=== PATIENT | female | born 1960 | race Caucasian/White ===

== ENCOUNTER 2020-08-24 10:21 | Emergency (ER) | payer OTHER, SELFPAY ==
--- NOTE | ~2020-08-24 | XR_ITS ---
EXAMINATION: XR CHEST CLINICAL INFORMATION: Dyspnea. COMPARISON: 05/27/2016 TECHNIQUE: Frontal view of the chest was obtained. FINDINGS: Lungs are well expanded and clear. No evidence of consolidation, pneumothorax or pleural effusion. Cardiomediastinal silhouette has normal size and contour. The visualized bones are intact. There is mild levocurvature of the thoracic spine. XR/XR chest 1V IMPRESSION: No evidence of pneumonia. No acute cardiopulmonary findings compared to 05/27/2016.
[2020-08-24 10:25] VITALS: BP 118/69; PULSE 88; RESP 24; TEMP 36.6; O2SAT 89; BMI 24.5
--- NOTE | 2020-08-24 10:40 | ED.ASTHMA ---
HPI - Asthma General Chief Complaint: Asthma Stated Complaint: ASTHMA Time Seen by Provider: 08/24/20 10:40 Source: patient Mode of arrival: ambulatory Limitations: no limitations History of Present Illness HPI Narrative: 60 yo female with asthma has old INH reports 5 days of wheezing, cough, trouble breathing - viral like illness, came to ED 89% on RA complaint: asthma attack , shortness of breath and wheezing Onset (ago): day(s) (5) Severity: moderate Context: recent URI and ran out of meds Associated symptoms: productive cough Asthma History: childhood onset Treatments Prior to Arrival: inhaled bronchodilator Related Data Home Medications Medication Instructions Recorded Confirmed methadone 10 mg/5 mL oral solution 65 mg PO DAILY ml 07/17/20 07/17/20 Previous Rx's Medication Instructions Recorded albuterol sulfate 90 mcg/actuation 2 puff PO Q6H PRN 30 Days #18 g 07/17/20 aerosol inhaler budesonide-formoterol HFA 80 2 puff INHALATION Q12H 30 Days 07/24/20 mcg-4.5 mcg/actuation aerosol #10.2 g inhaler doxycycline hyclate 100 mg PO BID 7 Days #14 cap 08/24/20 prednisone 60 mg PO DAILY 5 Days #15 tab 08/24/20 Allergies Allergy/AdvReac Type Severity Reaction Status Date / Time Penicillins Allergy Unknown RASH Verified 07/17/20 09:14 Review of Systems Review of Systems: Constitutional : No Fever, pos Chills, pos myalgias ENT/Mouth : No Hoarseness, No sore throat, No Rhinorrhea Eyes: No Redness, No Discharge, No Vision Changes Cardiovascular : No Chest Pain, positive SOB, positive Dyspnea on Exertion, No Edema Respiratory : positive Cough, pos Sputum, positive Wheezing, Gastrointestinal : No Nausea, No Vomiting, No Diarrhea, No abdominal Pain Genitourinary : No Dysuria, No Hematuria Musculoskeletal : No joint pain, pos Myalgias Skin : No rash Neuro : No Weakness, No Numbness, No Headache Psych : No anxiety, depression Heme/Lymph: No Bruising, No Bleeding Endocrine : No Polyuria, No Polydipsia All other systems reviewed and are negative PMFSH Past Medical History Attestation statement: The following information was validated with the patient. Medical History Dyslipidemia History of heroin use Methadone use Moderate asthma Surgical History History of section History of esophagogastroduodenoscopy (EGD) History of mammogram Hx of colonoscopy Family History Family History Father No problems noted. Mother Breast cancer Sister Breast cancer, Onset Age: 47 Brother Cancer Maternal Uncle Cancer Social History Social History Alcohol intake: never Smoking Status: Current every day smoker Tobacco Type: Cigarette Cigarettes Per Day: 10 Advance Directives: No Advance Directives Information Provided: No Physical Exam Vital Signs: Vital Signs: Last Vital Signs Temp 98 F 08/24/20 10:25 Pulse 78 08/24/20 12:16 Resp 24 H 08/24/20 10:25 BP 118/69 08/24/20 10:25 Pulse Ox 89 L 08/24/20 10:25 Body Mass Index 24.5 Appearance: Alert. Oriented X3. Mild acute distress. Eyes: Pupils equal, round and reactive to light. ENT: Pharynx normal. Neck: Normal inspection. Neck supple. CVS: Normal heart rate and rhythm. Pulses normal. Respiratory: Mild respiratory distress - retractions, tachypnea. Breath sounds diffuse insp and exp wheezes, very coarse wet cough Abdomen: Soft and nontender. Skin: Skin warm and dry. Normal skin color. Normal skin turgor. Extremities: No lower extremity edema. No calf ttp Neuro: Oriented X 3. No motor deficit. No sensory deficit. Course Course Course Narrative: repeat 5mg neb ordered still coarse 92% on RA, RR 22 I offered admission but the patient refuses she is alert and oriented, answering questions appropriately MDM - Asthma MDM Narrative Medical decision making narrative: 60 yo female with body aches, cough, asthma exacerbation used old INH symptoms x 5 days at this time came in RA sat 89% not on home O2 - will need labs, cultures, COVID swab, CXR, hour long 10mg neb, IV steroids, IV magnesium dispo per results and findings. Lab Data Result diagrams: 08/24/20 11:03 08/24/20 11:03 Labs: Lab Results 08/24/20 08/24/20 08/24/20 Range/Units 11:03 11:03 11:03 WBC 7.2 (4.8-10.8) X10*3/uL RBC 5.08 (4.20-5.50) X10*6/uL Hgb 15.8 (12.0-16.0) g/dl Hct 47.5 H (37-47) % MCV 93.5 (80-98) fL MCH 31.1 (27.0-33.0) pg MCHC 33.3 (31.0-35.0) g/dl RDW 13.7 (11.0-16.0) % Plt Count 354 (160-400) X10*3/uL MPV 8.8 L (9.4-12.3) fL Immature Gran % (Auto) 0.1 (0.0-0.4) % Neut % (Auto) 58.7 (45-73) % Lymph % (Auto) 33.1 (20-40) % [place] % (Auto) 5.3 (2-11) % Eos % (Auto) 2.1 (0-4) % Baso % (Auto) 0.7 (0-2) % Lymph # (Auto) 2.4 (1.2-4.9) X10*3/uL [place] # (Auto) 0.4 (0.1-1.2) X10*3/uL Eos # (Auto) 0.2 (0.0-0.4) X10*3/uL Baso # (Auto) 0.1 (0.0-0.2) X10*3/uL Abs Immat Gran (auto) 0.01 (0.00-0.03) X10*3/uL Absolute Neuts (auto) 4.2 (2.0-8.3) X10*3/uL Absolute Nucleated RBC 0.000 (0.0-0.012) X10*3/uL Nucleated RBC % (auto) 0.0 (0.0-0.2) /100WBC Hold Blue Top SEE NOTE Sodium 139 (135-145) mmol/L Potassium 4.5 (3.3-5.1) mmol/L Chloride 101 (96-108) mmol/L Carbon Dioxide 30 H (22-29) mmol/L Anion Gap 13 (12-20) BUN 12 (9-16) mg/dL Creatinine 0.77 (0.5-1.4) mg/dL Estim Creat Clear Calc 62.1 Estimated GFR > 60 Random Glucose 126 H (60-115) mg/dL Lactic Acid (0.5-2.0) mmol/L Calcium 9.1 (8.4-10.2) mg/dL Magnesium 2.0 (1.6-2.6) mg/dL Total Bilirubin 0.6 (0.0-1.0) mg/dL Direct Bilirubin 0.2 (0.0-0.5) mg/dL AST 19 (5-31) U/L ALT 19 (0-31) U/L Alkaline Phosphatase 74 (39-117) U/L Total Protein 7.0 (6.5-8.0) g/dL Albumin 4.2 (3.5-5.0) g/dL Coronavirus (PCR) (Negative) Influenza Type A (PCR) (Negative) Influenza Type B (PCR) (Negative) RSV RNA Qual (PCR) (Negative) 08/24/20 08/24/20 Range/Units 11:03 11:03 WBC (4.8-10.8) X10*3/uL RBC (4.20-5.50) X10*6/uL Hgb (12.0-16.0) g/dl Hct (37-47) % MCV (80-98) fL MCH (27.0-33.0) pg MCHC (31.0-35.0) g/dl RDW (11.0-16.0) % Plt Count (160-400) X10*3/uL MPV (9.4-12.3) fL Immature Gran % (Auto) (0.0-0.4) % Neut % (Auto) (45-73) % Lymph % (Auto) (20-40) % [place] % (Auto) (2-11) % Eos % (Auto) (0-4) % Baso % (Auto) (0-2) % Lymph # (Auto) (1.2-4.9) X10*3/uL [place] # (Auto) (0.1-1.2) X10*3/uL Eos # (Auto) (0.0-0.4) X10*3/uL Baso # (Auto) (0.0-0.2) X10*3/uL Abs Immat Gran (auto) (0.00-0.03) X10*3/uL Absolute Neuts (auto) (2.0-8.3) X10*3/uL Absolute Nucleated RBC (0.0-0.012) X10*3/uL Nucleated RBC % (auto) (0.0-0.2) /100WBC Hold Blue Top Sodium (135-145) mmol/L Potassium (3.3-5.1) mmol/L Chloride (96-108) mmol/L Carbon Dioxide (22-29) mmol/L Anion Gap (12-20) BUN (9-16) mg/dL Creatinine (0.5-1.4) mg/dL Estim Creat Clear Calc Estimated GFR Random Glucose (60-115) mg/dL Lactic Acid 1.2 (0.5-2.0) mmol/L Calcium (8.4-10.2) mg/dL Magnesium (1.6-2.6) mg/dL Total Bilirubin (0.0-1.0) mg/dL Direct Bilirubin (0.0-0.5) mg/dL AST (5-31) U/L ALT (0-31) U/L Alkaline Phosphatase (39-117) U/L Total Protein (6.5-8.0) g/dL Albumin (3.5-5.0) g/dL Coronavirus (PCR) NEGATIVE (Negative) Influenza Type A (PCR) NEGATIVE (Negative) Influenza Type B (PCR) NEGATIVE (Negative) RSV RNA Qual (PCR) NEGATIVE (Negative) ECG Data Attestation: I personally reviewed and interpreted this ECG as follows: ECG interpretation date: 08/24/20 ECG interpretation time: 12:45 Interpretation: Rate: 82 Rhythm: NSR [place]: normal Normal P waves. Normal JEN. Normal QRS complex. ST T wave : nonspecific, no GROVER qTC: normal prior studies: no acute ischemia The study has been interpreted contemporaneously by me. . Critical Care Time Critical Care Time Critical Care Time: Yes Total Critical Care Time: 35 Attestation: I attest to this time spent taking care of the patient Discharge Plan Discharge Clinical Impression: Bronchitis Asthma with acute exacerbation Qualifiers: Asthma severity: mild Asthma persistence: persistent Qualified Code(s): J45.31 - Mild persistent asthma with (acute) exacerbation Patient Disposition: Home, Self-Care Instructions: Asthma (ED), Acute Bronchitis (ED) Additional Instructions: return to ED for any worsening symptoms or concerns YOU WERE OFFERED ADMISSION - IF YOU CHANGE YOUR MIND AT ANY TIME PLEASE COME BACK 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: New doxycycline hyclate 100 mg capsule 100 mg PO BID 7 Days Qty: 14 RF: 0 prednisone 20 mg tablet 60 mg PO DAILY 5 Days Qty: 15 RF: 0 No Action budesonide-formoterol [Symbicort] 80-4.5 mcg/actuation HFA aerosol inhaler 2 puff inhalation Q12H 30 Days Qty: 10.2 RF: 6 methadone 10 mg/5 mL solution 65 mg PO DAILY RF: 0 albuterol sulfate 90 mcg/actuation HFA aerosol inhaler 2 puff PO Q6H PRN (Reason: bronchospasm) 30 Days Qty: 18 RF: 6 Referrals: Sarah Jerry MD [Primary Care Provider] - 2 days (if not better) Print Language: Icelandic
--- NOTE | 2020-08-24 10:43 | ECG_ITS ---
Test Reason : SOB Blood Pressure : / mmHG Vent. Rate : 082 BPM Atrial Rate : 082 BPM P-R Int : 138 ms QRS Dur : 076 ms QT Int : 320 ms P-R-T Axes : 070 022 035 degrees QTc Int : 373 ms Normal sinus rhythm Nonspecific T wave abnormality Abnormal ECG When compared with ECG of 27-MAY-2016 10:15, Nonspecific T wave abnormality now evident in Anterolateral leads Referred By: Lindy Daniel Electronically Signed By:Jaime Pulido
[2020-08-24] MEDS: Albuterol Sulfate (0.083%) 2.5 MG/3 ML VIAL.NEB 10 MG INHALE (10:58)
[2020-08-24 11:12] LABS: MANUAL DIFF FLAG NO
[2020-08-24] MEDS: Magnesium Sulfate/H2O 2 GM/50 ML PIGGYBACK IV (11:14)
[2020-08-24] MEDS: methylPREDNISolone Sod Succ/PF 125 MG/2 ML VIAL IVPUSH (11:14)
[2020-08-24 11:15] LABS: Basophils Absolute Auto 0.1 X10*3/uL (0.0-0.2); Basophils Percent Auto 0.7 % (0-2); Eosinophils Absolute Auto 0.2 X10*3/uL (0.0-0.4); Eosinophils Percent Auto 2.1 % (0-4); Hematocrit 47.5 % (37-47); Hemoglobin 15.8 g/dl (12.0-16.0); Imm Gran Abs Auto 0.01 X10*3/uL (0.00-0.03); Imm Gran Pct Auto 0.1 % (0.0-0.4); Lymphocytes Absolute Auto 2.4 X10*3/uL (1.2-4.9); Lymphocytes Percent Auto 33.1 % (20-40); Mean Corpuscular HGB Conc 33.3 g/dl (31.0-35.0); Mean Corpuscular Hemoglobin 31.1 pg (27.0-33.0); Mean Corpuscular Volume 93.5 fL (80-98); Mean Platelet Volume 8.8 fL (9.4-12.3); Monocytes Absolute Auto 0.4 X10*3/uL (0.1-1.2); Monocytes Percent Auto 5.3 % (2-11); Neutrophils Absolute Auto 4.2 X10*3/uL (2.0-8.3); Neutrophils Percent Auto 58.7 % (45-73); Platelet Count 354 X10*3/uL (160-400); Red Blood Count 5.08 X10*6/uL (4.20-5.50); Red Cell Distribution Width 13.7 % (11.0-16.0); White Blood Count 7.2 X10*3/uL (4.8-10.8)
[2020-08-24 11:31] LABS: Lactic Acid 1.2 mmol/L (0.5-2.0)
[2020-08-24 11:37] LABS: Alanine Aminotransferase 19 U/L (0-31); Albumin Level 4.2 g/dL (3.5-5.0); Alkaline Phosphatase 74 U/L (39-117); Anion Gap 13 (12-20); Aspartate Amino Transferase 19 U/L (5-31); Bilirubin Direct 0.2 mg/dL (0.0-0.5); Bilirubin Total 0.6 mg/dL (0.0-1.0); Blood Urea Nitrogen 12 mg/dL (9-16); Calcium 9.1 mg/dL (8.4-10.2); Carbon Dioxide 30 mmol/L (22-29); Chloride 101 mmol/L (96-108); Creatinine Clr Calc Pharmacy 62.1; Estimated Glomerular Filt Rate > 60; Glucose Random 126 mg/dL (60-115); Potassium 4.5 mmol/L (3.3-5.1); Sodium 139 mmol/L (135-145)
[2020-08-24 12:06] VITALS: PULSE 76; O2SAT 93
[2020-08-24 12:16] VITALS: PULSE 78; O2SAT 92
[2020-08-24] MEDS: Albuterol Sulfate (0.083%) 2.5 MG/3 ML VIAL.NEB 5 MG INHALE (12:16)
[2020-08-24 12:49] LABS: Influenza A PCR NEGATIVE (Negative); Influenza B PCR NEGATIVE (Negative); Resp Syncy Virus RNA Qual PCR NEGATIVE (Negative); SARS COV2 PCR INHOUSE NEGATIVE (Negative)
[2020-08-24] MEDS: Albuterol Sulfate 90 MCG 8 GM INHALER 2 PUFF INHALE (13:47)
[2020-08-24 13:52] VITALS: PULSE 78; O2SAT 92
== END 2020-08-24 15:02 | disposition home or self-care (01) ==
PROVIDERS: Emergency Provider Emergency Medicine; PCP Internal Medicine
DX: J45.31 Mild persistent asthma with (acute) exacerbation (principal); J20.9 Acute bronchitis, unspecified; Z20.822 Contact with and (suspected) exposure to COVID-19; F17.210 Nicotine dependence, cigarettes, uncomplicated; Z71.6 Tobacco abuse counseling; Z79.899 Other long term (current) drug therapy
CPT/HCPCS: 0241U; 36415; 71045; 80048; 80076; 83605; 83735; 85025; 87040; 93005; 94640; 94644; 96365; 96375; 99284; 99291; J2930; J3475

== ENCOUNTER 2021-03-17 07:06 | Outpatient (REF) | payer OTHER, SELFPAY ==
[2021-03-17 08:21] LABS: Alanine Aminotransferase 22 U/L (0-31); Albumin Level 4.2 g/dL (3.5-5.0); Alkaline Phosphatase 75 U/L (39-117); Anion Gap 12 (12-20); Aspartate Amino Transferase 17 U/L (5-31); Bilirubin Total 0.4 mg/dL (0.0-1.0); Blood Urea Nitrogen 14 mg/dL (9-16); Calcium 9.7 mg/dL (8.4-10.2); Carbon Dioxide 30 mmol/L (22-29); Chloride 105 mmol/L (96-108); Cholesterol 252 mg/dL; Estimated Glomerular Filt Rate > 60; Glucose Fasting 84 mg/dL (60-99); HDL Cholesterol 47 mg/dL; LDL Cholesterol Calculated 153 mg/dl; Potassium 4.6 mmol/L (3.3-5.1); Sodium 142 mmol/L (135-145); Total Protein 6.9 g/dL (6.5-8.0); Triglycerides 264 mg/dL
== END 2021-03-17 07:07 | disposition home or self-care (01) ==
LOC: HO.LAB 07:06
PROVIDERS: PCP Internal Medicine; Visit Provider Internal Medicine
DX: E78.5 Hyperlipidemia, unspecified (principal); J45.909 Unspecified asthma, uncomplicated
CPT/HCPCS: 36415; 80053; 80061

== ENCOUNTER 2021-04-20 08:50 | Outpatient (REF) | payer OTHER, SELFPAY ==
--- NOTE | ~2021-04-20 | FL_ITS ---
EXAMINATION: FL BARIUM SWALLOW CLINICAL INFORMATION: Dysphagia. COMPARISON: None TECHNIQUE: Barium swallow examination is performed using fluoroscopic evaluation in addition to multiple fluoroscopic spot views. The patient is imaged both upright and prone and using both thick and thin sulfate along with effervescent granules. Fluoroscopy time: 1.5 minutes DAP: 4.719 Gycm2 Images: 46 FINDINGS: There is normal propagation of bolus from the oral cavity through the pharynx, esophagus into stomach with diminished peristalsis. There is extensive tertiary peristalsis suggestive of presbyesophagus. No obstructing or constricting lesion seen. The GE junction is patent but inconsistent in opening. No laryngeal penetration or aspiration seen. There is no extrinsic mass effect or compression. FL/FL barium swallow IMPRESSION: Presbyesophagus mainly the mid and the distal segments with barium stasis. Patent GE junction but inconsistent opening. No intraluminal mass or obstruction. No extrinsic compression.
== END 2021-04-20 08:51 | disposition home or self-care (01) ==
LOC: HO.XRAY 08:50
PROVIDERS: Visit Provider Internal Medicine
DX: R13.10 Dysphagia, unspecified (principal)
CPT/HCPCS: 74220

== ENCOUNTER → 2021-05-07 13:28 | Outpatient (BNVA) | payer OTHER, SELFPAY | PROVIDERS: PCP Internal Medicine; Referring Provider Internal Medicine; Visit Provider Nurse Practitioner | DX: R10.10 Upper abdominal pain, unspecified (principal); K22.4 Dyskinesia of esophagus; R13.10 Dysphagia, unspecified; Z79.899 Other long term (current) drug therapy | CPT/HCPCS: 99212 ==

== ENCOUNTER 2021-06-02 08:10 | Outpatient (REF) | payer OTHER, SELFPAY ==
--- NOTE | ~2021-06-02 | US_ITS ---
EXAMINATION: US ABDOMEN COMPLETE CLINICAL INFORMATION: Upper abdominal pain, unspecified. COMPARISON: CT abdomen and pelvis 05/10/2019. Ultrasound abdomen 03/23/2016. TECHNIQUE: Real-time imaging of the abdominal viscera. FINDINGS: PANCREAS: The head, the body and the tail of pancreas is homogeneous in echotexture. ABDOMINAL AORTA: The proximal, mid, and distal segments are normal in caliber. INFERIOR VENA CAVA: Visualized portions are normal. LIVER: Normal. The liver is normal in size. The liver contour is normal. Parenchymal echogenicity is normal. No focal hepatic lesion. There is no intrahepatic biliary duct dilatation seen. GALLBLADDER: The gallbladder is physiologically distended without evidence of stones, polyps, wall thickening or pericholecystic fluid. The gallbladder wall thickness is 0.2 cm COMMON BILE DUCT: Normal in caliber measuring 0.6 cm in diameter. RIGHT KIDNEY: No hydronephrosis. No renal calculi or focal parenchymal lesions. The kidney measures 10.6 cm in maximum dimension. There is exophytic anechoic simple cyst in the upper/mid pole measuring 1.4 x 1.2 x 1.5 cm. LEFT KIDNEY: Normal. No hydronephrosis. No renal calculi or focal parenchymal lesions. The kidney measures 10.7 cm in maximum dimension. SPLEEN: Normal. The spleen measures 8.3 cm in maximum dimension. FREE FLUID: None. US/US abdomen complete IMPRESSION: Simple anechoic exophytic cyst upper/mid pole right kidney measuring 1.5 cm. The rest of the abdominal ultrasound is unremarkable.
== END 2021-06-02 08:11 | disposition home or self-care (01) ==
LOC: HO.US 08:10
PROVIDERS: PCP Internal Medicine; Visit Provider Nurse Practitioner
DX: R10.10 Upper abdominal pain, unspecified (principal)
CPT/HCPCS: 76700

== ENCOUNTER → 2021-10-13 13:36 | Outpatient (BNVA) | payer OTHER, SELFPAY | PROVIDERS: PCP Internal Medicine; Referring Provider Internal Medicine; Visit Provider Nurse Practitioner | DX: K22.4 Dyskinesia of esophagus (principal); K21.9 Gastro-esophageal reflux disease without esophagitis; R10.10 Upper abdominal pain, unspecified | CPT/HCPCS: 99212 ==

== ENCOUNTER → 2021-10-27 08:33 | Outpatient (BNVA) | payer OTHER, SELFPAY | PROVIDERS: PCP Internal Medicine; Referring Provider Internal Medicine; Visit Provider Surgery | DX: L98.9 Disorder of the skin and subcutaneous tissue, unspecified (principal) | CPT/HCPCS: 99202 ==

== ENCOUNTER 2021-11-13 08:36 | Outpatient (REF) | payer OTHER, SELFPAY | END 2021-11-13 08:37 | disposition home or self-care (01) | LOC: HO.LAB 08:36 | PROVIDERS: PCP Internal Medicine; Referring Provider Internal Medicine; Visit Provider Surgery | DX: L98.9 Disorder of the skin and subcutaneous tissue, unspecified (principal) | CPT/HCPCS: 11421; 88305 ==

== ENCOUNTER → 2021-11-24 11:39 | Outpatient (BNVA) | payer OTHER, SELFPAY | PROVIDERS: PCP Internal Medicine; Referring Provider Internal Medicine; Visit Provider Surgery | DX: Z48.817 Encounter for surgical aftercare following surgery on the skin and subcutaneous tissue (principal); K21.9 Gastro-esophageal reflux disease without esophagitis; K58.9 Irritable bowel syndrome, unspecified; Z87.2 Personal history of diseases of the skin and subcutaneous tissue | CPT/HCPCS: 99212 ==

== ENCOUNTER → 2022-03-24 09:52 | Outpatient (BNVA) | payer OTHER, SELFPAY | PROVIDERS: PCP Internal Medicine; Referring Provider Internal Medicine; Visit Provider Nurse Practitioner | DX: K21.9 Gastro-esophageal reflux disease without esophagitis (principal); K22.4 Dyskinesia of esophagus; R13.10 Dysphagia, unspecified | CPT/HCPCS: 99212 ==

== ENCOUNTER → 2022-06-02 15:42 | Outpatient (BNVA) | payer OTHER, SELFPAY | PROVIDERS: PCP Internal Medicine; Visit Provider Nurse Practitioner | DX: Z01.818 Encounter for other preprocedural examination (principal); R13.10 Dysphagia, unspecified; K22.4 Dyskinesia of esophagus; K21.9 Gastro-esophageal reflux disease without esophagitis; K58.9 Irritable bowel syndrome, unspecified; R41.3 Other amnesia | CPT/HCPCS: 99212 ==

== ENCOUNTER 2022-09-11 08:32 | Emergency (ER) | payer OTHER, SELFPAY ==
--- NOTE | ~2022-09-11 | XR_ITS ---
EXAMINATION: XR CHEST CLINICAL INFORMATION: Shortness of breath, hypoxia COMPARISON: August 24, 2020 TECHNIQUE: AP portable view of the chest was obtained. FINDINGS: There appears be some mild left basilar atelectasis. No significant acute parenchymal disease identified. No pneumothorax or pleural effusion. Heart normal size. No evidence of pulmonary edema XR/XR chest 1V IMPRESSION: No significant abnormality appreciated.
[2022-09-11 08:39] VITALS: BP 156/84; PULSE 92; RESP 22; TEMP 36.6; O2SAT 90; BMI 23.4
--- NOTE | 2022-09-11 08:43 | ECG_ITS ---
Test Reason : DYSPNEA Blood Pressure : / mmHG Vent. Rate : 082 BPM Atrial Rate : 082 BPM P-R Int : 126 ms QRS Dur : 078 ms QT Int : 366 ms P-R-T Axes : 051 020 031 degrees QTc Int : 427 ms Normal sinus rhythm Normal ECG When compared with ECG of 24-AUG-2020 12:43, Nonspecific T wave abnormality no longer evident in Anterolateral leads QT has lengthened Referred By: Generic ED Physician Electronically Signed By:WILFREDO BURGESS
[2022-09-11 08:56] LABS: MANUAL DIFF FLAG NO
[2022-09-11 09:00] LABS: Basophils Absolute Auto 0.1 X10*3/uL (0.0-0.2); Basophils Percent Auto 0.5 % (0-2); Eosinophils Absolute Auto 0.2 X10*3/uL (0.0-0.4); Eosinophils Percent Auto 1.5 % (0-4); Hematocrit 49.4 % (37.0-47.0); Hemoglobin 16.6 g/dl (12.0-16.0); Imm Gran Abs Auto 0.05 X10*3/uL (0.00-0.03); Imm Gran Pct Auto 0.4 % (0.0-0.4); Lymphocytes Absolute Auto 2.5 X10*3/uL (1.2-4.9); Mean Corpuscular HGB Conc 33.6 g/dl (31.0-35.0); Mean Corpuscular Hemoglobin 31.1 pg (27.0-33.0); Mean Corpuscular Volume 92.7 fL (80.0-98.0); Mean Platelet Volume 8.9 fL (9.4-12.3); Monocytes Absolute Auto 0.5 X10*3/uL (0.1-1.2); Monocytes Percent Auto 4.6 % (2-11); Platelet Count 343 X10*3/uL (160-400); Red Blood Count 5.33 X10*6/uL (4.20-5.50); White Blood Count 11.3 X10*3/uL (4.8-10.8)
[2022-09-11] MEDS: methylPREDNISolone Sod Succ 125 MG/2 ML VIAL IVPUSH (09:01)
[2022-09-11 09:02] VITALS: PULSE 75; RESP 18; O2SAT 90
[2022-09-11] MEDS: Albuterol Sulfate (0.083%) 2.5 MG/3 ML VIAL.NEB 10 MG INHALE (09:02)
[2022-09-11 09:09] LABS: COVID-19 Test Negative (Negative); IDNOW Serial# 16C4AD1C
--- NOTE | 2022-09-11 09:10 | ED_ITS ---
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 She states it got acutely worse today. She has been using her home inhalers with little relief. She states she has been wheezing and coughing. She has a hard time bringing up the phlegm, when she does it is white. she reports chest and back discomfort with her coughing. She denies any fever or chills but has had a runny nose and some nasal congestion lately. No known sick contacts, she lives alone. She continues to smoke however has not been able to smoke the last couple of days because she has not been feeling well. MD elicited complaint: shortness of breath and cough Pertinent past history: COPD and asthma Onset (ago): week(s) (2) Context: recent illness Timing: progressively worsening Severity: severe Exacerbating factors: lying flat, exertion and coughing Relieving factors: rest and bronchodilators Known history of: COPD and asthma Associated symptoms: chest pain, fever, cough, wheezing, sputum production and chest congestion Treatment prior to arrival: bronchodilator Related Data Home oxygen amount: none Home Medications Medication Instructions Recorded Confirmed methadone 10 mg/5 mL oral solution 65 mg PO DAILY 07/17/20 11/13/21 atorvastatin 20 mg tablet 20 mg PO BEDTIME 11/24/21 multivitamin with folic acid 400 1 tab PO DAILY 11/24/21 mcg tablet (Daily-Radha (with folic acid)) Previous Rx's Medication Instructions Recorded albuterol sulfate 90 mcg/actuation 2 puff PO Q6H PRN bronchospasm 30 07/17/20 aerosol inhaler days #18 grams budesonide-formoterol HFA 80 2 puff inhalation Q12H 30 days 07/24/20 mcg-4.5 mcg/actuation aerosol #10.2 grams inhaler (Symbicort) metoclopramide HCl 5 mg tablet 5 mg PO .tidac #90 tabs 03/24/22 (Reglan) dexlansoprazole 60 mg 60 mg PO DAILY 30 days #30 caps 06/02/22 capsule,biphase delayed release (Dexilant) doxycycline monohydrate 100 mg 100 mg PO BID #14 caps 09/11/22 capsule guaifenesin 1,200 mg tablet, 1,200 mg PO BID #10 tabs 09/11/22 extended release 12 hr (Mucinex) ipratropium 0.5 mg-albuterol 3 mg 3 ml inhalation Q4H #90 mL 09/11/22 (2.5 mg base)/3 mL nebulization soln prednisone 10 mg tablets in a dose See Taper PO DAILY #48 ea 09/11/22 pack Allergies Allergy/AdvReac Type Severity Reaction Status Date / Time Penicillins Allergy Intermediate RASH Verified 09/11/22 08:42 Review of Systems Review of Systems: Yes all other systems are reviewed and are negative [facility] Past Medical History Medical History Daytime somnolence Duodenal ulcer Dyslipidemia Dysphagia H. pylori infection History of heroin use Memory loss Methadone use Mixed hyperlipidemia Moderate asthma Skin lesion Surgical History History of section History of esophagogastroduodenoscopy (EGD) History of mammogram Hx of colonoscopy Hx of tonsillectomy Family History Family History Father No problems noted. Mother Breast cancer Sister Breast cancer, Onset Age: 47 Brother Cancer Maternal Uncle Cancer Social History Social History Housing: Apartment Alcohol intake: current Alcohol intake frequency: holidays/special occasions only Patient Tobacco Use Status: Current everyday Tobacco user Tobacco use type: Cigarette Cigarettes Per Day: 10 Smoked in Last 30 Days: Yes e-Cigarette/Vaping Use: Never Used Second Hand Smoke Exposure: No Use of substances other than those prescribed or required for medical reasons: No Advance Directives: No Advance Directives Information Provided: Yes Patient : No service: No Current occupational status: unemployed Physical Exam Vital Signs: Vital Signs: Last Vital Signs Temp 98.1 F 09/11/22 12:00 Pulse 98 09/11/22 12:59 Resp 18 09/11/22 12:59 BP 134/66 09/11/22 12:00 Pulse Ox 91 L 09/11/22 12:00 O2 Del Method 09/11/22 12:00 O2 Flow Rate 2 09/11/22 11:32 BMI result Body Mass Index 23.4 Appearance: Alert. Oriented X3. No acute distress. Eyes: Pupils equal, round and reactive to light. ENT: Pharynx normal. Neck: Normal inspection. Neck supple. No JVD CVS: Normal heart rate and rhythm. Pulses normal. Respiratory: Mild respiratory distress, RR mid 20s, audible wheezing at the bedside. Breath sounds with diffuse insp/exp wheezing throughout Abdomen: Soft and nontender. +BS x4 Skin: Skin warm and dry. Normal skin color. Normal skin turgor. No rashes. Extremities: No lower extremity edema. Neuro: Oriented X 3. No motor deficit. No sensory deficit. Course Reevaluation(s) Reevaluation #1: After 1st albuterol treatment 10 mg patient is feeling much better. She continues to be wheezy although work of breathing has improved. Additional DuoNeb has been ordered. Reevaluation #2: SpO2 90-92% after albuterol treatment. Remains wheezy and congested. Spoke with patient about admission and she became very tearful speaking about how she is worried about who will care for her dog. Patient refusing to stay in the hospital. She states she has a nebulizer from her [id number] and wants to try using that at home. She understands the recommendation is to stay in the hospital for COPD exacerbation, and the risks of going home against recommendation - including worsening resp distress, possible resp failure or . She states she will monitor her symptoms closely at home and come back right away if symptoms were to worsen. Medications Administered Discontinued Medications Generic Name Dose Route Start Last Admin Trade Name Freq PRN Reason Stop Dose Admin Albuterol Sulfate 10 mg 09/11/22 08:49 09/11/22 09:02 Albuterol Sulfate (0.083%) 2.5 Mg/3 Ml Vial.Neb INHALE 09/11/22 08:50 10 mg ONCE ONE Administration Albuterol Sulfate 5 mg/ 0 mg 09/11/22 10:40 09/11/22 11:04 Ipratropium Brewster 0.5 mg INHALE 09/11/22 10:41 1 each ONCE ONE Administration Albuterol Sulfate 5 mg/ 0 mg 09/11/22 12:50 09/11/22 12:56 Ipratropium [place]ster 0.5 mg INHALE 09/11/22 12:51 1 each ONCE ONE Administration Guaifenesin 1,200 mg 09/11/22 12:01 09/11/22 12:20 Guaifenesin La 600 Mg Tab.Er.12h PO 09/11/22 12:02 1,200 mg ONCE ONE Administration Doxycycline Hyclate 100 mg/ 250 mls @ 166.67 mls/hr 09/11/22 12:01 09/11/22 12:21 Sodium Chloride IV 09/11/22 13:30 166.67 mls/hr ONCE ONE Administration Methylprednisolone Sodium Succinate 125 mg 09/11/22 08:49 09/11/22 09:01 Methylprednisolone Sod Succ 125 Mg/2 Ml Vial IVPUSH 09/11/22 08:50 125 mg ONCE ONE Administration Medical Decision Making Medical Decision Making [facility] Narrative: 62-year-old female with history of COPD, active smoker, esophageal dysmotility, HLD, GERD who presents to the ER for evaluation of shortness of breath and cough for the last 2 weeks. SpO2 90% on arrival with diffuse inspiratory and expiratory wheezes throughout. Clinical presentation is consistent with COPD exacerbation. Chest x-ray does not show any evidence of pneumonia. Her COVID test is negative. She was given multiple rounds of bronchodilators in the emergency department with symptomatic relief. She does still have coarse breath sounds and some expiratory wheezing. Admission was recommended however patient refused. Risks and benefits discussed. She states she will come back to the ER if her symptoms were to worsen. Plan to discharge with prednisone taper, doxycycline, mucolytics, DuoNebs q.4. Close follow-up recommended. Differential Diagnosis Differential Diagnoses: The differential diagnosis associated with the prese ntation includes COPD exacerbation, asthma exacerbation, pneumonia, bronchitis, viral syndrome, bronchiectasis, pneumonitis, less likely ACS or PE Admission/Observation Consideration of admission/observation: Escalation of care including admission/observation considered Lab Data [facility] Lab Attestation statement: I reviewed the patient's lab results. H&H showing polycythemia, most likely due to chronic COPD and mild hypoxia, mild leukocytosis 11.3, no other major metabolic derangements. 09/11/22 08:52 09/11/22 08:52 Labs: Lab Results 09/11/22 09/11/22 09/11/22 Range/Units 08:52 08:52 08:52 WBC 11.3 H (4.8-10.8) X10*3/uL RBC 5.33 (4.20-5.50) X10*6/uL Hgb 16.6 H (12.0-16.0) g/dl Hct 49.4 H (37.0-47.0) % MCV 92.7 (80.0-98.0) fL MCH 31.1 (27.0-33.0) pg MCHC 33.6 (31.0-35.0) g/dl RDW 14.0 (11.0-16.0) % Plt Count 343 (160-400) X10*3/uL MPV 8.9 L (9.4-12.3) fL Immature Gran % (Auto) 0.4 (0.0-0.4) % Neut % (Auto) 71.0 (45-73) % Lymph % (Auto) 22.0 (20-40) % Bethel % (Auto) 4.6 (2-11) % Eos % (Auto) 1.5 (0-4) % Baso % (Auto) 0.5 (0-2) % Lymph # (Auto) 2.5 (1.2-4.9) X10*3/uL [place]hel # (Auto) 0.5 (0.1-1.2) X10*3/uL Eos # (Auto) 0.2 (0.0-0.4) X10*3/uL Baso # (Auto) 0.1 (0.0-0.2) X10*3/uL Abs Immat Gran (auto) 0.05 H (0.00-0.03) X10*3/uL Absolute Neuts (auto) 8.0 (2.0-8.3) x10*3/uL Absolute Nucleated RBC 0.000 (0.0-0.012) X10*3/uL Nucleated RBC % (auto) 0.0 (0.0-0.2) /100WBC VBG pH (7.32-7.43) VBG pCO2 mmHg VBG pO2 mmHg VBG HCO3 (22-26) mmol/L VBG O2 Saturation % VBG Base Excess mmol/L Sodium 139 (135-145) mmol/L Potassium 3.8 (3.3-5.1) mmol/L Chloride 102 (96-108) mmol/L Carbon Dioxide 26 (22-29) mmol/L Anion Gap 15 (12-20) BUN 11 (9-16) mg/dL Creatinine 0.82 (0.5-1.4) mg/dL Estim Creat Clear Calc 51.7 Estimated GFR > 60 Random Glucose 187 H (60-115) mg/dL Lactic Acid 1.6 (0.5-2.0) mmol/L Calcium 9.7 (8.4-10.2) mg/dL Magnesium 1.8 (1.6-2.6) mg/dL Total Bilirubin 0.7 (0.0-1.0) mg/dL Direct Bilirubin 0.2 (0.0-0.5) mg/dL AST 19 (5-31) U/L ALT 23 (0-31) U/L Alkaline Phosphatase 74 (39-117) U/L Troponin I High Sens (<3.5-17.0) ng/L B-Natriuretic Peptide (<100) pg/mL Total Protein 6.8 (6.5-8.0) g/dL Albumin 4.3 (3.5-5.0) g/dL Procalcitonin < 0.02 ng/mL COVID-19 (ANDREW) (Negative) COVID-19 Clin Com 09/11/22 09/11/22 09/11/22 Range/Units 08:52 08:52 08:52 WBC (4.8-10.8) X10*3/uL RBC (4.20-5.50) X10*6/uL Hgb (12.0-16.0) g/dl Hct (37.0-47.0) % MCV (80.0-98.0) fL MCH (27.0-33.0) pg MCHC (31.0-35.0) g/dl RDW (11.0-16.0) % Plt Count (160-400) X10*3/uL MPV (9.4-12.3) fL Immature Gran % (Auto) (0.0-0.4) % Neut % (Auto) (45-73) % Lymph % (Auto) (20-40) % Bethel % (Auto) (2-11) % Eos % (Auto) (0-4) % Baso % (Auto) (0-2) % Lymph # (Auto) (1.2-4.9) X10*3/uL Bethel # (Auto) (0.1-1.2) X10*3/uL Eos # (Auto) (0.0-0.4) X10*3/uL Baso # (Auto) (0.0-0.2) X10*3/uL Abs Immat Gran (auto) (0.00-0.03) X10*3/uL Absolute Neuts (auto) (2.0-8.3) x10*3/uL Absolute Nucleated RBC (0.0-0.012) X10*3/uL Nucleated RBC % (auto) (0.0-0.2) /100WBC VBG pH (7.32-7.43) VBG pCO2 mmHg VBG pO2 mmHg VBG HCO3 (22-26) mmol/L VBG O2 Saturation % VBG Base Excess mmol/L Sodium (135-145) mmol/L Potassium (3.3-5.1) mmol/L Chloride (96-108) mmol/L Carbon Dioxide (22-29) mmol/L Anion Gap (12-20) BUN (9-16) mg/dL Creatinine (0.5-1.4) mg/dL Estim Creat Clear Calc Estimated GFR Random Glucose (60-115) mg/dL Lactic Acid (0.5-2.0) mmol/L Calcium (8.4-10.2) mg/dL Magnesium (1.6-2.6) mg/dL Total Bilirubin (0.0-1.0) mg/dL Direct Bilirubin (0.0-0.5) mg/dL AST (5-31) U/L ALT (0-31) U/L Alkaline Phosphatase (39-117) U/L Troponin I High Sens < 3.5 (<3.5-17.0) ng/L B-Natriuretic Peptide 20 (<100) pg/mL Total Protein (6.5-8.0) g/dL Albumin (3.5-5.0) g/dL Procalcitonin ng/mL COVID-19 (ANDREW) Negative (Negative) COVID-19 Clin Com See Note 09/11/22 Range/Units 11:29 WBC (4.8-10.8) X10*3/uL RBC (4.20-5.50) X10*6/uL Hgb (12.0-16.0) g/dl Hct (37.0-47.0) % MCV (80.0-98.0) fL MCH (27.0-33.0) pg MCHC (31.0-35.0) g/dl RDW (11.0-16.0) % Plt Count (160-400) X10*3/uL MPV (9.4-12.3) fL Immature Gran % (Auto) (0.0-0.4) % Neut % (Auto) (45-73) % Lymph % (Auto) (20-40) % Bethel % (Auto) (2-11) % Eos % (Auto) (0-4) % Baso % (Auto) (0-2) % Lymph # (Auto) (1.2-4.9) X10*3/uL Bethel # (Auto) (0.1-1.2) X10*3/uL Eos # (Auto) (0.0-0.4) X10*3/uL Baso # (Auto) (0.0-0.2) X10*3/uL Abs Immat Gran (auto) (0.00-0.03) X10*3/uL Absolute Neuts (auto) (2.0-8.3) x10*3/uL Absolute Nucleated RBC (0.0-0.012) X10*3/uL Nucleated RBC % (auto) (0.0-0.2) /100WBC VBG pH 7.37 (7.32-7.43) VBG pCO2 40 mmHg VBG pO2 78 mmHg VBG HCO3 24 (22-26) mmol/L VBG O2 Saturation 96.0 % VBG Base Excess -1.0 mmol/L Sodium (135-145) mmol/L Potassium (3.3-5.1) mmol/L Chloride (96-108) mmol/L Carbon Dioxide (22-29) mmol/L Anion Gap (12-20) BUN (9-16) mg/dL Creatinine (0.5-1.4) mg/dL Estim Creat Clear Calc Estimated GFR Random Glucose (60-115) mg/dL Lactic Acid (0.5-2.0) mmol/L Calcium (8.4-10.2) mg/dL Magnesium (1.6-2.6) mg/dL Total Bilirubin (0.0-1.0) mg/dL Direct Bilirubin (0.0-0.5) mg/dL AST (5-31) U/L ALT (0-31) U/L Alkaline Phosphatase (39-117) U/L Troponin I High Sens (<3.5-17.0) ng/L B-Natriuretic Peptide (<100) pg/mL Total Protein (6.5-8.0) g/dL Albumin (3.5-5.0) g/dL Procalcitonin ng/mL COVID-19 (ANDREW) (Negative) COVID-19 Clin Com Independent Interpretation I performed an independent interpretation of an: EKG and Plain X-Ray Interpretation: EKG with normal sinus rhythm, ventricular rate 82 beats per minute, normal AL interval, normal QRS, no ST segment elevations or depressions. Chest x-ray with no focal infiltrate, mild haziness of left costophrenic angle Radiology Impression Discussion of test interpretation with radiology: I have reviewed the radiolog ist's reading. Radiologist Impression: CLINICAL INFORMATION: Shortness of breath, hypoxia COMPARISON: August 24, 2020 TECHNIQUE: AP portable view of the chest was obtained. FINDINGS: There appears be some mild left basilar atelectasis. No significant acute par enchymal disease identified. No pneumothorax or pleural effusion. Heart normal size. No evidence of pulmonary edema XR/XR chest 1V IMPRESSION: No significant abnormality appreciated. Independent Historian Clinical information obtained from an independent historian. History obtained from or confirmed by: Friend External Record Review External record reviewed: Office record, Outpatient record, Prior outpatient labs, Prior outpatient radiology and Primary care record Prescription Management I considered prescription management with: Antibiotic Chronic Conditions Patient?s care impacted by: Other (COPD, smoker) Critical Care Time Critical Care Time Critical Care Time: Yes Total Critical Care Time: 44 Attestation: I have personally provided critical care time exclusive of time spent on separately billable procedures. Time includes review of lab data, radiology results, discussion with consultants, and monitoring for potential decompensation. Intervention performed as documented. Discharge Plan Discharge Clinical Impression: Acute exacerbation of chronic obstructive airways disease Patient Disposition: Home, Self-Care Instructions: COPD (Chronic Obstructive Pulmonary Disease) (ED) Additional Instructions: It was recommended that you stay in the hospital for management of COPD exacerbation however you refused. Take the prescribed antibiotic as directed, start taking it tonight, your given 1st dose IV in the ER today. Take the prednisone as directed, it is in a tapering fashion where you decrease the dose every 3 days. Complete the entire course. Use the inhaled nebulizer treatments every 4 hours until your breathing is back to baseline. Follow-up with your doctor as soon as possible. If you develop new or worsening symptoms call 911 or come back to the ER for further evaluation. Se le recomend? que permaneciera en el hospital para el tratamiento de la exacerbaci?n de la EPOC, lorna se neg?. Jobos el antibi?gia recetado seg?n las indicaciones, comience a tomarlo esta noche, le administraron la primera dosis IV en la emma de emergencias hoy. Jobos la prednisona seg?n las indicaciones, es de forma gradual donde disminuye la dosis cada 3 d?as. Completa todo el curso. Use los tratamientos del nebulizador inhalado cada 4 horas hasta que arroyo respiraci?n vuelva a la normalidad. Seguimiento con arroyo m?dico salas pronto chacha sea posible. Si desarrolla s?ntomas nuevos o que empeoran, llame al 911 o regrese a la emma de emergencias para christiano evaluaci?n adicional. 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: New ipratropium-albuterol 0.5 mg-3 mg(2.5 mg base)/3 mL solution for nebulization 3 ml inhalation Q4H Qty: 90 0RF doxycycline monohydrate 100 mg capsule 100 mg PO BID Qty: 14 0RF Mucinex 1,200 mg tablet extended release 12hr 1,200 mg PO BID Qty: 10 0RF prednisone 10 mg tablets,dose pack See Taper PO DAILY Qty: 48 0RF Taper: Prednisone 40 mg daily for 3 Days and 0 Hour 30 mg daily for 3 Days and 0 Hour 20 mg daily for 3 Days and 0 Hour 10 mg daily for 3 Days and 0 Hour No Action budesonide-formoterol [Symbicort] 80-4.5 mcg/actuation HFA aerosol inhaler 2 puff inhalation Q12H 30 Days Qty: 10.2 6RF methadone 10 mg/5 mL solution 65 mg PO DAILY albuterol sulfate 90 mcg/actuation HFA aerosol inhaler 2 puff PO Q6H PRN (Reason: bronchospasm) 30 Days Qty: 18 6RF metoclopramide HCl [Reglan] 5 mg tablet 5 mg PO .tidac Qty: 90 3RF Hold Instructions: ? if helping dexlansoprazole [Dexilant] 60 mg capsule,biphase delayed releas 60 mg PO DAILY 30 Days Qty: 30 3RF multivitamin with folic acid [Daily-Radha (with folic acid)] 400 mcg tablet 1 tab PO DAILY atorvastatin 20 mg tablet 20 mg PO BEDTIME
[2022-09-11 09:20] LABS: Lactic Acid 1.6 mmol/L (0.5-2.0)
[2022-09-11 09:31] LABS: B Type Natriuretic Peptide 20 pg/mL (<100)
[2022-09-11 09:32] LABS: Alanine Aminotransferase 23 U/L (0-31); Albumin Level 4.3 g/dL (3.5-5.0); Alkaline Phosphatase 74 U/L (39-117); Anion Gap 15 (12-20); Aspartate Amino Transferase 19 U/L (5-31); Bilirubin Direct 0.2 mg/dL (0.0-0.5); Bilirubin Total 0.7 mg/dL (0.0-1.0); Blood Urea Nitrogen 11 mg/dL (9-16); Calcium 9.7 mg/dL (8.4-10.2); Carbon Dioxide 26 mmol/L (22-29); Chloride 102 mmol/L (96-108); Creatinine Clr Calc Pharmacy 51.7; Estimated Glomerular Filt Rate > 60; Glucose Random 187 mg/dL (60-115); Magnesium 1.8 mg/dL (1.6-2.6); Potassium 3.8 mmol/L (3.3-5.1); Sodium 139 mmol/L (135-145); Total Protein 6.8 g/dL (6.5-8.0)
[2022-09-11 09:43] LABS: Troponin-I High Sensitivity < 3.5 ng/L (<3.5-17.0)
[2022-09-11 09:46] LABS: Procalcitonin < 0.02 ng/mL
[2022-09-11 11:06] VITALS: PULSE 87; RESP 18; O2SAT 93
[2022-09-11 11:32] VITALS: BP 128/64; PULSE 91; RESP 20; O2SAT 93
--- NOTE | 2022-09-11 11:33 | PC.NURSE ---
Addendum entered by Lucy Harris 09/11/22 12:35: RLL coarse crackles notes Original Note: pt A&O, desk monitor intact, sat 93% 2L NC. reports no pain. albuterol treatment running, will continue to monitor.
[2022-09-11 11:34] LABS: Venous Blood Gas Refer to POC result
[2022-09-11 11:36] LABS: VBG HCO3 24 mmol/L (22-26); VBG pCO2 40 mmHg; VBG pH 7.37 (7.32-7.43); VBG pO2 78 mmHg
[2022-09-11 12:00] VITALS: BP 134/66; PULSE 97; RESP 18; TEMP 36.7; O2SAT 91
[2022-09-11] MEDS: guaiFENesin LA 600 MG TAB.ER.12H 1200 MG PO (12:20)
[2022-09-11] MEDS: Doxycycline Hyclate 100 MG in 0.9 % Sodium Chloride 250 ML 166.67 MG IV (12:21)
--- NOTE | 2022-09-11 12:24 | PC.NURSE ---
ABX running per order. Pt sat 91% on RA. will continue to monitor.
[2022-09-11 12:59] VITALS: PULSE 98; RESP 18; O2SAT 91
== END 2022-09-11 14:28 | disposition home or self-care (01) ==
PROVIDERS: Physician Assistant; Emergency Provider Emergency Medicine; PCP Internal Medicine
DX: J44.1 Chronic obstructive pulmonary disease with (acute) exacerbation (principal); R06.02 Shortness of breath; Z20.822 Contact with and (suspected) exposure to COVID-19; E78.5 Hyperlipidemia, unspecified; F11.20 Opioid dependence, uncomplicated; F17.210 Nicotine dependence, cigarettes, uncomplicated; Z79.02 Long term (current) use of antithrombotics/antiplatelets; Z79.899 Other long term (current) drug therapy
CPT/HCPCS: 36415; 71045; 80048; 80076; 82803; 83605; 83735; 83880; 84145; 84484; 85025; 87040; 87635; 93005; 94640; 96365; 96375; 99285; J2930

== ENCOUNTER 2022-09-28 03:52 | Emergency (ER) | payer OTHER, SELFPAY ==
--- NOTE | 2022-09-28 | ECG_ITS ---
Test Reason : DYSPNEA Blood Pressure : / mmHG Vent. Rate : 080 BPM Atrial Rate : 080 BPM P-R Int : 126 ms QRS Dur : 072 ms QT Int : 314 ms P-R-T Axes : 033 016 020 degrees QTc Int : 362 ms Normal sinus rhythm Normal ECG When compared with ECG of 11-SEP-2022 08:46, QT has shortened Referred By: Generic ED Physician Electronically Signed By:WILFREDO BURGESS
--- NOTE | ~2022-09-28 | XR_ITS ---
EXAMINATION: XR CHEST CLINICAL INFORMATION: Cough. Dyspnea. COMPARISON: 09/11/2022 TECHNIQUE: Frontal view of the chest was obtained. FINDINGS: Cardiac leads overlie the chest. The lungs are well expanded. There is no focal consolidation, edema, or effusion. No pneumothorax. The cardiomediastinal silhouette is within normal limits. No acute osseous abnormality. XR/XR chest 1V IMPRESSION: No acute pulmonary disease.
[2022-09-28 03:57] VITALS: BP 142/85; PULSE 92; RESP 22; TEMP 36.6; O2SAT 93; BMI 23.4
--- NOTE | 2022-09-28 04:13 | ED.ASTHMA ---
HPI - Asthma General Chief Complaint: Asthma Stated Complaint: SOB Time Seen by Provider: 09/28/22 04:13 Source: patient and family Mode of arrival: ambulatory Limitations: no limitations History of Present Illness HPI Narrative: Patient has history of COPD/asthma overlap, active smoker, on methadone maintenance comes here for increased shortness of breath which is going on for last 4 weeks patient was seen here on 09/11 workup was negative treated with prednisone doxycycline which patient finished comes here as still she is coughing a lot and wheezing unable to sleep in the night no chest pain no leg swelling no history of CHF cough is mostly dry with occasional mucoid expectoration no fever no chills Related Data Home Medications Medication Instructions Recorded Confirmed methadone 10 mg/5 mL oral solution 65 mg PO DAILY 07/17/20 11/13/21 atorvastatin 20 mg tablet 20 mg PO BEDTIME 11/24/21 multivitamin with folic acid 400 1 tab PO DAILY 11/24/21 mcg tablet (Daily-Radha (with folic acid)) Previous Rx's Medication Instructions Recorded albuterol sulfate 90 mcg/actuation 2 puff PO Q6H PRN bronchospasm 30 07/17/20 aerosol inhaler days #18 grams budesonide-formoterol HFA 80 2 puff inhalation Q12H 30 days 07/24/20 mcg-4.5 mcg/actuation aerosol #10.2 grams inhaler (Symbicort) metoclopramide HCl 5 mg tablet 5 mg PO .tidac #90 tabs 03/24/22 (Reglan) dexlansoprazole 60 mg 60 mg PO DAILY 30 days #30 caps 06/02/22 capsule,biphase delayed release (Dexilant) doxycycline monohydrate 100 mg 100 mg PO BID #14 caps 09/11/22 capsule guaifenesin 1,200 mg tablet, 1,200 mg PO BID #10 tabs 09/11/22 extended release 12 hr (Mucinex) ipratropium 0.5 mg-albuterol 3 mg 3 ml inhalation Q4H #90 mL 09/11/22 (2.5 mg base)/3 mL nebulization soln prednisone 10 mg tablets in a dose See Taper PO DAILY #48 ea 09/11/22 pack cefpodoxime 200 mg tablet 200 mg PO BID #20 tabs 09/28/22 prednisone 20 mg tablet 40 mg PO DAILY #10 tabs 09/28/22 Allergies Allergy/AdvReac Type Severity Reaction Status Date / Time Penicillins Allergy Intermediate RASH Verified 09/11/22 08:42 Review of Systems Review of Systems: Constitutional : No Weight loss, No Fever, No Chills ENT/Mouth : No sore throat, No Rhinorrhea Eyes: No Eye Pain, No Swelling Cardiovascular : No Chest Pain, no palpitations Respiratory : ++ Cough, mucoid Sputum, ++shortness of breath Gastrointestinal : no Nausea, No Vomiting, No Diarrhea, No abdominal Pain, no black stools Genitourinary : No Dysuria, No Urinary Frequency Musculoskeletal : No joint pain, No Myalgias, No Joint Swelling Skin : No Skin Lesions, No rash Neuro : No Weakness, No Numbness, No Dizziness, No Headache Psych : No Anxiety/Panic, No Depression Heme/Lymph: No Bruising, No Lymphadenopathy Endocrine : No Polyuria, No Polydipsia All other systems reviewed and are negative Yes all other systems are reviewed and are negative PMFSH Past Medical History Medical History Daytime somnolence Duodenal ulcer Dyslipidemia Dysphagia H. pylori infection History of heroin use Memory loss Methadone use Mixed hyperlipidemia Moderate asthma Skin lesion Surgical History History of section History of esophagogastroduodenoscopy (EGD) History of mammogram Hx of colonoscopy Hx of tonsillectomy Family History Family History Father No problems noted. Mother Breast cancer Sister Breast cancer, Onset Age: 47 Brother Cancer Maternal Uncle Cancer Social History Social History Housing: Apartment Alcohol intake: unknown Patient Tobacco Use Status: Current everyday Tobacco user Tobacco use type: Cigarette Cigarettes Per Day: 10 Smoked in Last 30 Days: Yes e-Cigarette/Vaping Use: Never Used Second Hand Smoke Exposure: No Use of substances other than those prescribed or required for medical reasons: No Advance Directives: No Patient : No service: No Current occupational status: unemployed Physical Exam Vital Signs: Vital Signs: Last Vital Signs Temp 98.2 F 09/28/22 07:23 Pulse 85 09/28/22 07:23 Resp 25 H 09/28/22 07:23 BP 117/64 09/28/22 07:23 Pulse Ox 92 09/28/22 07:23 O2 Del Method Nasal Cannula 09/28/22 07:23 O2 Flow Rate 2 09/28/22 07:23 BMI result Body Mass Index 23.4 Appearance: Alert. Oriented X3. No acute distress. Eyes: PERRLA, No Nystagmus ENT: Pharynx normal. Oral Mucosa moist Neck: Normal inspection. Neck supple. CVS: Normal heart rate and rhythm. Pulses normal. Respiratory: No respiratory distress. Equal air entry bilateral, bilateral wheezing and conducted sounds Abdomen: Soft and nontender. Bowel sounds are present, no mass palpable, no CVA tenderness Skin: Skin warm and dry. Normal skin color. Normal skin turgor. Extremities: No lower extremity edema. No calf tenderness Neuro: Oriented X 3. No motor deficit. Medications Administered Discontinued Medications Generic Name Dose Route Start Last Admin Trade Name Freq PRN Reason Stop Dose Admin Albuterol Sulfate 7.5 mg/ 0 mg 09/28/22 04:43 09/28/22 05:33 Ipratropium [place] 0.5 mg INHALE 09/28/22 04:44 1 each ONCE ONE Administration Dexamethasone Sodium Phosphate 10 mg 09/28/22 04:43 09/28/22 05:26 Dexamethasone Sod Phosphate 10 Mg/Ml Vial IVPUSH 09/28/22 04:44 10 mg ONCE ONE Administration Medical Decision Making Medical Decision Making [facility] Narrative: Patient with COPD/asthma overlap comes here with increased wheezing but saturating 90% at room air improved after nebulizing treatment and IV Decadron patient already taken a course of doxycycline finished 1 week still cough normal WBC . Will give another nebulizing treatment and re-evaluate plan to DC home if stable case discussed Dr. Jose who will do the disposition Differential Diagnosis COPD/asthma/pneumonia/CHF Lab Data [facility] Lab Attestation statement: I reviewed the patient's lab results. 09/28/22 04:24 09/28/22 04:24 Labs: Lab Results 09/28/22 09/28/22 09/28/22 Range/Units 04:24 04:24 04:24 WBC 12.0 H (4.8-10.8) X10*3/uL RBC 4.88 (4.20-5.50) X10*6/uL Hgb 15.1 (12.0-16.0) g/dl Hct 45.3 (37.0-47.0) % MCV 92.8 (80.0-98.0) fL MCH 30.9 (27.0-33.0) pg MCHC 33.3 (31.0-35.0) g/dl RDW 14.2 (11.0-16.0) % Plt Count 296 (160-400) X10*3/uL MPV 8.7 L (9.4-12.3) fL Immature Gran % (Auto) 0.3 (0.0-0.4) % Neut % (Auto) 59.1 (45-73) % Lymph % (Auto) 32.1 (20-40) % [place] % (Auto) 5.9 (2-11) % Eos % (Auto) 2.0 (0-4) % Baso % (Auto) 0.6 (0-2) % Lymph # (Auto) 3.8 (1.2-4.9) X10*3/uL [place] # (Auto) 0.7 (0.1-1.2) X10*3/uL Eos # (Auto) 0.2 (0.0-0.4) X10*3/uL Baso # (Auto) 0.1 (0.0-0.2) X10*3/uL Abs Immat Gran (auto) 0.04 H (0.00-0.03) X10*3/uL Absolute Neuts (auto) 7.1 (2.0-8.3) x10*3/uL Absolute Nucleated RBC 0.000 (0.0-0.012) X10*3/uL Nucleated RBC % (auto) 0.0 (0.0-0.2) /100WBC Sodium 140 (135-145) mmol/L Potassium 4.0 (3.3-5.1) mmol/L Chloride 103 (96-108) mmol/L Carbon Dioxide 26 (22-29) mmol/L Anion Gap 15 (12-20) BUN 17 H (9-16) mg/dL Creatinine 0.78 (0.5-1.4) mg/dL Estim Creat Clear Calc 54.4 Estimated GFR > 60 Random Glucose 160 H (60-115) mg/dL Lactic Acid (0.5-2.0) mmol/L Calcium 9.2 (8.4-10.2) mg/dL Total Bilirubin 0.4 (0.0-1.0) mg/dL Direct Bilirubin < 0.2 (0.0-0.5) mg/dL AST 27 (5-31) U/L ALT 47 H (0-31) U/L Alkaline Phosphatase 65 (39-117) U/L Troponin I High Sens < 3.5 (<3.5-17.0) ng/L B-Natriuretic Peptide (<100) pg/mL Total Protein 6.1 L (6.5-8.0) g/dL Albumin 3.9 (3.5-5.0) g/dL Lipase 17 (8-78) U/L Influenza Type A (PCR) (Negative) Influenza Type B (PCR) (Negative) RSV RNA Qual (PCR) (Negative) SARS-CoV-2 RNA (RT-PCR) (Negative) 09/28/22 09/28/22 09/28/22 Range/Units 04:24 04:26 04:33 WBC (4.8-10.8) X10*3/uL RBC (4.20-5.50) X10*6/uL Hgb (12.0-16.0) g/dl Hct (37.0-47.0) % MCV (80.0-98.0) fL MCH (27.0-33.0) pg MCHC (31.0-35.0) g/dl RDW (11.0-16.0) % Plt Count (160-400) X10*3/uL MPV (9.4-12.3) fL Immature Gran % (Auto) (0.0-0.4) % Neut % (Auto) (45-73) % Lymph % (Auto) (20-40) % [place] % (Auto) (2-11) % Eos % (Auto) (0-4) % Baso % (Auto) (0-2) % Lymph # (Auto) (1.2-4.9) X10*3/uL [place] # (Auto) (0.1-1.2) X10*3/uL Eos # (Auto) (0.0-0.4) X10*3/uL Baso # (Auto) (0.0-0.2) X10*3/uL Abs Immat Gran (auto) (0.00-0.03) X10*3/uL Absolute Neuts (auto) (2.0-8.3) x10*3/uL Absolute Nucleated RBC (0.0-0.012) X10*3/uL Nucleated RBC % (auto) (0.0-0.2) /100WBC Sodium (135-145) mmol/L Potassium (3.3-5.1) mmol/L Chloride (96-108) mmol/L Carbon Dioxide (22-29) mmol/L Anion Gap (12-20) BUN (9-16) mg/dL Creatinine (0.5-1.4) mg/dL Estim Creat Clear Calc Estimated GFR Random Glucose (60-115) mg/dL Lactic Acid 1.5 (0.5-2.0) mmol/L Calcium (8.4-10.2) mg/dL Total Bilirubin (0.0-1.0) mg/dL Direct Bilirubin (0.0-0.5) mg/dL AST (5-31) U/L ALT (0-31) U/L Alkaline Phosphatase (39-117) U/L Troponin I High Sens (<3.5-17.0) ng/L B-Natriuretic Peptide < 10 (<100) pg/mL Total Protein (6.5-8.0) g/dL Albumin (3.5-5.0) g/dL Lipase (8-78) U/L Influenza Type A (PCR) NEGATIVE (Negative) Influenza Type B (PCR) NEGATIVE (Negative) RSV RNA Qual (PCR) NEGATIVE (Negative) SARS-CoV-2 RNA (RT-PCR) NEGATIVE (Negative) Discharge Plan Discharge Clinical Impression: Acute bronchitis with chronic obstructive pulmonary disease (COPD) Patient Disposition: Still a Patient Instructions: Acute Bronchitis (ED), COPD (Chronic Obstructive Pulmonary Disease) (ED) Additional Instructions: Continue use a nebulizing treatment every 4 hours as needed Stop smoking Take prednisone and antibiotics as prescribed 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: New prednisone 20 mg tablet 40 mg PO DAILY Qty: 10 0RF cefpodoxime 200 mg tablet 200 mg PO BID Qty: 20 0RF Rx Instructions: must administer with a meal/food No Action budesonide-formoterol [Symbicort] 80-4.5 mcg/actuation HFA aerosol inhaler 2 puff inhalation Q12H 30 Days Qty: 10.2 6RF ipratropium-albuterol 0.5 mg-3 mg(2.5 mg base)/3 mL solution for nebulization 3 ml inhalation Q4H Qty: 90 0RF doxycycline monohydrate 100 mg capsule 100 mg PO BID Qty: 14 0RF Mucinex 1,200 mg tablet extended release 12hr 1,200 mg PO BID Qty: 10 0RF prednisone 10 mg tablets,dose pack See Taper PO DAILY Qty: 48 0RF Taper: Prednisone 40 mg daily for 3 Days and 0 Hour 30 mg daily for 3 Days and 0 Hour 20 mg daily for 3 Days and 0 Hour 10 mg daily for 3 Days and 0 Hour methadone 10 mg/5 mL solution 65 mg PO DAILY albuterol sulfate 90 mcg/actuation HFA aerosol inhaler 2 puff PO Q6H PRN (Reason: bronchospasm) 30 Days Qty: 18 6RF metoclopramide HCl [Reglan] 5 mg tablet 5 mg PO .tidac Qty: 90 3RF Hold Instructions: ? if helping dexlansoprazole [Dexilant] 60 mg capsule,biphase delayed releas 60 mg PO DAILY 30 Days Qty: 30 3RF multivitamin with folic acid [Daily-Radha (with folic acid)] 400 mcg tablet 1 tab PO DAILY atorvastatin 20 mg tablet 20 mg PO BEDTIME
[2022-09-28 04:33] LABS: Basophils Absolute Auto 0.1 X10*3/uL (0.0-0.2); Basophils Percent Auto 0.6 % (0-2); Eosinophils Absolute Auto 0.2 X10*3/uL (0.0-0.4); Hematocrit 45.3 % (37.0-47.0); Hemoglobin 15.1 g/dl (12.0-16.0); Imm Gran Abs Auto 0.04 X10*3/uL (0.00-0.03); Imm Gran Pct Auto 0.3 % (0.0-0.4); Lymphocytes Absolute Auto 3.8 X10*3/uL (1.2-4.9); Lymphocytes Percent Auto 32.1 % (20-40); MANUAL DIFF FLAG NO; Mean Corpuscular HGB Conc 33.3 g/dl (31.0-35.0); Mean Corpuscular Hemoglobin 30.9 pg (27.0-33.0); Mean Corpuscular Volume 92.8 fL (80.0-98.0); Mean Platelet Volume 8.7 fL (9.4-12.3); Monocytes Absolute Auto 0.7 X10*3/uL (0.1-1.2); Monocytes Percent Auto 5.9 % (2-11); Neutrophils Absolute Auto 7.1 x10*3/uL (2.0-8.3); Neutrophils Percent Auto 59.1 % (45-73); Platelet Count 296 X10*3/uL (160-400); Red Blood Count 4.88 X10*6/uL (4.20-5.50); Red Cell Distribution Width 14.2 % (11.0-16.0)
--- NOTE | 2022-09-28 04:33 | PC.NURSE ---
pt c/o sob and burning thrt pain pt smokes 6 cigarettes/day pt states she was in ED a few weeks ago and was to be admitted and she refused, states she was told bronchitis and was unable to maintain O2Sat wnl w/o O2 supplementation pt states if she needs to be admitted this time she will agree to it
[2022-09-28 04:48] LABS: Lactic Acid 1.5 mmol/L (0.5-2.0)
[2022-09-28 04:53] LABS: Alanine Aminotransferase 47 U/L (0-31); Albumin Level 3.9 g/dL (3.5-5.0); Alkaline Phosphatase 65 U/L (39-117); Anion Gap 15 (12-20); Aspartate Amino Transferase 27 U/L (5-31); Bilirubin Direct < 0.2 mg/dL (0.0-0.5); Bilirubin Total 0.4 mg/dL (0.0-1.0); Blood Urea Nitrogen 17 mg/dL (9-16); Calcium 9.2 mg/dL (8.4-10.2); Carbon Dioxide 26 mmol/L (22-29); Chloride 103 mmol/L (96-108); Creatinine Clr Calc Pharmacy 54.4; Estimated Glomerular Filt Rate > 60; Glucose Random 160 mg/dL (60-115); Lipase 17 U/L (8-78); Sodium 140 mmol/L (135-145); Total Protein 6.1 g/dL (6.5-8.0)
[2022-09-28 04:56] LABS: B Type Natriuretic Peptide < 10 pg/mL (<100); Troponin-I High Sensitivity < 3.5 ng/L (<3.5-17.0)
[2022-09-28 04:59] VITALS: BP 132/72; PULSE 88; RESP 20; TEMP 36.9; O2SAT 95
--- NOTE | 2022-09-28 05:03 | MHC.EDTECH ---
pt was anxious when she came to room ,i was able to calm her down , on room air pt was 90% now she is on 2 liters and at 95% she is resting calmly and comfortably
[2022-09-28 05:15] LABS: Influenza A PCR NEGATIVE (Negative); Influenza B PCR NEGATIVE (Negative); Resp Syncy Virus RNA Qual PCR NEGATIVE (Negative); SARS COV2 PCR INHOUSE NEGATIVE (Negative)
[2022-09-28] MEDS: dexAMETHasone sod phosphate 10 MG/ML VIAL IVPUSH (05:26)
[2022-09-28 05:34] VITALS: PULSE 84; RESP 20; O2SAT 94
[2022-09-28 07:23] VITALS: BP 117/64; PULSE 85; RESP 25; TEMP 36.8; O2SAT 92
[2022-09-28 07:51] VITALS: PULSE 91; RESP 18; O2SAT 95
[2022-09-28] MEDS: Albuterol Sulfate (0.083%) 2.5 MG/3 ML VIAL.NEB 5 MG INHALE (07:51)
== END 2022-09-28 10:13 | disposition home or self-care (01) ==
PROVIDERS: Emergency Provider Internal Medicine
DX: J20.9 Acute bronchitis, unspecified (principal); J44.0 Chronic obstructive pulmonary disease with (acute) lower respiratory infection; R06.02 Shortness of breath; Z20.822 Contact with and (suspected) exposure to COVID-19; Z20.828 Contact with and (suspected) exposure to other viral communicable diseases; E78.5 Hyperlipidemia, unspecified; F11.20 Opioid dependence, uncomplicated; F17.210 Nicotine dependence, cigarettes, uncomplicated; Z79.02 Long term (current) use of antithrombotics/antiplatelets; Z79.899 Other long term (current) drug therapy
CPT/HCPCS: 0241U; 36415; 71045; 80048; 80076; 83605; 83690; 83880; 84484; 85025; 87040; 93005; 94640; 96374; 99285; J1100

== ENCOUNTER 2023-02-12 12:20 | Emergency (ER) | payer OTHER, SELFPAY ==
--- NOTE | ~2023-02-12 | XR_ITS ---
EXAMINATION: XR CHEST CLINICAL INFORMATION: Cough. Shortness of breath. COMPARISON: Multiple priors with last chest x-ray of 09/28/2022 TECHNIQUE: 2 views of the chest were obtained. FINDINGS: Cardiomediastinal silhouette is stable and normal. No abnormal tracheal deviation. The lungs are symmetrically well expanded. Streaky densities at the left lung base laterally likely represent atelectasis and/or scarring. No focal consolidation, changes of congestion, pleural effusions or pneumothorax are seen. Regional skeleton is intact. Multilevel minimal degenerative changes in the spine. XR/XR chest 2V IMPRESSION: No radiographic evidence of pneumonia. No acute pulmonary process.
[2023-02-12 13:19] VITALS: BP 100/61; PULSE 80; RESP 16; TEMP 37; O2SAT 91; BMI 25.4
--- NOTE | 2023-02-12 13:19 | ED_ITS ---
HPI - General Adult General Chief complaint: Dyspnea Stated complaint: asthma / anxiety ? Time Seen by Provider: 02/12/23 14:52 Source: patient and staff interpreter Mode of arrival: ambulatory Limitations: language barrier History of Present Illness HPI narrative: Patient is a 62 year old assigned female at with a history of asthma and anxiety presenting to the emergency department today with increased wheezing and feeling anxious. Patient states that she has been having increased shortness of breath for 2 months and has been feeling increasingly anxious. Patient denies any dizziness, lightheadedness, abdominal pain, nausea, vomiting, fever, chills, blurry vision, double vision, loss of vision, chest pain, back pain, night sweats, pain with urination, increased urinary frequency, increased urinary urgency, blood in her urine or stool, syncope or a near syncopal episode, recent trauma or falls, bowel incontinence, bladder incontinence, bowel retention, bladder retention, or any other complaints at this time. Onset (ago): month(s) (2) Severity: mild Severity scale (1-10): 4 Relieving factors: none Exacerbating factors: none Associated symptoms: shortness of breath Treatments prior to arrival: none Related Data Home Medications Medication Instructions Recorded Confirmed methadone 10 mg/5 mL oral solution 65 mg PO DAILY 07/17/20 11/13/21 atorvastatin 20 mg tablet 20 mg PO BEDTIME 11/24/21 multivitamin with folic acid 400 1 tab PO DAILY 11/24/21 mcg tablet (Daily-Radha (with folic acid)) Previous Rx's Medication Instructions Recorded albuterol sulfate 90 mcg/actuation 2 puff PO Q6H PRN bronchospasm 30 07/17/20 aerosol inhaler days #18 grams budesonide-formoterol HFA 80 2 puff inhalation Q12H 30 days 07/24/20 mcg-4.5 mcg/actuation aerosol #10.2 grams inhaler (Symbicort) metoclopramide HCl 5 mg tablet 5 mg PO .tidac #90 tabs 03/24/22 (Reglan) dexlansoprazole 60 mg 60 mg PO DAILY 30 days #30 caps 06/02/22 capsule,biphase delayed release (Dexilant) doxycycline monohydrate 100 mg 100 mg PO BID #14 caps 09/11/22 capsule guaifenesin 1,200 mg tablet, 1,200 mg PO BID #10 tabs 09/11/22 extended release 12 hr (Mucinex) ipratropium 0.5 mg-albuterol 3 mg 3 ml inhalation Q4H #90 mL 09/11/22 (2.5 mg base)/3 mL nebulization soln prednisone 10 mg tablets in a dose See Taper PO DAILY #48 ea 09/11/22 pack cefpodoxime 200 mg tablet 200 mg PO BID #20 tabs 09/28/22 prednisone 20 mg tablet 40 mg PO DAILY #10 tabs 09/28/22 prednisone 20 mg tablet 20 mg PO DAILY 7 days #7 tabs 02/12/23 Allergies Allergy/AdvReac Type Severity Reaction Status Date / Time Penicillins Allergy Intermediate RASH Verified 02/12/23 13:19 Review of Systems Constitutional: Constitutional: Reports no additional constitutional complaints, Denies chills, Denies fever(s) and Denies night sweats Eyes: Eyes: Reports no additional eye complaints, Denies blurry vision, Denies change in vision, Denies diplopia, Denies eye discharge, Denies loss of vision and Denies eye pain ENT: Denies dizziness Cardiovascular: Cardiovascular: Reports no additional cardiovascular complaints, Denies chest pain, Denies lightheadedness, Denies Loss of Consciousness and Reports dyspnea Respiratory: Respiratory: Reports no additional respiratory complaints and Reports dyspnea Gastrointestinal: Gastrointestinal: Reports no additional gastrointestinal complaints, Denies abdominal pain, Denies melena, Denies hematochezia, Denies change in bowel habits and Denies change in stool character Genitourinary: Genitourinary: Denies hematuria, Denies urinary frequency, Denies dysuria, Denies urinary incontinence, Denies urinary hesitancy and Denies urinary urgency Musculoskeletal: Musculoskeletal: Reports no additional musculoskeletal complaints, Denies numbness and Denies tingling Neurologic: Denies dizziness, Denies loss of vision, Denies numbness and Denies tingling Psychiatric: Psychiatric: Reports no additional psychiatric complaints and Reports anxiety Endocrine: Endocrine: Reports no additional endocrine complaints Hematologic/Lymphatic: Hematologic/Lymphatic: Reports no additional hematologic/lymphatic complaints Allergic/Immunologic: Allergic/Immunologic: Reports no additional allergic/immunologic complaints PMFSH Past Medical History Attestation statement: The following information was validated with the patient. Source: old records reviewed and nursing notes reviewed Medical History Daytime somnolence Duodenal ulcer Dyslipidemia Dysphagia H. pylori infection History of heroin use Memory loss Methadone use Mixed hyperlipidemia Moderate asthma Pre-op examination Skin lesion Upper abdominal pain Weight loss Surgical History History of section History of esophagogastroduodenoscopy (EGD) History of mammogram Hx of colonoscopy Hx of tonsillectomy Family History Family History Father No problems noted. Mother Breast cancer Sister Breast cancer, Onset Age: 47 Brother Cancer Maternal Uncle Cancer Social History Social History Housing: Apartment Alcohol intake: current Alcohol intake frequency: holidays/special occasions o nly Patient Tobacco Use Status: Current everyday Tobacco user Tobacco use type: Cigarette Cigarettes Per Day: 10 Smoked in Last 30 Days: Yes e-Cigarette/Vaping Use: Never Used Second Hand Smoke Exposure: No Use of substances other than those prescribed or required for medical reasons: Yes Substance Use Type: Marijuana Advance Directives: No Advance Directives Information Provided: No Patient : No service: No Current occupational status: unemployed Physical Exam ED Vital Signs: Vital Signs - 24 hr 02/12/23 13:19 02/12/23 15:01 02/12/23 15:13 Temperature 98.6 F 97.6 F Pulse Rate 80 80 Respiratory Rate 16 14 Blood Pressure 100/61 113/55 L Pulse Oximetry 91 L 92 92 Oxygen Delivery Method Room Air Room Air Room Air Oxygen Flow Rate 02/12/23 15:14 02/12/23 15:36 02/12/23 17:58 Temperature 97.7 F Pulse Rate 83 83 Respiratory Rate 18 18 Blood Pressure 111/46 L Pulse Oximetry 92 96 Oxygen Delivery Method Room Air Nasal Cannula Oxygen Flow Rate 2 BMI result Body Mass Index 25.4 Const General: cooperative, no acute distress, alert and awake Nutritional Appearance: well nourished Orientation/consciousness: patient oriented x3 Limitations: no limitations HENMT Head: Yes normal to inspection and Yes atraumatic Ears: hearing grossly normal bilaterally and external ears normal General nose exam: Normal external nose present, no nasal discharge noted and no epistaxis Face and sinus: Yes normal facial exam, No abrasion and No laceration Mouth: Normal oral and palatal mucosa present, no drooling and no muffled voice Eyes General: appearance normal, both eyes and all related structures Periorbital: periorbital findings normal Eyelids: Yes eyelids normal Conjunctivae: conjunctivae normal Pupils: Equal, round and reactive pupils present EOM: EOMs intact bilaterally Neck Neck: Yes normal visual inspection, Yes full ROM and Yes no lymphadenopathy Chest Chest palpation & inspection: normal inspection of the chest Resp Effort & Inspection: normal respiratory effort and able to speak in complete sentences Auscultation: wheezes scattered wheezes and throughout Cardio Rate: regular rate Rhythm: regular rhythm GI Inspection: Yes normal to inspection Neuro General: patient oriented x3 and moves all extremities Cranial nerves: Yes Equal, round and reactive pupils present Cognition (Neuro): normal cognition Motor exam (neuro): 5/5 motor strength present throughout Sensory Exam: Normal double simultaneous stimulation for sensation Coordination: [id number] test normal Extrem General: Yes normal to inspection, Yes full ROM and Yes capillary refill normal Psych Appearance: grossly normal Mental Status: mental status grossly normal Affect: normal affect Attitude: cooperative Thought process: Normal thought process present Thought content: Normal thought content present Insight: Good insight present (Psych) Course Course Course Narrative: 62-year-old female presents for evaluation of shortness of breath and anxiety. Patient endorses a history of asthma. She is wheezing on exam. Would likely benefit from a breathing treatment. Medications Administered Discontinued Medications Generic Name Dose Route Start Last Admin Trade Name Freq PRN Reason Stop Dose Admin Albuterol Sulfate 7.5 mg/ 0 mg 02/12/23 15:22 02/12/23 15:35 Albuterol/Ipratropium 3 ml INHALE 02/12/23 15:23 2.5 each ONCE ONE Administration Lorazepam 2 mg 02/12/23 16:11 02/12/23 16:35 Lorazepam 1 Mg Tablet PO 02/12/23 16:12 2 mg ONCE ONE Administration Methylprednisolone Sodium Succinate 60 mg 02/12/23 16:11 02/12/23 16:35 Methylprednisolone Sod Succ 125 Mg/2 Ml Vial IM 02/12/23 16:12 60 mg ONCE ONE Administration Medical Decision Making Medical Decision Making MDM Narrative: Patient is a 62 year old assigned female at with a history of asthma and a nxiety presenting to the emergency department today with increased wheezing and anxiety. Patient's physical exam was as noted in the physical exam portion of this note. Patient's blood work was unremarkable. Patient's EKG was unremarkable. Patient's chest x-ray showed no acute process. I explained my physical exam findings as well as all test results to the patient. I answered all questions asked by the patient. Patient received solu-medrol, a duoneb, and ativan which she stated helped her symptoms significantly. Patient had a couple episodes of her oxygen saturation dropping below 90% however, this was while the patient was sleeping and I believe it to be secondary to MILAGROS. I stressed the im portance of the patient taking her medication as prescribed. I stressed the importance of the patient following up with her primary care provider. I stressed the importance of the patient returning to the emergency department immediately if her symptoms were to worsen or if she were to develop any d izziness, shortness of breath, difficulty breathing, chest pain, blurry vision, loss of vision, nausea, vomiting, abdominal pain, fever, chills, back pain, or any other complaints. Patient verbalized agreement and understanding with this treatment plan and discharge. Differential Diagnosis Differential Diagnoses: The differential diagnosis associated with the presentation includes Asthma Shortness of breath Anxiety Panic attack Admission/Observation Consideration of admission/observation: Escalation of care including admission/observation considered Patient would have been admitted to the hospital had her work up had any findings where hospital admission was appropriate and her clinical presentation warranted hospital admission. Lab Data MDM Lab Attestation statement: I reviewed the patient's lab results. My interpretation of these studies and their corresponding values is that they are grossly normal. 02/12/23 16:05 02/12/23 16:05 Labs: Lab Results 02/12/23 02/12/23 02/12/23 Range/Units 16:05 16:05 16:05 WBC 11.2 H (4.8-10.8) X10*3/uL RBC 5.24 (4.20-5.50) X10*6/uL Hgb 16.3 H (12.0-16.0) g/dl Hct 49.4 H (37.0-47.0) % MCV 94.3 (80.0-98.0) fL MCH 31.1 (27.0-33.0) pg MCHC 33.0 (31.0-35.0) g/dl RDW 13.8 (11.0-16.0) % Plt Count 294 (160-400) X10*3/uL MPV 9.2 L (9.4-12.3) fL Immature Gran % (Auto) 0.5 H (0.0-0.4) % Neut % (Auto) 76.4 H (45-73) % Lymph % (Auto) 19.9 L (20-40) % Louisa % (Auto) 2.7 (2-11) % Eos % (Auto) 0.1 (0-4) % Baso % (Auto) 0.4 (0-2) % Lymph # (Auto) 2.2 (1.2-4.9) X10*3/uL Louisa # (Auto) 0.3 (0.1-1.2) X10*3/uL Eos # (Auto) 0.0 (0.0-0.4) X10*3/uL Baso # (Auto) 0.0 (0.0-0.2) X10*3/uL Abs Immat Gran (auto) 0.06 H (0.00-0.03) X10*3/uL Absolute Neuts (auto) 8.5 H (2.0-8.3) x10*3/uL Absolute Nucleated RBC 0.000 (0.0-0.012) X10*3/uL Nucleated RBC % (auto) 0.0 (0.0-0.2) /100WBC Sodium 142 (135-145) mmol/L Potassium 3.8 (3.3-5.1) mmol/L Chloride 101 (96-108) mmol/L Carbon Dioxide 28 (22-29) mmol/L Anion Gap 17 (12-20) BUN 13 (9-16) mg/dL Creatinine 0.98 (0.5-1.4) mg/dL Estim Creat Clear Calc 48.4 Estimated GFR 58 Random Glucose 296 H (60-115) mg/dL Calcium 10.0 D (8.4-10.2) mg/dL Total Bilirubin 0.4 (0.0-1.0) mg/dL AST 17 (5-31) U/L ALT 21 (0-31) U/L Alkaline Phosphatase 72 (39-117) U/L Troponin I High Sens < 2.7 (<3.5-17.0) ng/L Total Protein 6.9 (6.5-8.0) g/dL Albumin 4.1 (3.5-5.0) g/dL Independent Interpretation I performed an independent interpretation of an: EKG and Plain X-Ray Interpretation: My interpretation is in agreement with the radiologist's impression of this imaging study. EXAMINATION: XR CHEST CLINICAL INFORMATION: Cough. Shortness of breath. COMPARISON: Multiple priors with last chest x-ray of 09/28/2022 TECHNIQUE: 2 views of the chest were obtained. FINDINGS: Cardiomediastinal silhouette is stable and normal. No abnormal tracheal deviation. The lungs are symmetrically well expanded. Streaky densities at the left lung base laterally likely represent atelectasis and/or scarring. No focal consolidation, changes of congestion, pleural effusions or pneumothorax are seen. Regional skeleton is intact. Multilevel minimal degenerative changes in the spine. XR/XR chest 2V IMPRESSION: No radiographic evidence of pneumonia. No acute pulmonary process. Dictated By: Martín Ramos MD Signed By: Electronically signed by Martín Ramos MD 02/12/23 1542 Vent. Rate: 083 BPM ? ? Atrial Rate: 083 BPM P-R Int: 136 ms? QRS Dur: 078 ms QT Int: 364 ms ? ? ? P-R-T Axes: 064 016 016 degrees QTc Int: 427 ms ? Normal sinus rhythm Right atrial enlargement Nonspecific T wave abnormality Abnormal ECG When compared with ECG of 28-SEP-2022 04:05, T wave inversion now evident in Anterior leads QT has lengthened DD/ 1558 Radiology Impression Discussion of test interpretation with radiology: I have reviewed the radiologist's reading. Prescription Management I considered prescription management with: Other (patient prescribed prednisone.) Chronic Conditions Patient?s care impacted by: Other (asthma, anxiety) Discharge Plan Discharge Clinical Impression: Asthma, Anxiety Patient Disposition: Home, Self-Care Instructions: Asthma (DC), Anxiety (ED) Additional Instructions: Follow up with your primary care provider. Return to the emergency department immediately if your symptoms worsen or if you develop any dizziness, shortness of breath, difficulty breathing, chest pain, blurry vision, loss of vision, nausea, vomiting, abdominal pain, fever, chills, back pain, or any other complaints. Luz un seguimiento con arroyo proveedor de atenci?n primaria. Regrese al departamento de emergencias de inmediato si mandi s?ntomas empeoran o si presenta mareos, falta de aire, dificultad para respirar, dolor de pecho, visi?n borrosa, p?rdida de la visi?n, n?useas, v?mitos, dolor abdominal, fiebre, escalofr?os, dolor de espalda o cualquier otras quejas. [facility] ([facility]) at [facility]: [address] [place] [address] Walk in hours from 10am - 12pm Open from 10am - 12pm [facility] Crisis Services: [address], [place] [id number] Walk in hours from 10am - 12pm Open 24/7 [facility]: [address] [place] [address] AND [address] [place] [address] Hours: M-F 8am to 8pm Tuesday and Tuesday 9am to 5pm 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: New prednisone 20 mg tablet 20 mg PO DAILY 7 Days Qty: 7 0RF No Action budesonide-formoterol [Symbicort] 80-4.5 mcg/actuation HFA aerosol inhaler 2 puff inhalation Q12H 30 Days Qty: 10.2 6RF ipratropium-albuterol 0.5 mg-3 mg(2.5 mg base)/3 mL solution for nebulization 3 ml inhalation Q4H Qty: 90 0RF doxycycline monohydrate 100 mg capsule 100 mg PO BID Qty: 14 0RF Mucinex 1,200 mg tablet extended release 12hr 1,200 mg PO BID Qty: 10 0RF prednisone 10 mg tablets,dose pack See Taper PO DAILY Qty: 48 0RF Taper: Prednisone 40 mg daily for 3 Days and 0 Hour 30 mg daily for 3 Days and 0 Hour 20 mg daily for 3 Days and 0 Hour 10 mg daily for 3 Days and 0 Hour prednisone 20 mg tablet 40 mg PO DAILY Qty: 10 0RF cefpodoxime 200 mg tablet 200 mg PO BID Qty: 20 0RF Rx Instructions: must administer with a meal/food methadone 10 mg/5 mL solution 65 mg PO DAILY albuterol sulfate 90 mcg/actuation HFA aerosol inhaler 2 puff PO Q6H PRN (Reason: bronchospasm) 30 Days Qty: 18 6RF metoclopramide HCl [Reglan] 5 mg tablet 5 mg PO .tidac Qty: 90 3RF Hold Instructions: ? if helping dexlansoprazole [Dexilant] 60 mg capsule,biphase delayed releas 60 mg PO DAILY 30 Days Qty: 30 3RF multivitamin with folic acid [Daily-Radha (with folic acid)] 400 mcg tablet 1 tab PO DAILY atorvastatin 20 mg tablet 20 mg PO BEDTIME Referrals: Sarah Jerry MD [Primary Care Provider] - Interventions: ED Discharge Assessment Last Done: 02/12/23 18:26 Discharge Date/Time: 02/12/23 18:27 Print Language: Maltese
[2023-02-12 15:01] VITALS: BP 113/55; PULSE 80; RESP 14; TEMP 36.4; O2SAT 92
--- NOTE | 2023-02-12 15:10 | PC.NURSE ---
pt a&ox3, vss, pt coming in after waking up this morning feeling dyspniec. pt states that she took her inhaler at 1300 and found little to barely any relief. pt verbalizing SOB, pain on inspiration, slight nausea and increased lethargy. audible wheezing noted. expiratory wheezing noted upon auscultation throughout lung yates. sat pt upright in bed as she states that sitting upright helps promote relief. pt in no apparent distress - able to speak in full, clear sentences without displaying WOB. call snider placed within reach. will continue to monitor.
[2023-02-12 15:13] VITALS: O2SAT 92
[2023-02-12 15:14] VITALS: O2SAT 92
--- NOTE | 2023-02-12 15:14 | PC.NURSE ---
pts O2 sat was 83% while sleeping on room air, this nurse applied 2L NC which increased the O2 sat to 90s, pt states she does not wear O2 at home during the day or at night. pt speaking in full sentences. color television console monitor intact sinus valentin 60s, call snider within reach, will continue to monitor.
--- NOTE | 2023-02-12 15:22 | ECG_ITS ---
Test Reason : DYSPNEA Blood Pressure : / mmHG Vent. Rate : 083 BPM Atrial Rate : 083 BPM P-R Int : 136 ms QRS Dur : 078 ms QT Int : 364 ms P-R-T Axes : 064 016 016 degrees QTc Int : 427 ms Normal sinus rhythm Right atrial enlargement Nonspecific T wave abnormality Abnormal ECG When compared with ECG of 28-SEP-2022 04:05, T wave inversion now evident in Anterior leads QT has lengthened Referred By: Sandy Puga Electronically Signed By:Jaime Pulido
--- NOTE | 2023-02-12 15:26 | PC.NURSE ---
pt being transported to x-ray. will draw labs when back.
[2023-02-12] MEDS: Albuterol Sulfate 7.5 MG, Albuterol/Iprat 2.5/0.5MG 3 ML 3 ML INHALE (15:35)
[2023-02-12 15:36] VITALS: PULSE 83; RESP 18; O2SAT 93
[2023-02-12 16:11] LABS: MANUAL DIFF FLAG NO
[2023-02-12 16:12] LABS: Basophils Percent Auto 0.4 % (0-2); Eosinophils Percent Auto 0.1 % (0-4); Hematocrit 49.4 % (37.0-47.0); Hemoglobin 16.3 g/dl (12.0-16.0); Imm Gran Abs Auto 0.06 X10*3/uL (0.00-0.03); Imm Gran Pct Auto 0.5 % (0.0-0.4); Lymphocytes Absolute Auto 2.2 X10*3/uL (1.2-4.9); Lymphocytes Percent Auto 19.9 % (20-40); Mean Corpuscular Hemoglobin 31.1 pg (27.0-33.0); Mean Corpuscular Volume 94.3 fL (80.0-98.0); Mean Platelet Volume 9.2 fL (9.4-12.3); Monocytes Absolute Auto 0.3 X10*3/uL (0.1-1.2); Monocytes Percent Auto 2.7 % (2-11); Neutrophils Absolute Auto 8.5 x10*3/uL (2.0-8.3); Neutrophils Percent Auto 76.4 % (45-73); Platelet Count 294 X10*3/uL (160-400); Red Blood Count 5.24 X10*6/uL (4.20-5.50); Red Cell Distribution Width 13.8 % (11.0-16.0); White Blood Count 11.2 X10*3/uL (4.8-10.8)
[2023-02-12 16:26] LABS: Alanine Aminotransferase 21 U/L (0-31); Albumin Level 4.1 g/dL (3.5-5.0); Alkaline Phosphatase 72 U/L (39-117); Anion Gap 17 (12-20); Aspartate Amino Transferase 17 U/L (5-31); Bilirubin Total 0.4 mg/dL (0.0-1.0); Blood Urea Nitrogen 13 mg/dL (9-16); Carbon Dioxide 28 mmol/L (22-29); Chloride 101 mmol/L (96-108); Creatinine Clr Calc Pharmacy 48.4; Estimated Glomerular Filt Rate 58; Glucose Random 296 mg/dL (60-115); Potassium 3.8 mmol/L (3.3-5.1); Sodium 142 mmol/L (135-145); Total Protein 6.9 g/dL (6.5-8.0)
--- NOTE | 2023-02-12 16:29 | PC.NURSE ---
walked into pt's room and found her sleeping at 87% O2. woke pt up and switched probe to different fingers, O2 went up to 88% - placed pt on 2L via nasal cannula. put now resting comfortably at 93%.
--- NOTE | 2023-02-12 16:30 | PC.NURSE ---
this nurse went into the patients room found her sleeping, [facility] nurse had placed pt on NC due to low O2 sat, this nurse shut off the O2 to watch patient, this nurse noted that the patient had periods of sleep apnea, pt also a mouth breather and snores. O2 decreased during sleep apnea times, O2 turned back on while patient is sleeping here- provider was notified of sleep apnea, call snider within reach, will continue to monitor.
[2023-02-12] MEDS: LORazepam 1 MG TABLET 2 MG PO (16:35)
[2023-02-12] MEDS: methylPREDNISolone Sod Succ 125 MG/2 ML VIAL 60 MG IM (16:35)
[2023-02-12 16:37] LABS: Troponin-I High Sensitivity < 2.7 ng/L (<3.5-17.0)
--- NOTE | 2023-02-12 16:40 | PC.NURSE ---
medication administered per provider order.
[2023-02-12 17:58] VITALS: BP 111/46; PULSE 83; RESP 18; TEMP 36.5; O2SAT 96
--- NOTE | 2023-02-12 18:04 | PC.NURSE ---
pt a&ox3, vss, pt was in a deep sleep and arousable to touch only. once awake, pt was able to respond to questions fully and clearly. pt states that she feels better and less anxious post medication administration. pt resting comfortably in no apparent distress. call snider placed within reach. will continue to monitor.
== END 2023-02-12 18:27 | disposition home or self-care (01) ==
PROVIDERS: Physician Assistant Medical; Emergency Provider Emergency Medicine Emergency Medical Services; PCP Internal Medicine
DX: J45.40 Moderate persistent asthma, uncomplicated (principal); R06.02 Shortness of breath; F41.9 Anxiety disorder, unspecified; R05.9 Cough, unspecified; Z79.891 Long term (current) use of opiate analgesic
CPT/HCPCS: 36415; 71046; 80053; 84484; 85025; 93005; 94640; 96372; 99284; 99285; J2930

== ENCOUNTER → 2023-02-12 15:22 | Outpatient (BNV) | payer OTHER, SELFPAY | PROVIDERS: Emergency Provider Emergency Medicine Emergency Medical Services; PCP Internal Medicine; Visit Provider Internal Medicine Cardiovascular Disease | DX: R94.31 Abnormal electrocardiogram [ECG] [EKG] (principal) | CPT/HCPCS: 93010 ==

== ENCOUNTER 2023-03-08 08:23 | Outpatient (AMB) | payer OTHER, SELFPAY ==
--- NOTE | 2023-03-08 08:26 | MHC.PC.OV ---
Vital Signs 03/08/23 08:27 03/08/23 08:56 Height 5 ft Weight 121 lb BMI 23.6 BP 142/82 H 138/80 Blood Pressure Location Lt brachial Lt brachial Position Sitting Sitting Pulse 72 Pulse Source Pulse Oximeter Pulse Oximetry (%) 95 Oxygen Delivery Method Room Air Intake Visit Reasons: pt requesting physical/pulmonology referral Animal Behaviourist Required: No Accompanied by: Self / Same As Patient Allergies Penicillins Allergy (Intermediate, Verified 03/08/23 08:39) RASH Medication List - Last Reconciled 03/08/23 by Sarah Zhu MD albuterol sulfate 90 mcg/actuation 2 puffs PO Q6H PRN 30 days atorvastatin 20 mg PO BEDTIME budesonide-formoterol 80-4.5 mcg/actuation (Symbicort) 2 puffs inhalation Q12H 30 days dexlansoprazole (Dexilant) 60 mg PO DAILY 30 days ipratropium-albuterol 0.5 mg-3 mg(2.5 mg base)/3 mL 3 mL inhalation Q4H methadone 65 mg PO DAILY metoclopramide HCl (Reglan) 5 mg PO .tidac multivitamin with folic acid 400 mcg (Daily-Radha (with folic acid)) 1 tab PO DAILY Tobacco use date assessed: 09/23/21 Dental Screening Dental Screen Date: 03/08/23 Did you have a dental visit in the last 12 months?: Yes Did you have a dental problem in the last 6 months where you did not have access to dental care?: No Was dental information given to patient?: Patient has dentist HPI HPI Comments History of Present Illness Details This is a 62-year-old female with COPD and methadone use that comes for her physical exam. She complains of shortness of breath and anxiety due to shortness of breath that started few months ago. No fever. Will need longstanding inhaler. Was advised to quit smoking. Will have pulmonology referral. Sertraline will be started for anxiety. Last colonoscopy was 2012 and will be referred to Gastroenterology for another colonoscopy. Mammogram is scheduled for next week. Also has mild major depression in which sertraline will help. On methadone for years due to history of substance abuse. [facility] Medical History (Updated 03/08/23 @ 11:01 by Sarah Zhu MD) Daytime somnolence Duodenal ulcer Dyslipidemia Dysphagia H. pylori infection History of heroin use Memory loss Methadone use Mixed hyperlipidemia Moderate asthma Pre-op examination Skin lesion Upper abdominal pain Weight loss Surgical History History of section History of esophagogastroduodenoscopy (EGD) History of mammogram Hx of colonoscopy Hx of tonsillectomy Family History Father No problems noted. Mother Breast cancer Sister Breast cancer, Onset Age: 47 Brother Cancer Maternal Uncle Cancer Social History Housing: Apartment Alcohol intake: current Alcohol intake frequency: holidays/special occasions only Patient Tobacco Use Status: Current everyday Tobacco user Tobacco use type: Cigarette Cigarettes Per Day: 10 e-Cigarette/Vaping Use: Never Used Second Hand Smoke Exposure: No Substance Use Type: Marijuana service: No Current occupational status: unemployed Cognitive needs: No Hearing needs: No Vision needs: No Questionnaire PHQ-9 Over the last 2 weeks, how often have you been bothered by any of the following problems? 1. Little interest or pleasure in doing things: more than half the days 2. Feeling down, depressed, or hopeless: more than half the days 3. Trouble falling or staying asleep, or sleeping too much: more than half the days 4. Feeling tired or having little energy: more than half the days 5. Poor appetite or overeating: several days 6. Feeling bad about yourself - or that you are a failure or have let yourself or your family down: not at all 7. Trouble concentrating on things, such as reading the newspaper or watching television: not at all 8. Moving or speaking so slowly that other people could have noticed. Or the opposite - being so fidgety or restless that you have been moving around a lot more than usual: not at all 9. Thoughts that you would be better off or of hurting yourself in some way: not at all Total score: 9 Depression Screening Interpretation: Positive 73408 - PHQ-9 Billing: Yes Source: Developed by Drs. Varun Peraza, Samantha B.WDarius Yang and colleagues, with an educational shamir from [employer]. Thrive Questionnaire Date Thrive assessed: 03/08/23 I am a: Patient What is your living situation today?: I have a steady place to live Within the past 12 months, did the food you bought not last and you didn't have the money to get more?: Never true Within the past 12 months, did you worry whether your food would run out before you got money to buy more?: Never true Do you have trouble paying for medicines?: No Do you have trouble getting transportation to medical appointments?: No Do you have trouble paying your heating and electricity bill?: No Do you have trouble taking care of your child, family member or friend?: No Do you have trouble with day-to-day activities such as bathing, preparing meals, shopping, managing finances, etc.?: No Are you currently unemployed and looking for a job?: No Are you interested in more education?: No Currently or been in a relationship where the following occur: no concerns reported AUDIT C Alcohol Use Questionnaire (AUDIT-C) 1. How often do you have a drink containing alcohol?: Never Total Score: 0 DESMOND-7 AMB Questionnaire DESMOND-7 Date DESMOND - 7 assessed: 03/08/23 Feeling nervous, anxious, or on edge: 2 = More than half the days Not being able to stop or control worryin = More than half the days Worrying too much about different things: 2 = More than half the days Trouble relaxin = More than half the days Being so restless that it is hard to sit still: 2 = More than half the days Becoming easily annoyed or irritable: 2 = More than half the days Feeling afraid as if something awful might happen: 2 = More than half the days Total DESMOND-7 score (0-4 normal; 5-9 mild; 10-14 moderate; 15-21 severe): 14 Source: Developed by Drs. Varun Peraza, Darius Gates and colleagues, with an educational shamir from [employer]. DESMOND-7 Assessment Billing DESMOND-7 Assessment Tool: DESMOND-7 Assessment 15080 Review of Systems Const All systems reviewed & are unremarkable except as noted in HPI and below Eyes Reports no additional complaints, Denies change in vision and Denies other visual disturbances Card Denies chest pain at rest, Denies chest pain with activity, Denies edema, Denies irregular heart rhythm, Denies claudication, Reports dyspnea, Reports dyspnea on exertion, Denies orthopnea, Denies paroxysmal nocturnal dyspnea and Denies slow heart rate Resp Reports cough, Reports dyspnea, Reports dyspnea on exertion and Reports wheezing GI Denies abdominal pain, Denies change in bowel habits, Denies excessive flatus, Denies nausea and Denies vomiting Denies urinary incontinence, Denies urinary hesitancy and Denies urinary urgency Musc Denies abnormal gait, Denies atrophy, Denies deformity and Denies limited range of motion Skin/Breast Denies bleeding lesions, Denies changing lesions and Denies rash Neuro Denies abnormal gait and Denies lack of coordination Aller/Immun Reports wheezing Physical exam (Primary Care) Vital Signs: Last Vital Signs Pulse 72 03/08/23 08:27 BP 138/80 03/08/23 08:56 Pulse Ox 95 03/08/23 08:27 Oxygen Delivery Method Room Air 03/08/23 08:27 BMI result Body Mass Index 23.6 Tobacco/Smoking Status: Tobacco use Status Tobacco use date assessed 09/23/21 03/08/23 08:34 Patient Tobacco Use Status Current everyday Tobacco 03/08/23 08:34 Tobacco use type Cigarette 03/08/23 08:34 e-Cigarette/Vaping Use Never Used 03/08/23 08:34 PHQ-9: PHQ-9 Score PHQ-9: Total score 9 03/08/23 08:58 Depression Screening Interpretation: Positive Thrive Assessment: Date of Thrive Assessment Date Thrive assessed 03/08/23 03/08/23 08:34 Currently or been in a relationship where the following occur: no concerns reported Const Orientation/consciousness: patient oriented x3 [facility] Head: Yes normal to inspection, Yes normocephalic and Yes atraumatic Ears: external ears normal Eyes General: appearance normal, both eyes and all related structures Eyelids: Yes eyelids normal Conjunctivae: conjunctivae normal Neck Neck: Yes normal visual inspection and Yes supple Resp Effort & Inspection: normal respiratory effort Auscultation: wheezes Cardio Jugular venous distension: no JVD Rate: regular rate Rhythm: regular rhythm Heart sounds: S1 normal heart sound present and S2 normal heart sound present GI Inspection: Yes normal to inspection Palpation (GI): Soft to palpation and nontender Auscultation: normal bowel sounds Skin General skin exam: no rashes or lesions noted Neuro General: patient oriented x3 and no focal motor deficits Extrem General: Yes full ROM Psych Affect: Sad affect present Assessment and Plan Assessment & Plan (1) Physical exam: Code(s): Z00.00 - Encounter for general adult medical examination without abnormal findings Plan: Repeat in a year (2) COPD (chronic obstructive pulmonary disease): Code(s): J44.9 - Chronic obstructive pulmonary disease, unspecified Plan: Start longstanding inhaler. Use rescue inhaler as needed. Referred to pulmonology. (3) Methadone use: Code(s): F11.20 - Opioid dependence, uncomplicated Plan: Continue follow-up with methadone clinic. (4) Mild major depression: Code(s): F32.0 - Major depressive disorder, single episode, mild Plan: Start sertraline. Orders: Orders Comprehensive [place]. Panel Fast Today K21.9 - Gastro-esophageal reflux disease without esophagitis Lipid Panel Today E78.5 - Hyperlipidemia, unspecified Complete Blood Count Auto Diff Today D72.829 - Elevated white blood cell count, unspecified Referrals Pulmonary Medicine Referral J44.9 - Chronic obstructive pulmonary disease, unspecified Gastroenterology Referral Z12.11 - Encounter for screening for malignant neoplasm of colon Medications: New nebulizers (AeroEclipse II Nebulizer) As directed 1 ea 0RF J44.9 - Chronic obstructive pulmonary disease, unspecified prednisone Take 4 tabs for 2 days, then 3 tabs for 2 days, then 2 tabs for 2 days, then 1 tab for 2 days 10 mg PO DIRECTED 8 days 30 tabs 0RF J44.9 - Chronic obstructive pulmonary disease, unspecified sertraline 25 mg PO DAILY 30 days 30 tabs 4RF F41.1 - Generalized anxiety disorder Changed From multivitamin with folic acid 400 mcg (Daily-Radha (with folic acid)) 1 tab PO DAILY To multivitamin with folic acid 400 mcg (Daily-Radha (with folic acid)) 1 tab PO DAILY 90 days 90 tabs 3RF From atorvastatin 20 mg PO BEDTIME To atorvastatin 20 mg PO BEDTIME 90 days 90 tabs 1RF Refilled albuterol sulfate 90 mcg/actuation 2 puffs PO Q6H 30 days PRN 18 grams 6RF bronchospasm J45.909 - Unspecified asthma, uncomplicated ipratropium-albuterol 0.5 mg-3 mg(2.5 mg base)/3 mL 3 mL inhalation Q4H 90 mL 0RF dexlansoprazole (Dexilant) 60 mg PO DAILY 30 days 30 caps 3RF K21.9 - Gastro-esophageal reflux disease without esophagitis Coding Level of Care Code Est Pt Prev Care 40-64y(85126) Diagnoses Physical exam Z00.00 COPD (chronic obstructive pulmonary disease) J44.9 Methadone use F11.20 Mild major depression F32.0 Additional Codes DESMOND-7 Assessment Billing - DESMOND-7 Assessment Tool: DESMOND-7 Assessment 34591 ([id number]) Time Spent (min) 35
[2023-03-08 08:27] VITALS: BP 142/82; PULSE 72; O2SAT 95; BMI 23.6
[2023-03-08 08:56] VITALS: BP 138/80
== END 2023-03-08 08:49 | disposition home or self-care (01) ==
PROVIDERS: PCP Internal Medicine; Visit Provider Internal Medicine
DX: Z00.00 Encounter for general adult medical examination without abnormal findings (principal); J44.9 Chronic obstructive pulmonary disease, unspecified; F11.20 Opioid dependence, uncomplicated; F32.0 Major depressive disorder, single episode, mild
CPT/HCPCS: 99396

== ENCOUNTER 2023-03-08 08:59 | Outpatient (REF) | payer OTHER, SELFPAY ==
[2023-03-08 09:15] LABS: MANUAL DIFF FLAG NO
[2023-03-08 09:59] LABS: Basophils Absolute Auto 0.1 X10*3/uL (0.0-0.2); Basophils Percent Auto 0.5 % (0-2); Eosinophils Absolute Auto 0.1 X10*3/uL (0.0-0.4); Eosinophils Percent Auto 1.2 % (0-4); Hematocrit 50.6 % (37.0-47.0); Hemoglobin 16.8 g/dl (12.0-16.0); Imm Gran Abs Auto 0.04 X10*3/uL (0.00-0.03); Imm Gran Pct Auto 0.4 % (0.0-0.4); Lymphocytes Absolute Auto 1.7 X10*3/uL (1.2-4.9); Lymphocytes Percent Auto 15.4 % (20-40); Mean Corpuscular HGB Conc 33.2 g/dl (31.0-35.0); Mean Corpuscular Hemoglobin 31.5 pg (27.0-33.0); Mean Corpuscular Volume 94.9 fL (80.0-98.0); Mean Platelet Volume 9.8 fL (9.4-12.3); Monocytes Absolute Auto 0.7 X10*3/uL (0.1-1.2); Monocytes Percent Auto 6.2 % (2-11); Neutrophils Absolute Auto 8.6 x10*3/uL (2.0-8.3); Neutrophils Percent Auto 76.3 % (45-73); Platelet Count 334 X10*3/uL (160-400); Red Blood Count 5.33 X10*6/uL (4.20-5.50); Red Cell Distribution Width 14.3 % (11.0-16.0); White Blood Count 11.2 X10*3/uL (4.8-10.8)
[2023-03-08 10:51] LABS: Alanine Aminotransferase 17 U/L (0-31); Albumin Level 4.2 g/dL (3.5-5.0); Alkaline Phosphatase 69 U/L (39-117); Anion Gap 12 (12-20); Aspartate Amino Transferase 16 U/L (5-31); Bilirubin Total 0.5 mg/dL (0.0-1.0); Blood Urea Nitrogen 13 mg/dL (9-16); Calcium 9.8 mg/dL (8.4-10.2); Carbon Dioxide 27 mmol/L (22-29); Chloride 105 mmol/L (96-108); Cholesterol 237 mg/dL (<200); Estimated Glomerular Filt Rate > 60; Glucose Fasting 147 mg/dL (60-99); HDL Cholesterol 47 mg/dL (>40); LDL Cholesterol Calculated 167 mg/dL (<100); Sodium 140 mmol/L (135-145); Total Protein 7.2 g/dL (6.5-8.0); Triglycerides 117 mg/dL (<150)
== END 2023-03-08 09:00 | disposition home or self-care (01) ==
LOC: HO.LAB 08:59
PROVIDERS: PCP Internal Medicine; Visit Provider Internal Medicine
DX: K21.9 Gastro-esophageal reflux disease without esophagitis (principal); E78.5 Hyperlipidemia, unspecified; D72.829 Elevated white blood cell count, unspecified
CPT/HCPCS: 36415; 80053; 80061; 85025

== ENCOUNTER 2023-03-17 09:44 | Outpatient (REF) | payer OTHER, SELFPAY ==
--- NOTE | ~2023-03-17 | MM_ITS ---
EXAMINATION: MM SCREENING DIGITAL BREAST TOMOSYNTHESIS, BILATERAL CLINICAL INFORMATION: Screening. Asymptomatic. COMPARISON: Mammography: This study is compared with prior exams dating back to 2019. TECHNIQUE: Digital breast tomosynthesis is performed in both the craniocaudal and mediolateral oblique views along with computer-aided detection (CAD). Synthesized 2D images are generated from the tomosynthesis. FINDINGS: There are scattered areas of fibroglandular density (ACR BI-RADS breast composition Category b). There are no significant masses, abnormal calcifications, or other abnormalities. There are tissue markers in each breast from prior benign percutaneous biopsies. MM/MM tomosynthesis screening BI IMPRESSION: No mammographic evidence of malignancy. ASSESSMENT: BI-RADS BI-RADS 2 - Benign Findings RECOMMENDATION: Routine annual mammography screening. 1 year F/U This examination should not preclude the clinical evaluation of a suspicious palpable abnormality. This patient's information was entered into a reminder system with a target due date for their next mammogram.
== END 2023-03-17 09:45 | disposition home or self-care (01) ==
LOC: HO.MAMMO 09:44
PROVIDERS: PCP Internal Medicine; Visit Provider Internal Medicine
DX: Z12.31 Encounter for screening mammogram for malignant neoplasm of breast (principal)
CPT/HCPCS: 77063; 77067

== ENCOUNTER → 2023-03-17 10:00 | Outpatient (BNV) | payer OTHER, SELFPAY | PROVIDERS: PCP Internal Medicine; Visit Provider Radiology Diagnostic Radiology | DX: Z12.31 Encounter for screening mammogram for malignant neoplasm of breast (principal) | CPT/HCPCS: 77063; 77067 ==

== ENCOUNTER 2023-03-30 09:19 | Outpatient (AMB) | payer OTHER, SELFPAY ==
[2023-03-30 09:40] VITALS: BP 122/74; PULSE 77; O2SAT 94; BMI 24.1
--- NOTE | 2023-03-30 09:40 | MHC.OFFVIS ---
Intake Vital Signs 03/30/23 09:40 Height 5 ft Weight 123 lb 7.342 oz BMI 24.1 BP 122/74 Blood Pressure Location Rt brachial Position Sitting Pulse 77 Pulse Source Doppler Pulse Oximetry (%) 94 Oxygen Delivery Method Room Air Intake Visit Reasons: COPD Allergies Penicillins Allergy (Intermediate, Verified 03/30/23 09:58) RASH HPI COPD HPI Details 62-year-old lady, active 50+ pack-year smoker referred for evaluation management of her underlying pulmonary concerns. Patient complains of wheezing and dyspnea on exertion. She has been using Symbicort and albuterol MDI with suboptimal control of her symptoms. She denies family history of lung disease. She denies exposure to industrial dusts. [facility] Medical History Daytime somnolence Duodenal ulcer Dyslipidemia Dysphagia H. pylori infection History of heroin use Memory loss Methadone use Mixed hyperlipidemia Moderate asthma Pre-op examination Skin lesion Upper abdominal pain Weight loss Surgical History History of section History of esophagogastroduodenoscopy (EGD) History of mammogram Hx of colonoscopy Hx of tonsillectomy Family History Father No problems noted. Mother Breast cancer Sister Breast cancer, Onset Age: 47 Brother Cancer Maternal Uncle Cancer Social History (Updated 03/30/23 @ 09:59 by Annmarie Roldan [facility]) Housing: Apartment Alcohol intake: current Alcohol intake frequency: holidays/special occasions only Patient Tobacco Use Status: Current everyday Tobacco user Tobacco use type: Cigarette Cigarettes Per Day: 10 e-Cigarette/Vaping Use: Never Used Second Hand Smoke Exposure: No Substance Use Type: Marijuana service: No Current occupational status: unemployed Cognitive needs: No Hearing needs: No Vision needs: No Review of Systems Const Denies daytime sleepiness, Denies excessive sweating, Denies fatigue, Denies fever(s), Denies lethargy, Denies malaise, Denies night sweats, Denies snoring and Denies weight loss Eyes Denies blurry vision and Denies itchy eyes ENT Denies nasal congestion, Denies post nasal drip, Denies sinus pain, Denies sinus pressure and Denies other ( Thrush) Card Denies chest pain, Denies pedal edema, Denies dyspnea, Reports dyspnea on exertion, Denies orthopnea and Denies paroxysmal nocturnal dyspnea Resp Denies cough, Denies hemoptysis, Denies excessive phlegm production, Denies dyspnea, Reports dyspnea on exertion, Denies snoring and Reports wheezing GI Denies abdominal pain and Denies heartburn Musc Denies myalgias, Denies arthralgias and Denies joint swelling Skin/Breast Denies rash Neuro Denies memory loss and Denies seizure-like activity Psych Denies abnormal sleep pattern, Denies anxiety and Denies memory loss Endo Denies excessive sweating, Denies fatigue and Denies heat intolerance Damien/Lymph Denies easy bruising Aller/Immun Denies itchy eyes, Denies seasonal rhinorrhea and Reports wheezing Physical Exam Vital Signs: Last Vital Signs Pulse 77 03/30/23 09:40 BP 122/74 03/30/23 09:40 Pulse Ox 94 03/30/23 09:40 Oxygen Delivery Method Room Air 03/30/23 09:40 BMI result Body Mass Index 24.1 Const General: no acute distress and alert Nutritional Appearance: not obese Orientation/consciousness: Other orientation findings ( oriented) HEENT Head: Yes atraumatic Eyes General: appearance normal, both eyes and all related structures Sclerae: sclerae normal EOM: EOMs intact bilaterally Neck Neck: Yes supple Lymphatic: no lymphadenopathy noted Resp Effort & Inspection: normal respiratory effort and no use of accessory muscles Auscultation: clear to auscultation bilaterally Cardio Rate: regular rate Rhythm: regular rhythm Heart sounds: no gallops, no murmurs and no rubs Skin General skin exam: other ( warm) Extrem General: No clubbing, No cyanosis and No edema Assessment & Plan Assessment & Plan (1) COPD (chronic obstructive pulmonary disease): Code(s): J44.9 - Chronic obstructive pulmonary disease, unspecified Plan: Unclear severity. Will obtain full PFT. Suboptimally controlled on Symbicort, will change to Anoro. Continue albuterol MDI and duo nebs. (2) Pulmonary nodules: Code(s): R91.8 - Other nonspecific abnormal finding of lung field Plan: Will obtain screening lung CT. Orders: Orders PFT pulmonary function test Today J44.9 - Chronic obstructive pulmonary disease, unspecified CT lung screening Today J44.9 - Chronic obstructive pulmonary disease, unspecified Medications: New umeclidinium-vilanterol 62.5-25 mcg/actuation (Anoro Ellipta) 1 inh inhalation DAILY 1 ea 6RF 30 days Discontinued budesonide-formoterol 80-4.5 mcg/actuation (Symbicort) Discontinued Reason: Doctor's Order 2 puffs inhalation Q12H 10.2 grams 6RF 30 days J44.9 - Chronic obstructive pulmonary disease, unspecified Coding Level of Care Code New Pt Level 4 (50637) Diagnoses COPD (chronic obstructive pulmonary disease) J44.9 Pulmonary nodules R91.8
== END 2023-03-30 10:17 | disposition home or self-care (01) ==
PROVIDERS: PCP Internal Medicine; Visit Provider Internal Medicine Pulmonary Disease
DX: J44.9 Chronic obstructive pulmonary disease, unspecified (principal); R91.8 Other nonspecific abnormal finding of lung field
CPT/HCPCS: 99204

== ENCOUNTER → 2023-03-30 09:19 | Outpatient (BNVA) | payer OTHER, SELFPAY | PROVIDERS: PCP Internal Medicine; Visit Provider Internal Medicine Pulmonary Disease ==

== ENCOUNTER 2023-05-05 15:18 | Outpatient (REF) | payer OTHER, SELFPAY ==
--- NOTE | ~2023-05-05 | CT_ITS ---
EXAMINATION: CT CHEST SCREENING CLINICAL INFORMATION: Current smoker. 48 pack year history. COMPARISON: Previous chest x-ray most recent February 2023 TECHNIQUE: Multidetector volumetric CT imaging of the chest is performed without contrast using low dose technique. Additional 2D coronal and sagittal reformatted images and axial 3D maximum intensity projection (MIP) images are generated on the CT workstation. This CT examination was performed using dose optimization techniques as appropriate, variously including the following: *Automated exposure control *Adjustment of mA and/or kV according to patient size (this includes techniques or standardized protocols for targeted exams where dose is matched to indication/reason for exam; i.e. extremities or head) *Use of iterative reconstruction technique DLP: 36 mGy-cm FINDINGS: LUNGS: There is evidence of mild emphysema. There are small bilateral upper lobe nodules measuring 2 mm, for example cluster of nodules in the right upper lobe axial image 128 series 5. There is subsegmental atelectasis at the left lung base in the lingula. No endobronchial or endotracheal lesion. MEDIASTINUM: The mediastinum is normal. CORONARY ARTERY CALCIFICATION: None visualized on this study. PLEURA: There is no pleural effusion. No pleural mass or thickening. AXILLA: No lymphadenopathy. UPPER ABDOMEN: Unremarkable OSSEOUS STRUCTURES: Mild degenerative changes of the spine. CT/CT lung screening IMPRESSION: Mild emphysema. Small pulmonary nodules or micronodules. ASSESSMENT: Lung-RADS category 2: Benign RECOMMENDATION: Annual low-dose chest CT follow-up in one year recommended
== END 2023-05-05 15:19 | disposition home or self-care (01) ==
LOC: HO.CT 15:18
PROVIDERS: PCP Internal Medicine; Visit Provider Internal Medicine Pulmonary Disease
DX: Z12.2 Encounter for screening for malignant neoplasm of respiratory organs (principal); F17.210 Nicotine dependence, cigarettes, uncomplicated
CPT/HCPCS: 71271

== ENCOUNTER 2023-05-13 14:26 | Outpatient (REF) | payer OTHER, SELFPAY ==
--- NOTE | 2023-05-13 15:40 | PFT_ITS ---
Forced vital capacity 138%, FEV1 is 80%. FEV1/FVC ratio 46. CMN08-13 only 70%. MVV 56%. Post bronchodilator therapy, there is a significant improvement in YFY18-37. The other values are actually decreased. Diffusion capacity 105%. The patient is not able to perform adequate maneuvers for the lung volumes. CONCLUSION: The baseline findings are consistent with moderately severe obstructive airway disorder. Post bronchodilator therapy, there is improvement in BZP19-54, but other values are decrease. Has noticed in the loop and spirometry curves. The efforts are somewhat unreliable. Clinical correlation is recommended. MD KAVYA Jason/MODMarce / [id number]
== END 2023-05-13 14:27 | disposition home or self-care (01) ==
LOC: HO.RESP 14:26
PROVIDERS: PCP Internal Medicine; Visit Provider Internal Medicine Pulmonary Disease
DX: J44.9 Chronic obstructive pulmonary disease, unspecified (principal)
CPT/HCPCS: 94010; 94727; 94729

== ENCOUNTER → 2023-05-13 15:40 | Outpatient (BNV) | payer OTHER, SELFPAY | PROVIDERS: PCP Internal Medicine; Visit Provider Internal Medicine | DX: J44.9 Chronic obstructive pulmonary disease, unspecified (principal) | CPT/HCPCS: 94060; 94729 ==

== ENCOUNTER 2023-06-14 13:28 | Outpatient (AMB) | payer OTHER, SELFPAY ==
--- NOTE | 2023-06-14 13:29 | MHC.OFFVIS ---
Intake Vital Signs 06/14/23 13:30 Height 5 ft Weight 123 lb 7.342 oz BMI 24.1 BP 147/90 H Blood Pressure Location Rt brachial Position Sitting Pulse 105 H Pulse Source Doppler Pulse Oximetry (%) 94 Oxygen Delivery Method Room Air Intake Visit Reasons: COPD Teacher Of The Sight Impaired Required: Yes Teacher Of The Sight Impaired Name: Annmarie Griffin Elyssa Allergies Penicillins Allergy (Intermediate, Verified 06/14/23 13:31) RASH HPI COPD HPI Details 63-year-old lady, active 50+ pack-year smoker now followed for moderate COPD and pulmonary nodules. At the last office visit patient was switched from Symbicort Anoro and reports significant improvement in her symptoms. She denies any recent exacerbations. She completed her lung cancer screening CT chest. [facility] Medical History Daytime somnolence Duodenal ulcer Dyslipidemia Dysphagia H. pylori infection History of heroin use Memory loss Methadone use Mixed hyperlipidemia Moderate asthma Pre-op examination Skin lesion Upper abdominal pain Weight loss Surgical History History of section History of esophagogastroduodenoscopy (EGD) History of mammogram Hx of colonoscopy Hx of tonsillectomy Family History Father No problems noted. Mother Breast cancer Sister Breast cancer, Onset Age: 47 Brother Cancer Maternal Uncle Cancer Social History (Updated 06/14/23 @ 13:32 by Annmarie Roldan Jacqui) Housing: Apartment Alcohol intake: current Alcohol intake frequency: holidays/special occasions only Patient Tobacco Use Status: Current everyday Tobacco user Tobacco use type: Cigarette Cigarettes Per Day: 8 e-Cigarette/Vaping Use: Never Used Second Hand Smoke Exposure: No Substance Use Type: Marijuana service: No Current occupational status: unemployed Cognitive needs: No Hearing needs: No Vision needs: No Review of Systems Const Denies daytime sleepiness, Denies excessive sweating, Denies fatigue, Denies fever(s), Denies lethargy, Denies malaise, Denies night sweats, Denies snoring and Denies weight loss Eyes Denies blurry vision and Denies itchy eyes ENT Denies nasal congestion, Denies post nasal drip, Denies sinus pain, Denies sinus pressure and Denies other ( Thrush) Card Denies chest pain, Denies pedal edema, Denies dyspnea, Denies orthopnea and Denies paroxysmal nocturnal dyspnea Resp Denies cough, Denies hemoptysis, Denies excessive phlegm production, Denies dyspnea, Denies snoring and Denies wheezing GI Denies abdominal pain and Denies heartburn Musc Denies myalgias, Denies arthralgias and Denies joint swelling Skin/Breast Denies rash Neuro Denies memory loss and Denies seizure-like activity Psych Denies abnormal sleep pattern, Denies anxiety and Denies memory loss Endo Denies excessive sweating, Denies fatigue and Denies heat intolerance Damien/Lymph Denies easy bruising Aller/Immun Denies itchy eyes, Denies seasonal rhinorrhea and Denies wheezing Physical Exam Vital Signs: Last Vital Signs Pulse 105 H 06/14/23 13:30 BP 147/90 H 06/14/23 13:30 Pulse Ox 94 06/14/23 13:30 Oxygen Delivery Method Room Air 06/14/23 13:30 BMI result Body Mass Index 24.1 Const General: no acute distress and alert Nutritional Appearance: not obese Orientation/consciousness: Other orientation findings ( oriented) HEENT Head: Yes atraumatic Eyes General: appearance normal, both eyes and all related structures Sclerae: sclerae normal EOM: EOMs intact bilaterally Neck Neck: Yes supple Lymphatic: no lymphadenopathy noted Resp Effort & Inspection: normal respiratory effort and no use of accessory muscles Auscultation: clear to auscultation bilaterally Cardio Rate: regular rate Rhythm: regular rhythm Heart sounds: no gallops, no murmurs and no rubs Skin General skin exam: other ( warm) Extrem General: No clubbing, No cyanosis and No edema Assessment & Plan Assessment & Plan (1) COPD (chronic obstructive pulmonary disease): Code(s): J44.9 - Chronic obstructive pulmonary disease, unspecified Plan: Well controlled on Anoro, duo nebs, and albuterol MDI. Continue current regimen. (2) Pulmonary nodules: Code(s): R91.8 - Other nonspecific abnormal finding of lung field Plan: Results of screening CT chest reviewed, no worrisome nodules at this time. Continue with yearly screening. Coding Level of Care Code Est Pt Level 4 (14515) Diagnoses COPD (chronic obstructive pulmonary disease) J44.9 Pulmonary nodules R91.8
[2023-06-14 13:30] VITALS: BP 147/90; PULSE 105; O2SAT 94; BMI 24.1
== END 2023-06-14 13:43 | disposition home or self-care (01) ==
PROVIDERS: PCP Internal Medicine; Visit Provider Internal Medicine Pulmonary Disease
DX: J44.9 Chronic obstructive pulmonary disease, unspecified (principal); R91.8 Other nonspecific abnormal finding of lung field
CPT/HCPCS: 99214

== ENCOUNTER → 2023-06-14 13:28 | Outpatient (BNVA) | payer OTHER, SELFPAY | PROVIDERS: PCP Internal Medicine; Visit Provider Internal Medicine Pulmonary Disease | DX: J44.9 Chronic obstructive pulmonary disease, unspecified (principal); R91.8 Other nonspecific abnormal finding of lung field | CPT/HCPCS: 99212 ==

== ENCOUNTER 2023-06-22 09:36 | Inpatient (IN) | payer OTHER, SELFPAY ==
[2023-06-22] VITALS (12 sets, daily range): BP systolic 112–160; BP diastolic 54–80; PULSE 63–79; RESP 12–28; TEMP 36.3–37.2; O2SAT 85–97; BMI 23.4
--- NOTE | 2023-06-22 | ECG_ITS ---
Test Reason : DYSPNEA Blood Pressure : / mmHG Vent. Rate : 065 BPM Atrial Rate : 065 BPM P-R Int : 138 ms QRS Dur : 070 ms QT Int : 408 ms P-R-T Axes : 048 018 -04 degrees QTc Int : 424 ms Normal sinus rhythm T wave abnormality, consider anterolateral ischemia Abnormal ECG When compared with ECG of 12-FEB-2023 15:58, Inverted T waves have replaced nonspecific T wave abnormality in Lateral leads Referred By: Generic ED Physician Electronically Signed By:REGINALDO CASEY MD
--- NOTE | ~2023-06-22 | CT_ITS ---
EXAMINATION: CT ANGIOGRAM OF THE CHEST WITH AND WITHOUT CONTRAST (CT PULMONARY ANGIOGRAM FOR PE) CLINICAL INFORMATION: Reason for Exam Shortness of breath, pleuritic chest pain, hypoxic COMPARISON: CT screening lung May 05, 2023 TECHNIQUE: Prior to contrast administration, noncontrast localization images were obtained. Subsequently, multidetector volumetric imaging was performed from the thoracic inlet to below the diaphragms following the administration of 65 mL Omnipaque 350 intravenous contrast. No contrast reaction reported Sagittal, coronal, and MIP oblique sagittal reformatted images were obtained on the CT workstation, uploaded to PACS, and reviewed. This CT examination was performed using dose optimization techniques as appropriate, variously including the following: *Automated exposure control *Adjustment of mA and/or kV according to patient size (this includes techniques or standardized protocols for targeted exams where dose is matched to indication/reason for exam; i.e. extremities or head) *Use of iterative reconstruction technique Total exam dose-length product 243 mGy-cm FINDINGS: QUALITY OF STUDY/CONTRAST BOLUS: Satisfactory. PULMONARY ARTERIES: No pulmonary emboli. THORACIC AORTA: No aneurysm. Small volume of vascular calcifications the wall of the aortic arch LUNG: Dependent atelectasis and consolidation at lung bases, left greater than right. No suspicious lung nodule. Central bronchial airways are open. No bronchiectasis. PLEURA: No pleural effusion or pneumothorax. MEDIASTINUM: Normal heart size. No pericardial effusion. No hilar or mediastinal lymphadenopathy. No evidence of septal bowing or right heart strain. CORONARY ARTERY CALCIFICATION: None visualized on this study. CHEST WALL/AXILLA: No axillary or internal mammary lymphadenopathy. OSSEOUS STRUCTURES: No acute or suspicious osseous abnormality. UPPER ABDOMEN: Unremarkable. No reflux of contrast into the hepatic veins to suggest elevated right heart pressures. CT/CT angio chest PE protocol IMPRESSION: 1. No evidence of pulmonary embolism. 2. Dependent atelectasis and consolidation at lung bases, left greater than right. VTE: negative.
--- NOTE | ~2023-06-22 | XR_ITS ---
EXAMINATION: XR CHEST CLINICAL INFORMATION: Shortness of breath, hypoxia COMPARISON: Chest CT 05/05/2023 TECHNIQUE: Frontal view of the chest was obtained. FINDINGS: Subtle retrocardiac opacity may represent atelectasis or early consolidation. Linear atelectasis at the right lung base. No pleural effusion or edema. Stable cardiomediastinal silhouette. XR/XR chest 1V IMPRESSION: Subtle retrocardiac opacity may represent atelectasis or early consolidation. Correlate with the pending chest CTA.
--- NOTE | 2023-06-22 11:15 | PC.NURSE ---
Pt brought back from waiting room. Requires 4L O2 to maintain above 90%. Pt appears uncomfortable, tired. Lung sounds are crackles on both sides. Patient states she has been feeling weak, short of breath and generally unwell since Tuesday. VSS besides O2 at this time. Blood work and swabs ordered
--- NOTE | 2023-06-22 11:30 | ED_ITS ---
HPI - URI/Sore Throat General Chief Complaint: Upper Respiratory Symptoms Stated Complaint: Flu Symptoms Time Seen by Provider: 06/22/23 11:30 Source: patient Mode of arrival: ambulatory Limitations: no limitations History of Present Illness HPI Narrative: 62 y/o Ghanaian-speaking female with history of COPD/asthma, active smoker, esophageal dysmotility with dysphagia, GERD, history 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 Patient was complaining of a cough which is productive of white phlegm with no hemoptysis, anterior and posterior sharp, pleura chest pain which is worse with breathing with coughing, 8/10, shortness of breath, dyspnea on exertion, nausea, fever, chills, rhinorrhea, sore throat, myalgias and arthralgias. Patient states that her symptoms have gotten worse and her shortness of breath was not improved when she uses her nebulizer machine open speech Related Data Home Medications Medication Instructions Recorded Confirmed methadone 10 mg/5 mL oral solution 65 mg PO DAILY 07/17/20 05/16/23 Previous Rx's Medication Instructions Recorded metoclopramide HCl 5 mg tablet 5 mg PO .tidac #90 tabs 03/24/22 (Reglan) atorvastatin 20 mg tablet 20 mg PO BEDTIME 90 days #90 tabs 03/08/23 dexlansoprazole 60 mg 60 mg PO DAILY 30 days #30 caps 03/08/23 capsule,biphase delayed release (Dexilant) ipratropium 0.5 mg-albuterol 3 mg 3 ml inhalation Q4H #90 mL 03/08/23 (2.5 mg base)/3 mL nebulization soln multivitamin with folic acid 400 1 tab PO DAILY 90 days #90 tabs 03/08/23 mcg tablet (Daily-Radha (with folic acid)) nebulizers (AeroEclipse II #1 ea 03/08/23 Nebulizer) prednisone 10 mg tablet 10 mg PO DIRECTED 8 days #30 03/08/23 tabs albuterol sulfate 90 mcg/actuation 2 puff PO Q6H PRN bronchospasm 30 03/30/23 aerosol inhaler days #18 grams umeclidinium 62.5 mcg-vilanterol 1 inh inhalation DAILY 30 days #1 03/30/23 25 mcg/actuation powdr for ea inhalation (Anoro Ellipta) peg 3350-electrolytes 236 240 ml PO Q10M #4,000 mL 05/16/23 gram-22.74 gram-6.74 gram-5.86 gram solution sertraline 25 mg tablet 25 mg PO DAILY 30 days #30 tabs 06/04/23 Allergies Allergy/AdvReac Type Severity Reaction Status Date / Time Penicillins Allergy Intermediate RASH Verified 06/14/23 13:31 Review of Systems 2 Review of Systems: Yes all other systems are reviewed and are negative [facility] Past Medical History [facility] Narrative: Social history: Patient states she smokes 8 cigarettes per day for greater than 50 years, she denies drug and alcohol use. Medical History Pre-op examination Weight loss Skin lesion Memory loss Upper abdominal pain Duodenal ulcer H. pylori infection Mixed hyperlipidemia Dysphagia Daytime somnolence History of heroin use Methadone use Dyslipidemia Moderate asthma Surgical History Hx of tonsillectomy History of mammogram History of section History of esophagogastroduodenoscopy (EGD) Hx of colonoscopy Family History Family History Father No problems noted. Mother Breast cancer Sister Breast cancer, Onset Age: 47 Brother Cancer Maternal Uncle Cancer Social History Social History Housing: Apartment Alcohol intake: current Alcohol intake frequency: holidays/special occasions only Patient Tobacco Use Status: Current everyday Tobacco user Tobacco use type: Cigarette Cigarettes Per Day: 8 e-Cigarette/Vaping Use: Never Used Second Hand Smoke Exposure: No Use of substances other than those prescribed or required for medical reasons: No Substance Use Type: Marijuana Advance Directives: No Advance Directives Information Provided: Yes Patient : No service: No Current occupational status: unemployed Cognitive needs: No Hearing needs: No Vision needs: No Physical Exam 2 Vital Signs: Vital Signs: Last Vital Signs Temp 98.8 F 06/22/23 15:22 Pulse 74 06/22/23 15:22 Resp 12 06/22/23 15:22 BP 129/80 06/22/23 15:22 Pulse Ox 92 06/22/23 15:22 O2 Del Method Oxymask 06/22/23 15:22 O2 Flow Rate 5 06/22/23 15:22 Oxygen Flow Rate 4 06/22/23 11:12 BMI result Body Mass Index 23.4 Vital signs revealed an elevated respiratory rate of 22, O2 saturation was 92% on 4 L, nurse reports that the O2 saturation was 83% on room air Exam: General: Awake, alert tachypnea Head: Normocephalic, atraumatic EENT: PERRL, Lids normal, sclera normal, conjunctiva normal, nose normal , ears normal, throat without erythema or exudates Neck: Supple, no adenopathy, no trachea midline or C-spine tenderness Lung: breath sounds symmetric, tachypneic, diffuse rhonchi and wheezing with no rales Chest: symmetric movement, [id number] anterior chest wall tenderness Heart: regular rate and rhythm, normal S1, S2 no murmurs or rubs Abdomen: soft, non-tender, nondistended, normal bowel sounds Back: no vertebral tenderness, no CVAT Extremities: no deformities, moves all extremities symmetrically, no pitting edema Neuro: Awake, alert, oriented, normal speech, cranial nerves intact, moves all extremities symmetrically Psych: Pleasant, cooperative Medications Administered Discontinued Medications Generic Name Dose Route Start Last Admin Trade Name Freq PRN Reason Stop Dose Admin Albuterol Sulfate 5 mg/ 0 mg 06/22/23 12:02 06/22/23 12:05 Albuterol/Ipratropium 3 ml INHALE 06/22/23 12:03 1 each ONCE ONE Administration Sodium Chloride 1,000 mls @ 999 mls/hr 06/22/23 12:05 06/22/23 14:42 Ns IV 06/22/23 13:05 Infused .Q1H1M STA Infusion Iohexol 65 ml 06/22/23 15:26 06/22/23 15:27 Iohexol 350 Mg/Ml 100 Ml Infus..Btl IV 06/22/23 15:27 65 ml ONCE ONE Administration Ketorolac Tromethamine 15 mg 06/22/23 11:54 06/22/23 12:04 Ketorolac Tromethamine 15 Mg/Ml Vial IVPUSH 06/22/23 11:55 15 mg ONCE STA Administration Methylprednisolone Sodium Succinate 125 mg 06/22/23 11:54 06/22/23 12:04 Methylprednisolone Sod Succ 125 Mg/2 Ml Vial IVPUSH 06/22/23 11:55 125 mg ONCE ONE Administration Ondansetron HCl 4 mg 06/22/23 11:54 06/22/23 12:04 Ondansetron Hcl 4 Mg/2 Ml Vial IVPUSH 06/22/23 11:55 4 mg ONCE ONE Administration Oseltamivir Phosphate 75 mg 06/22/23 13:42 06/22/23 14:48 Oseltamivir Phosphate 75 Mg Capsule PO 06/22/23 13:43 75 mg ONCE ONE Administration Medical Decision Making Medical Decision Making MDM Narrative: 62 y/o Ghanaian-speaking female with history of COPD/asthma, active smoker, esophageal dysmotility with dysphagia, GERD, history 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 Patient is complaining of a cough which is productive of white phlegm with no hemoptysis, anterior and posterior sharp, pleuritic chest SOB, [place] fever, chills, rhinorrhea, sore throat, myalgias and arthralgias. Patient's O2 saturation was 83% on room air and on 3 L O2 saturations 92%. Lung exam revealed diffuse wheezing and rhonchi with no rales. Following evaluation was ordered: CBC, BMP, liver panel, lipase, troponin, BNP COVID-19, influenza, RSV, EKG, chest x-ray one view Patient was treated with normal saline x1 L, Solu-Medrol 125 mg IV, Toradol 15 mg IV, Zofran 4 mg IV and bronchodilator protocol. 13:46 My interpretation patient's laboratory evaluation is as follows: CBC was normal. Glucose elevated 149. Initial troponin below detectable limits, repeat due at 14:30 hours BNP was below detectable limits. Influenza was positive. My interpretation patient's one-view chest x-ray is no acute disease Patient may have a viral pneumonia. Patient will be treated with Tamiflu, I will obtain a CT scan PE protocol to rule out pulmonary embolism and further evaluate her lungs. 16:28 Patient's repeat troponin was also below detectable limits suggests that she is not have myocardial injury as the cause of her chest pain. CT pulmonary angiogram revealed no pulmonary embolism but the patient does have consolidations of her lung bases therefore I will treat the patient with IV antibiotics. I did order a lactic acid and blood cultures. I will discuss admission with the covering hospitalist. Differential Diagnosis Differential Diagnoses: The differential diagnosis associated with the presentation includes 16:28 Differential diagnosis includes was not limited to pneumonia, bronchitis, chronic lung disease exacerbation, viral syndrome, RSV, 19, influenza Admission/Observation Consideration of admission/observation: Escalation of care including admission/observation considered Consult Healthcare Provider Management of the patient was discussed with: Hospitalist Lab Data 06/22/23 11:19 06/22/23 11:19 Labs: Lab Results 06/22/23 06/22/23 06/22/23 Range/Units 11:19 14:07 14:12 WBC 10.2 (4.8-10.8) X10*3/uL RBC 5.00 (4.20-5.50) X10*6/uL Hgb 15.5 (12.0-16.0) g/dl Hct 46.1 (37.0-47.0) % MCV 92.2 (80.0-98.0) fL MCH 31.0 (27.0-33.0) pg MCHC 33.6 (31.0-35.0) g/dl RDW 13.6 (11.0-16.0) % Plt Count 271 (160-400) X10*3/uL MPV 9.3 L (9.4-12.3) fL Immature Gran % (Auto) 0.4 (0.0-0.4) % Neut % (Auto) 70.3 (45-73) % Lymph % (Auto) 22.6 (20-40) % [place] % (Auto) 5.3 (2-11) % Eos % (Auto) 1.1 (0-4) % Baso % (Auto) 0.3 (0-2) % Lymph # (Auto) 2.3 (1.2-4.9) X10*3/uL [place] # (Auto) 0.5 (0.1-1.2) X10*3/uL Eos # (Auto) 0.1 (0.0-0.4) X10*3/uL Baso # (Auto) 0.0 (0.0-0.2) X10*3/uL Abs Immat Gran (auto) 0.04 H (0.00-0.03) X10*3/uL Absolute Neuts (auto) 7.2 (2.0-8.3) x10*3/uL Absolute Nucleated RBC 0.000 (0.0-0.012) X10*3/uL Nucleated RBC % (auto) 0.0 (0.0-0.2) /100WBC VBG pH 7.40 (7.32-7.43) VBG pCO2 43 mmHg VBG pO2 43 mmHg VBG HCO3 26 (22-26) mmol/L VBG O2 Saturation 72.0 % VBG Base Excess 1.8 mmol/L Sodium 140 (135-145) mmol/L Potassium 4.2 (3.3-5.1) mmol/L Chloride 104 (96-108) mmol/L Carbon Dioxide 27 (22-29) mmol/L Anion Gap 13 (12-20) BUN 11 (9-16) mg/dL Creatinine 0.73 (0.5-1.4) mg/dL Estim Creat Clear Calc 57.4 Estimated GFR > 60 Random Glucose 149 H (60-115) mg/dL Calcium 9.8 (8.4-10.2) mg/dL Total Bilirubin 0.4 (0.0-1.0) mg/dL Direct Bilirubin 0.2 (0.0-0.5) mg/dL AST 18 (5-31) U/L ALT 21 (0-31) U/L Alkaline Phosphatase 86 (39-117) U/L Troponin I High Sens < 2.7 < 2.7 (<3.5-17.0) ng/L B-Natriuretic Peptide < 10 (<100) pg/mL Total Protein 7.4 (6.5-8.0) g/dL Albumin 4.1 (3.5-5.0) g/dL Lipase 12 (8-78) U/L Influenza Type A (PCR) POSITIVE A (Negative) Influenza Type B (PCR) NEGATIVE (Negative) RSV RNA Qual (PCR) NEGATIVE (Negative) SARS-CoV-2 RNA (RT-PCR) NEGATIVE (Negative) Independent Interpretation I performed an independent interpretation of an: EKG Interpretation: My interpretation patient's 12 EKG done at 11:18 hours is as follows: Normal sinus rhythm with a rate of 65, normal AL interval, QRS duration QTC interval, no ST segment elevation, no ST segment depression, compared to EKG dated 02/12/2023 there are newly inverted T-waves in V5 and V6. Radiology Impression Discussion of test interpretation with radiology: I have reviewed the radiologist's reading. Radiologist Impression: CT angio chest PE protocol IMPRESSION: 1. No evidence of pulmonary embolism. 2. Dependent atelectasis and consolidation at lung bases, left greater than right. VTE: negative. Dictated By: Berto Barcenas MD XR chest 1V IMPRESSION: Subtle retrocardiac opacity may represent atelectasis or early consolidation. Correlate with the pending chest CTA. Dictated By: Demetrio Grant MD Critical Care Time Critical Care Time Critical Care Time: Yes Total Critical Care Time: 45 Attestation: Critical Care: The patient was critically ill with a high probability of imminent or life threatening deterioration. I spent greater than 30 minutes of discontinuous time evaluating the patient,delivering critical care at the bedside, discussing and evaluating pertinent data with consultants. Critical care time does not include time spent performing separately billable procedures or teaching. Total time spent performing critical care was 45 minutes. Discharge Plan Discharge Clinical Impression: Influenza A, Hypoxic, Chronic lung disease Pneumonia Qualifiers: Pneumonia type: due to unspecified organism Laterality: bilateral Lung location: lower lobe of lung Qualified Code(s): J18.9 - Pneumonia, unspecified organism Patient Disposition: Admitted As Inpatient 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: No Action peg 3350-electrolytes 236-22.74-6.74 -5.86 gram recon soln 240 ml PO Q10M Qty: 4000 0RF Rx Instructions: Refer to prep instructions given/ mailed to you from GI OFFICE. until fecal effluent is clear sertraline 25 mg tablet 25 mg PO DAILY 30 Days Qty: 30 4RF methadone 10 mg/5 mL solution 65 mg PO DAILY (DME) nebulizers [AeroEclipse II Nebulizer] Misc See Rx Instructions .Route Qty: 1 0RF Rx Instructions: As directed prednisone 10 mg tablet 10 mg PO DIRECTED 8 Days Qty: 30 0RF Rx Instructions: Take 4 tabs for 2 days, then 3 tabs for 2 days, then 2 tabs for 2 days, then 1 tab for 2 days multivitamin with folic acid [Daily-Radha (with folic acid)] 400 mcg tablet 1 tab PO DAILY 90 Days Qty: 90 3RF ipratropium-albuterol 0.5 mg-3 mg(2.5 mg base)/3 mL solution for nebulization 3 ml inhalation Q4H Qty: 90 0RF dexlansoprazole [Dexilant] 60 mg capsule,biphase delayed releas 60 mg PO DAILY 30 Days Qty: 30 3RF atorvastatin 20 mg tablet 20 mg PO BEDTIME 90 Days Qty: 90 1RF metoclopramide HCl [Reglan] 5 mg tablet 5 mg PO .tidac Qty: 90 3RF Hold Instructions: ? if helping Anoro Ellipta 62.5-25 mcg/actuation blister with device 1 inh inhalation DAILY 30 Days Qty: 1 6RF albuterol sulfate 90 mcg/actuation HFA aerosol inhaler 2 puff PO Q6H PRN (Reason: bronchospasm) 30 Days Qty: 18 6RF
[2023-06-22 11:34] LABS: MANUAL DIFF FLAG NO
[2023-06-22 11:41] LABS: Basophils Percent Auto 0.3 % (0-2); Eosinophils Absolute Auto 0.1 X10*3/uL (0.0-0.4); Eosinophils Percent Auto 1.1 % (0-4); Hematocrit 46.1 % (37.0-47.0); Hemoglobin 15.5 g/dl (12.0-16.0); Imm Gran Abs Auto 0.04 X10*3/uL (0.00-0.03); Imm Gran Pct Auto 0.4 % (0.0-0.4); Lymphocytes Absolute Auto 2.3 X10*3/uL (1.2-4.9); Lymphocytes Percent Auto 22.6 % (20-40); Mean Corpuscular HGB Conc 33.6 g/dl (31.0-35.0); Mean Corpuscular Volume 92.2 fL (80.0-98.0); Mean Platelet Volume 9.3 fL (9.4-12.3); Monocytes Absolute Auto 0.5 X10*3/uL (0.1-1.2); Monocytes Percent Auto 5.3 % (2-11); Neutrophils Absolute Auto 7.2 x10*3/uL (2.0-8.3); Neutrophils Percent Auto 70.3 % (45-73); Platelet Count 271 X10*3/uL (160-400); Red Cell Distribution Width 13.6 % (11.0-16.0); White Blood Count 10.2 X10*3/uL (4.8-10.8)
[2023-06-22 11:52] LABS: Anion Gap 13 (12-20); Blood Urea Nitrogen 11 mg/dL (9-16); Calcium 9.8 mg/dL (8.4-10.2); Carbon Dioxide 27 mmol/L (22-29); Chloride 104 mmol/L (96-108); Creatinine Clr Calc Pharmacy 57.4; Estimated Glomerular Filt Rate > 60; Glucose Random 149 mg/dL (60-115); Potassium 4.2 mmol/L (3.3-5.1); Sodium 140 mmol/L (135-145)
[2023-06-22 12:02] LABS: Troponin-I High Sensitivity < 2.7 ng/L (<3.5-17.0)
[2023-06-22] MEDS: ondansetron HCL 4 MG/2 ML VIAL IVPUSH (12:04)
[2023-06-22] MEDS: methylPREDNISolone Sod Succ 125 MG/2 ML VIAL IVPUSH (12:04)
[2023-06-22] MEDS: Ketorolac Tromethamine 15 MG/ML VIAL IVPUSH (12:04)
[2023-06-22] MEDS: Albuterol Sulfate 5 MG, Albuterol/Iprat 2.5/0.5MG 3 ML 3 ML INHALE (12:05)
[2023-06-22 12:19] LABS: Influenza A PCR POSITIVE (Negative); Influenza B PCR NEGATIVE (Negative); Resp Syncy Virus RNA Qual PCR NEGATIVE (Negative); SARS COV2 PCR INHOUSE NEGATIVE (Negative)
[2023-06-22 12:49] LABS: Alanine Aminotransferase 21 U/L (0-31); Albumin Level 4.1 g/dL (3.5-5.0); Alkaline Phosphatase 86 U/L (39-117); Aspartate Amino Transferase 18 U/L (5-31); Bilirubin Direct 0.2 mg/dL (0.0-0.5); Bilirubin Total 0.4 mg/dL (0.0-1.0); Lipase 12 U/L (8-78); Total Protein 7.4 g/dL (6.5-8.0)
[2023-06-22 12:59] LABS: B Type Natriuretic Peptide < 10 pg/mL (<100)
[2023-06-22] MEDS: 0.9 % Sodium Chloride 1,000 ML 999 ML IV (13:02)
[2023-06-22 14:17] LABS: Venous Blood Gas Refer to POC result
[2023-06-22 14:18] LABS: VBG Base Excess 1.8 mmol/L; VBG HCO3 26 mmol/L (22-26); VBG pCO2 43 mmHg; VBG pO2 43 mmHg
[2023-06-22 14:37] LABS: Troponin-I High Sensitivity < 2.7 ng/L (<3.5-17.0)
[2023-06-22] MEDS: Oseltamivir Phosphate 75 MG CAPSULE PO (14:48)
--- NOTE | 2023-06-22 15:25 | PC.NURSE ---
second IV placed, 20g RAC for CTA. Pt contiunes to rest comfortbly. Pt denies any new complaints. Pt did have to be moved to oxymask for further O2 support to maintain above 92%
--- NOTE | 2023-06-22 15:26 | PC.NURSE ---
When taken off O2, patient drops to 86%
[2023-06-22] MEDS: iohexoL 350 MG/ML 100 ML INFUS..BTL 65 ML IV (15:27)
[2023-06-22] MEDS: cefTRIAXone sodium 1 GM in 0.9 % Sodium Chloride 50 ML IV (16:50)
--- NOTE | 2023-06-22 17:16 | PHA.MEDREC ---
Pharmacy Consult ? Medication Reconciliation Pharmacy has completed the medication reconciliation. Patient reported sister know medications. Try to contact [facility] however the phone in the EMR is not active. med rec done by claim history and past provider reports. Frannie Chavez, EmersonD
[2023-06-22 17:17] LABS: Lactic Acid 0.9 mmol/L (0.5-2.0)
[2023-06-22] MEDS: Azithromycin 500 MG in 0.9 % Sodium Chloride 250 ML 125 MG IV (17:24)
--- NOTE | 2023-06-22 17:44 | P.HPHOSP_ITS ---
History of Present Illness Date of Service: 06/22/23 Chief Complaint: sob 63F PMH COPD/mod persistent asthma, mood disorder, opiate dependence on methadone, hld, dyphagia presented with sob. patient had been feeling unwell for about 5 days prior to presentation, fevers, chills, myalgias, shortness of breath, pleuritic chest pain, cough. symptoms continued to worsen so came to ED. in ED noted to be hypoxic to mid 80s, flu positive, cta negative for pe, but showed bilateral atelectasis. Review of Systems 2 Review of Systems: Yes all other systems are reviewed and are negative [facility] Medical History Pre-op examination Weight loss Skin lesion Memory loss Upper abdominal pain Duodenal ulcer H. pylori infection Mixed hyperlipidemia Dysphagia Daytime somnolence History of heroin use Methadone use Dyslipidemia Moderate asthma Family History Father No problems noted. Mother Breast cancer Sister Breast cancer, Onset Age: 47 Brother Cancer Maternal Uncle Cancer Surgical History Hx of tonsillectomy History of mammogram History of section History of esophagogastroduodenoscopy (EGD) Hx of colonoscopy Social History Housing: Apartment Alcohol intake: current Alcohol intake frequency: holidays/special occasions only Patient Tobacco Use Status: Current everyday Tobacco user Tobacco use type: Cigarette Cigarettes Per Day: 8 e-Cigarette/Vaping Use: Never Used Second Hand Smoke Exposure: No Use of substances other than those prescribed or required for medical reasons: No Substance Use Type: Marijuana Advance Directives: No Advance Directives Information Provided: Yes Patient : No service: No Current occupational status: unemployed Cognitive needs: No Hearing needs: No Vision needs: No Meds Allergies Allergy/AdvReac Type Severity Reaction Status Date / Time Penicillins Allergy Intermediate RASH Verified 06/14/23 13:31 Active Medications: Current Medications Albuterol/Ipratropium (Albuterol/Iprat 2.5/0.5mg 3 Ml Ampul.Neb) 3 ml INHALE RQ4H WHILE AWAKE [facility] Atorvastatin Calcium (Atorvastatin Calcium 20 Mg Tablet) 20 mg PO BEDTIME NIKKY Azithromycin (Azithromycin 500 Mg Tablet) 500 mg PO Q24H [facility] Enoxaparin Sodium (Enoxaparin Sodium 40 Mg/0.4 Ml Syringe) 40 mg SUBCUT Q24H [facility] Azithromycin 500 mg/ Sodium (Chloride) 250 mls @ 125 mls/hr IV ONCE STA Stop: 06/22/23 18:31 Last Admin: 06/22/23 17:24 Dose: 125 mls/hr Methylprednisolone Sodium Succinate (Methylprednisolone Sod Succ 40 Mg/Ml Vial) 40 mg IVPUSH Q12H [facility] Multivitamins/Vitamin C (Multivitamin Tablet) 1 tab PO DAILY [facility] Non-Formulary Medication (Dexlansoprazole [Dexilant]) 60 mg PO DAILY [facility] Non-Formulary Medication (Umeclidinium-Vilanterol [Anoro Ellipta]) 1 inhalation INHALE DAILY [facility] Oseltamivir Phosphate (Oseltamivir Phosphate 75 Mg Capsule) 75 mg PO Q12H [facility] Stop: 06/27/23 21:01 Sertraline HCl (Sertraline Hcl 25 Mg Tablet) 25 mg PO DAILY [facility] Sodium Chloride (0.9 % Sodium Chloride Flush 3 Ml Syringe) 3 ml IVFLUSH QSHIFT [facility] Home Medications Medication Instructions Recorded Confirmed Last Taken Type methadone 10 mg/5 mL oral solution 65 mg PO DAILY 07/17/20 05/16/23 Unknown History ipratropium 0.5 mg-albuterol 3 mg 3 ml inhalation Q4H PRN Wheezing 06/22/23 06/22/23 Unknown History (2.5 mg base)/3 mL nebulization soln Physical Exam 2 Vital Signs and Narrative: Vital Signs: Last Vital Signs Temp 99.0 F 06/22/23 17:34 Pulse 74 06/22/23 17:34 Resp 12 06/22/23 17:34 BP 129/80 06/22/23 15:22 Pulse Ox 96 06/22/23 17:34 O2 Del Method Oxymask 06/22/23 17:34 O2 Flow Rate 5 06/22/23 17:34 Oxygen Flow Rate 4 06/22/23 11:12 BMI result Body Mass Index 23.4 General: AO X 3, no acute distress Resp: diminished and wheezing bilateral, mild accessory muscles used CVS: S1,S2,RRR GI: soft, non tender, non distended Neuro: motor grossly intact, alert Psych: appropriate affect, appropriate insight Results Labs 06/22/23 11:19 06/22/23 11:19 Labs: Laboratory Results - last 24 hr 06/22/23 06/22/23 06/22/23 11:19 14:12 16:45 MCV 92.2 MCH 31.0 MCHC 33.6 RDW 13.6 Plt Count 271 MPV 9.3 L Immature Gran % (Auto) 0.4 Neut % (Auto) 70.3 Lymph % (Auto) 22.6 [place] % (Auto) 5.3 Eos % (Auto) 1.1 Baso % (Auto) 0.3 Lymph # (Auto) 2.3 [place] # (Auto) 0.5 Eos # (Auto) 0.1 Baso # (Auto) 0.0 Abs Immat Gran (auto) 0.04 H Absolute Neuts (auto) 7.2 Absolute Nucleated RBC 0.000 Nucleated RBC % (auto) 0.0 VBG pH 7.40 VBG pCO2 43 VBG pO2 43 VBG HCO3 26 VBG O2 Saturation 72.0 VBG Base Excess 1.8 Anion Gap 13 Estim Creat Clear Calc 57.4 Estimated GFR > 60 Random Glucose 149 H Lactic Acid 0.9 Calcium 9.8 Total Bilirubin 0.4 Direct Bilirubin 0.2 AST 18 ALT 21 Alkaline Phosphatase 86 B-Natriuretic Peptide < 10 Total Protein 7.4 Albumin 4.1 Lipase 12 Influenza Type A (PCR) POSITIVE A Influenza Type B (PCR) NEGATIVE RSV RNA Qual (PCR) NEGATIVE SARS-CoV-2 RNA (RT-PCR) NEGATIVE Imaging Radiologist's Impressions: Impressions Chest X-Ray 06/22/23 12:35 IMPRESSION: Subtle retrocardiac opacity may represent atelectasis or early consolidation. Correlate with the pending chest CTA. Chest CTA 06/22/23 15:27 IMPRESSION: 1. No evidence of pulmonary embolism. 2. Dependent atelectasis and consolidation at lung bases, left greater than right. VTE: negative. Assessment and Plan (1) Chronic lung disease: Status: Acute Plan 63F PMH COPD/mod persistent asthma, mood disorder, opiate dependence on methadone, hld, dyphagia presented with sob acute hpyoxic respiarotry failure due to copd/moderate persistent asthma with acute decompensation due to Flu iv solumedrol, duonebs, azithro wean o2 as tolerated mood disorder sertraline opiate dependence methadone once confirmed hld statin dysphagia gerd dvt prophylaxis - lovenox full code patient with significant dyspnea and hypoxia due to copd/asthma and flu. 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 Quality Stroke Does the patient have a stroke diagnosis?: No VTE Prior VTE?: No VTE Risk Level:: Medical - moderate - high VTE Device Contraindication: Treatment Not Indicated VTE Drug Contraindication: N/A - Med Ordered
[2023-06-22] MEDS: Albuterol/Iprat 2.5/0.5MG 3 ML AMPUL.NEB INHALE (20:21)
[2023-06-22] MEDS: Atorvastatin Calcium 20 MG TABLET PO (21:55)
[2023-06-22] MEDS: Nicotine 14 MG PATCH.TD24 TRANSDERMA (21:55)
[2023-06-22] MEDS: methylPREDNISolone Sod Succ 40 MG/ML VIAL IVPUSH (21:55)
[2023-06-22] MEDS: 0.9 % Sodium Chloride Flush 3 ML SYRINGE IVFLUSH (23:53)
[2023-06-23 03:41] VITALS: BP 128/64; PULSE 65; RESP 16; TEMP 35.9; O2SAT 97
[2023-06-23] MEDS: Omeprazole 20 MG CAPSULE.DR PO (06:23)
[2023-06-23 07:40] VITALS: BP 130/68; PULSE 62; RESP 18; TEMP 36.1; O2SAT 98
[2023-06-23] MEDS: Albuterol/Iprat 2.5/0.5MG 3 ML AMPUL.NEB INHALE (08:14)
[2023-06-23 08:16] VITALS: PULSE 73; RESP 16; O2SAT 92
--- NOTE | 2023-06-23 08:24 | HO.PM.IMPN ---
Subjective Subjective Date of Service: 06/23/23 Interval History: feeling better, wants to go home Physical Exam Vital Signs: Vital Signs: Last Vital Signs Temp 96.9 F 06/23/23 07:40 Pulse 73 06/23/23 08:16 Resp 16 06/23/23 08:16 BP 130/68 06/23/23 07:40 Pulse Ox 98 06/23/23 07:40 O2 Del Method Oxymask 06/23/23 07:40 O2 Flow Rate 5 06/23/23 07:40 Oxygen Flow Rate 4 06/22/23 11:12 BMI result Body Mass Index 23.4 General: AO X 3, no acute distress Resp: poor air entry, diffuse wheezing bilateral, mild accessory muscles used CVS: S1,S2,RRR GI: soft, non tender, non distended Neuro: motor grossly intact, alert Psych: appropriate affect, appropriate insight Objective Data Active Medications Albuterol/Ipratropium (Albuterol/Iprat 2.5/0.5mg 3 Ml Ampul.Neb) 3 ml INHALE RQ4H WHILE AWAKE [facility] Last Admin: 06/23/23 08:14 Dose: 3 ml Documented By: PIERRE Atorvastatin Calcium (Atorvastatin Calcium 20 Mg Tablet) 20 mg PO BEDTIME [facility] Last Admin: 06/22/23 21:55 Dose: 20 mg Documented By: LEONEL Azithromycin (Azithromycin 500 Mg Tablet) 500 mg PO Q24H [facility] Enoxaparin Sodium (Enoxaparin Sodium 40 Mg/0.4 Ml Syringe) 40 mg SUBCUT Q24H [facility] Methylprednisolone Sodium Succinate (Methylprednisolone Sod Succ 40 Mg/Ml Vial) 40 mg IVPUSH Q12H [facility] Last Admin: 06/22/23 21:55 Dose: 40 mg Documented By: LEONEL Multivitamins/Vitamin C (Multivitamin Tablet) 1 tab PO DAILY [facility] Nicotine (Nicotine 14 Mg Patch.Td24) 14 mg TRANSDERMA DAILY [facility] Last Admin: 06/22/23 21:55 Dose: 14 mg Documented By: LEONEL Non-Formulary Medication (Umeclidinium-Vilanterol [Anoro Ellipta]) 1 inhalation INHALE DAILY [facility] Omeprazole (Omeprazole 20 Mg Capsule.) 20 mg PO DAILY@0630 [facility] Last Admin: 06/23/23 06:23 Dose: 20 mg Documented By: PADMINI Oseltamivir Phosphate (Oseltamivir Phosphate 30 Mg Capsule) 30 mg PO BID [facility] Stop: 06/27/23 21:01 Sertraline HCl (Sertraline Hcl 25 Mg Tablet) 25 mg PO DAILY [facility] Sodium Chloride (0.9 % Sodium Chloride Flush 3 Ml Syringe) 3 ml IVFLUSH QSHIFT [facility] Last Admin: 06/22/23 23:53 Dose: 3 ml Documented By: PADMINI Labs 06/22/23 11:19 06/22/23 11:19 Labs: Laboratory Results - last 24 hr 06/22/23 06/22/23 06/22/23 11:19 14:12 16:45 MCV 92.2 MCH 31.0 MCHC 33.6 RDW 13.6 Plt Count 271 MPV 9.3 L Immature Gran % (Auto) 0.4 Neut % (Auto) 70.3 Lymph % (Auto) 22.6 [place] % (Auto) 5.3 Eos % (Auto) 1.1 Baso % (Auto) 0.3 Lymph # (Auto) 2.3 [place] # (Auto) 0.5 Eos # (Auto) 0.1 Baso # (Auto) 0.0 Abs Immat Gran (auto) 0.04 H Absolute Neuts (auto) 7.2 Absolute Nucleated RBC 0.000 Nucleated RBC % (auto) 0.0 VBG pH 7.40 VBG pCO2 43 VBG pO2 43 VBG HCO3 26 VBG O2 Saturation 72.0 VBG Base Excess 1.8 Anion Gap 13 Estim Creat Clear Calc 57.4 Estimated GFR > 60 Random Glucose 149 H Lactic Acid 0.9 Calcium 9.8 Total Bilirubin 0.4 Direct Bilirubin 0.2 AST 18 ALT 21 Alkaline Phosphatase 86 B-Natriuretic Peptide < 10 Total Protein 7.4 Albumin 4.1 Lipase 12 Influenza Type A (PCR) POSITIVE A Influenza Type B (PCR) NEGATIVE RSV RNA Qual (PCR) NEGATIVE SARS-CoV-2 RNA (RT-PCR) NEGATIVE Assessment and Plan (1) Chronic lung disease: Status: Acute Plan 63F PMH COPD/mod persistent asthma, mood disorder, opiate dependence on methadone, hld, dyphagia presented with sob acute hpyoxic respiarotry failure due to copd/moderate persistent asthma with acute decompensation due to Flu continue iv solumedrol, duonebs, azithro wean o2 as tolerated mood disorder sertraline opiate dependence methadone once confirmed hld statin dysphagia gerd dvt prophylaxis - lovenox full code reason for continued hospitalization:still significantly wheezing and hypoxic Quality Stroke Does the patient have a stroke diagnosis?: No VTE Prior VTE?: No VTE Risk Level:: Medical - moderate - high VTE Device Contraindication: Treatment Not Indicated VTE Drug Contraindication: N/A - Med Ordered
--- NOTE | 2023-06-23 08:29 | HE.PHANOTE ---
Re: Methadone Last dose verified by Ana Garvey for Methadone 85mg on 06/20/23 (Given 2 take home bottles).
--- NOTE | 2023-06-23 08:38 | P.DS_ITS ---
DS: Providers Provider Date of Service: 06/23/23 Date of admission: 06/22/23 17:42 Primary care physician: Sarah Zhu MD DS: Diagnosis Discharge Diagnosis (1) Chronic lung disease: Status: Acute DS: Summary Hospital Course Hospital Course: from initial hpi: 63F PMH COPD/mod persistent asthma, mood disorder, opiate dependence on methadone, hld, dyphagia presented with sob. patient had been feeling unwell for about 5 days prior to presentation, fevers, chills, myalgias, shortness of breath, pleuritic chest pain, cough. symptoms continued to worsen so came to ED. in ED noted to be hypoxic to mid 80s, flu positive, cta negative for pe, but showed bilateral atelectasis. hospital course: patient was admitted for acute hypoxic respiratory failure due to copd/moderate persistent asthma with acute decompensation due to flu penumonia. was treated with iv solumedrol and duonebs and azithromycin. next day patient still actively wheezing, but was able to be weaned to room air and saturing low 90s. she reports feeling much better and would like to continue treatment in ambulatory setting, she is instructed to monitor for hyopxia at home and return for worsening sob or sustained hypoxia. she will be discharged on 5 more days prednisone, azithro and tamiflu. for mood disorder was continued on sertraline, for opiate dependence will continue on methadone, for hld was continued on statin, for dysphagia and gerd was continued on ppi. Time Attestation Discharge coordination time: Greater than 30 minutes Quality: Safe Use of Opioids Does Pt have an Active Cancer Diagnosis on the Problem List?: No Quality: Stroke Does the patient have a stroke diagnosis?: No Physical Exam Vital Signs: Vital Signs: Last Vital Signs Temp 96.9 F 06/23/23 07:40 Pulse 73 06/23/23 08:16 Resp 16 06/23/23 08:16 BP 130/68 06/23/23 07:40 Pulse Ox 98 06/23/23 07:40 O2 Del Method Oxymask 06/23/23 07:40 O2 Flow Rate 5 06/23/23 07:40 Oxygen Flow Rate 4 06/22/23 11:12 BMI result Body Mass Index 23.4 General: AO X 3, no acute distress Resp: poor air entry, diffuse wheezing bilateral CVS: S1,S2,RRR GI: soft, non tender, non distended Neuro: motor grossly intact, alert Psych: appropriate affect, appropriate insight DS: Data Data Completed and Pending Labs on day of discharge: Laboratory Results - last 24 hr 06/22/23 06/22/23 06/22/23 11:19 14:07 14:12 WBC 10.2 RBC 5.00 Hgb 15.5 Hct 46.1 MCV 92.2 MCH 31.0 MCHC 33.6 RDW 13.6 Plt Count 271 MPV 9.3 L Immature Gran % (Auto) 0.4 Neut % (Auto) 70.3 Lymph % (Auto) 22.6 [place] % (Auto) 5.3 Eos % (Auto) 1.1 Baso % (Auto) 0.3 Lymph # (Auto) 2.3 [place] # (Auto) 0.5 Eos # (Auto) 0.1 Baso # (Auto) 0.0 Abs Immat Gran (auto) 0.04 H Absolute Neuts (auto) 7.2 Absolute Nucleated RBC 0.000 Nucleated RBC % (auto) 0.0 VBG pH 7.40 VBG pCO2 43 VBG pO2 43 VBG HCO3 26 VBG O2 Saturation 72.0 VBG Base Excess 1.8 Sodium 140 Potassium 4.2 Chloride 104 Carbon Dioxide 27 Anion Gap 13 BUN 11 Creatinine 0.73 Estim Creat Clear Calc 57.4 Estimated GFR > 60 Random Glucose 149 H Lactic Acid Calcium 9.8 Total Bilirubin 0.4 Direct Bilirubin 0.2 AST 18 ALT 21 Alkaline Phosphatase 86 Troponin I High Sens < 2.7 < 2.7 B-Natriuretic Peptide < 10 Total Protein 7.4 Albumin 4.1 Lipase 12 Influenza Type A (PCR) POSITIVE A Influenza Type B (PCR) NEGATIVE RSV RNA Qual (PCR) NEGATIVE SARS-CoV-2 RNA (RT-PCR) NEGATIVE 06/22/23 16:45 WBC RBC Hgb Hct MCV MCH MCHC RDW Plt Count MPV Immature Gran % (Auto) Neut % (Auto) Lymph % (Auto) [place] % (Auto) Eos % (Auto) Baso % (Auto) Lymph # (Auto) [place] # (Auto) Eos # (Auto) Baso # (Auto) Abs Immat Gran (auto) Absolute Neuts (auto) Absolute Nucleated RBC Nucleated RBC % (auto) VBG pH VBG pCO2 VBG pO2 VBG HCO3 VBG O2 Saturation VBG Base Excess Sodium Potassium Chloride Carbon Dioxide Anion Gap BUN Creatinine Estim Creat Clear Calc Estimated GFR Random Glucose Lactic Acid 0.9 Calcium Total Bilirubin Direct Bilirubin AST ALT Alkaline Phosphatase Troponin I High Sens B-Natriuretic Peptide Total Protein Albumin Lipase Influenza Type A (PCR) Influenza Type B (PCR) RSV RNA Qual (PCR) SARS-CoV-2 RNA (RT-PCR) Discharge Plan Discharge Anticipated Discharge Date/Time: 06/23/23 08:35 Patient Disposition: Home, Self-Care Discharge Diagnosis: flu copd Referrals: Sarah Jerry MD [Primary Care Provider] - 1 Week Discharge Medications: New azithromycin 500 mg Tablet 500 mg PO Q24H Qty: 4 0RF oseltamivir 30 mg Capsule 30 mg PO BID Qty: 8 0RF prednisone 20 mg tablet 40 mg PO DAILY Qty: 10 0RF Continued sertraline 25 mg tablet 25 mg PO DAILY 30 Days Qty: 30 4RF ipratropium-albuterol 0.5 mg-3 mg(2.5 mg base)/3 mL solution for nebulization 3 ml inhalation Q4H PRN (Reason: Wheezing) methadone 10 mg/5 mL solution 65 mg PO DAILY (DME) nebulizers [AeroEclipse II Nebulizer] Misc See Rx Instructions .Route Qty: 1 0RF Rx Instructions: As directed multivitamin with folic acid [Daily-Radha (with folic acid)] 400 mcg tablet 1 tab PO DAILY 90 Days Qty: 90 3RF dexlansoprazole [Dexilant] 60 mg capsule,biphase delayed releas 60 mg PO DAILY 30 Days Qty: 30 3RF atorvastatin 20 mg tablet 20 mg PO BEDTIME 90 Days Qty: 90 1RF Anoro Ellipta 62.5-25 mcg/actuation blister with device 1 inh inhalation DAILY 30 Days Qty: 1 6RF albuterol sulfate 90 mcg/actuation HFA aerosol inhaler 2 puff PO Q6H PRN (Reason: bronchospasm) 30 Days Qty: 18 6RF Discharge Orders: Discharge Order (Routine); Ordered 06/23/23 Ordered By: Howard Parr Diet: Advance to usual diet Activity on Discharge: As tolerated Stand Alone Forms: Patient Portal Discharge page Care Plan Goals: recovery Health Concerns: flu and copd Plan of Treatment: complete prednisone, azithro, tamiflu course Assessment: see above
[2023-06-23] MEDS: Multivitamin TABLET 1 TAB PO (08:39)
[2023-06-23] MEDS: Oseltamivir Phosphate 30 MG CAPSULE PO (08:39)
[2023-06-23] MEDS: 0.9 % Sodium Chloride Flush 3 ML SYRINGE IVFLUSH (08:39)
[2023-06-23] MEDS: Sertraline HCL 25 MG TABLET PO (08:39)
[2023-06-23] MEDS: methADONE HCl 20 MG/2 ML ORAL.CONC 85 MG PO (09:28)
== END 2023-06-23 10:45 | disposition home or self-care (01) | DRG 140 ==
LOC: HO.ED 16:34 → HO.EDOVER 17:47 → HO.S3 18:39
PROVIDERS: Admitting Provider Internal Medicine; Emergency Provider Emergency Medicine Emergency Medical Services; PCP Internal Medicine; Visit Provider Internal Medicine
DX: J44.0 Chronic obstructive pulmonary disease with (acute) lower respiratory infection (principal); J96.01 Acute respiratory failure with hypoxia; J10.00 Influenza due to other identified influenza virus with unspecified type of pneumonia; J45.41 Moderate persistent asthma with (acute) exacerbation; R13.10 Dysphagia, unspecified; J44.1 Chronic obstructive pulmonary disease with (acute) exacerbation; E78.2 Mixed hyperlipidemia; F11.20 Opioid dependence, uncomplicated; F17.210 Nicotine dependence, cigarettes, uncomplicated; Z71.6 Tobacco abuse counseling; Z88.0 Allergy status to penicillin; Z79.899 Other long term (current) drug therapy
CPT/HCPCS: 0241U; 36415; 71045; 71275; 80048; 80076; 82803; 83605; 83690; 83880; 84484; 85025; 87040; 93005; 94640; 99285; J0456; J0696; J1885; J2405; J2920; J2930; Q9967

== ENCOUNTER → 2023-06-22 11:18 | Outpatient (BNV) | payer OTHER, SELFPAY | PROVIDERS: Admitting Provider Internal Medicine; Emergency Provider Emergency Medicine Emergency Medical Services; PCP Internal Medicine; Visit Provider Internal Medicine Cardiovascular Disease | DX: R94.31 Abnormal electrocardiogram [ECG] [EKG] (principal) | CPT/HCPCS: 93010 ==

== ENCOUNTER → 2023-06-22 17:42 | Outpatient (BNV) | payer OTHER, SELFPAY | PROVIDERS: Admitting Provider Internal Medicine; Emergency Provider Emergency Medicine Emergency Medical Services; PCP Internal Medicine; Visit Provider Internal Medicine | DX: J44.9 Chronic obstructive pulmonary disease, unspecified (principal); J96.01 Acute respiratory failure with hypoxia | CPT/HCPCS: 99223; 99239 ==

== ENCOUNTER 2023-07-05 06:29 | Outpatient (REF) | payer OTHER, SELFPAY ==
[2023-07-05 06:48] LABS: MANUAL DIFF FLAG NO
[2023-07-05 07:09] LABS: Basophils Absolute Auto 0.1 X10*3/uL (0.0-0.2); Basophils Percent Auto 0.6 % (0-2); Eosinophils Absolute Auto 0.2 X10*3/uL (0.0-0.4); Eosinophils Percent Auto 1.6 % (0-4); Hemoglobin 15.1 g/dl (12.0-16.0); Imm Gran Abs Auto 0.03 X10*3/uL (0.00-0.03); Imm Gran Pct Auto 0.3 % (0.0-0.4); Lymphocytes Absolute Auto 4.3 X10*3/uL (1.2-4.9); Lymphocytes Percent Auto 40.7 % (20-40); Mean Corpuscular HGB Conc 32.8 g/dl (31.0-35.0); Mean Corpuscular Hemoglobin 30.6 pg (27.0-33.0); Mean Corpuscular Volume 93.3 fL (80.0-98.0); Mean Platelet Volume 9.2 fL (9.4-12.3); Monocytes Absolute Auto 0.6 X10*3/uL (0.1-1.2); Monocytes Percent Auto 6.1 % (2-11); Neutrophils Absolute Auto 5.3 x10*3/uL (2.0-8.3); Neutrophils Percent Auto 50.7 % (45-73); Platelet Count 339 X10*3/uL (160-400); Red Blood Count 4.93 X10*6/uL (4.20-5.50); Red Cell Distribution Width 13.9 % (11.0-16.0); White Blood Count 10.5 X10*3/uL (4.8-10.8)
[2023-07-05 07:26] LABS: Alanine Aminotransferase 47 U/L (0-31); Albumin Level 3.8 g/dL (3.5-5.0); Alkaline Phosphatase 81 U/L (39-117); Anion Gap 11 (12-20); Aspartate Amino Transferase 26 U/L (5-31); Bilirubin Total 0.2 mg/dL (0.0-1.0); Blood Urea Nitrogen 11 mg/dL (9-16); Calcium 9.5 mg/dL (8.4-10.2); Carbon Dioxide 30 mmol/L (22-29); Chloride 105 mmol/L (96-108); Estimated Glomerular Filt Rate > 60; Glucose Random 131 mg/dL (60-115); Potassium 4.3 mmol/L (3.3-5.1); Sodium 142 mmol/L (135-145); Total Protein 6.7 g/dL (6.5-8.0)
== END 2023-07-05 06:30 | disposition home or self-care (01) ==
LOC: HO.LAB 06:29
PROVIDERS: PCP Internal Medicine; Visit Provider Internal Medicine
DX: D72.829 Elevated white blood cell count, unspecified (principal); J44.9 Chronic obstructive pulmonary disease, unspecified
CPT/HCPCS: 36415; 80053; 85025

== ENCOUNTER 2023-09-01 06:25 | Day surgery (SDC) | payer OTHER, SELFPAY ==
[2023-05-16 15:27] VITALS: BMI 23.6
--- NOTE | 2023-08-31 10:13 | HO.ANESPROP2 ---
Documented by User: Ester Guerra NP 08/31/23 10:15 HPI - Anesthesia Eval Consult details Narrative: 63yo F for Upper Endoscopy and Colonoscopy Methadone daily PMFSH Active Problems Active Problems: All Active Problems (Updated 07/01/23 @ 00:03 by Christal Lugo) Chronic lung disease (Acute) Hypoxic (Acute) Influenza A (Acute) Pneumonia (Acute) Pulmonary nodules (Acute) Mild major depression (Acute) Physical exam (Acute) Screen for colon cancer (Acute) DESMOND (generalized anxiety disorder) (Acute) COPD (chronic obstructive pulmonary disease) (Acute) Leukocytosis (Acute) Duodenal ulcer (Acute) IBS (irritable bowel syndrome) (Acute) GERD (gastroesophageal reflux disease) (Acute) Skin lesion (Acute) Memory loss (Acute) Esophageal dysmotility (Acute) Mixed hyperlipidemia (Acute) Dysphagia (Acute) Daytime somnolence (Acute) Methadone use (Acute) Moderate asthma (Acute) Past Medical History Medical History (Updated 09/01/23 @ 08:07 by Maryjane Rehman MD) Hypoxic Pre-op examination Weight loss Skin lesion Memory loss Upper abdominal pain Duodenal ulcer H. pylori infection Mixed hyperlipidemia Dysphagia Daytime somnolence History of heroin use Methadone use Dyslipidemia Moderate asthma Family History Family History Father No problems noted. Mother Breast cancer Sister Breast cancer, Onset Age: 47 Brother Cancer Maternal Uncle Cancer Surgical History Surgical History Hx of tonsillectomy History of mammogram History of section History of esophagogastroduodenoscopy (EGD) Hx of colonoscopy Social History Social History Household Members: None Housing: House Do you presently have visiting nurse or other home services: No Alcohol intake: current Alcohol intake frequency: holidays/special occasions only Patient Tobacco Use Status: Current everyday Tobacco user Tobacco use type: Cigarette Cigarettes Per Day: 8 e-Cigarette/Vaping Use: Never Used Second Hand Smoke Exposure: No Substance Use Type: Marijuana service: No Current occupational status: unemployed Cognitive needs: No Hearing needs: No Vision needs: No Meds Allergies Allergy/AdvReac Type Severity Reaction Status Date / Time Penicillins Allergy Intermediate RASH Verified 06/14/23 13:31 Home Medications Medication Instructions Recorded Confirmed Last Taken Type methadone 10 mg/5 mL oral solution 65 mg PO DAILY 07/17/20 05/16/23 09/01/23 History ipratropium 0.5 mg-albuterol 3 mg 3 ml inhalation Q4H PRN Wheezing 06/22/23 06/22/23 Unknown History (2.5 mg base)/3 mL nebulization soln Exam Height,Weight and Vital Signs: Height 5 ft Weight 54.885 kg Pertinent Lab Results Pertinent Lab Results: Laboratory Tests 07/05/23 06:43 WBC 10.5 Hgb 15.1 Hct 46.0 Plt Count 339 D Sodium 142 Potassium 4.3 Chloride 105 Carbon Dioxide 30 H BUN 11 Creatinine 0.71 Narrative Narrative: EKG 06/2023 Vent. Rate : 065 BPM Atrial Rate : 065 BPM P-R Int : 138 ms QRS Dur : 070 ms QT Int : 408 ms P-R-T Axes : 048 018 -04 degrees QTc Int : 424 ms Normal sinus rhythm T wave abnormality, consider anterolateral ischemia Abnormal ECG When compared with ECG of 12-FEB-2023 15:58, Inverted T waves have replaced nonspecific T wave abnormality in Lateral leads Assessment and Plan Assessment Anesthesia Assessment: Chart Reviewed Documented by User: Maryjane Rehman MD 09/01/23 08:30 HPI - Anesthesia Eval Consult details Narrative: 63yo F for Upper Endoscopy and Colonoscopy Methadone daily. Took this morning PMF Active Problems Active Problems: All Active Problems (Updated 09/01/23 @ 07:22 by Maryjane Rehman MD) Chronic lung disease (Acute) Hypoxic (Acute) Influenza A (Acute) Pneumonia (Acute) Pulmonary nodules (Acute) Mild major depression (Acute) Physical exam (Acute) Screen for colon cancer (Acute) DESMNOD (generalized anxiety disorder) (Acute) COPD (chronic obstructive pulmonary disease) (Acute) Leukocytosis (Acute) Duodenal ulcer (Acute) IBS (irritable bowel syndrome) (Acute) GERD (gastroesophageal reflux disease) (Acute) Skin lesion (Acute) Memory loss (Acute) Esophageal dysmotility (Acute) Mixed hyperlipidemia (Acute) Dysphagia (Acute) Daytime somnolence (Acute) Methadone use (Acute) Moderate asthma (Acute). Uses inhalers daily Denies MILAGROS Past Medical History Medical History (Updated 09/01/23 @ 08:07 by Maryjane Rehman MD) Hypoxic Pre-op examination Weight loss Skin lesion Memory loss Upper abdominal pain Duodenal ulcer H. pylori infection Mixed hyperlipidemia Dysphagia Daytime somnolence History of heroin use Methadone use Dyslipidemia Moderate asthma Family History Family History Father No problems noted. Mother Breast cancer Sister Breast cancer, Onset Age: 47 Brother Cancer Maternal Uncle Cancer Family history of problems with anesthesia: No Surgical History Surgical History Hx of tonsillectomy History of mammogram History of section History of esophagogastroduodenoscopy (EGD) Hx of colonoscopy History of Problems with Anesthesia: No Social History Social History Household Members: None Housing: House Do you presently have visiting nurse or other home services: No Alcohol intake: current Alcohol intake frequency: holidays/special occasions only Patient Tobacco Use Status: Current everyday Tobacco user Tobacco use type: Cigarette Cigarettes Per Day: 8 e-Cigarette/Vaping Use: Never Used Second Hand Smoke Exposure: No Substance Use Type: Marijuana service: No Current occupational status: unemployed Cognitive needs: No Hearing needs: No Vision needs: No Meds Allergies Allergy/AdvReac Type Severity Reaction Status Date / Time Penicillins Allergy Intermediate RASH Verified 06/14/23 13:31 Home Medications Medication Instructions Recorded Confirmed Last Taken Type methadone 10 mg/5 mL oral solution 65 mg PO DAILY 07/17/20 05/16/23 09/01/23 History ipratropium 0.5 mg-albuterol 3 mg 3 ml inhalation Q4H PRN Wheezing 06/22/23 06/22/23 Unknown History (2.5 mg base)/3 mL nebulization soln Exam Height,Weight and Vital Signs: Height 5 ft Weight 54.885 kg Vital Signs Temp Pulse Resp BP Pulse Ox 98 F 78 18 164/83 H 95 09/01/23 06:45 09/01/23 06:45 09/01/23 06:45 09/01/23 06:45 09/01/23 06:45 Airway Mallampati Class: III TM Dist: >3cm Neck ROM: Full Denture: Upper and Lower Loose/Missing/Broken Teeth: Yes Heart: RRR Lungs: CTAB Assessment and Plan Assessment Anesthesia Assessment: Anesthesia Plan Discussed and Chart Reviewed Final Anesthetic Review Family History of Problems with Anesthesia: No History of Problems with Anesthesia: No NPO: Yes ASA Class: III Final Preanesthetic Review: No Changes in Pt Med Stat, Meds/Allgs Chart Reviewed, Consent Obtained/Reviewed and Anes Risks/Benef Reviewed Patient Risk: Intermediate Procedure Risk: Low Assessment/Block/Sedation in SS: Assess/Block/Sedation-SS Anesthetic Plan Anesthetic Plan: MAC: and TIVA Disposition: Standard PACU
--- NOTE | 2023-09-01 05:53 | MHC.SHP ---
Pre-Procedural Eval Section A - 24 Hr Update-Section A only Date of Service: 09/01/23 Section B - Complete if H&P > 30 days Chief Complaint: Gastro-esophageal reflux disease without esophagit Details of Present Illness: screening Relevant Family History (Specify if Yes): No Relevant Social History: Tobacco Use Present Medications: see Short Stay Collaborative assessment Medical History: Significant History ( Hx of tonsillectomy History of mammogram History of section History of esophagogastroduodenoscopy (EGD) Hx of colonoscopy) History of Previous Operations: Relevant previous surgery/procedure and date(s) (Weight loss Skin lesion Memory loss Upper abdominal pain Duodenal ulcer H. pylori infection Mixed hyperlipidemia Dysphagia Daytime somnolence History of heroin use Methadone use Dyslipidemia Moderate asthma) Allergies: Allergies Allergy/AdvReac Type Severity Reaction Status Date / Time Penicillins Allergy Intermediate RASH Verified 06/14/23 13:31 Review of Systems Sugical H&P ROS: Negative: Constitution, Cardiovascular, Respiratory, Neurological, Psychiatric, Hem-Onc, Allergic/Immunologic, Gastrointestinal, Genitourinary, Musculoskeletal, Integumentary, Endocrine and Eyes/Ears/Nose/Throat Exam Surgical H&P Exam: Normal: HEENT, Normal: Heart, Normal: Lungs, Normal: Extremities, Normal: Abdomen, Normal: Skin and Normal: Neurological Plan Diagnosis/Plan: Unchanged I have reviewed the history and physical and performed a pertinent physical examination on my patient. No changes have occurred unless specified. Has dysphagia, discussed balloon dilation as well and bx Time Spent With Patient Time: Total time managing care of this patient today ____ minutes.
[2023-09-01 06:45] VITALS: BP 164/83; PULSE 78; RESP 18; TEMP 36.6; O2SAT 95; BMI 23.3
[2023-09-01] MEDS: Lactated Ringers 1,000 ML 100 ML IVCONT (06:59)
--- NOTE | 2023-09-01 08:12 | W.PM.OPN ---
Operative Note Operative Note Date of Service: 09/01/23 Narrative: Operative Information Procedure Description: EGD, Colonoscopy Indication: gerd, dysphagia Anesthesia: MAC FLEXIBLE TRANSORAL UPPER GASTROINTESTINAL ENDOSCOPY AND COLONOSCOPY PROCEDURE NOTE UPPER ENDOSCOPY Consent: Indications for the procedure and potential complications of bleeding, perforation, reaction to medications and missed diagnosis were discussed with the patient and informed consent was obtained. Instrument: Olympus GIF H 190 J mid size upper endoscope Monitoring: Vital signs and clinical assessment, continuous EKG monitoring, Pulse oximetry, Carbon Dioxide monitoring and blood pressure monitoring were done throughout the procedure. Procedure: The patient was placed in the left lateral decubitis position and pre-procedure medications were administered and a bite block was placed. The endoscope was inserted into the mouth and advanced under direct vision to the third part of duodenum. A careful inspection was made as the upper endoscope was withdrawn including a retroflexed examination of the proximal stomach; Findings and interventions are described below. Findings: Larynx:normal Esophagus: GE junction at 38 cm, diaphragm hiatus at 38 cm, normal mucosa bx taken from distal and proximal esophagus --tertiary contractions noted, balloon dilation done to 19 mm at UES and 20 mm LES, no tears seen Stomach: Patchy erythema. Biopsies were obtained. Grade 2 flap valve on retroflexed examination of the cardia. Duodenum: Normal bulb and descending duodenum, Intervention: Biopsies as noted above, balloon dilation COLONOSCOPY Instrument: Olympus variable stiffness pediatric scope 190L Colonoscopy Monitoring: Vital signs and clinical assessment, continuous EKG monitoring, Pulse oximetry, Carbon Dioxide monitoring and blood pressure monitoring were done throughout the procedure. Colon withdrawal time was 6 minutes. Procedure: The patient was placed in the left lateral decubitis position and pre-procedure medications were administered. After a digital rectal examination of the ano-rectum, the video colonoscope was inserted into the rectum and advanced through the colon to the cecum/TI. The colonoscope was slowly withdrawn in a retrograde panoramic fashion and the colon mucosa was carefully examined including a retroflexed view of the rectum. Findings and interventions are described below. Procedure Difficulty: easy Findings: Terminal Ileum- not intubated Cecum:normal Ascending Colon: 9-10 mm sessile polyp removed with cold snare Transverse Colon -normal Descending Colon:normal Sigmoid Colon: normal Rectum: Retroflexion with small internal hemorrhoids, grade I, x 3 sessile polyps removed, with cold snare. Looked hyperplastic but were 10-11 mm in size Anorectum - normal Colon preparation: Marshall Bowel Preparation Scale Right colon; 2 Transverse colon: 2 Left colon; 2 (0 = Unprepared colon segment with mucosa not seen due to solid stool that cannot be cleared. 1 = Portion of mucosa of the colon segment seen, but other areas of the colon segment not well seen due to staining, residual stool and/or opaque liquid. 2 = Minor amount of residual staining, small fragments of stool and/or opaque liquid, but mucosa of colon segment seen well. 3 = Entire mucosa of colon segment seen well with no residual staining, small fragments of stool or opaque liquid) Impression and Post Procedure Diagnosis: Endoscopy Findings: gastritis esophageal dysmotility Colonoscopy Findings: polyps internal hemorrhoids Plan: Await Pathology results Repeat Colonoscopy in 5 years due to polyps or earlier if clinically indicated High fiber diet leaflet avoid straining at stool, epsom salts and sitz bath, anusol supps or cream if ongoing issues then campbell and possible manometry Above findings were reviewed with the patient and relevant handouts were provided if indicated.
[2023-09-01 08:16] VITALS: BP 136/72; PULSE 76; RESP 16; TEMP 36.2; O2SAT 98
[2023-09-01 08:30] VITALS: BP 183/114; PULSE 76; RESP 16; O2SAT 98
[2023-09-01 08:45] VITALS: BP 196/96; PULSE 69; RESP 16; O2SAT 98
[2023-09-01 09:00] VITALS: BP 188/101; PULSE 69; RESP 16; O2SAT 98
[2023-09-01 09:14] VITALS: BP 190/95; PULSE 68; RESP 16; O2SAT 94
== END 2023-09-01 09:58 | disposition home or self-care (01) ==
PROVIDERS: PCP Internal Medicine; Visit Provider Internal Medicine Gastroenterology
PROC: (CPT 43249; principal; 2023-09-01 07:30)
DX: K29.60 Other gastritis without bleeding (principal); K22.4 Dyskinesia of esophagus; R13.10 Dysphagia, unspecified; K21.9 Gastro-esophageal reflux disease without esophagitis; Z12.11 Encounter for screening for malignant neoplasm of colon; D12.2 Benign neoplasm of ascending colon; K62.1 Rectal polyp; K64.0 First degree hemorrhoids; E78.5 Hyperlipidemia, unspecified; J44.9 Chronic obstructive pulmonary disease, unspecified; F11.20 Opioid dependence, uncomplicated; F17.210 Nicotine dependence, cigarettes, uncomplicated; Z79.899 Other long term (current) drug therapy
CPT/HCPCS: 43249; 43239; 45385; 88305; 88313; 88342; C1726; J1596; J2704

== ENCOUNTER → 2023-09-01 06:25 | Outpatient (BNV) | payer OTHER, SELFPAY | PROVIDERS: PCP Internal Medicine; Visit Provider Internal Medicine Gastroenterology | DX: K29.70 Gastritis, unspecified, without bleeding (principal); K22.4 Dyskinesia of esophagus; K63.5 Polyp of colon; K64.8 Other hemorrhoids | CPT/HCPCS: 43239; 43249; 45385 ==

== ENCOUNTER 2023-10-02 12:07 | Emergency (ER) | payer OTHER, SELFPAY ==
[2023-10-02] VITALS (9 sets, daily range): BP systolic 110–155; BP diastolic 57–84; PULSE 65–86; RESP 15–20; TEMP 36.7–36.8; O2SAT 88–97; BMI 23.3
--- NOTE | ~2023-10-02 | XR_ITS ---
EXAMINATION: CHEST 2 VIEWS CLINICAL INFORMATION: shortness of breath. COMPARISON: 06/22/2023. TECHNIQUE: PA and lateral views of the chest obtained. FINDINGS: The lungs are well expanded. No focal infiltrate, effusion, edema, or pneumothorax. Cardiac and mediastinal silhouettes are within normal limits for technique. No acute bony abnormality seen XR/XR chest 2V IMPRESSION: No evidence of acute disease
--- NOTE | 2023-10-02 12:22 | ED_ITS ---
HPI - General Adult General Chief complaint: Upper Respiratory Symptoms Stated complaint: Diff breathing Time Seen by Provider: 10/02/23 13:06 Source: patient, old records reviewed and certified court/medical interpreter Mode of arrival: ambulatory Limitations: no limitations History of Present Illness HPI narrative: 63 yo female with history of asthma/COPD, active smoker, pneumonia, pulmonary nodules, HLD, GERD, irritable bowel syndrome, dysphagia, duodenal ulcer, anxiety who presents to the ER for evaluation of SOB and productive cough for the last 5 days. She states she has not been feeling well and has had a decreased appetite as well. She has been bringing up yellow phelgem. She has been using her inhalers and nebulizer machine at home with some brief relief. She thinks she had a low grade temp last night but did not take her temperature. She feels run down and weak. No chest pain, abdominal pain, nausea, vomiting, diarrhea. No known sick contacts. MD complaint: SOB, productive cough Onset (ago): day(s) (5) Severity: moderate Relieving factors: medication Exacerbating factors: movement Associated symptoms: fever/chills, loss of appetite, malaise and shortness of breath Treatments prior to arrival: other (neb at 930am) Related Data Home Medications Medication Instructions Recorded Confirmed methadone 10 mg/5 mL oral solution 65 mg PO DAILY 07/17/20 05/16/23 ipratropium 0.5 mg-albuterol 3 mg 3 ml inhalation Q4H PRN Wheezing 06/22/23 06/22/23 (2.5 mg base)/3 mL nebulization soln Previous Rx's Medication Instructions Recorded dexlansoprazole 60 mg 60 mg PO DAILY 30 days #30 caps 03/08/23 capsule,biphase delayed release (Dexilant) multivitamin with folic acid 400 1 tab PO DAILY 90 days #90 tabs 03/08/23 mcg tablet (Daily-Radha (with folic acid)) nebulizers (AeroEclipse II #1 ea 03/08/23 Nebulizer) albuterol sulfate 90 mcg/actuation 2 puff PO Q6H PRN bronchospasm 30 03/30/23 aerosol inhaler days #18 grams umeclidinium 62.5 mcg-vilanterol 1 inh inhalation DAILY 30 days #1 03/30/23 25 mcg/actuation powdr for ea inhalation (Anoro Ellipta) oseltamivir 30 mg capsule 30 mg PO BID #8 caps 06/23/23 atorvastatin 20 mg tablet 20 mg PO BEDTIME 90 days #90 tabs 09/01/23 sertraline 25 mg tablet 25 mg PO DAILY 30 days #30 tabs 09/01/23 doxycycline monohydrate 100 mg 100 mg PO BID #14 caps 10/02/23 capsule prednisone 10 mg tablets in a dose See Rx Instructions .Route 10/02/23 pack .COMPLEX #48 ea Allergies Allergy/AdvReac Type Severity Reaction Status Date / Time Penicillins Allergy Intermediate RASH Verified 10/02/23 12:11 Review of Systems 2 Review of Systems: Yes all other systems are reviewed and are negative [facility] Past Medical History Medical History (Updated 10/02/23 @ 17:59 by MEETA Rondon) Hypoxic Pre-op examination Weight loss Skin lesion Memory loss Upper abdominal pain Duodenal ulcer H. pylori infection Mixed hyperlipidemia Dysphagia Daytime somnolence History of heroin use Methadone use Dyslipidemia Moderate asthma Surgical History Hx of tonsillectomy History of mammogram History of section History of esophagogastroduodenoscopy (EGD) Hx of colonoscopy Family History Family History Father No problems noted. Mother Breast cancer Sister Breast cancer, Onset Age: 47 Brother Cancer Maternal Uncle Cancer Social History Social History Household Members: None Housing: House Do you presently have visiting nurse or other home services: No Alcohol intake: current Alcohol intake frequency: holidays/special occasions only Patient Tobacco Use Status: Current everyday Tobacco user Tobacco use type: Cigarette Cigarettes Per Day: 8 Smoked in Last 30 Days: Yes e-Cigarette/Vaping Use: Never Used Second Hand Smoke Exposure: No Use of substances other than those prescribed or required for medical reasons: Yes Substance Use Type: Marijuana Advance Directives: No Advance Directives Information Provided: Yes Patient : No service: No Current occupational status: unemployed Cognitive needs: No Hearing needs: No Vision needs: No Physical Exam ED Vital Signs: Vital Signs - 24 hr 10/02/23 12:12 10/02/23 13:25 10/02/23 13:25 Temperature 98.3 F Pulse Rate 84 69 Respiratory Rate 18 18 Blood Pressure 155/84 H 138/68 Pulse Oximetry 92 95 95 Oxygen Delivery Method Room Air Room Air Room Air Oxygen Flow Rate 10/02/23 13:38 10/02/23 14:17 10/02/23 15:35 Temperature 98.1 F Pulse Rate 65 86 73 Respiratory Rate 16 20 17 Blood Pressure 116/57 L Pulse Oximetry 88 L 95 Oxygen Delivery Method Room Air Room Air Oxygen Flow Rate 10/02/23 15:55 10/02/23 16:31 Temperature Pulse Rate 74 75 Respiratory Rate 19 15 Blood Pressure 110/60 Pulse Oximetry 97 Oxygen Delivery Method Oxymask Oxygen Flow Rate 2 BMI result Body Mass Index 23.3 Appearance: Alert. Oriented X3. No acute distress. Head: normocephalic, atraumatic. Eyes: Pupils equal, round and reactive to light. ENT: Pharynx normal. No tonsillar swelling or exudate. Neck: Normal inspection. Neck supple. CVS: Normal heart rate and rhythm. Pulses normal. Respiratory: No respiratory distress. Breath sounds with diffuse expiratory wheezes throughout and scattered rhonchi. able to speak in complete sentences Abdomen: Soft and nontender. +BS x4 Skin: Skin warm and dry. Normal skin color. Normal skin turgor. No rashes. Extremities: No lower extremity edema. No joint swelling. Neuro/psych: Oriented X 3. No motor deficit. No sensory deficit. CN II-XII intact. Normal speech and cognition. Course Course Course Narrative: This is an RME: Additional HPI, ROS, PE not included below will be deferred to primary provider. Patient is a 63-year-old female who presents emergency department for evaluation of productive cough, nasal congestion, headache, shortness of breath, sore throat onset of symptoms yesterday. No relief from home inhalers. Denies chest pain Reevaluation(s) Reevaluation #1: Patient feels a little bit better after her breathing treatment however she still remained short of breath. She desaturated to 88% on room air. She was placed on nasal cannula 2 L however with her nasal congestion she prefers a face mask. We discussed admission to the hospital for around the clock neb treatments and IV steroids for COPD exacerbation. She is in agreement. Will contact hospitalist for admission. Time: 14:26 Reevaluation #2: Patient expressed that she does not want to stay in the hospital. She is willing to stay in the emergency department for a couple of more hours for monitoring. She is willing to get another breathing treatment. She sounds coarse with some mild expiratory wheezing and scattered rhonchi. She is saturating 97% on 2 L via OxyMask. Oxygen was removed. Will monitor on room air and reassess after her 2nd breathing treatment. Time: 16:26 Reevaluation #3: Patient is saturating low 90s, she does not want to stay in hospital. I explained to her this could be dangerous., she verbalizes risks of leaving against medical advice. They were also outlined in her discharge. Verbalizes understanding of the risks. Educated patient on diagnosis and treatment plan, answered all question, patient verbalizes understanding. At this time patient will be discharged home, advised to return with new or worsening symptoms. Educated on worrisome signs and symptoms and when to return. Time: 18:00 Medications Administered Discontinued Medications Generic Name Dose Route Start Last Admin Trade Name Bryosn PRN Reason Stop Dose Admin Acetaminophen 975 mg 10/02/23 14:21 10/02/23 14:48 Acetaminophen 325 Mg Tablet PO 10/02/23 14:22 975 mg ONCE ONE Administration Albuterol Sulfate 5 mg 10/02/23 16:27 10/02/23 16:30 Albuterol Sulfate (0.083%) 2.5 Mg/3 Ml Vial.Neb INHALE 10/02/23 16:28 5 mg ONCE ONE Administration Albuterol Sulfate 2.5 mg/ 0 mg 10/02/23 13:27 10/02/23 13:37 Albuterol/Ipratropium 3 ml INHALE 10/02/23 13:28 5 dose ONCE ONE Administration Guaifenesin 1,200 mg 10/02/23 14:20 10/02/23 14:47 Guaifenesin La 600 Mg Tab.Er.12h PO 10/02/23 14:21 1,200 mg ONCE ONE Administration Doxycycline Hyclate 100 mg/ 250 mls @ 166.67 mls/hr 10/02/23 14:18 10/02/23 17:18 Sodium Chloride IV 10/02/23 15:47 Infused ONCE ONE Infusion Methylprednisolone Sodium Succinate 60 mg 10/02/23 13:12 10/02/23 13:54 Methylprednisolone Sod Succ 125 Mg/2 Ml Vial IVPUSH 10/02/23 13:13 60 mg ONCE ONE Administration Medical Decision Making Medical Decision Making [facility] Narrative: 63 yo female with history of COPD/asthma presenting with SOB and productive cough x5 days. SPO2 92% on RA on arrival. Lung sounds w/ diffuse wheezing and rhonchi but no respiratory distress. Bronch protocol ordered along w/ IV solumedrol. CXR showing no evidence of PNA. Viral panel is negative. Patient is afebrile and hemodynamically stable. No tachycardia. She was given bronchodilator and IV steroids with some improvement in her wheezing, scattered rhonchi with difficulty taking deep inspiration persist. SpO2 88% after bronchodilator treatment. Patient will require admission to the hospital for supplemental oxygen, steroids, nebulizer treatments for COPD exacerbation. IV doxycycline ordered for COPD exacerbation. No evidence of sepsis at this time. Differential Diagnosis Differential Diagnoses: The differential diagnosis associated with the presentation includes Acute COPD exacerbation, influenza, COVID, flu, bacterial pneumonia, pneumonitis, CHF exacerbation Admission/Observation Consideration of admission/observation: Escalation of care including admission/observation considered Consult Healthcare Provider Management of the patient was discussed with: Hospitalist Lab Data [facility] Lab Attestation statement: I reviewed the patient's lab results. mild leukocytosis, polycythemia ?due to chronic hypoxia 10/02/23 12:39 10/02/23 12:39 Labs: Lab Results 10/02/23 Range/Units 12:39 WBC 12.6 H (4.8-10.8) X10*3/uL RBC 5.23 (4.20-5.50) X10*6/uL Hgb 16.6 H (12.0-16.0) g/dl Hct 48.0 H (37.0-47.0) % MCV 91.8 (80.0-98.0) fL MCH 31.7 (27.0-33.0) pg MCHC 34.6 (31.0-35.0) g/dl RDW 13.3 (11.0-16.0) % Plt Count 297 (160-400) X10*3/uL MPV 9.0 L (9.4-12.3) fL Immature Gran % (Auto) 0.3 (0.0-0.4) % Neut % (Auto) 83.1 H (45-73) % Lymph % (Auto) 11.3 L (20-40) % Stanly % (Auto) 4.1 (2-11) % Eos % (Auto) 0.9 (0-4) % Baso % (Auto) 0.3 (0-2) % Lymph # (Auto) 1.4 (1.2-4.9) X10*3/uL Stanly # (Auto) 0.5 (0.1-1.2) X10*3/uL Eos # (Auto) 0.1 (0.0-0.4) X10*3/uL Baso # (Auto) 0.0 (0.0-0.2) X10*3/uL Abs Immat Gran (auto) 0.04 H (0.00-0.03) X10*3/uL Absolute Neuts (auto) 10.5 H (2.0-8.3) x10*3/uL Absolute Nucleated RBC 0.000 (0.0-0.012) X10*3/uL Nucleated RBC % (auto) 0.0 (0.0-0.2) /100WBC Sodium 139 (135-145) mmol/L Potassium 3.8 (3.3-5.1) mmol/L Chloride 102 (96-108) mmol/L Carbon Dioxide 26 (22-29) mmol/L Anion Gap 15 (12-20) BUN 10 (9-16) mg/dL Creatinine 0.72 (0.5-1.4) mg/dL Estim Creat Clear Calc 60.4 Estimated GFR > 60 Random Glucose 164 H (60-115) mg/dL Calcium 9.8 (8.4-10.2) mg/dL Total Bilirubin 0.5 (0.0-1.0) mg/dL AST 21 (5-31) U/L ALT 26 (0-31) U/L Alkaline Phosphatase 78 (39-117) U/L B-Natriuretic Peptide 26 (<100) pg/mL Total Protein 7.4 (6.5-8.0) g/dL Albumin 4.3 (3.5-5.0) g/dL Influenza Type A (PCR) NEGATIVE (Negative) Influenza Type B (PCR) NEGATIVE (Negative) RSV RNA Qual (PCR) NEGATIVE (Negative) SARS-CoV-2 RNA (RT-PCR) NEGATIVE (Negative) S. pyogenes GrpA ARIC Negative (Negative) Independent Interpretation I performed an independent interpretation of an: Plain X-Ray Interpretation: cxr without focal infiltrate, agree w/ radiology read Radiology Impression Discussion of test interpretation with radiology: I have reviewed the radiologist's reading. Radiologist Impression: XR/XR chest 2V IMPRESSION: No evidence of acute disease External Record Review External record reviewed: Office record, Outpatient record and Prior outpatient labs Prescription Management I considered prescription management with: Pain Medication and Antibiotic Chronic Conditions Patient?s care impacted by: Other (COPD/asthma) Critical Care Time Critical Care Time Critical Care Time: Yes Total Critical Care Time: 44 Attestation: I have personally provided critical care time exclusive of time spent on separately billable procedures. Time includes review of lab data, radiology results, discussion with consultants, and monitoring for potential decompensation. Intervention performed as documented. Discharge Plan Discharge Clinical Impression: COPD exacerbation, Left against medical advice Patient Disposition: Left Against Medical Advice Instructions: COPD (Chronic Obstructive Pulmonary Disease) (ED) Additional Instructions: stop smoking Take the prescribed medications as prescribed. Continue using her nebulizer every 4 hours around the clock until your feeling better. Follow-up with your feed mixer helper this week. If you develop new or worsening symptoms call 911 or come back to the ER for further evaluation. Patient decided to leave against medical advice. I took the time to go over risks of leaving against medical advice including . Patient verbalizes understanding of this. Advised them to come back if they change their mind. 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: New prednisone 10 mg tablets,dose pack See Rx Instructions .ROUTE .COMPLEX Qty: 48 0RF Taper: Prednisone 40 mg daily for 3 Days and 0 Hour 30 mg daily for 3 Days and 0 Hour 20 mg daily for 3 Days and 0 Hour 10 mg daily for 3 Days and 0 Hour Rx Instructions: See Taper orally doxycycline monohydrate 100 mg capsule 100 mg PO BID Qty: 14 0RF No Action atorvastatin 20 mg tablet 20 mg PO BEDTIME 90 Days Qty: 90 1RF sertraline 25 mg tablet 25 mg PO DAILY 30 Days Qty: 30 4RF ipratropium-albuterol 0.5 mg-3 mg(2.5 mg base)/3 mL solution for nebulization 3 ml inhalation Q4H PRN (Reason: Wheezing) oseltamivir 30 mg Capsule 30 mg PO BID Qty: 8 0RF methadone 10 mg/5 mL solution 65 mg PO DAILY (DME) nebulizers [place]AeroEclipse II Nebulizer[place] [facility] [place] Inst[place] .Route Qty: 1 0RF Rx Instructions: As directed multivitamin with folic acid [Daily-Radha (with folic acid)] 400 mcg tablet 1 tab PO DAILY 90 Days Qty: 90 3RF dexlansoprazole [Dexilant] 60 mg capsule,biphase delayed releas 60 mg PO DAILY 30 Days Qty: 30 3RF Anoro Ellipta 62.5-25 mcg/actuation blister with device 1 inh inhalation DAILY 30 Days Qty: 1 6RF albuterol sulfate 90 mcg/actuation HFA aerosol inhaler 2 puff PO Q6H PRN (Reason: bronchospasm) 30 Days Qty: 18 6RF Referrals: [facility] [place] Pulmonology Services [Provider Group] Sarah Jerry MD [Primary Care Provider] - Stand Alone Forms: Against Medical Advice Print Language: Chinese
[2023-10-02 12:53] LABS: Basophils Percent Auto 0.3 % (0-2); Eosinophils Absolute Auto 0.1 X10*3/uL (0.0-0.4); Eosinophils Percent Auto 0.9 % (0-4); Hemoglobin 16.6 g/dl (12.0-16.0); Imm Gran Abs Auto 0.04 X10*3/uL (0.00-0.03); Imm Gran Pct Auto 0.3 % (0.0-0.4); Lymphocytes Absolute Auto 1.4 X10*3/uL (1.2-4.9); Lymphocytes Percent Auto 11.3 % (20-40); MANUAL DIFF FLAG NO; Mean Corpuscular HGB Conc 34.6 g/dl (31.0-35.0); Mean Corpuscular Hemoglobin 31.7 pg (27.0-33.0); Mean Corpuscular Volume 91.8 fL (80.0-98.0); Monocytes Absolute Auto 0.5 X10*3/uL (0.1-1.2); Monocytes Percent Auto 4.1 % (2-11); Neutrophils Absolute Auto 10.5 x10*3/uL (2.0-8.3); Neutrophils Percent Auto 83.1 % (45-73); Platelet Count 297 X10*3/uL (160-400); Red Blood Count 5.23 X10*6/uL (4.20-5.50); Red Cell Distribution Width 13.3 % (11.0-16.0); White Blood Count 12.6 X10*3/uL (4.8-10.8)
[2023-10-02 13:09] LABS: Alanine Aminotransferase 26 U/L (0-31); Albumin Level 4.3 g/dL (3.5-5.0); Alkaline Phosphatase 78 U/L (39-117); Anion Gap 15 (12-20); Aspartate Amino Transferase 21 U/L (5-31); Bilirubin Total 0.5 mg/dL (0.0-1.0); Blood Urea Nitrogen 10 mg/dL (9-16); Calcium 9.8 mg/dL (8.4-10.2); Carbon Dioxide 26 mmol/L (22-29); Chloride 102 mmol/L (96-108); Creatinine Clr Calc Pharmacy 60.4; Estimated Glomerular Filt Rate > 60; Glucose Random 164 mg/dL (60-115); Potassium 3.8 mmol/L (3.3-5.1); Sodium 139 mmol/L (135-145); Total Protein 7.4 g/dL (6.5-8.0)
[2023-10-02 13:15] LABS: B Type Natriuretic Peptide 26 pg/mL (<100)
[2023-10-02] MEDS: Albuterol Sulfate 2.5 MG, Albuterol/Iprat 2.5/0.5MG 3 ML 3 ML INHALE (13:37)
[2023-10-02] MEDS: methylPREDNISolone Sod Succ 125 MG/2 ML VIAL 60 MG IVPUSH (13:54)
[2023-10-02 13:57] LABS: Influenza A PCR NEGATIVE (Negative); Influenza B PCR NEGATIVE (Negative); Resp Syncy Virus RNA Qual PCR NEGATIVE (Negative); SARS COV2 PCR INHOUSE NEGATIVE (Negative)
[2023-10-02 14:15] LABS: IDNOW Serial# 6674DD1D; Strep A Nucleic Acid Negative (Negative)
[2023-10-02] MEDS: guaiFENesin LA 600 MG TAB.ER.12H 1200 MG PO (14:47)
[2023-10-02] MEDS: Doxycycline Hyclate 100 MG in 0.9 % Sodium Chloride 250 ML 166.67 MG IV (14:47)
[2023-10-02] MEDS: Acetaminophen 325 MG TABLET 975 MG PO (14:48)
[2023-10-02] MEDS: Albuterol Sulfate (0.083%) 2.5 MG/3 ML VIAL.NEB 5 MG INHALE (16:30)
--- NOTE | 2023-10-02 18:06 | PC.NURSE ---
pt wants to leave, aware that her O2 is low, she reports that she is feeling better. pt will sign out against AMA. encouraged to return for worsening sx
== END 2023-10-02 18:06 | disposition left against medical advice (07) ==
PROVIDERS: Nurse Practitioner Family; Emergency Provider Student in an Organized Health Care Education/Training Program; PCP Internal Medicine
DX: J44.1 Chronic obstructive pulmonary disease with (acute) exacerbation (principal)
CPT/HCPCS: 0241U; 36415; 71046; 80053; 83880; 85025; 87651; 94640; 96365; 96366; 96375; 99285; J2930

== ENCOUNTER 2023-10-11 13:59 | Outpatient (AMB) | payer OTHER, SELFPAY ==
[2023-10-11 14:04] VITALS: BP 140/92; BMI 23.5
--- NOTE | 2023-10-11 14:04 | A.OFFPC_ITS ---
Vital Signs 10/11/23 14:04 Height 4 ft 11.65 in Weight 119 lb BMI 23.5 BP 140/92 H Blood Pressure Location Lt brachial Position Sitting Intake Visit Reasons: glucose, wbc Intake Note: Patient here for a follow up glucose, wbc, c/o anxiety and depression [place] Required: No Accompanied by: Self / Same As Patient Allergies Penicillins Allergy (Intermediate, Verified 10/11/23 14:19) RASH Medication List - Last Reconciled 10/11/23 by Sarah Zhu MD albuterol sulfate 90 mcg/actuation 2 puffs PO Q6H PRN 30 days atorvastatin 20 mg PO BEDTIME 90 days dexlansoprazole (Dexilant) 60 mg PO DAILY 30 days ipratropium-albuterol 0.5 mg-3 mg(2.5 mg base)/3 mL 3 mL inhalation Q4H PRN methadone 65 mg PO DAILY multivitamin with folic acid 400 mcg (Daily-Radha (with folic acid)) 1 tab PO DAILY 90 days nebulizers (AeroEclipse II Nebulizer) As directed sertraline 25 mg PO DAILY 30 days umeclidinium-vilanterol 62.5-25 mcg/actuation (Anoro Ellipta) 1 inh inhalation DAILY 30 days Tobacco use date assessed: 10/11/23 Dental Screening Dental Screen Date: 10/11/23 Did you have a dental visit in the last 12 months?: No Did you have a dental problem in the last 6 months where you did not have access to dental care?: No Was dental information given to patient?: Patient has dentist HPI HPI Comments History of Present Illness Details This is a 63-year-old female with COPD, moderate major depression, mixed hyperlipidemia, GERD and methadone use that comes today as hospital discharge follow-up with discharge date of 10/02/2023 due to shortness of breath with productive cough that started 5 days before going to ER. Patient was place in supplemental oxygen and had nebulizer treatment while at the ER. Saturating at 97% on 2 L of oxygen. Chest x-ray was negative. Viral panel was negative. Receive IV doxycycline for COPD exacerbation. Labs were within normal limits. She left against medical advice. She completed a prednisone pack and doxycycline as outpatient. She is still wheezing but her shortness of breath has improved. She follows with pulmonology. Her depression has worsened also no suicidal thoughts and I will increase sertraline. GERD stable with medications. Lipid panel will be order. On methadone use due to opiate use dis order that has been stable. Denies any chest pain or shortness of breath. [facility] Medical History (Updated 10/11/23 @ 15:46 by Sarha Zhu MD) Mild major depression Hypoxic Pre-op examination Weight loss Skin lesion Memory loss Upper abdominal pain Duodenal ulcer H. pylori infection Mixed hyperlipidemia Dysphagia Daytime somnolence History of heroin use Methadone use Dyslipidemia Moderate asthma Surgical History Hx of tonsillectomy History of mammogram History of section History of esophagogastroduodenoscopy (EGD) Hx of colonoscopy Family History Father No problems noted. Mother Breast cancer Sister Breast cancer, Onset Age: 47 Brother Cancer Maternal Uncle Cancer Social History Household Members: None Housing: House Do you presently have visiting nurse or other home services: No Alcohol intake: current Alcohol intake frequency: holidays/special occasions only Patient Tobacco Use Status: Current everyday Tobacco user Tobacco use type: Cigarette Cigarettes Per Day: 8 e-Cigarette/Vaping Use: Never Used Second Hand Smoke Exposure: No Substance Use Type: Marijuana service: No Current occupational status: unemployed Cognitive needs: No Hearing needs: No Vision needs: No Questionnaire PHQ-9 Over the last 2 weeks, how often have you been bothered by any of the following problems? 1. Little interest or pleasure in doing things: more than half the days 2. Feeling down, depressed, or hopeless: nearly every day 3. Trouble falling or staying asleep, or sleeping too much: nearly every day 4. Feeling tired or having little energy: more than half the days 5. Poor appetite or overeating: nearly every day 6. Feeling bad about yourself - or that you are a failure or have let yourself or your family down: several days 7. Trouble concentrating on things, such as reading the newspaper or watching television: several days 8. Moving or speaking so slowly that other people could have noticed. Or the opposite - being so fidgety or restless that you have been moving around a lot more than usual: several days 9. Thoughts that you would be better off or of hurting yourself in some way: several days Total score: 17 Depression Screening Interpretation: Positive (no suicidal thoughts) Depression Screening Follow-up: Existing condition and In treatment Depression Screening Done: Yes 66126 - PHQ-9 Billing: Yes Source: Developed by Drs. Varun Peraza, Samantha Massey, Darius Rodriguez and colleagues, with an educational shamir from [employer]. Thrive Questionnaire Date Thrive assessed: 10/11/23 I am a: Patient What is your living situation today?: I have a steady place to live Within the past 12 months, did the food you bought not last and you didn't have the money to get more?: Never true Within the past 12 months, did you worry whether your food would run out before you got money to buy more?: Never true Do you have trouble paying for medicines?: No Do you have trouble getting transportation to medical appointments?: No Do you have trouble paying your heating and electricity bill?: No Do you have trouble taking care of your child, family member or friend?: No Do you have trouble with day-to-day activities such as bathing, preparing meals, shopping, managing finances, etc.?: No Are you currently unemployed and looking for a job?: No Are you interested in more education?: No Please select the resources that you would like help with: None Currently or been in a relationship where the following occur: no concerns reported THRIVE Score: 0 AUDIT C Alcohol Use Questionnaire (AUDIT-C) 1. How often do you have a drink containing alcohol?: Monthly or less 2. How many drinks containing alcohol do you have on a typical day when you are drinking?: 1 or 2 3. How often do you have six or more drinks on one occasion?: Never Total Score: 1 DESMOND-7 AMB Questionnaire DESMOND-7 Date DESMOND - 7 assessed: 10/11/23 Feeling nervous, anxious, or on edge: 3 = Nearly every day Not being able to stop or control worryin = Nearly every day Worrying too much about different things: 3 = Nearly every day Trouble relaxin = Nearly every day Being so restless that it is hard to sit still: 0 = Not at all Becoming easily annoyed or irritable: 0 = Not at all Feeling afraid as if something awful might happen: 1 = Several days Total DESMOND-7 score (0-4 normal; 5-9 mild; 10-14 moderate; 15-21 severe): 13 Source: Developed by Drs. Varun Peraza, Samantha Massey, Darius Rodriguez and colleagues, with an educational shamir from [employer]. DESMOND-7 Assessment Billing DESMOND-7 Assessment Tool: DESMOND-7 Assessment 47247 Review of Systems Const All systems reviewed & are unremarkable except as noted in HPI and below Eyes Reports no additional complaints, Denies change in vision and Denies other visual disturbances Card Denies chest pain at rest, Denies chest pain with activity, Denies edema, Denies irregular heart rhythm, Denies claudication, Denies dyspnea, Denies dyspnea on exertion, Denies orthopnea, Denies paroxysmal nocturnal dyspnea and Denies slow heart rate Resp Denies cough, Denies dyspnea and Denies dyspnea on exertion Psych Reports anxiety and Reports depression Physical exam (Primary Care) Vital Signs: Last Vital Signs BP 140/92 H 10/11/23 14:04 BMI result Body Mass Index 23.5 Tobacco/Smoking Status: Tobacco use Status Tobacco use date assessed 10/11/23 10/11/23 14:14 Patient Tobacco Use Status Current everyday Tobacco 10/11/23 14:14 Tobacco use type Cigarette 10/11/23 14:14 e-Cigarette/Vaping Use Never Used 10/11/23 14:14 Are you ready to quit: No PHQ-9: PHQ-9 Score PHQ-9: Total score 17 10/11/23 14:20 Depression Screening Interpretation: Positive (no suicidal thoughts) Depression Screening Follow-up: Existing condition and In treatment Thrive Assessment: Date of Thrive Assessment Date Thrive assessed 10/11/23 10/11/23 14:14 Currently or been in a relationship where the following occur: no concerns reported Resp Effort & Inspection: normal respiratory effort Auscultation: clear to auscultation bilaterally Cardio Jugular venous distension: no JVD Rate: regular rate Rhythm: regular rhythm Heart sounds: S1 normal heart sound present and S2 normal heart sound present Extrem General: Yes full ROM Psych Appearance: grossly normal Affect: Sad affect present Assessment and Plan Assessment & Plan (1) Hospital discharge follow-up: Code(s): Z09 - Encounter for follow-up examination after completed treatment for conditions other than malignant neoplasm Plan: Discharge date 10/02/2023 due to COPD exacerbation. Patient signed against medical advice. Completed a prednisone pack and doxycycline as outpatient. Shortness of breath improved but still wheezing. (2) COPD (chronic obstructive pulmonary disease): Code(s): J44.9 - Chronic obstructive pulmonary disease, unspecified Plan: Continue inhaler. Follow-up with pulmonology. (3) Methadone use: Code(s): F11.20 - Opioid dependence, uncomplicated Plan: Continue methadone.. (4) Moderate major depression: Code(s): F32.1 - Major depressive disorder, single episode, moderate Plan: Increase sertraline. (5) Mixed hyperlipidemia: Code(s): E78.2 - Mixed hyperlipidemia Plan: Continue statins. Repeat lipid panel. (6) GERD (gastroesophageal reflux disease): Code(s): K21.9 - Gastro-esophageal reflux disease without esophagitis Plan: Continue Dexilant. Orders: Orders Complete Blood Count Auto Diff Today D72.829 - Elevated white blood cell count, unspecified Comprehensive [place]. Panel Fast Today J44.9 - Chronic obstructive pulmonary disease, unspecified Medications: New sertraline 50 mg PO DAILY 90 tabs 1RF 90 days Refilled dexlansoprazole (Dexilant) 60 mg PO DAILY 30 caps 3RF 30 days K21.9 - Gastro- esophageal reflux disease without esophagitis Discontinued sertraline Discontinued Reason: Patient Completed Course 25 mg PO DAILY 30 days 30 tabs 4RF F41.1 - Generalized anxiety disorder Coding Level of Care Code TCM Mod MDM <= 14 Days Diagnoses Hospital discharge follow-up Z09 COPD (chronic obstructive pulmonary disease) J44.9 Methadone use F11.20 Moderate major depression F32.1 Mixed hyperlipidemia E78.2 GERD (gastroesophageal reflux disease) K21.9 Additional Codes DESMOND-7 Assessment Billing - DESMOND-7 Assessment Tool: DESMOND-7 Assessment 86626 ([id number]) Time Spent (min) 25
== END 2023-10-11 14:36 | disposition home or self-care (01) ==
PROVIDERS: PCP Internal Medicine; Visit Provider Internal Medicine
DX: J44.9 Chronic obstructive pulmonary disease, unspecified (principal); F11.20 Opioid dependence, uncomplicated; F32.1 Major depressive disorder, single episode, moderate; Z09 Encounter for follow-up examination after completed treatment for conditions other than malignant neoplasm; E78.2 Mixed hyperlipidemia; K21.9 Gastro-esophageal reflux disease without esophagitis
CPT/HCPCS: 99214

== ENCOUNTER 2023-10-17 06:07 | Emergency (ER) | payer OTHER, SELFPAY ==
[2023-10-17] VITALS (7 sets, daily range): BP systolic 140–178; BP diastolic 68–98; PULSE 75–112; RESP 12–38; TEMP 36.6; O2SAT 91–96; BMI 24.6
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
[2023-10-17] MEDS: iohexoL 350 MG/ML 100 ML INFUS..BTL 85 ML IV (07:50)
[2023-10-17 07:59] LABS: MANUAL DIFF FLAG NO
[2023-10-17 08:03] LABS: Basophils Absolute Auto 0.1 X10*3/uL (0.0-0.2); Basophils Percent Auto 0.4 % (0-2); Eosinophils Absolute Auto 0.2 X10*3/uL (0.0-0.4); Eosinophils Percent Auto 1.3 % (0-4); Hematocrit 44.2 % (37.0-47.0); Hemoglobin 14.9 g/dl (12.0-16.0); Imm Gran Abs Auto 0.05 X10*3/uL (0.00-0.03); Imm Gran Pct Auto 0.4 % (0.0-0.4); Lymphocytes Absolute Auto 1.9 X10*3/uL (1.2-4.9); Lymphocytes Percent Auto 13.9 % (20-40); Mean Corpuscular HGB Conc 33.7 g/dl (31.0-35.0); Mean Corpuscular Hemoglobin 31.5 pg (27.0-33.0); Mean Corpuscular Volume 93.4 fL (80.0-98.0); Mean Platelet Volume 9.1 fL (9.4-12.3); Monocytes Absolute Auto 0.6 X10*3/uL (0.1-1.2); Monocytes Percent Auto 4.5 % (2-11); Neutrophils Absolute Auto 10.8 x10*3/uL (2.0-8.3); Neutrophils Percent Auto 79.5 % (45-73); Platelet Count 279 X10*3/uL (160-400); Red Blood Count 4.73 X10*6/uL (4.20-5.50); Red Cell Distribution Width 13.8 % (11.0-16.0); White Blood Count 13.6 X10*3/uL (4.8-10.8)
[2023-10-17] MEDS: Albuterol Sulfate 5 MG, Albuterol/Iprat 2.5/0.5MG 3 ML 3 ML INHALE (08:14)
[2023-10-17] MEDS: methylPREDNISolone Sod Succ 125 MG/2 ML VIAL IVPUSH (08:14)
[2023-10-17 08:15] LABS: Alanine Aminotransferase 34 U/L (0-31); Albumin Level 3.5 g/dL (3.5-5.0); Alkaline Phosphatase 67 U/L (39-117); Anion Gap 12 (12-20); Aspartate Amino Transferase 25 U/L (5-31); Bilirubin Direct 0.2 mg/dL (0.0-0.5); Bilirubin Total 0.2 mg/dL (0.0-1.0); Blood Urea Nitrogen 12 mg/dL (9-16); Calcium 8.6 mg/dL (8.4-10.2); Carbon Dioxide 27 mmol/L (22-29); Chloride 101 mmol/L (96-108); Creatinine Clr Calc Pharmacy 61.5; Estimated Glomerular Filt Rate > 60; Glucose Random 160 mg/dL (60-115); Lipase 16 U/L (8-78); Potassium 3.8 mmol/L (3.3-5.1); Sodium 136 mmol/L (135-145)
[2023-10-17] MEDS: Magnesium Sulfate/H2O 2 GM/50 ML PIGGYBACK IV (08:17)
[2023-10-17] MEDS: methADONE HCl 20 MG/2 ML ORAL.CONC 40 MG PO (08:19)
[2023-10-17] MEDS: Albuterol Sulfate 2.5 MG/0.5 ML VIAL.NEB 5 MG INHALE (10:22)
[2023-10-17] MEDS: methADONE HCl 20 MG/2 ML ORAL.CONC 45 MG PO (10:22)
--- NOTE | 2023-10-17 10:35 | PC.NURSE ---
methadone verification from [facility]vey complete. pt medicated per sep. pt ambulated to bathroom. pt now back to bed, sts feeling much better, rating pain 7/10.
== END 2023-10-17 12:04 | disposition home or self-care (01) ==
PROVIDERS: Emergency Provider Emergency Medicine; PCP Internal Medicine
DX: S63.92XA Sprain of unspecified part of left wrist and hand, initial encounter (principal); S20.212A Contusion of left front wall of thorax, initial encounter; J45.41 Moderate persistent asthma with (acute) exacerbation; F43.0 Acute stress reaction; G89.29 Other chronic pain; Z79.891 Long term (current) use of opiate analgesic; V89.2XXA Person injured in unspecified motor-vehicle accident, traffic, initial encounter; Y93.9 Activity, unspecified; Y92.410 Unspecified street and highway as the place of occurrence of the external cause; Y99.9 Unspecified external cause status; Z88.0 Allergy status to penicillin
CPT/HCPCS: 36415; 70450; 71250; 72125; 73130; 74177; 80048; 80076; 83690; 83735; 85025; 94640; 96365; 96375; 99285; J2919; J2930; J3475; Q9967

== ENCOUNTER 2023-11-03 14:49 | Outpatient (AMB) | payer OTHER, SELFPAY ==
[2023-11-03 14:50] VITALS: BP 144/82; PULSE 85; O2SAT 93; BMI 22.7
--- NOTE | 2023-11-03 14:50 | MHC.OFFVIS ---
Vital Signs 11/03/23 14:50 Height 5 ft Weight 116 lb BMI 22.7 BP 144/82 H Blood Pressure Location Rt brachial Position Sitting Pulse 85 Pulse Source Doppler Pulse Oximetry (%) 93 Oxygen Delivery Method Room Air Intake Visit Reasons: s/p hosp follow up/COPD exacerbation Building Rental Superintendent Required: Yes Building Rental Superintendent Name: Annmarie Elias Bergeron Allergies Penicillins Allergy (Intermediate, Verified 11/03/23 14:56) RASH HPI HPI s/p hosp follow up/COPD exacerbation: Details: 63-year-old lady, active 50+ pack-year smoker now followed for moderate COPD and pulmonary nodules. She continues on Anoro, duo nebs, and albuterol MDI, however with suboptimal control of his symptoms. She does complain of significant anxiety component. [facility] Medical History Mild major depression Hypoxic Pre-op examination Weight loss Skin lesion Memory loss Upper abdominal pain Duodenal ulcer H. pylori infection Mixed hyperlipidemia Dysphagia Daytime somnolence History of heroin use Methadone use Dyslipidemia Moderate asthma Surgical History Hx of tonsillectomy History of mammogram History of section History of esophagogastroduodenoscopy (EGD) Hx of colonoscopy Family History Father No problems noted. Mother Breast cancer Sister Breast cancer, Onset Age: 47 Brother Cancer Maternal Uncle Cancer Social History (Updated 11/03/23 @ 14:58 by JENNA Teixeira) Household Members: None Housing: House Do you presently have visiting nurse or other home services: No Alcohol intake: current Alcohol intake frequency: holidays/special occasions only Patient Tobacco Use Status: Current everyday Tobacco user Tobacco use type: Cigarette Cigarettes Per Day: 12 Years Smoked: started at 14, 1ppd e-Cigarette/Vaping Use: Never Used Second Hand Smoke Exposure: No Substance Use Type: Marijuana service: No Current occupational status: unemployed Cognitive needs: No Hearing needs: No Vision needs: No Review of Systems Const Denies daytime sleepiness, Denies excessive sweating, Denies fatigue, Denies fever(s), Denies lethargy, Denies malaise, Denies night sweats, Denies snoring and Denies weight loss Eyes Denies blurry vision and Denies itchy eyes ENT Denies nasal congestion, Denies post nasal drip, Denies sinus pain, Denies sinus pressure and Denies other ( Thrush) Card Denies chest pain, Denies pedal edema, Denies dyspnea, Denies orthopnea and Denies paroxysmal nocturnal dyspnea Resp Denies cough, Denies hemoptysis, Denies excessive phlegm production, Denies dyspnea, Denies snoring and Denies wheezing GI Denies abdominal pain and Denies heartburn Musc Denies myalgias, Denies arthralgias and Denies joint swelling Skin/Breast Denies rash Neuro Denies memory loss and Denies seizure-like activity Psych Denies abnormal sleep pattern, Denies anxiety and Denies memory loss Endo Denies excessive sweating, Denies fatigue and Denies heat intolerance Damien/Lymph Denies easy bruising Aller/Immun Denies itchy eyes, Denies seasonal rhinorrhea and Denies wheezing Physical Exam Vital Signs: Last Vital Signs Pulse 85 11/03/23 14:50 BP 144/82 H 11/03/23 14:50 Pulse Ox 93 11/03/23 14:50 Oxygen Delivery Method Room Air 11/03/23 14:50 BMI result Body Mass Index 22.7 Const General: no acute distress and alert Nutritional Appearance: not obese Orientation/consciousness: Other orientation findings ( oriented) HEENT Head: Yes atraumatic Eyes General: appearance normal, both eyes and all related structures Sclerae: sclerae normal EOM: EOMs intact bilaterally Neck Neck: Yes supple Lymphatic: no lymphadenopathy noted Resp Effort & Inspection: normal respiratory effort and no use of accessory muscles Auscultation: clear to auscultation bilaterally Cardio Rate: regular rate Rhythm: regular rhythm Heart sounds: no gallops, no murmurs and no rubs Skin General skin exam: other ( warm) Extrem General: No clubbing, No cyanosis and No edema Assessment & Plan Assessment & Plan (1) COPD (chronic obstructive pulmonary disease): Code(s): J44.9 - Chronic obstructive pulmonary disease, unspecified Category: Medical Plan: Suboptimal control on Anoro, duo nebs, and albuterol MDI. Will add nebulized arformoterol. (2) Anxiety: Code(s): F41.9 - Anxiety disorder, unspecified Category: Medical Plan: Appears to have significant component of anxiety related hyperventilation and air trapping, will add hydroxyzine. (3) Pulmonary nodules: Code(s): R91.8 - Other nonspecific abnormal finding of lung field Category: Medical Plan: No worrisome nodules on recent CT scan from October of 2023, will repeat CT chest in 12 months. Medications: New hydroxyzine HCl 50 mg PO BID 60 tabs 6RF 30 days arformoterol 2 mL inhalation DAILY 60 mL 3RF 30 days Coding Level of Care Code Est Pt Level 4 (15105) Diagnoses COPD (chronic obstructive pulmonary disease) J44.9 Anxiety F41.9 Pulmonary nodules R91.8
== END 2023-11-03 15:25 | disposition home or self-care (01) ==
PROVIDERS: PCP Internal Medicine; Visit Provider Internal Medicine Pulmonary Disease
DX: J44.9 Chronic obstructive pulmonary disease, unspecified (principal); F41.9 Anxiety disorder, unspecified; R91.8 Other nonspecific abnormal finding of lung field
CPT/HCPCS: 99214

== ENCOUNTER → 2023-11-03 14:49 | Outpatient (BNVA) | payer OTHER, SELFPAY | PROVIDERS: PCP Internal Medicine; Visit Provider Internal Medicine Pulmonary Disease | DX: J44.9 Chronic obstructive pulmonary disease, unspecified (principal); R91.8 Other nonspecific abnormal finding of lung field; F41.9 Anxiety disorder, unspecified | CPT/HCPCS: 99212 ==

== ENCOUNTER 2023-12-16 10:03 | Emergency (ER) | payer OTHER, SELFPAY ==
--- NOTE | ~2023-12-16 | CT_ITS ---
EXAMINATION: CT ABDOMEN AND PELVIS WITH CONTRAST CLINICAL INFORMATION: Abdominal pain. Syncope. Nausea and vomiting. COMPARISON: 10/17/2023 TECHNIQUE: Multidetector volumetric images were obtained from the superior aspect of the liver through the pubic symphysis following administration 85 mL of Omnipaque 350 intravenous contrast. Sagittal and coronal reformatted images were obtained on the technologist's workstation. Oral contrast: No This CT examination was performed using dose optimization techniques as appropriate, variously including the following: *Automated exposure control *Adjustment of mA and/or kV according to patient size (this includes techniques or standardized protocols for targeted exams where dose is matched to indication/reason for exam; i.e. extremities or head) *Use of iterative reconstruction technique DLP: 297 mGy-cm FINDINGS: LUNG BASES: Elevated left hemidiaphragm. Nonspecific distal esophageal wall thickening. LIVER, GALLBLADDER, AND BILIARY TREE: The liver is normal in size and contour. No suspicious hepatic lesion or biliary ductal dilatation is present. Possible minimal sludge in the gallbladder. PANCREAS: No ductal dilatation. SPLEEN: Not enlarged. ADRENAL GLANDS: Thickening of the left adrenal gland. KIDNEYS AND URETERS: The kidneys are symmetric in size and enhancement. Stable right renal cyst for which no further imaging follow-up is needed. No hydronephrosis. No perinephric stranding. BLADDER: Unremarkable. GASTROINTESTINAL TRACT: Possible gastric wall thickening. No small bowel obstruction. Diverticular disease of the colon. Appendix is within normal limits. ABDOMINAL WALL: No significant hernia is appreciated. LYMPH NODES: No bulky lymphadenopathy. VASCULAR: Normal caliber abdominal aorta. PELVIC VISCERA: Unremarkable. OSSEOUS STRUCTURES: No destructive bone lesions. CT/CT abdomen pelvis w IV con IMPRESSION: Possible gastric wall thickening. The stomach is underdistended. Advise clinical correlation. Possible minimal sludge in the gallbladder. Consider right upper quadrant ultrasound.
--- NOTE | ~2023-12-16 | XR_ITS ---
EXAMINATION: XR CHEST CLINICAL INFORMATION: Dyspnea COMPARISON: Previous chest x-ray September [address] October 2023 TECHNIQUE: Frontal view of the chest was obtained. FINDINGS: No significant abnormality is noted involving the heart, lungs, mediastinum, bony thorax or soft tissues. XR/XR chest 1V IMPRESSION: Unremarkable examination.
[2023-12-16 10:20] VITALS: BP 202/101; PULSE 80; RESP 18; TEMP 36.5; O2SAT 97; O2SAT 98; BMI 20.6
[2023-12-16 10:20] LABS: Glucose, Whole Blood 153 mg/dL (60-115)
--- NOTE | 2023-12-16 10:21 | ECG_ITS ---
Test Reason : pain Blood Pressure : / mmHG Vent. Rate : 066 BPM Atrial Rate : 066 BPM P-R Int : 136 ms QRS Dur : 078 ms QT Int : 400 ms P-R-T Axes : 036 021 007 degrees QTc Int : 419 ms Normal sinus rhythm Normal ECG When compared with ECG of 22-JUN-2023 11:18, T wave inversion no longer evident in Anterior leads Referred By: Jessica Daniel Electronically Signed By:WILFREDO BURGESS
--- NOTE | 2023-12-16 10:28 | ED.SYNCOPE ---
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 She is not on thinners. I do not see seizure medications or hx o MD in chart. 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(s) Prodromal symptoms: lightheaded, chest pain and nausea/vomiting Context: standing up Injuries sustained associated with event: none Current symptoms: chest pain, nausea and abdominal pain Treatments prior to arrival: none Related Data Home Medications ?Medication ?Instructions ?Recorded ?Confirmed methadone 10 mg/5 mL oral solution 65 mg PO DAILY 07/17/20 10/11/23 ipratropium 0.5 mg-albuterol 3 mg 3 ml inhalation Q4H PRN Wheezing 06/22/23 10/11/23 (2.5 mg base)/3 mL nebulization soln Previous Rx's ?Medication ?Instructions ?Recorded multivitamin with folic acid 400 1 tab PO DAILY 90 days #90 tabs 03/08/23 mcg tablet (Daily-Radha (with folic acid)) nebulizers (AeroEclipse II #1 ea 03/08/23 Nebulizer) albuterol sulfate 90 mcg/actuation 2 puff PO Q6H PRN bronchospasm 30 03/30/23 aerosol inhaler days #18 grams umeclidinium 62.5 mcg-vilanterol 1 inh inhalation DAILY 30 days #1 03/30/23 25 mcg/actuation powdr for ea inhalation (Anoro Ellipta) atorvastatin 20 mg tablet 20 mg PO BEDTIME 90 days #90 tabs 09/01/23 dexlansoprazole 60 mg 60 mg PO DAILY 30 days #30 caps 10/11/23 capsule,biphase delayed release (Dexilant) sertraline 50 mg tablet 50 mg PO DAILY 90 days #90 tabs 10/11/23 prednisone 20 mg tablet 40 mg (2 x 20 mg) PO DAILY 5 days 10/17/23 #10 tabs arformoterol 15 mcg/2 mL solution 2 ml inhalation DAILY 30 days #60 11/03/23 for nebulization mL hydroxyzine HCl 50 mg tablet 50 mg PO BID 30 days #60 tabs 11/03/23 sucralfate 100 mg/mL oral 10 ml PO BID 10 days #200 mL 12/16/23 suspension (Carafate) Allergies Allergy/AdvReac Type Severity Reaction Status Date / Time Penicillins Allergy Intermediate RASH Verified 12/16/23 10:25 Review of Systems Review of Systems: Constitutional : No Weight loss, No Fever, No Chills ENT/Mouth : No sore throat, No Rhinorrhea Eyes: No Swelling, No Redness Cardiovascular : pos Chest Pain, No SOB, NoEdema Respiratory : No Cough, No Sputum, No Wheezing Gastrointestinal : Positive Nausea, Positive Vomiting, positive Diarrhea, positive abdominal Pain, No Hematochezia, No Melena Genitourinary : No Dysuria, No Urinary Frequency, No Hematuria, No Urgency Musculoskeletal : No joint pain, No Myalgias, No Joint Swelling Skin : No Skin Lesions, No rash Neuro : No Weakness, No Numbness, No Dizziness, No Headache, pos syncope Psych : No Anxiety/Panic, No Depression All other systems reviewed and are negative. FOR[facility]LY [facility], [facility] Past Medical History Attestation statement: The following information was validated with the patient. Source: old records reviewed Medical History Mild major depression Hypoxic Pre-op examination Weight loss Skin lesion Memory loss Upper abdominal pain Duodenal ulcer H. pylori infection Mixed hyperlipidemia Dysphagia Daytime somnolence History of heroin use Methadone use Dyslipidemia Moderate asthma Surgical History Hx of tonsillectomy History of mammogram History of section History of esophagogastroduodenoscopy (EGD) Hx of colonoscopy Family History Family History Father No problems noted. Mother Breast cancer Sister Breast cancer, Onset Age: 47 Brother Cancer Maternal Uncle Cancer Social History Social History Household Members: None Housing: House Do you presently have visiting nurse or other home services: No Alcohol intake: current Alcohol intake frequency: holidays/special occasions only Patient Tobacco Use Status: Current everyday Tobacco user Tobacco use type: Cigarette Cigarettes Per Day: 12 Years Smoked: started at 14, 1ppd e-Cigarette/Vaping Use: Never Used Second Hand Smoke Exposure: No Substance Use Type: Marijuana Advance Directives: No Advance Directives Information Provided: Yes Do you have a plan to hurt others: No Plan Patient : No service: No Current occupational status: unemployed Cognitive needs: No Hearing needs: No Vision needs: No Physical Exam Vital Signs: Vital Signs: Last Vital Signs Temp 97.5 F 12/16/23 16:01 Pulse 68 12/16/23 16:01 Resp 16 12/16/23 16:01 BP 167/87 H 12/16/23 16:01 Pulse Ox 92 12/16/23 16:01 O2 Del Method Room Air 12/16/23 16:01 O2 Flow Rate 2 12/16/23 12:22 Oxygen Flow Rate 2 12/16/23 10:20 BMI result Body Mass Index 20.6 Appearance: Alert. Oriented X3. No acute distress. Eyes: Pupils equal, round and reactive to light. ENT: Pharynx normal. atraumatic Neck: Normal inspection. Neck supple. CVS: Normal heart rate and rhythm. Pulses normal. Respiratory: No respiratory distress. Breath sounds normal. then when asked to take a deep breath at the end she has upper airway forced exp wheezes Abdomen: Soft and reports epigastric ttp to palpation Skin: Skin warm and dry. Normal skin color. Normal skin turgor. Extremities: No lower extremity edema. No calf ttp Neuro: Oriented X 3. No motor deficit. No sensory deficit. Course Course Course Narrative: lactic acidosis likely due to albuterol use this AM and not infection or severe sepsis Reevaluation(s) Reevaluation #1: hypoxia clears, lactic acid cleared, trop flat Medications Administered Discontinued Medications Generic Name Dose Route Start Last Admin Trade Name Freq PRN Reason Stop Dose Admin Sodium Chloride 500 mls @ 500 mls/hr 12/16/23 11:15 12/16/23 12:24 Ns IV 12/16/23 12:14 Infused .Q1H ONE Infusion Iohexol 85 ml 12/16/23 13:09 12/16/23 13:09 Iohexol 350 Mg/Ml 100 Ml Infus..Btl IV 12/16/23 13:10 85 ml ONCE ONE Administration Morphine Sulfate 4 mg 12/16/23 10:37 12/16/23 10:42 Morphine Sulfate 4 Mg/Ml Cartridge IVPUSH 12/16/23 10:38 4 mg ONCE ONE Administration Protocol Ondansetron HCl 4 mg 12/16/23 10:37 12/16/23 10:44 Ondansetron Hcl 4 Mg/2 Ml Vial IVPUSH 12/16/23 10:38 4 mg ONCE ONE Administration Medical Decision Making Medical Decision Making [facility] Narrative: 63 yo female with PMH of COPD, anxiety, pneumonia, depression, IBS, HLD, asthma, on chronic methadone here with c/o chest pain abdominal pain n/v/d and syncopal event with standing no headstrike no c/o headache she is neuro intact she has pain in abdomen rubbing epigastric area at this time will obtain labs, EKG, CXR, ddimer, troponin x 2 and most of her pain is in abdomen so likely CT abdomen. Differential Diagnosis Differential Diagnoses: The differential diagnosis associated with the presentation includes syncope, VTE, chest pain, abdominal pain, dehydration Admission/Observation Consideration of admission/observation: Escalation of care including admission/observation considered O2 needs went away, lactic acid cleared, negative trop x 2, negative ddimer CT scan gastritis, she is eating feels much better is asking to go home syncope was in setting of upper abdominal pain n/v and she had just stood up so I suspect vasovagal syncope and not cardiac Lab Data [facility] Lab Attestation statement: I reviewed the patient's lab results. 12/16/23 10:27 12/16/23 10:27 Labs: Lab Results 12/16/23 12/16/23 12/16/23 Range/Units 10:10 10:27 10:47 WBC 10.7 (4.8-10.8) X10*3/uL RBC 5.10 (4.20-5.50) X10*6/uL Hgb 16.0 (12.0-16.0) g/dl Hct 46.6 (37.0-47.0) % MCV 91.4 (80.0-98.0) fL MCH 31.4 (27.0-33.0) pg MCHC 34.3 (31.0-35.0) g/dl RDW 13.6 (11.0-16.0) % Plt Count 309 (160-400) X10*3/uL MPV 8.8 L (9.4-12.3) fL Immature Gran % (Auto) 0.3 (0.0-0.4) % Neut % (Auto) 64.9 (45-73) % Lymph % (Auto) 26.1 (20-40) % [place] % (Auto) 5.8 (2-11) % Eos % (Auto) 2.3 (0-4) % Baso % (Auto) 0.6 (0-2) % Lymph # (Auto) 2.8 (1.2-4.9) X10*3/uL [place] # (Auto) 0.6 (0.1-1.2) X10*3/uL Eos # (Auto) 0.2 (0.0-0.4) X10*3/uL Baso # (Auto) 0.1 (0.0-0.2) X10*3/uL Abs Immat Gran (auto) 0.03 (0.00-0.03) X10*3/uL Absolute Neuts (auto) 6.9 (2.0-8.3) x10*3/uL Absolute Nucleated RBC 0.000 (0.0-0.012) X10*3/uL Nucleated RBC % (auto) 0.0 (0.0-0.2) /100WBC D-Dimer High Sensitivty < 150 NG/ML VBG pH (7.32-7.43) VBG pCO2 mmHg VBG pO2 mmHg VBG HCO3 (22-26) mmol/L VBG O2 Saturation % VBG Base Excess mmol/L Sodium 140 (135-145) mmol/L Potassium 3.8 (3.3-5.1) mmol/L Chloride 104 (96-108) mmol/L Carbon Dioxide 23 (22-29) mmol/L Anion Gap 17 (12-20) BUN 13 (9-16) mg/dL Creatinine 0.75 (0.5-1.4) mg/dL Estim Creat Clear Calc 61.5 Estimated GFR > 60 POC Glucose 153 H (60-115) mg/dL Random Glucose 168 H (60-115) mg/dL Lactic Acid 2.6 H* (0.5-2.0) mmol/L Lactic Acid F/U @ 2Hr (0.5-2.0) mmol/L Calcium 9.5 D (8.4-10.2) mg/dL Magnesium 1.8 (1.6-2.6) mg/dL Total Bilirubin 0.2 (0.0-1.0) mg/dL Direct Bilirubin < 0.2 (0.0-0.5) mg/dL AST 28 (5-31) U/L ALT 29 (0-31) U/L Alkaline Phosphatase 87 (39-117) U/L Total Creatine Kinase 97 (26-140) U/L Troponin I High Sens < 2.7 (<3.5-17.0) ng/L B-Natriuretic Peptide 13 (<100) pg/mL Total Protein 7.1 (6.5-8.0) g/dL Albumin 4.2 (3.5-5.0) g/dL Lipase 19 (8-78) U/L Influenza Type A (PCR) NEGATIVE (Negative) Influenza Type B (PCR) NEGATIVE (Negative) RSV RNA Qual (PCR) NEGATIVE (Negative) SARS-CoV-2 RNA (RT-PCR) NEGATIVE (Negative) 12/16/23 12/16/23 12/16/23 Range/Units 10:54 12:42 13:20 WBC (4.8-10.8) X10*3/uL RBC (4.20-5.50) X10*6/uL Hgb (12.0-16.0) g/dl Hct (37.0-47.0) % MCV (80.0-98.0) fL MCH (27.0-33.0) pg MCHC (31.0-35.0) g/dl RDW (11.0-16.0) % Plt Count (160-400) X10*3/uL MPV (9.4-12.3) fL Immature Gran % (Auto) (0.0-0.4) % Neut % (Auto) (45-73) % Lymph % (Auto) (20-40) % [place] % (Auto) (2-11) % Eos % (Auto) (0-4) % Baso % (Auto) (0-2) % Lymph # (Auto) (1.2-4.9) X10*3/uL [place] # (Auto) (0.1-1.2) X10*3/uL Eos # (Auto) (0.0-0.4) X10*3/uL Baso # (Auto) (0.0-0.2) X10*3/uL Abs Immat Gran (auto) (0.00-0.03) X10*3/uL Absolute Neuts (auto) (2.0-8.3) x10*3/uL Absolute Nucleated RBC (0.0-0.012) X10*3/uL Nucleated RBC % (auto) (0.0-0.2) /100WBC D-Dimer High Sensitivty NG/ML VBG pH 7.53 H (7.32-7.43) VBG pCO2 30 mmHg VBG pO2 104 mmHg VBG HCO3 25 (22-26) mmol/L VBG O2 Saturation 99.0 % VBG Base Excess 4.0 mmol/L Sodium (135-145) mmol/L Potassium (3.3-5.1) mmol/L Chloride (96-108) mmol/L Carbon Dioxide (22-29) mmol/L Anion Gap (12-20) BUN (9-16) mg/dL Creatinine (0.5-1.4) mg/dL Estim Creat Clear Calc Estimated GFR POC Glucose (60-115) mg/dL Random Glucose (60-115) mg/dL Lactic Acid (0.5-2.0) mmol/L Lactic Acid F/U @ 2Hr 1.5 (0.5-2.0) mmol/L Calcium (8.4-10.2) mg/dL Magnesium (1.6-2.6) mg/dL Total Bilirubin (0.0-1.0) mg/dL Direct Bilirubin (0.0-0.5) mg/dL AST (5-31) U/L ALT (0-31) U/L Alkaline Phosphatase (39-117) U/L Total Creatine Kinase (26-140) U/L Troponin I High Sens < 2.7 (<3.5-17.0) ng/L B-Natriuretic Peptide (<100) pg/mL Total Protein (6.5-8.0) g/dL Albumin (3.5-5.0) g/dL Lipase (8-78) U/L Influenza Type A (PCR) (Negative) Influenza Type B (PCR) (Negative) RSV RNA Qual (PCR) (Negative) SARS-CoV-2 RNA (RT-PCR) (Negative) Independent Interpretation I performed an independent interpretation of an: EKG, Plain X-Ray and CT Scan Interpretation: Rate: 66 Rhythm: NSR [place]: normal Normal P waves. Normal JEN. Normal QRS complex. ST T wave : normal no [place] qTC: 419 prior studies: no acute ischemia The study has been interpreted contemporaneously by me. . Radiology Impression Discussion of test interpretation with radiology: I have reviewed the radiologist's reading. Independent Historian Clinical information obtained from an independent historian. History obtained from or confirmed by: [facility] External Record Review External record reviewed: Inpatient record Prescription Management I considered prescription management with: Other Critical Care Time Critical Care Time Critical Care Time: Yes Total Critical Care Time: 45 Attestation: repeat labs, IV morphine improved pain, repeat assessments, review of records I attest to this time spent taking care of the patient Discharge Plan Discharge Clinical Impression: Abdominal pain Qualifiers: Abdominal location: epigastric Qualified Code(s): R10.13 - Epigastric pain Gastritis Qualifiers: Gastritis type: unspecified gastritis Chronicity: acute Gastritis bleeding: without bleeding Qualified Code(s): K29.00 - Acute gastritis without bleeding Syncope Qualifiers: Syncope type: vasovagal syncope Qualified Code(s): R55 - Syncope and collapse Patient Disposition: Home, Self-Care Instructions: Gastritis (ED), Syncope (ED), Abdominal Pain (ED) Additional Instructions: return for worsening symptoms pain, fevers, vomiting, dizziness, fainting or any other concerns. 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: New sucralfate [Carafate] 100 mg/mL suspension 10 ml PO BID 10 Days Qty: 200 0RF No Action atorvastatin 20 mg tablet 20 mg PO BEDTIME 90 Days Qty: 90 1RF ipratropium-albuterol 0.5 mg-3 mg(2.5 mg base)/3 mL solution for nebulization 3 ml inhalation Q4H PRN (Reason: Wheezing) prednisone 20 mg tablet 40 mg PO DAILY 5 Days Qty: 10 0RF methadone 10 mg/5 mL solution 65 mg PO DAILY (DME) nebulizers [AeroEclipse II Nebulizer] Misc See Rx Instructions .Route Qty: 1 0RF Rx Instructions: As directed multivitamin with folic acid [Daily-Radha (with folic acid)] 400 mcg tablet 1 tab PO DAILY 90 Days Qty: 90 3RF dexlansoprazole [Dexilant] 60 mg capsule,biphase delayed releas 60 mg PO DAILY 30 Days Qty: 30 3RF sertraline 50 mg tablet 50 mg PO DAILY 90 Days Qty: 90 1RF arformoterol 15 mcg/2 mL solution for nebulization 2 ml inhalation DAILY 30 Days Qty: 60 3RF hydroxyzine HCl 50 mg tablet 50 mg PO BID 30 Days Qty: 60 6RF Anoro Ellipta 62.5-25 mcg/actuation blister with device 1 inh inhalation DAILY 30 Days Qty: 1 6RF albuterol sulfate 90 mcg/actuation HFA aerosol inhaler 2 puff PO Q6H PRN (Reason: bronchospasm) 30 Days Qty: 18 6RF Discharge Date/Time: 12/16/23 16:02 Print Language: Belarusian
[2023-12-16 10:31] LABS: MANUAL DIFF FLAG NO
[2023-12-16 10:38] LABS: Basophils Absolute Auto 0.1 X10*3/uL (0.0-0.2); Basophils Percent Auto 0.6 % (0-2); Eosinophils Absolute Auto 0.2 X10*3/uL (0.0-0.4); Eosinophils Percent Auto 2.3 % (0-4); Hematocrit 46.6 % (37.0-47.0); Imm Gran Abs Auto 0.03 X10*3/uL (0.00-0.03); Imm Gran Pct Auto 0.3 % (0.0-0.4); Lymphocytes Absolute Auto 2.8 X10*3/uL (1.2-4.9); Lymphocytes Percent Auto 26.1 % (20-40); Mean Corpuscular HGB Conc 34.3 g/dl (31.0-35.0); Mean Corpuscular Hemoglobin 31.4 pg (27.0-33.0); Mean Corpuscular Volume 91.4 fL (80.0-98.0); Mean Platelet Volume 8.8 fL (9.4-12.3); Monocytes Absolute Auto 0.6 X10*3/uL (0.1-1.2); Monocytes Percent Auto 5.8 % (2-11); Neutrophils Absolute Auto 6.9 x10*3/uL (2.0-8.3); Neutrophils Percent Auto 64.9 % (45-73); Platelet Count 309 X10*3/uL (160-400); Red Cell Distribution Width 13.6 % (11.0-16.0); White Blood Count 10.7 X10*3/uL (4.8-10.8)
[2023-12-16] MEDS: Morphine Sulfate 4 MG/ML CARTRIDGE IVPUSH (10:42)
[2023-12-16] MEDS: ondansetron HCL 4 MG/2 ML VIAL IVPUSH (10:44)
[2023-12-16 10:46] LABS: D Dimer High Sensitivity < 150 NG/ML
[2023-12-16 10:59] LABS: Alanine Aminotransferase 29 U/L (0-31); Albumin Level 4.2 g/dL (3.5-5.0); Alkaline Phosphatase 87 U/L (39-117); Anion Gap 17 (12-20); Aspartate Amino Transferase 28 U/L (5-31); Bilirubin Direct < 0.2 mg/dL (0.0-0.5); Bilirubin Total 0.2 mg/dL (0.0-1.0); Blood Urea Nitrogen 13 mg/dL (9-16); Calcium 9.5 mg/dL (8.4-10.2); Carbon Dioxide 23 mmol/L (22-29); Chloride 104 mmol/L (96-108); Creatinine Clr Calc Pharmacy 61.5; Estimated Glomerular Filt Rate > 60; Glucose Random 168 mg/dL (60-115); Lipase 19 U/L (8-78); Magnesium 1.8 mg/dL (1.6-2.6); Potassium 3.8 mmol/L (3.3-5.1); Sodium 140 mmol/L (135-145); Total Protein 7.1 g/dL (6.5-8.0)
[2023-12-16 11:02] LABS: Venous Blood Gas Refer to POC result
[2023-12-16 11:02] LABS: VBG HCO3 25 mmol/L (22-26); VBG pCO2 30 mmHg; VBG pH 7.53 (7.32-7.43); VBG pO2 104 mmHg
[2023-12-16 11:02] LABS: B Type Natriuretic Peptide 13 pg/mL (<100)
--- NOTE | 2023-12-16 11:03 | PC.NURSE ---
removed patient oxygen, patient desat down to 88% on room air. patient placed back on 2l NC now 94%
[2023-12-16 11:08] LABS: Troponin-I High Sensitivity < 2.7 ng/L (<3.5-17.0)
[2023-12-16 11:16] LABS: Lactic Acid 2.6 mmol/L (0.5-2.0)
[2023-12-16] MEDS: 0.9 % Sodium Chloride 500 ML IV (11:22)
[2023-12-16 11:36] LABS: Influenza A PCR NEGATIVE (Negative); Influenza B PCR NEGATIVE (Negative); Resp Syncy Virus RNA Qual PCR NEGATIVE (Negative); SARS COV2 PCR INHOUSE NEGATIVE (Negative)
[2023-12-16 12:22] VITALS: BP 153/73; PULSE 66; RESP 14; TEMP 36.2; O2SAT 95
[2023-12-16 12:54] LABS: Reflex Lactate? Lactic Acid Added
[2023-12-16] MEDS: iohexoL 350 MG/ML 100 ML INFUS..BTL 85 ML IV (13:09)
[2023-12-16 13:27] LABS: Troponin-I High Sensitivity < 2.7 ng/L (<3.5-17.0)
[2023-12-16 13:41] LABS: ~Lactic Acid-LAB USE ONLY 1.5 mmol/L (0.5-2.0)
--- NOTE | 2023-12-16 14:46 | PC.NURSE ---
patient satting 92-93% on room air
[2023-12-16 16:01] VITALS: BP 167/87; PULSE 68; RESP 16; TEMP 36.4; O2SAT 92
== END 2023-12-16 16:02 | disposition home or self-care (01) ==
PROVIDERS: Emergency Provider Emergency Medicine
DX: R07.89 Other chest pain (principal); R10.13 Epigastric pain; K29.00 Acute gastritis without bleeding; R55 Syncope and collapse; R42 Dizziness and giddiness; R06.02 Shortness of breath; R11.2 Nausea with vomiting, unspecified; Z79.899 Other long term (current) drug therapy
CPT/HCPCS: 0241U; 36415; 71045; 74177; 80048; 80076; 82550; 82803; 82947; 83605; 83690; 83735; 83880; 84484; 85025; 85379; 93005; 96361; 96374; 96375; 99284; J2270; J2405; Q9967

== ENCOUNTER → 2023-12-16 10:21 | Outpatient (BNV) | payer OTHER, SELFPAY | PROVIDERS: Emergency Provider Emergency Medicine; Visit Provider Internal Medicine | DX: R55 Syncope and collapse (principal) | CPT/HCPCS: 93010 ==

== ENCOUNTER 2024-01-26 14:13 | Outpatient (AMB) | payer OTHER, SELFPAY ==
[2024-01-26 14:17] VITALS: BP 132/78; PULSE 81; O2SAT 90; BMI 21.8
--- NOTE | 2024-01-26 14:17 | A.OFFVIS_ITS ---
Vital Signs 01/26/24 14:17 Height 5 ft 2 in Weight 119 lb BMI 21.8 BP 132/78 Blood Pressure Location Lt brachial Position Sitting Pulse 81 Pulse Source Doppler Pulse Oximetry (%) 90 L Oxygen Delivery Method Room Air Intake Visit Reasons: COPD Artificial Teeth Inspector Required: Yes Artificial Teeth Inspector Name: Annmarie Cobb.[email or web address] Allergies Penicillins Allergy (Intermediate, Verified 12/16/23 10:25) RASH HPI HPI COPD: Details: 63-year-old lady, active 50+ pack-year smoker now followed for moderate COPD and pulmonary nodules. She continues on Anoro, duo nebs, Brovana, and albuterol MDI, with reasonable control of his symptoms. Her anxiety related air trapping is also better controlled on hydroxyzine. [facility] Medical History Mild major depression Hypoxic Pre-op examination Weight loss Skin lesion Memory loss Upper abdominal pain Duodenal ulcer H. pylori infection Mixed hyperlipidemia Dysphagia Daytime somnolence History of heroin use Methadone use Dyslipidemia Moderate asthma Surgical History Hx of tonsillectomy History of mammogram History of section History of esophagogastroduodenoscopy (EGD) Hx of colonoscopy Family History Father No problems noted. Mother Breast cancer Sister Breast cancer, Onset Age: 47 Brother Cancer Maternal Uncle Cancer Social History Household Members: None Housing: House Do you presently have visiting nurse or other home services: No Alcohol intake: current Alcohol intake frequency: holidays/special occasions only Patient Tobacco Use Status: Current everyday Tobacco user Tobacco use type: Cigarette Cigarettes Per Day: 12 Years Smoked: started at 14, 1ppd e-Cigarette/Vaping Use: Never Used Second Hand Smoke Exposure: No Substance Use Type: Marijuana service: No Current occupational status: unemployed Cognitive needs: No Hearing needs: No Vision needs: No Review of Systems Const Denies daytime sleepiness, Denies excessive sweating, Denies fatigue, Denies fever(s), Denies lethargy, Denies malaise, Denies night sweats, Denies snoring and Denies weight loss Eyes Denies blurry vision and Denies itchy eyes ENT Denies nasal congestion, Denies post nasal drip, Denies sinus pain, Denies sinus pressure and Denies other ( Thrush) Card Denies chest pain, Denies pedal edema, Denies dyspnea, Denies orthopnea and Denies paroxysmal nocturnal dyspnea Resp Denies cough, Denies hemoptysis, Denies excessive phlegm production, Denies dyspnea, Denies snoring and Denies wheezing GI Denies abdominal pain and Denies heartburn Musc Denies myalgias, Denies arthralgias and Denies joint swelling Skin/Breast Denies rash Neuro Denies memory loss and Denies seizure-like activity Psych Denies abnormal sleep pattern, Denies anxiety and Denies memory loss Endo Denies excessive sweating, Denies fatigue and Denies heat intolerance Damien/Lymph Denies easy bruising Aller/Immun Denies itchy eyes, Denies seasonal rhinorrhea and Denies wheezing Physical Exam Vital Signs: Last Vital Signs Pulse 81 01/26/24 14:17 BP 132/78 01/26/24 14:17 Pulse Ox 90 L 01/26/24 14:17 Oxygen Delivery Method Room Air 01/26/24 14:17 BMI result Body Mass Index 21.8 Const General: no acute distress and alert Nutritional Appearance: not obese Orientation/consciousness: Other orientation findings ( oriented) HEENT Head: Yes atraumatic Eyes General: appearance normal, both eyes and all related structures Sclerae: sclerae normal EOM: EOMs intact bilaterally Neck Neck: Yes supple Lymphatic: no lymphadenopathy noted Resp Effort & Inspection: normal respiratory effort and no use of accessory muscles Auscultation: clear to auscultation bilaterally Cardio Rate: regular rate Rhythm: regular rhythm Heart sounds: no gallops, no murmurs and no rubs Skin General skin exam: other ( warm) Extrem General: No clubbing, No cyanosis and No edema Assessment & Plan Assessment & Plan (1) COPD (chronic obstructive pulmonary disease): Code(s): J44.9 - Chronic obstructive pulmonary disease, unspecified Category: Medical Plan: Improved control on Brovana, Anoro, duo nebs, and albuterol MDI. Continue current regimen. (2) DESMOND (generalized anxiety disorder): Code(s): F41.1 - Generalized anxiety disorder Category: Medical Plan: Improved anxiety related air trapping on hydroxyzine. Continue current regimen. Coding Level of Care Code Est Pt Level 4 (27221) Diagnoses COPD (chronic obstructive pulmonary disease) J44.9 DESMOND (generalized anxiety disorder) F41.1
== END 2024-01-26 14:31 | disposition home or self-care (01) ==
PROVIDERS: PCP Internal Medicine; Visit Provider Internal Medicine Pulmonary Disease
DX: J44.9 Chronic obstructive pulmonary disease, unspecified (principal); F41.1 Generalized anxiety disorder
CPT/HCPCS: 99214

== ENCOUNTER → 2024-01-26 14:13 | Outpatient (BNVA) | payer OTHER, SELFPAY | PROVIDERS: PCP Internal Medicine; Visit Provider Internal Medicine Pulmonary Disease | DX: J44.9 Chronic obstructive pulmonary disease, unspecified (principal); R91.8 Other nonspecific abnormal finding of lung field; F41.1 Generalized anxiety disorder | CPT/HCPCS: 99212 ==

== ENCOUNTER 2024-02-21 20:59 | Emergency (ER) | payer OTHER, SELFPAY ==
--- NOTE | ~2024-02-21 | CT_ITS ---
EXAMINATION: CT ABDOMEN AND PELVIS WITH CONTRAST CLINICAL INFORMATION: Left upper quadrant, epigastric pain COMPARISON: 12/16/2023 TECHNIQUE: Multidetector volumetric images were obtained from the superior aspect of the liver through the pubic symphysis following administration 85 mL of Omnipaque 350 intravenous contrast. Sagittal and coronal reformatted images were obtained on the technologist's workstation. Oral contrast: No This CT examination was performed using dose optimization techniques as appropriate, variously including the following: *Automated exposure control *Adjustment of mA and/or kV according to patient size (this includes techniques or standardized protocols for targeted exams where dose is matched to indication/reason for exam; i.e. extremities or head) *Use of iterative reconstruction technique DLP: 388 mGy-cm FINDINGS: LUNG BASES: Atelectasis in the lung bases. LIVER, GALLBLADDER, AND BILIARY TREE: The liver is normal in size, shape, and attenuation. No focal hepatic lesion or biliary ductal dilatation is present. The gallbladder is unremarkable with no evidence of radiopaque gallstones, gallbladder wall thickening, or obvious pericholecystic inflammatory changes. PANCREAS: Unremarkable. SPLEEN: Unremarkable. ADRENAL GLANDS: Similar thickening of the left adrenal gland. KIDNEYS AND URETERS: The kidneys are normal in size, shape, and attenuation. No hydronephrosis, hydroureter, or calculi seen. No perinephric stranding. Right midpole cyst that does not require imaging follow-up. BLADDER: Unremarkable. GASTROINTESTINAL TRACT: There is a small hiatal hernia. There is suspected mild thickening of the distal esophagus. No high-grade bowel obstruction. Appendix is normal. There is colonic diverticulosis. ABDOMINAL WALL: No significant hernia is appreciated. LYMPH NODES: Normal. VASCULAR: Unremarkable. PELVIC VISCERA: Unremarkable. OSSEOUS STRUCTURES: Unremarkable. CT/CT abdomen pelvis w IV con IMPRESSION: 1. Small hiatal hernia with suspected mild thickening of the distal esophagus. Correlate with clinical history for esophagitis. 2. Colonic diverticulosis. Fleischner guidelines were followed. Electronically signed by: Varun Montiel MD 02/22/2024 04:10 AM EDT
[2024-02-21 21:09] VITALS: BP 192/91; PULSE 83; RESP 22; TEMP 36.6; O2SAT 98; BMI 18.7
[2024-02-21 21:46] LABS: Appearance Urine Clear; Color Urine Yellow; Glucose Urine UA Negative (Negative); Leukocyte Esterase Urine Trace (Negative); Nitrite Urine Negative (Negative); PH >= 9.0 (5.0-9.0); UMIC TRIGGER UACC YES; Urine Blood Negative (Negative); Urine Ketones 15 mg/dL (Negative); Urine Protein Negative (Neg-Trace)
[2024-02-21 22:03] LABS: MANUAL DIFF FLAG NO
--- NOTE | 2024-02-21 22:08 | ED_ITS ---
HPI - General Adult General Chief complaint: Abdominal Pain Stated complaint: ABD PAIN Time Seen by Provider: 02/21/24 21:33 Source: patient and EMS Mode of arrival: EMS Limitations: no limitations History of Present Illness ED Provider: Dr. Madisyn Merida HPI narrative: patient comes to the emergency room complaining of severe anxiety, left upper quadrant pain for three days, nausea. Patient states that over a month ago, she has been having intermittent left upper quadrant pain, patient has been seen by her PCP for similar complaints. Patient states that she has been seen for gallbladder problems but has never had a cholecystectomy. Patient states that she feels that she needs to urinate but can not urinate. However, on arrival she did give us a urine sample. Per EMS, she received 100 mcg of fentanyl and 4 mg of Zofran. Patient states that she is having a panic attack and requesting medication to help her with the anxiety. Patient states that she has not experienced any chest pain or shortness of breath. Patient states that her abdominal pain has gradually been getting a bit better since she received the fentanyl from EMS. Related Data Home Medications ?Medication ?Instructions ?Recorded ?Confirmed methadone 10 mg/5 mL oral solution 65 mg PO DAILY 07/17/20 10/11/23 ipratropium 0.5 mg-albuterol 3 mg 3 ml inhalation Q4H PRN Wheezing 06/22/23 10/11/23 (2.5 mg base)/3 mL nebulization soln Previous Rx's ?Medication ?Instructions ?Recorded multivitamin with folic acid 400 1 tab PO DAILY 90 days #90 tabs 03/08/23 mcg tablet (Daily-Radha (with folic acid)) nebulizers (AeroEclipse II #1 ea 03/08/23 Nebulizer) albuterol sulfate 90 mcg/actuation 2 puff PO Q6H PRN bronchospasm 30 03/30/23 aerosol inhaler days #18 grams umeclidinium 62.5 mcg-vilanterol 1 inh inhalation DAILY 30 days #1 03/30/23 25 mcg/actuation powdr for ea inhalation (Anoro Ellipta) atorvastatin 20 mg tablet 20 mg PO BEDTIME 90 days #90 tabs 09/01/23 dexlansoprazole 60 mg 60 mg PO DAILY 30 days #30 caps 10/11/23 capsule,biphase delayed release (Dexilant) prednisone 20 mg tablet 40 mg (2 x 20 mg) PO DAILY 5 days 10/17/23 #10 tabs arformoterol 15 mcg/2 mL solution 2 ml inhalation DAILY 30 days #60 11/03/23 for nebulization mL hydroxyzine HCl 50 mg tablet 50 mg PO BID 30 days #60 tabs 11/03/23 sucralfate 100 mg/mL oral 10 ml PO BID 10 days #200 mL 12/16/23 suspension (Carafate) sertraline 50 mg tablet 50 mg PO DAILY 90 days #90 tabs 01/02/24 Allergies Allergy/AdvReac Type Severity Reaction Status Date / Time Penicillins Allergy Intermediate RASH Verified 02/21/24 21:16 Review of Systems 2 Review of Systems: Constitutional : No Weight loss, No Fever, No Chills, No Night Sweats, No Fatigue, No Malaise ENT/Mouth : No Hearing loss, No Ear Pain, No Nasal Congestion, No Sinus Pain, No Hoarseness, No sore throat, No Rhinorrhea, No Swallowing Difficulty Eyes: No Eye Pain, No Swelling, No Redness, No Foreign Body, No Discharge, No Vision Changes Cardiovascular : No Chest Pain, No SOB, No Dyspnea on Exertion, No Orthopnea, No Edema, No Palpitations Respiratory : No Cough, No Sputum, No Wheezing, No Smoke Exposure, No Dyspnea Gastrointestinal : Complaining of nausea, no diarrhea constipation, complaining of left upper quadrant and epigastric pain for 3 days Genitourinary : complaining of difficulty urinating, no flank pain, no suprapubic pain Musculoskeletal : No joint pain, No Myalgias, No Joint Swelling Skin : No Skin Lesions, No rash Neuro : No Weakness, No Numbness, No Paresthesias, No Loss of Consciousness, No Dizziness, No Headache Psych : complaining of having a panic attack, No Depression, No SI/HI/AH/VH, No Social Issues, Heme/Lymph: No Bruising, No Bleeding,No Lymphadenopathy Endocrine : No Polyuria, No Polydipsia, No Temperature Intolerance PMFSH Past Medical History Medical History Mild major depression Hypoxic Pre-op examination Weight loss Skin lesion Memory loss Upper abdominal pain Duodenal ulcer H. pylori infection Mixed hyperlipidemia Dysphagia Daytime somnolence History of heroin use Methadone use Dyslipidemia Moderate asthma Surgical History Hx of tonsillectomy History of mammogram History of section History of esophagogastroduodenoscopy (EGD) Hx of colonoscopy Family History Family History Father No problems noted. Mother Breast cancer Sister Breast cancer, Onset Age: 47 Brother Cancer Maternal Uncle Cancer Social History Social History Household Members: None Housing: House Do you presently have visiting nurse or other home services: No Alcohol intake: current Alcohol intake frequency: holidays/special occasions only Patient Tobacco Use Status: Current everyday Tobacco user Tobacco use type: Cigarette Cigarettes Per Day: 12 Years Smoked: started at 14, 1ppd Smoked in Last 30 Days: Yes e-Cigarette/Vaping Use: Never Used Second Hand Smoke Exposure: No Use of substances other than those prescribed or required for medical reasons: No Substance Use Type: Marijuana Advance Directives: No Advance Directives Information Provided: No Patient : No service: No Current occupational status: unemployed Cognitive needs: No Hearing needs: No Vision needs: No Physical Exam ED Vital Signs: Vital Signs - 24 hr 02/21/24 21:09 02/21/24 22:25 02/21/24 23:43 Temperature 97.9 F 99.2 F Pulse Rate 83 87 92 Respiratory Rate 22 H 20 Blood Pressure 192/91 H 189/93 H 190/102 H Pulse Oximetry 98 96 95 Oxygen Delivery Method Room Air Room Air Nasal Cannula Oxygen Flow Rate 2 02/21/24 23:54 02/22/24 00:28 Temperature 97.3 F Pulse Rate 88 Respiratory Rate 16 Blood Pressure 187/111 H 194/102 H Pulse Oximetry 97 98 Oxygen Delivery Method Nasal Cannula Nasal Cannula Oxygen Flow Rate 2 2 BMI result Body Mass Index 18.7 Const Other: Appearance: Alert. Oriented X3. very anxious Eyes: Pupils equal, round and reactive to light. ENT: Pharynx normal. Neck: Normal inspection. Neck supple. No lymph nodes noted. No crepitus CVS: Normal heart rate and rhythm. Pulses normal. Normal S1 and S2 Respiratory: No respiratory distress. Breath sounds normal. No Wheezing. No rales Abdomen: Soft and mild discomfort to palpation in left upper quadrant, no rebound, no guarding, no epigastric pain, negative Gomez's sign Skin: Skin warm and dry. Normal skin color. Normal skin turgor. Extremities: No lower extremity edema. No Lacerations. No Rash Neuro: Oriented X 3. No motor deficit. No sensory deficit. Moving all extremities. No slurred speech. CN 2 through 12 grossly intact Psych: . Anxious, cooperative Course Course Course Narrative: - EKG pending - per patient's request, patient given 2 mg IM of Ativan. patient states that after the IM injection patient feels a bit sleepy but overall feels better. - all of patient's labs pending Medications Administered Discontinued Medications Generic Name Dose Route Start Last Admin Trade Name Freq PRN Reason Stop Dose Admin Aspirin 325 mg 02/21/24 23:28 02/21/24 23:40 Aspirin Enteric Coated 325 Mg Tablet. PO 02/21/24 23:29 325 mg ONCE ONE Administration Atorvastatin Calcium 80 mg 02/21/24 23:34 02/21/24 23:40 Atorvastatin Calcium 80 Mg Tablet PO 02/21/24 23:35 80 mg ONCE ONE Administration Heparin Sodium (Porcine) 3,500 unit 02/21/24 23:29 02/21/24 23:46 Heparin Sodium,Porcine 5,000 Unit/Ml Vial 80 unit/kg (3500 unit) 02/21/24 23:30 3,500 unit IVPUSH Administration ONCE ONE Sodium Chloride 1,000 mls @ 999 mls/hr 02/21/24 21:45 02/22/24 00:01 Ns IVCONT 02/21/24 22:45 Infused .Q1H1M ONE Infusion Heparin Sodium/Sodium Chloride 25,000 unit in 250 mls @ 0 mls/hr 02/21/24 23:30 02/21/24 23:59 Heparin Sodium,Porcine/1/2ns IVCONT 14 units/kg/hr .Q0M NIKKY 6.08 mls/hr Administration Protocol Per Protocol Iohexol 85 ml 02/21/24 23:32 02/21/24 23:33 Iohexol 350 Mg/Ml 100 Ml Infus..Btl IV 02/21/24 23:33 85 ml ONCE ONE Administration Ketorolac Tromethamine 30 mg 02/21/24 21:45 02/21/24 22:11 Ketorolac Tromethamine 30 Mg/Ml Vial IVPUSH 02/21/24 21:46 30 mg ONCE ONE Administration Lorazepam 2 mg 02/21/24 21:47 02/21/24 22:11 Lorazepam 2 Mg/Ml Vial IM 02/21/24 21:48 2 mg STAT STA Administration Metoprolol Tartrate 5 mg 02/21/24 23:39 02/21/24 23:53 Metoprolol Tartrate 5 Mg/5 Ml Vial IVPUSH 02/21/24 23:40 5 mg ONCE ONE Administration Protocol Ondansetron HCl 4 mg 02/21/24 21:45 02/21/24 22:11 Ondansetron Hcl 4 Mg/2 Ml Vial IVPUSH 02/21/24 21:46 4 mg ONCE ONE Administration Ticagrelor 180 mg 02/21/24 23:34 02/21/24 23:40 Ticagrelor 90 Mg Tablet PO 02/21/24 23:35 180 mg ONCE ONE Administration Medical Decision Making Medical Decision Making MDM Narrative: - my interpretation of EKG: Sinus rhythm, heart rate 85, ST segment depression 2 mm in the inferior leads, ST segment elevation in V3 to V6. Suspicious for STEMI versus NSTEMI, there are some depressions present. -I discussed the EKG findings and troponin with Dr. Pulido, likely a STEMI, recommendation: Call [facility] for cardiac catheterization - [facility] cardiac catheterization line has been called, called back pending. - besides the fentanyl and Zofran that she received prior to arrival, patient received full dose aspirin, Brilinta 180, heparin, atorvastatin, metoprolol - my interpretation of labs: Patient's troponin 306 - patient's vitals at 23:45: Blood pressure 190/102, pulse 92, respiratory 20, temperature 99.2 degrees, oxygen saturation 95% on room air. Patient was put on 2 L nasal cannula for comfort - I discussed the above-mentioned with the patient, patient agreeable to transfer. - urine toxicology positive for opiates, methadone, fentanyl, cocaine and marijuana, ETOH negative - I discussed the patient with Dr. Wallis, patient to be transferred to the CCU rather than the cardiac catheterization Differential Diagnosis Differential Diagnoses: The differential diagnosis associated with the presentation includes ( STEMI, NSTEMI, panic attack,) Admission/Observation Consideration of admission/observation: Escalation of care including admission/observation considered Consult Healthcare Provider Management of the patient was discussed with: [employer] Lab Data MDM Lab Attestation statement: I reviewed the patient's lab results. 02/21/24 21:58 02/21/24 22:32 Labs: Lab Results 02/21/24 02/21/24 02/21/24 Range/Units 21:26 21:58 22:32 WBC 11.6 H (4.8-10.8) X10*3/uL RBC 5.57 H (4.20-5.50) X10*6/uL Hgb 17.5 H (12.0-16.0) g/dl Hct 49.3 H (37.0-47.0) % MCV 88.5 (80.0-98.0) fL MCH 31.4 (27.0-33.0) pg MCHC 35.5 H (31.0-35.0) g/dl RDW 13.6 (11.0-16.0) % Plt Count 343 (160-400) X10*3/uL MPV 9.0 L (9.4-12.3) fL Immature Gran % (Auto) 0.3 (0.0-0.4) % Neut % (Auto) 76.6 H (45-73) % Lymph % (Auto) 18.4 L (20-40) % Dougherty % (Auto) 3.6 (2-11) % Eos % (Auto) 0.7 (0-4) % Baso % (Auto) 0.4 (0-2) % Lymph # (Auto) 2.1 (1.2-4.9) X10*3/uL Dougherty # (Auto) 0.4 (0.1-1.2) X10*3/uL Eos # (Auto) 0.1 (0.0-0.4) X10*3/uL Baso # (Auto) 0.1 (0.0-0.2) X10*3/uL Abs Immat Gran (auto) 0.04 H (0.00-0.03) X10*3/uL Absolute Neuts (auto) 8.8 H (2.0-8.3) x10*3/uL Absolute Nucleated RBC 0.000 (0.0-0.012) X10*3/uL Nucleated RBC % (auto) 0.0 (0.0-0.2) /100WBC PT (11.1-13.3) SEC INR (0.9-1.1) APTT (26.0-36.8) SEC Sodium 139 (135-145) mmol/L Potassium 3.7 (3.3-5.1) mmol/L Chloride 107 (96-108) mmol/L Carbon Dioxide 21 L (22-29) mmol/L Anion Gap 15 (12-20) BUN 9 (9-16) mg/dL Creatinine 0.73 (0.5-1.4) mg/dL Estim Creat Clear Calc 54.7 Estimated GFR > 60 Random Glucose 172 H (60-115) mg/dL Calcium 9.2 (8.4-10.2) mg/dL Magnesium 1.6 (1.6-2.6) mg/dL Total Bilirubin 0.5 (0.0-1.0) mg/dL Direct Bilirubin 0.2 (0.0-0.5) mg/dL AST 27 (5-31) U/L ALT 27 (0-31) U/L Alkaline Phosphatase 73 (39-117) U/L Troponin I High Sens 306.0 H* D (<3.5-17.0) ng/L Total Protein 7.4 (6.5-8.0) g/dL Albumin 4.3 (3.5-5.0) g/dL Lipase 14 (8-78) U/L Urine Color Yellow Urine Appearance Clear Urine pH >= 9.0 (5.0-9.0) Ur Specific [place] 1.010 (1.005-1.025) Urine Protein Negative (Neg-Trace) mg/dL Urine Glucose (UA) Negative (Negative) mg/dL Urine Ketones 15 (Negative) mg/dL Urine Blood Negative (Negative) Urine Nitrite Negative (Negative) Ur Leukocyte Esterase Trace H (Negative) Urine RBC 3-5 H (0-2) /HPF Urine WBC 11-20 H (0-5) /HPF Ur Squamous Epith Cells 6-10 (0-2) /HPF Urine Bacteria Trace (None Seen) Hyaline Casts 0-2 (0-2) /LPF Urine Opiates Screen POSITIVE H (Not Detect) Ur Buprenorphine Scrn Not Detected (Not Detect) ng/mL Ur Oxycodone Screen Not Detected (Not Detect) ng/mL Urine Methadone Screen Positive H (Not Detect) ng/mL Urine Fentanyl Screen POSITIVE H (Not Detect) Ur Barbiturates Screen Not Detected (Not Detect) Ur Phencyclidine Scrn Not Detected (Not Detect) Ur Amphetamines Screen Not Detected (Not Detect) U Benzodiazepines Scrn Not Detected (Not Detect) Urine Cocaine Screen POSITIVE H (Not Detect) U Marijuana (THC) Screen POSITIVE H (Not Detect) Ethyl Alcohol < 10 mg/dL 02/21/24 Range/Units 23:40 WBC (4.8-10.8) X10*3/uL RBC (4.20-5.50) X10*6/uL Hgb (12.0-16.0) g/dl Hct (37.0-47.0) % MCV (80.0-98.0) fL MCH (27.0-33.0) pg MCHC (31.0-35.0) g/dl RDW (11.0-16.0) % Plt Count (160-400) X10*3/uL MPV (9.4-12.3) fL Immature Gran % (Auto) (0.0-0.4) % Neut % (Auto) (45-73) % Lymph % (Auto) (20-40) % Dougherty % (Auto) (2-11) % Eos % (Auto) (0-4) % Baso % (Auto) (0-2) % Lymph # (Auto) (1.2-4.9) X10*3/uL Dougherty # (Auto) (0.1-1.2) X10*3/uL Eos # (Auto) (0.0-0.4) X10*3/uL Baso # (Auto) (0.0-0.2) X10*3/uL Abs Immat Gran (auto) (0.00-0.03) X10*3/uL Absolute Neuts (auto) (2.0-8.3) x10*3/uL Absolute Nucleated RBC (0.0-0.012) X10*3/uL Nucleated RBC % (auto) (0.0-0.2) /100WBC PT 11.3 (11.1-13.3) SEC INR 0.9 (0.9-1.1) APTT 35.2 (26.0-36.8) SEC Sodium (135-145) mmol/L Potassium (3.3-5.1) mmol/L Chloride (96-108) mmol/L Carbon Dioxide (22-29) mmol/L Anion Gap (12-20) BUN (9-16) mg/dL Creatinine (0.5-1.4) mg/dL Estim Creat Clear Calc Estimated GFR Random Glucose (60-115) mg/dL Calcium (8.4-10.2) mg/dL Magnesium (1.6-2.6) mg/dL Total Bilirubin (0.0-1.0) mg/dL Direct Bilirubin (0.0-0.5) mg/dL AST (5-31) U/L ALT (0-31) U/L Alkaline Phosphatase (39-117) U/L Troponin I High Sens (<3.5-17.0) ng/L Total Protein (6.5-8.0) g/dL Albumin (3.5-5.0) g/dL Lipase (8-78) U/L Urine Color Urine Appearance Urine pH (5.0-9.0) Ur Specific [place] (1.005-1.025) Urine Protein (Neg-Trace) mg/dL Urine Glucose (UA) (Negative) mg/dL Urine Ketones (Negative) mg/dL Urine Blood (Negative) Urine Nitrite (Negative) Ur Leukocyte Esterase (Negative) Urine RBC (0-2) /HPF Urine WBC (0-5) /HPF Ur Squamous Epith Cells (0-2) /HPF Urine Bacteria (None Seen) Hyaline Casts (0-2) /LPF Urine Opiates Screen (Not Detect) Ur Buprenorphine Scrn (Not Detect) ng/mL Ur Oxycodone Screen (Not Detect) ng/mL Urine Methadone Screen (Not Detect) ng/mL Urine Fentanyl Screen (Not Detect) Ur Barbiturates Screen (Not Detect) Ur Phencyclidine Scrn (Not Detect) Ur Amphetamines Screen (Not Detect) U Benzodiazepines Scrn (Not Detect) Urine Cocaine Screen (Not Detect) U Marijuana (THC) Screen (Not Detect) Ethyl Alcohol mg/dL Independent Interpretation I performed an independent interpretation of an: EKG Radiology Impression Discussion of test interpretation with radiology: I have reviewed the radiologist's reading. Critical Care Time Critical Care Time Critical Care Time: Yes Total Critical Care Time: 60 Attestation: I have personally provided critical care time. Time includes review of lab data, radiology results, discussion with consultants, and monitoring for potential decompensation. Intervention performed as documented. Discharge Plan Discharge Clinical Impression: ST elevation (STEMI) myocardial infarction Patient Disposition: Xfer Acute Care Hospital Transfer Details: [facility] cardiac catheterization lab 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: No Action atorvastatin 20 mg tablet 20 mg PO BEDTIME 90 Days Qty: 90 1RF sertraline 50 mg tablet 50 mg PO DAILY 90 Days Qty: 90 1RF ipratropium-albuterol 0.5 mg-3 mg(2.5 mg base)/3 mL solution for nebulization 3 ml inhalation Q4H PRN (Reason: Wheezing) prednisone 20 mg tablet 40 mg PO DAILY 5 Days Qty: 10 0RF sucralfate [Carafate] 100 mg/mL suspension 10 ml PO BID 10 Days Qty: 200 0RF methadone 10 mg/5 mL solution 65 mg PO DAILY (DME) nebulizers [AeroEclipse II Nebulizer] Misc See Rx Instructions .Route Qty: 1 0RF Rx Instructions: As directed multivitamin with folic acid [Daily-Radha (with folic acid)] 400 mcg tablet 1 tab PO DAILY 90 Days Qty: 90 3RF dexlansoprazole [Dexilant] 60 mg capsule,biphase delayed releas 60 mg PO DAILY 30 Days Qty: 30 3RF arformoterol 15 mcg/2 mL solution for nebulization 2 ml inhalation DAILY 30 Days Qty: 60 3RF hydroxyzine HCl 50 mg tablet 50 mg PO BID 30 Days Qty: 60 6RF Anoro Ellipta 62.5-25 mcg/actuation blister with device 1 inh inhalation DAILY 30 Days Qty: 1 6RF albuterol sulfate 90 mcg/actuation HFA aerosol inhaler 2 puff PO Q6H PRN (Reason: bronchospasm) 30 Days Qty: 18 6RF Interventions: Acute Care Transfer Worksheet (ED) Last Done: 02/22/24 00:28 Discharge Date/Time: 02/21/24 23:15 Print Language: Pakistani
[2024-02-21] MEDS: 0.9 % Sodium Chloride 1,000 ML 999 ML IVCONT (22:10)
[2024-02-21] MEDS: Ketorolac Tromethamine 30 MG/ML VIAL IVPUSH (22:11)
[2024-02-21] MEDS: LORazepam 2 MG/ML VIAL IM (22:11)
[2024-02-21] MEDS: ondansetron HCL 4 MG/2 ML VIAL IVPUSH (22:11)
[2024-02-21 22:21] LABS: Basophils Absolute Auto 0.1 X10*3/uL (0.0-0.2); Basophils Percent Auto 0.4 % (0-2); Eosinophils Absolute Auto 0.1 X10*3/uL (0.0-0.4); Eosinophils Percent Auto 0.7 % (0-4); Hematocrit 49.3 % (37.0-47.0); Hemoglobin 17.5 g/dl (12.0-16.0); Imm Gran Abs Auto 0.04 X10*3/uL (0.00-0.03); Imm Gran Pct Auto 0.3 % (0.0-0.4); Lymphocytes Absolute Auto 2.1 X10*3/uL (1.2-4.9); Lymphocytes Percent Auto 18.4 % (20-40); Mean Corpuscular HGB Conc 35.5 g/dl (31.0-35.0); Mean Corpuscular Hemoglobin 31.4 pg (27.0-33.0); Mean Corpuscular Volume 88.5 fL (80.0-98.0); Monocytes Absolute Auto 0.4 X10*3/uL (0.1-1.2); Monocytes Percent Auto 3.6 % (2-11); Neutrophils Absolute Auto 8.8 x10*3/uL (2.0-8.3); Neutrophils Percent Auto 76.6 % (45-73); Platelet Count 343 X10*3/uL (160-400); Red Blood Count 5.57 X10*6/uL (4.20-5.50); Red Cell Distribution Width 13.6 % (11.0-16.0); White Blood Count 11.6 X10*3/uL (4.8-10.8)
[2024-02-21 22:25] VITALS: BP 189/93; PULSE 87; RESP 20; TEMP 37.3; O2SAT 96
[2024-02-21 22:32] LABS: Bacteria Urine Trace (None Seen); Hyaline Casts Urine 0-2 /LPF (0-2); UACC Culture Trigger YES
[2024-02-21 22:50] LABS: Amphetamine Screen Urine Not Detected (Not Detect); Barbiturates, Urine Not Detected (Not Detect); Benzodiazepines Screen Urine Not Detected (Not Detect); Buprenorphine Scr Not Detected (Not Detect); Cannabinoid Screen Urine POSITIVE (Not Detect); Cocaine Screen Urine POSITIVE (Not Detect); Fentanyl, urine POSITIVE (Not Detect); Methadone Screen, Urine Positive (Not Detect); Opiate Screen Urine POSITIVE (Not Detect); Oxycodone Screen Urine Not Detected (Not Detect); Phencyclidine Screen Urine Not Detected (Not Detect)
[2024-02-21 22:56] LABS: Alanine Aminotransferase 27 U/L (0-31); Albumin Level 4.3 g/dL (3.5-5.0); Alkaline Phosphatase 73 U/L (39-117); Anion Gap 15 (12-20); Aspartate Amino Transferase 27 U/L (5-31); Bilirubin Direct 0.2 mg/dL (0.0-0.5); Bilirubin Total 0.5 mg/dL (0.0-1.0); Blood Urea Nitrogen 9 mg/dL (9-16); Calcium 9.2 mg/dL (8.4-10.2); Carbon Dioxide 21 mmol/L (22-29); Chloride 107 mmol/L (96-108); Creatinine Clr Calc Pharmacy 54.7; Estimated Glomerular Filt Rate > 60; Ethanol < 10 mg/dL; Glucose Random 172 mg/dL (60-115); Lipase 14 U/L (8-78); Magnesium 1.6 mg/dL (1.6-2.6); Potassium 3.7 mmol/L (3.3-5.1); Sodium 139 mmol/L (135-145); Total Protein 7.4 g/dL (6.5-8.0)
--- NOTE | 2024-02-21 23:14 | ECG_ITS ---
Test Reason : REPEAT Blood Pressure : / mmHG Vent. Rate : 086 BPM Atrial Rate : 086 BPM P-R Int : 130 ms QRS Dur : 076 ms QT Int : 352 ms P-R-T Axes : 074 043 035 degrees QTc Int : 421 ms Normal sinus rhythm Biatrial enlargement Septal infarct (cited on or before 21-FEB-2024) ST elevation in Lateral leads ST depression in Inferior leads Abnormal ECG When compared with ECG of 16-DEC-2023 10:06, Serial changes of Septal infarct Present ST elevation in Lateral leads is now Present ST depression in Inferior leads is now Present Referred By: Madisyn Merida Electronically Signed By:SWAPNIL LISA
[2024-02-21] MEDS: iohexoL 350 MG/ML 100 ML INFUS..BTL 85 ML IV (23:33)
[2024-02-21] MEDS: Aspirin Enteric Coated 325 MG TABLET.DR PO (23:40)
[2024-02-21] MEDS: Atorvastatin Calcium 80 MG TABLET PO (23:40)
[2024-02-21] MEDS: Ticagrelor 90 MG TABLET 180 MG PO (23:40)
[2024-02-21 23:43] VITALS: BP 190/102; PULSE 92; O2SAT 95
[2024-02-21] MEDS: Heparin Sodium,Porcine 5,000 UNIT/ML VIAL 3500 UNIT IVPUSH (23:46)
[2024-02-21] MEDS: Metoprolol Tartrate 5 MG/5 ML VIAL IVPUSH (23:53)
[2024-02-21 23:54] VITALS: BP 187/111; O2SAT 97
[2024-02-21 23:57] LABS: INTERNATIONAL NORM RATIO 0.9 (0.9-1.1); Prothrombin Time 11.3 SEC (11.1-13.3)
[2024-02-21] MEDS: Heparin Sodium,Porcine/1/2NS 25,000 UNIT/250 ML IV.SOLN 6.08 UNIT IVCONT (23:59)
[2024-02-22] LABS: Partial Thromboplastin Time 35.2 SEC (26.0-36.8)
--- NOTE | 2024-02-22 00:26 | PC.NURSE ---
RN attempted to call over to [facility] to provide nurse to nurse report. RN spoke with Lindy from [facility] ED who stated she could not find the nurse and took a call back number and informed this RN that she would relay the information for this RN to receive a call back for report.
[2024-02-22 00:28] VITALS: BP 194/102; PULSE 88; RESP 16; TEMP 36.3; O2SAT 98
--- NOTE | 2024-02-22 00:41 | PC.NURSE ---
Late entry MD Merida made this RN aware of the STEMI alert they called on this patient around 2320 at which time the pt was in CT. Per MD. Merida, this RN made radiology aware and assisted with removing patient from CT table and back to room 8. Upon arrival to the room, a second IV line was established (#20 right forearm), Coags drawn and medication administered per SEP. The pt remained drowsy s/t previous IM Ativan administration. The pt's skin was warm and dry, she appeared comfortable and continued to deny the presence of chest discomfort. MD Merida came to bedside to make the pt aware of her need for [facility] transfer and rationale.
== END 2024-02-21 23:15 | disposition short-term general hospital (02) ==
PROVIDERS: Emergency Provider Emergency Medicine
DX: I21.3 ST elevation (STEMI) myocardial infarction of unspecified site (principal); R10.12 Left upper quadrant pain; F41.9 Anxiety disorder, unspecified; R11.0 Nausea; R33.9 Retention of urine, unspecified; R94.31 Abnormal electrocardiogram [ECG] [EKG]; F17.210 Nicotine dependence, cigarettes, uncomplicated; Z79.899 Other long term (current) drug therapy
CPT/HCPCS: 36415; 74177; 80048; 80076; 80307; 81001; 83690; 83735; 84484; 85025; 85610; 85730; 87086; 93005; 96361; 96372; 96374; 96375; 99285; J1644; J1885; J2060; J2405; Q9967

== ENCOUNTER 2024-03-13 08:05 | Outpatient (AMB) | payer OTHER, SELFPAY ==
--- NOTE | 2024-03-13 08:09 | MHC.PC.OV ---
Vital Signs 03/13/24 08:11 Height 5 ft Weight 121 lb BMI 23.6 BP 136/82 Blood Pressure Location Lt brachial Position Sitting Intake Visit Reasons: Annual Exam Intake Note: Patient here for an annual physical exam Medical Records Coordinator Required: No Accompanied by: Self / Same As Patient Allergies Penicillins Allergy (Intermediate, Verified 03/13/24 08:28) RASH Medication List - Last Reconciled 03/13/24 by Sarah Zhu MD albuterol sulfate 90 mcg/actuation 2 puffs PO Q6H PRN 30 days arformoterol 2 mL inhalation DAILY 30 days aspirin 81 mg PO DAILY atorvastatin 80 mg PO DAILY carvedilol 3.125 mg PO BID dexlansoprazole (Dexilant) 60 mg PO DAILY 30 days hydroxyzine HCl 50 mg PO BID 30 days ipratropium-albuterol 0.5 mg-3 mg(2.5 mg base)/3 mL 3 mL inhalation Q4H PRN methadone 65 mg PO DAILY multivitamin with folic acid 400 mcg (Daily-Radha (with folic acid)) 1 tab PO DAILY 90 days nebulizers (AeroEclipse II Nebulizer) As directed sertraline 50 mg PO DAILY 90 days umeclidinium-vilanterol 62.5-25 mcg/actuation (Anoro Ellipta) 1 inh inhalation DAILY 30 days Tobacco use date assessed: 10/11/23 Dental Screening Dental Screen Date: 10/11/23 HPI HPI Comments History of Present Illness Details This is a 63-year-old female with COPD, moderate major depression and recent STEMI that comes for her physical exam. COPD follow by pulmonology. On SSRIs for her depression. Had a recent STEMI last month and denies any chest pain or shortness on breath. Mammogram done 2022 was normal. I will order DEXA scan. Colonoscopy done 2023. She was advised to quit smoking. [facility] Medical History (Updated 03/13/24 @ 08:50 by Sarah Zhu MD) Mild major depression Hypoxic Pre-op examination Weight loss Skin lesion Memory loss Upper abdominal pain Duodenal ulcer H. pylori infection Mixed hyperlipidemia Dysphagia Daytime somnolence History of heroin use Methadone use Dyslipidemia Moderate asthma Surgical History Hx of tonsillectomy History of mammogram History of section History of esophagogastroduodenoscopy (EGD) Hx of colonoscopy Family History Father No problems noted. Mother Breast cancer Sister Breast cancer, Onset Age: 47 Brother Cancer Maternal Uncle Cancer Social History (Updated 03/13/24 @ 08:35 by Sarah Zhu MD) Household Members: None Housing: House Do you presently have visiting nurse or other home services: No Alcohol intake: current Alcohol intake frequency: holidays/special occasions only Alcohol type: beer Patient Tobacco Use Status: Current everyday Tobacco user Tobacco use type: Cigarette Cigarettes Per Day: 3 Years Smoked: started at 14, 1ppd e-Cigarette/Vaping Use: Never Used Second Hand Smoke Exposure: No Substance Use Type: Marijuana service: No Current occupational status: unemployed Cognitive needs: No Hearing needs: No Vision needs: No Questionnaire PHQ-9 Over the last 2 weeks, how often have you been bothered by any of the following problems? 1. Little interest or pleasure in doing things: several days 2. Feeling down, depressed, or hopeless: more than half the days 3. Trouble falling or staying asleep, or sleeping too much: several days 4. Feeling tired or having little energy: more than half the days 5. Poor appetite or overeating: more than half the days 6. Feeling bad about yourself - or that you are a failure or have let yourself or your family down: more than half the days 7. Trouble concentrating on things, such as reading the newspaper or watching television: more than half the days 8. Moving or speaking so slowly that other people could have noticed. Or the opposite - being so fidgety or restless that you have been moving around a lot more than usual: more than half the days 9. Thoughts that you would be better off or of hurting yourself in some way: not at all Total score: 14 Depression Screening Interpretation: Positive (no suicidal thoughts) Depression Screening Follow-up: Existing condition, In treatment and Follow-up Visit Requested Depression Screening Done: Yes 65662 - PHQ-9 Billing: Yes Source: Developed by Drs. Varun Peraza, Samantha Massey, Darius Rodriguez and colleagues, with an educational shamir from [employer]. Thrive Questionnaire Date Thrive assessed: 10/11/23 I am a: Patient What is your living situation today?: I have a steady place to live Within the past 12 months, did the food you bought not last and you didn't have the money to get more?: I choose not to answer this question Within the past 12 months, did you worry whether your food would run out before you got money to buy more?: I choose not to answer this question Do you have trouble paying for medicines?: No Do you have trouble getting transportation to medical appointments?: No Do you have trouble paying your heating and electricity bill?: No Do you have trouble taking care of your child, family member or friend?: I choose not to answer this question Do you have trouble with day-to-day activities such as bathing, preparing meals, shopping, managing finances, etc.?: Yes Are you currently unemployed and looking for a job?: Yes Are you interested in more education?: I choose not to answer this question Please select the resources that you would like help with: Utilities Currently or been in a relationship where the following occur: I choose not to answer THRIVE Score: 0 AUDIT C Alcohol Use Questionnaire (AUDIT-C) 1. How often do you have a drink containing alcohol?: Monthly or less 2. How many drinks containing alcohol do you have on a typical day when you are drinking?: 1 or 2 3. How often do you have six or more drinks on one occasion?: Monthly Total Score: 3 DESMOND-7 AMB Questionnaire DESMOND-7 Date DESMOND - 7 assessed: 10/11/23 Feeling nervous, anxious, or on edge: 2 = More than half the days Not being able to stop or control worryin = More than half the days Worrying too much about different things: 2 = More than half the days Trouble relaxin = More than half the days Being so restless that it is hard to sit still: 2 = More than half the days Becoming easily annoyed or irritable: 1 = Several days Feeling afraid as if something awful might happen: 0 = Not at all Total DESMOND-7 score (0-4 normal; 5-9 mild; 10-14 moderate; 15-21 severe): 11 Source: Developed by Drs. Varun Peraza, SamanthaDarius Riley and colleagues, with an educational shamir from [employer]. DESMOND-7 Assessment Billing DESMOND-7 Assessment Tool: DESMOND-7 Assessment 51050 Review of Systems Const All systems reviewed & are unremarkable except as noted in HPI and below Card Denies chest pain at rest, Denies chest pain with activity, Denies edema, Denies irregular heart rhythm, Denies claudication, Denies dyspnea, Denies dyspnea on exertion, Denies orthopnea, Denies paroxysmal nocturnal dyspnea and Denies slow heart rate Resp Denies cough, Denies dyspnea and Denies dyspnea on exertion GI Denies abdominal pain, Denies change in bowel habits, Denies excessive flatus, Denies nausea and Denies vomiting Denies urinary incontinence, Denies urinary hesitancy and Denies urinary urgency Musc Denies atrophy, Denies deformity and Denies limited range of motion Skin/Breast Denies bleeding lesions, Denies changing lesions and Denies rash Physical exam (Primary Care) Vital Signs: Last Vital Signs BP 136/82 03/13/24 08:11 BMI result Body Mass Index 23.6 Tobacco/Smoking Status: Tobacco use Status Tobacco use date assessed 10/11/23 03/13/24 08:19 Patient Tobacco Use Status Current everyday Tobacco 03/13/24 08:19 Tobacco use type Cigarette 03/13/24 08:19 e-Cigarette/Vaping Use Never Used 03/13/24 08:19 Are you ready to quit: Yes Tobacco cessation counseling provided: Yes Items discussed: [employer] Relapse Prevention: discussed the importance of a supportive environment, discussed negative mood or depression after quitting, weight gain after smoking is common and discussed dietary, exercise and/or lifestyle changes Number of minutes spent counselin CPT code: 27078 - 4-10 Minutes Depression Screening Interpretation: Positive (no suicidal thoughts) Depression Screening Follow-up: Existing condition, In treatment and Follow-up Visit Requested Thrive Assessment: Date of Thrive Assessment Date Thrive assessed 10/11/23 03/13/24 08:19 Currently or been in a relationship where the following occur: I choose not to answer HENMT Head: Yes normal to inspection, Yes normocephalic and Yes atraumatic Ears: external ears normal Eyes General: appearance normal, both eyes and all related structures Eyelids: Yes eyelids normal Conjunctivae: conjunctivae normal Neck Neck: Yes normal visual inspection and Yes supple Resp Effort & Inspection: normal respiratory effort Auscultation: clear to auscultation bilaterally Cardio Jugular venous distension: no JVD Rate: regular rate Rhythm: regular rhythm Heart sounds: S1 normal heart sound present and S2 normal heart sound present GI Inspection: Yes normal to inspection Palpation (GI): Soft to palpation and nontender Auscultation: normal bowel sounds Skin General skin exam: no rashes or lesions noted Neuro General: no focal motor deficits Extrem General: Yes full ROM Psych Appearance: grossly normal Assessment and Plan Assessment & Plan (1) Physical exam: Code(s): Z00.00 - Encounter for general adult medical examination without abnormal findings Plan: Repeat in a year. (2) Moderate major depression: Code(s): F32.1 - Major depressive disorder, single episode, moderate Plan: Continue SSRIs. (3) STEMI (ST elevation myocardial infarction): Code(s): I21.3 - ST elevation (STEMI) myocardial infarction of unspecified site Qualifiers: Involved coronary artery: unspecified coronary artery Qualified Code(s): I21.3 - ST elevation (STEMI) myocardial infarction of unspecified site Plan: Continue aspirin for secondary prophylaxis. Continue atorvastatin. LDL goal is less than 70. Referred to cardiology. (4) COPD (chronic obstructive pulmonary disease): Code(s): J44.9 - Chronic obstructive pulmonary disease, unspecified Plan: Continue Trelegy. Use rescue inhaler as needed. Follow-up with pulmonology. Orders: Orders Complete Blood Count Auto Diff Today D64.9 - Anemia, unspecified XR DEXA axial skeleton Today N95.9 - Unspecified menopausal and perimenopausal disorder Comprehensive [place]. Panel Fast Today Z00.00 - Encounter for general adult medical examination without abnormal findings IRON PROFILE Today D64.9 - Anemia, unspecified Lipid Panel Today E78.5 - Hyperlipidemia, unspecified Referrals Cardiology Referral I21.3 - ST elevation (STEMI) myocardial infarction of unspecified site Medications: New atorvastatin 80 mg PO DAILY 90 days 90 tabs 1RF aspirin 81 mg PO DAILY 90 days 90 tabs 3RF carvedilol 3.125 mg PO BID 90 days 180 tabs 1RF Refilled dexlansoprazole (Dexilant) 60 mg PO DAILY 30 days 30 caps 3RF K21.9 - Gastro-esophageal reflux disease without esophagitis umeclidinium-vilanterol 62.5-25 mcg/actuation (Anoro Ellipta) 1 inh inhalation DAILY 30 days 1 ea 6RF hydroxyzine HCl 50 mg PO BID 30 days 60 tabs 6RF multivitamin with folic acid 400 mcg (Daily-Radha (with folic acid)) 1 tab PO DAILY 90 days 90 tabs 3RF sertraline 50 mg PO DAILY 90 days 90 tabs 1RF Coding Level of Care Code Est Pt Level 3 (60925) Est Pt Prev Care >65y(93753) Diagnoses Physical exam Z00.00 Moderate major depression F32.1 ST elevation myocardial infarction (STEMI), unspecified artery I21.3 Involved coronary artery: unspecified coronary artery COPD (chronic obstructive pulmonary disease) J44.9 Additional Codes DESMOND-7 Assessment Billing - DESMOND-7 Assessment Tool: DESMOND-7 Assessment 87041 ([id number]) Vital Signs *Quality* - CPT code: 60924 - 4-10 Minutes ([id number]) Time Spent (min) 35
[2024-03-13 08:11] VITALS: BP 136/82; BMI 23.6
== END 2024-03-13 08:45 | disposition home or self-care (01) ==
PROVIDERS: PCP Internal Medicine; Visit Provider Internal Medicine
DX: Z00.00 Encounter for general adult medical examination without abnormal findings (principal); F32.1 Major depressive disorder, single episode, moderate; I25.2 Old myocardial infarction; J44.9 Chronic obstructive pulmonary disease, unspecified; F17.210 Nicotine dependence, cigarettes, uncomplicated
CPT/HCPCS: 99396; 99406

== ENCOUNTER 2024-03-30 09:51 | Outpatient (REF) | payer OTHER, SELFPAY ==
--- NOTE | ~2024-03-30 | MM_ITS ---
EXAMINATION: MM SCREENING DIGITAL BREAST TOMOSYNTHESIS, BILATERAL CLINICAL INFORMATION: Screening. Asymptomatic. COMPARISON: Mammography: Comparison is made with available priors TECHNIQUE: Digital breast mammography with tomosynthesis is performed in both the craniocaudal and mediolateral oblique views along with computer-aided detection (CAD). FINDINGS: There are scattered areas of fibroglandular density (ACR BI-RADS breast composition Category b). Bilateral marker clips. There are no significant masses, abnormal calcifications, or other abnormalities. MM/MM tomosynthesis screening BI IMPRESSION: No mammographic evidence of malignancy. ASSESSMENT: BI-RADS BI-RADS 2 - Benign Findings RECOMMENDATION: Routine annual mammography screening. 1 year F/U This examination should not preclude the clinical evaluation of a suspicious palpable abnormality. This patient's information was entered into a reminder system with a target due date for their next mammogram. Electronically signed by: Beulah Glez DO 04/11/2024 09:24 AM EDT
== END 2024-03-30 09:52 | disposition home or self-care (01) ==
LOC: HO.MAMMO 09:51
PROVIDERS: PCP Internal Medicine; Visit Provider Internal Medicine
DX: Z12.31 Encounter for screening mammogram for malignant neoplasm of breast (principal); J44.9 Chronic obstructive pulmonary disease, unspecified; F17.210 Nicotine dependence, cigarettes, uncomplicated
CPT/HCPCS: 77063; 77067; 99212

== ENCOUNTER → 2024-03-30 10:15 | Outpatient (BNV) | payer OTHER, SELFPAY | PROVIDERS: PCP Internal Medicine; Visit Provider Internal Medicine | DX: Z12.31 Encounter for screening mammogram for malignant neoplasm of breast (principal) | CPT/HCPCS: 77063; 77067 ==

== ENCOUNTER 2024-03-30 10:44 | Outpatient (AMB) | payer OTHER, SELFPAY ==
[2024-03-30 10:45] VITALS: BP 122/77; PULSE 78; O2SAT 95; BMI 24.3
--- NOTE | 2024-03-30 10:45 | A.OFFVIS_ITS ---
Vital Signs 03/30/24 10:45 Height 5 ft Weight 124 lb 8.979 oz BMI 24.3 BP 122/77 Blood Pressure Location Rt brachial Position Sitting Pulse 78 Pulse Source Doppler Pulse Oximetry (%) 95 Oxygen Delivery Method Room Air Intake Visit Reasons: COPD Allergies Penicillins Allergy (Intermediate, Verified 03/30/24 10:49) RASH HPI HPI COPD: Details: 63-year-old lady, active 50+ pack-year smoker now followed for moderate COPD and pulmonary nodules. She continues on Anoro, duo nebs, Brovana, and albuterol MDI, with reasonable control of his symptoms. Her anxiety related air trapping is also better controlled on hydroxyzine. She denies recent exacerbations. Patient has been hospitalized at [facility] secondary to NSTEMI/Takotsubo's. [facility] Medical History (Updated 03/19/24 @ 13:56 by Estelita Harper PA-C) Methadone use History of heroin use History of ST elevation myocardial infarction (STEMI) (~03/2024) Mixed hyperlipidemia Moderate asthma COPD (chronic obstructive pulmonary disease) Nicotine dependence, cigarettes, uncomplicated Duodenal ulcer History of Helicobacter pylori infection (~05/2019) Dysphagia Mild major depression Memory loss Weight loss Surgical History (Updated 03/19/24 @ 13:54 by Estelita Harper PA-C) History of colonoscopy History of tonsillectomy History of mammogram History of section History of esophagogastroduodenoscopy (EGD) Family History Father No problems noted. Mother Breast cancer Sister Breast cancer, Onset Age: 47 Brother Cancer Maternal Uncle Cancer Social History (Updated 03/13/24 @ 08:35 by Sarah Zhu MD) Household Members: None Housing: House Do you presently have visiting nurse or other home services: No Alcohol intake: current Alcohol intake frequency: holidays/special occasions only Alcohol type: beer Patient Tobacco Use Status: Current everyday Tobacco user Tobacco use type: Cigarette Cigarettes Per Day: 3 Years Smoked: started at 14, 1ppd e-Cigarette/Vaping Use: Never Used Second Hand Smoke Exposure: No Substance Use Type: Marijuana service: No Current occupational status: unemployed Cognitive needs: No Hearing needs: No Vision needs: No Review of Systems Const Denies daytime sleepiness, Denies excessive sweating, Denies fatigue, Denies fever(s), Denies lethargy, Denies malaise, Denies night sweats, Denies snoring and Denies weight loss Eyes Denies blurry vision and Denies itchy eyes ENT Denies nasal congestion, Denies post nasal drip, Denies sinus pain, Denies sinus pressure and Denies other ( Thrush) Card Denies chest pain, Denies pedal edema, Denies dyspnea, Denies orthopnea and Denies paroxysmal nocturnal dyspnea Resp Denies cough, Denies hemoptysis, Denies excessive phlegm production, Denies dyspnea, Denies snoring and Denies wheezing GI Denies abdominal pain and Denies heartburn Musc Denies myalgias, Denies arthralgias and Denies joint swelling Skin/Breast Denies rash Neuro Denies memory loss and Denies seizure-like activity Psych Denies abnormal sleep pattern, Denies anxiety and Denies memory loss Endo Denies excessive sweating, Denies fatigue and Denies heat intolerance Damien/Lymph Denies easy bruising Aller/Immun Denies itchy eyes, Denies seasonal rhinorrhea and Denies wheezing Physical Exam Vital Signs: Last Vital Signs Pulse 78 03/30/24 10:45 BP 122/77 03/30/24 10:45 Pulse Ox 95 03/30/24 10:45 Oxygen Delivery Method Room Air 03/30/24 10:45 BMI result Body Mass Index 24.3 Const General: no acute distress and alert Nutritional Appearance: not obese Orientation/consciousness: Other orientation findings ( oriented) HEENT Head: Yes atraumatic Eyes General: appearance normal, both eyes and all related structures Sclerae: sclerae normal EOM: EOMs intact bilaterally Neck Neck: Yes supple Lymphatic: no lymphadenopathy noted Resp Effort & Inspection: normal respiratory effort and no use of accessory muscles Auscultation: clear to auscultation bilaterally Cardio Rate: regular rate Rhythm: regular rhythm Heart sounds: no gallops, no murmurs and no rubs Skin General skin exam: other ( warm) Extrem General: No clubbing, No cyanosis and No edema Assessment & Plan Assessment & Plan (1) COPD (chronic obstructive pulmonary disease): Code(s): J44.9 - Chronic obstructive pulmonary disease, unspecified Category: Medical Plan: Well controlled on current regimen of Brovana, duo nebs, albuterol MDI, and Anoro. Continue current regimen. (2) Nicotine dependence, cigarettes, uncomplicated: Code(s): F17.210 - Nicotine dependence, cigarettes, uncomplicated Category: Medical Plan: lung cancer screening CT chest ordered for May of 2024. Coding Level of Care Code Est Pt Level 4 (66113) Diagnoses COPD (chronic obstructive pulmonary disease) J44.9 Nicotine dependence, cigarettes, uncomplicated F17.210
== END 2024-03-30 11:07 | disposition home or self-care (01) ==
PROVIDERS: PCP Internal Medicine; Visit Provider Internal Medicine Pulmonary Disease
DX: J44.9 Chronic obstructive pulmonary disease, unspecified (principal); F17.210 Nicotine dependence, cigarettes, uncomplicated
CPT/HCPCS: 99214

== ENCOUNTER 2024-04-24 08:21 | Outpatient (AMB) | payer OTHER, SELFPAY ==
[2024-04-24 08:38] VITALS: BP 142/70; PULSE 76; BMI 24.5
--- NOTE | 2024-04-24 08:38 | A.OFFVIS_ITS ---
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5 mg base)/3 mL 3 mL inhalation Q4H PRN methadone 65 mg PO DAILY multivitamin with folic acid 400 mcg (Daily-Radha (with folic acid)) 1 tab PO DAILY 90 days nebulizers (AeroEclipse II Nebulizer) As directed sertraline 50 mg PO DAILY 90 days umeclidinium-vilanterol 62.5-25 mcg/actuation (Anoro Ellipta) 1 inh inhalation DAILY 30 days HPI Comments Details: Susan has been referred for cardiac evaluation. History of polysubstance abuse as well as tobacco abuse. Came to [facility] with right upper quadrant/epigastric abdominal pain. That time, there was concern for STEMI and urine tox screen was positive for cocaine, cannabinoids, opioids, methadone. Then sent to [facility]. Underwent cardiac catheterization but no significant CAD. Significant LV dysfunction on echocardiogram. Thought to be stress-induced cardiomyopathy. Then there was intermittent hypotension but then eventually discharged home. She states she feels fine at this time. No new complaints. No further chest pains. She denies any further drug use. Discussed using seismic interpreter. [facility], [facility] Medical History (Updated 04/24/24 @ 09:00 by Kenyon Khan MD) Methadone use History of heroin use History of ST elevation myocardial infarction (STEMI) (~03/2024) Mixed hyperlipidemia Moderate asthma COPD (chronic obstructive pulmonary disease) Nicotine dependence, cigarettes, uncomplicated Duodenal ulcer History of Helicobacter pylori infection (~05/2019) Dysphagia Mild major depression Memory loss Weight loss Surgical History History of colonoscopy History of tonsillectomy History of mammogram History of section History of esophagogastroduodenoscopy (EGD) Family History Father No problems noted. Mother Breast cancer Sister Breast cancer, Onset Age: 47 Brother Cancer Maternal Uncle Cancer Social History Household Members: None Housing: House Do you presently have visiting nurse or other home services: No Alcohol intake: current Alcohol intake frequency: holidays/special occasions only Alcohol type: beer Patient Tobacco Use Status: Current everyday Tobacco user Tobacco use type: Cigarette Cigarettes Per Day: 3 Years Smoked: started at 14, 1ppd e-Cigarette/Vaping Use: Never Used Second Hand Smoke Exposure: No Substance Use Type: Marijuana service: No Current occupational status: unemployed Cognitive needs: No Hearing needs: No Vision needs: No Review of Systems Const Denies chills, Denies fatigue, Denies fever(s), Denies frequent falls, Denies weakness, Denies weight gain and Denies weight loss ENT Denies dizziness Card Denies chest pain, Denies leg edema, Denies lightheadedness, Denies palpitations, Denies dyspnea and Denies dyspnea on exertion Resp Denies cough, Denies dyspnea and Denies dyspnea on exertion GI Denies hematochezia Musc Denies abnormal gait, Denies muscle weakness, Denies numbness, Denies radiating pain into limb and Denies tingling Neuro Denies abnormal gait, Denies dizziness, Denies frequent falls, Denies numbness, Denies tingling and Denies weakness Endo Denies fatigue and Denies palpitations Physical Exam Vital Signs: Last Vital Signs Pulse 76 04/24/24 08:38 BP 142/70 H 04/24/24 08:38 BMI result Body Mass Index 24.5 Const General: comfortable and no acute distress Orientation/consciousness: patient oriented x3 HEENT Other: Unremarkable Head: Yes normal to inspection Neck Neck: Yes normal visual inspection Chest Chest palpation & inspection: normal inspection of the chest Resp Auscultation: clear to auscultation bilaterally Cardio Palpation: normal PMI Heart sounds: S1 normal heart sound present, S2 normal heart sound present, no gallops, no murmurs and no rubs GI Palpation (GI): Soft to palpation Back/Spine/Pelvis Other: unremarkable Skin General skin exam: no rashes or lesions noted Neuro General: patient oriented x3 Extrem General: Yes normal to inspection Psych Mental Status: mental status grossly normal Office Procedures EKG Details: EKG with underlying sinus rhythm at 76/Min; anterolateral T inversions. [id number], Complete Assessment & Plan Assessment & Plan (1) NSTEMI (non-ST elevated myocardial infarction): Code(s): I21.4 - Non-ST elevation (NSTEMI) myocardial infarction Category: Medical (2) Cardiomyopathy: Code(s): I42.9 - Cardiomyopathy, unspecified Category: Medical (3) Polysubstance abuse: Code(s): F19.10 - Other psychoactive substance abuse, uncomplicated Category: Medical (4) Methadone use: Code(s): F11.20 - Opioid dependence, uncomplicated Category: Medical Plan Cardiac studies reviewed. In the echocardiogram, LVEF 20-30%. Akinesis of the apical 2/3 of left ventricle, sparing the basal segments. No significant valvular findings. Cardiac catheterization shows normal coronary arteries. Normal LVEDP. Toxicology screen at that time positive for cocaine, marijuana, fentanyl, opiates, methadone. Probably all drug-induced NSTEMI/cardiomyopathy. There is also question of stress-induced cardiomyopathy. Clinically she seems compensated. Okay to stay on Coreg as she is denying any further drug use. Also on aspirin and statins. Not adding any further drugs till compliance is clear. We will repeat echocardiogram to reassess LVEF. If still low, consider Entresto or NADIYA inhibitors or ARB. Refrain from drugs and we discussed about that. Orders: Orders CA echo transthoracic complete Today I21.4 - Non-ST elevation (NSTEMI) myocardial infarction, I42.9 - Cardiomyopathy, unspecified Coding Level of Care Code New Pt Level 4 (53222) Diagnoses NSTEMI (non-ST elevated myocardial infarction) I21.4 Cardiomyopathy I42.9 Polysubstance abuse F19.10 Methadone use F11.20 CPT Codes EKG - CPT: 18181-[id number], Complete ([id number])
== END 2024-04-24 08:56 | disposition home or self-care (01) ==
PROVIDERS: PCP Internal Medicine; Visit Provider Internal Medicine
DX: I21.4 Non-ST elevation (NSTEMI) myocardial infarction (principal); I42.9 Cardiomyopathy, unspecified; F19.10 Other psychoactive substance abuse, uncomplicated; F11.20 Opioid dependence, uncomplicated; R94.31 Abnormal electrocardiogram [ECG] [EKG]
CPT/HCPCS: 93010; 99214

== ENCOUNTER → 2024-04-24 08:21 | Outpatient (BNVA) | payer OTHER, SELFPAY | PROVIDERS: PCP Internal Medicine; Visit Provider Internal Medicine | DX: I21.4 Non-ST elevation (NSTEMI) myocardial infarction (principal); I42.9 Cardiomyopathy, unspecified; F19.10 Other psychoactive substance abuse, uncomplicated; F11.20 Opioid dependence, uncomplicated; Z87.891 Personal history of nicotine dependence | CPT/HCPCS: 93005; 99212 ==

== ENCOUNTER 2024-04-26 08:17 | Outpatient (REF) | payer OTHER, SELFPAY ==
--- NOTE | ~2024-04-26 | MM_ITS ---
EXAMINATION: BONE DENSITOMETRY CLINICAL INDICATION: Menopause. COMPARISON: This is the patient's baseline examination. TECHNIQUE: Using a XLerant DXA System (software version: 13.1) manufactured by [employer], dual-energy x-ray absorptiometry was performed of the lumbar spine and left hip. The images are of good technical quality. Summary results are attached. FINDINGS: LEFT FEMUR, NECK: BMD 0.829 g/cm2, Z-score 0.0, T-score -1.5, osteopenia. LEFT FEMUR, TOTAL: BMD 0.883 g/cm2, Z-score 0.3, T-score -1.0, normal. AP SPINE L1-L4: BMD 1.021 g/cm2, Z-score 0.4, T-score -1.3, osteopenia. IDENTIFIED RISK FACTORS: Menopause. HISTORY OF FRACTURE: None listed. MEDICATIONS: Multivitamin. MM/XR DEXA axial skeleton IMPRESSION: 1. DIAGNOSIS: Osteopenia based on the lowest T-score value of -1.5 in the femoral neck applying World Health Organization criteria. 2. 10-YEAR FRACTURE RISK PREDICTION, FRAX: Major osteoporotic fracture (clinical spine, forearm, hip or shoulder) 4.8%. Hip fracture 0.5%. 3. Treatment Recommendations: NOF guidelines recommend consideration for treatment in postmenopausal women and men age 50 and older presenting with the following: -A hip or vertebral (clinical or morphometric) fracture. -T-score less than or equal to -2.5 at the femoral neck or spine after appropriate evaluation to exclude secondary causes. -Low bone mass at the hip or spine and a 10-year fracture probability by FRAX of greater than or equal to 3% for hip fracture or greater than or equal to 20% for major osteoporotic fracture based on the [place] adapted WHO algorithm. 4. Other Recommendations: All treatment decisions require clinical judgment and consideration of individual patient factors, including patient preferences, comorbidities, previous drug use, risk factors not captured in the FRAX model (e.g. frailty, falls, vitamin D deficiency, increased bone turnover, interval significant decline in bone density) and possible under or overestimation of fracture risk by FRAX. Additional medical evaluation for secondary cause of low bone mineral density may be appropriate. FUTURE SCAN RECOMMENDATION: People with diagnosed cases of osteoporosis or at high risk for fracture should have regular bone mineral density tests. For patients eligible for Medicare, routine testing is allowed once every 2 years. The testing frequency can be increased to one year for patients who have rapidly progressing disease, those who are receiving or discontinuing medical therapy to restore bone mass, or have additional risk factors. Electronically signed by: Sharlene Purvis MD 04/27/2024 03:17 PM EDT RP
== END 2024-04-26 08:18 | disposition home or self-care (01) ==
LOC: HO.MAMMO 08:17
PROVIDERS: PCP Internal Medicine; Visit Provider Internal Medicine
DX: N95.9 Unspecified menopausal and perimenopausal disorder (principal); M85.89 Other specified disorders of bone density and structure, multiple sites
CPT/HCPCS: 77080

== ENCOUNTER → 2024-06-14 13:30 | Outpatient (REF) | payer OTHER, SELFPAY ==
--- NOTE | 2024-06-14 13:35 | CA_ITS ---
Transthoracic Echocardiogram Patient (Last, First, Middle): Susan Castrejon, Gender: Female Date of : 1960 Age: 64 Procedure Date: 06/14/2024 Procedure Type: Transthoracic Echocardiogram Location: OP Height: 152.4 cm Weight: 56.7 kg BSA: 1.53 m2 Heart Rate: 67 bpm BP: 138 / 68 mmHg Cable Splicer: SB Referring MD: Kenyon Khan MD Fruit Picker: Dominick Bhakta MD Symptoms: I21.4 - Non-ST elevation (NSTEMI) myocardial infarction Study Quality: Adequate ECG Rhythm: Sinus Conclusions: - 1. Normal LV ejection fraction of 60-65% with impaired relaxation filling pattern 2. Normal cardiac valvular Dopplers 3. No gross pericardial effusion Findings Left Ventricle Normal left ventricular size, thickness, and systolic function. The visually estimated ejection fraction is between 60-65%. Spectral Doppler is indicative of an impaired relaxation filling pattern. E/E prime ratio is between 8 and 15 consistent with indeterminate filling pressures. Right Ventricle Normal right ventricular cavity size and systolic function. Atria Both atria are normal in size. There is no evidence of interatrial shunt. Aortic Valve Normal aortic valve structure and function. There is no aortic valve stenosis. There is no aortic valve regurgitation. Mitral Valve Likely normal mitral valve structure and function. There is trace mitral valve regurgitation. There is no mitral valve stenosis. Pulmonic Valve The pulmonic valve was not well visualized. Tricuspid Valve The tricuspid valve was not well visualized. Tricuspid regurgitation envelope is inadequate for calculation of right ventricular systolic pressure. Normal right atrial pressure. Great Vessels All visible segments of the aorta are normal in size. The pulmonary artery was not well visualized. There is no dilatation of the ascending aorta measuring 2.90 cm. Venous The inferior vena cava is normal in size and collapses greater than 50% with inspiration. Pericardium/Pleural There is no evidence of pericardial effusion. Prior Study Comparison No prior study available for comparison. Measurements 2D Linear Measurements IVSd: 1.16 0.6-0.9/0.6-1.0 cm LVIDd: 4.61 3.9-5.3/4.2-5.9 cm LVIDd Index: 3.01 2.4-3.2/2.2-3.1 cm/m2 LVIDs: 3.02 2.0-3.6 cm LVPWd: 0.81 0.7-1.1 cm LA Diam: 3.50 2.7-3.8/3.0-4.0 cm LAIDs Index: 2.29 1.5-2.3 cm/m2 LV Mass: 194.26 67-162/88-224 g LV Mass Index: 126.97 43-95/49-115 g/m2 LVOT Diam: 1.80 3.0+(-)1.3 cm 2D Systolic Function EF 4C: 60.10 >55% EF 2C: 65.90 >55% EF BiP: 61.80 >55% Mitral Valve MV Pk E: 0.68 MV PK A: 0.93 MV Decel Time: 220.00 E/A: 0.70 E'Lateral: 5.44 E'Medial: 5.22 E/E' Med: 13.00 E/E' Lat: 12.40 PHT: 64.00 MVA PHT: 3.44 Decel Tarrant: 3.08 Aortic Valve AoV Pk Dillon: 1.30 AoV Pk Grad: 7.00 JACINTA: 2.58 LVOT LVOT Pk Dillon: 1.22 LVOT Mn Dillon: 0.87 LVOT VTI: 0.26 LVOT Pk Grad: 6.00 LVOT Mn Grad: 4.00 LVOT Diam: 1.80 LVOT Area: 2.54 Diastolic Function MV Pk E: 0.68 MV Pk A: 0.93 E/A: 0.70 E'Medial: 5.22 E/E' Med: 13.00 E' Laterial: 5.44 E/E' Lat: 12.40 Right Ventricle TAPSE (mm): 23.00 TVS' Dillon: 14.20 Tricuspid Valve RA Press: 3.00 Great Vessels Aorta Sinus of Valsalva: 2.60 2.0-3.5 cm Ao Asc: 2.90 2.1-3.4 cm Pulmonary Valve PV Pk Dillon: 0.84 Peak PV Grad: 3.00 Updated in Other Vendor System with Status of Final Dominick Bhakta MD electronically signed on 06/15/2024 3:11:38 PM with status of Final
== END ==
LOC: HO.CARD 13:30
PROVIDERS: PCP Internal Medicine; Visit Provider Internal Medicine
DX: I21.4 Non-ST elevation (NSTEMI) myocardial infarction (principal); I42.9 Cardiomyopathy, unspecified
CPT/HCPCS: 93306

== ENCOUNTER → 2024-06-14 13:35 | Outpatient (BNV) | payer OTHER, SELFPAY | PROVIDERS: PCP Internal Medicine; Visit Provider Internal Medicine Cardiovascular Disease | DX: I21.4 Non-ST elevation (NSTEMI) myocardial infarction (principal) | CPT/HCPCS: 93306 ==

== ENCOUNTER → 2024-07-26 14:35 | Outpatient (BNVA) | payer OTHER, SELFPAY | PROVIDERS: PCP Internal Medicine; Visit Provider Nurse Practitioner Family | DX: I25.2 Old myocardial infarction (principal); I42.9 Cardiomyopathy, unspecified; F19.10 Other psychoactive substance abuse, uncomplicated; F17.210 Nicotine dependence, cigarettes, uncomplicated | CPT/HCPCS: 99212 ==

== ENCOUNTER 2024-09-24 09:57 | Outpatient (AMB) | payer OTHER, SELFPAY ==
--- NOTE | 2024-09-24 10:09 | A.OFFPC_ITS ---
Vital Signs 09/24/24 10:10 Height 5 ft Weight 133 lb BMI 26.0 BP 122/80 Blood Pressure Location Lt brachial Position Sitting Intake Visit Reasons: COPD, Stemi Intake Note: Patient here for a follow up COPD, Stemi Adjunct Phlebotomy Instructor Required: No Accompanied by: Self / Same As Patient Allergies Penicillins Allergy (Intermediate, Verified 09/24/24 10:17) RASH Medication List - Last Reconciled 09/24/24 by Sarah Zhu MD albuterol sulfate 90 mcg/actuation 2 puffs PO Q6H PRN 30 days arformoterol 2 mL inhalation DAILY 30 days aspirin 81 mg PO DAILY 90 days atorvastatin 80 mg PO DAILY 90 days calcium carbonate-vitamin D3 500 mg-10 mcg (400 unit) (Oyster Shell Calcium- Vitamin D3) 1 tab PO DAILY 90 days carvedilol 3.125 mg PO BID 90 days dexlansoprazole (Dexilant) 60 mg PO DAILY 30 days hydroxyzine HCl 50 mg PO BID 30 days ipratropium-albuterol 0.5 mg-3 mg(2.5 mg base)/3 mL 3 mL inhalation Q4H PRN methadone 65 mg PO DAILY multivitamin with folic acid 400 mcg (Daily-Radha (with folic acid)) 1 tab PO DAILY 90 days nebulizers (AeroEclipse II Nebulizer) As directed sertraline 50 mg PO DAILY 90 days umeclidinium-vilanterol 62.5-25 mcg/actuation (Anoro Ellipta) 1 inh inhalation DAILY 30 days Tobacco use date assessed: 09/24/24 Dental Screening Dental Screen Date: 09/24/24 Did you have a dental visit in the last 12 months?: No Did you have a dental problem in the last 6 months where you did not have access to dental care?: No Was dental information given to patient?: Patient has dentist HPI HPI Comments History of Present Illness Details The patient is a 64-year-old female presenting for the management of her chronic conditions and medication review. She reports ongoing issues with depression and anxiety, currently managed with sertraline 50 mg, noting some improvement but continued nocturnal disturbances. Nicotine dependence remains a challenge, though the patient has reduced her consumption to eight cigarettes per day and often experiences nighttime anxiety requiring her to go outside for relief. Her hyperlipidemia is being managed with atorvastatin 80 mg, and her recent echocardiogram showed a normal ejection fraction (60-65%) with no pericardial fluid, maintaining stable cardiovascular health. Hypertension is being treated with carvedilol, while osteoporosis management includes calcium and Vitamin D supplementation. She experiences weight gain likely due to reduced smoking and recognizes the need to manage dietary intake. The patient's allergy to penicillin limits her antibiotic options, and she is on methadone maintenance as part of her treatment for opioid dependency. Current GI issues are treated with Dexilant. She expresses a sense of overall improvement compared to her last visit and continues to comply with necessary laboratory tests and specialist follow-ups. [facility] Medical History Methadone use History of heroin use History of ST elevation myocardial infarction (STEMI) (~03/2024) Mixed hyperlipidemia Moderate asthma COPD (chronic obstructive pulmonary disease) Nicotine dependence, cigarettes, uncomplicated Duodenal ulcer History of Helicobacter pylori infection (~05/2019) Dysphagia Mild major depression Memory loss Weight loss Surgical History History of colonoscopy History of tonsillectomy History of mammogram History of section History of esophagogastroduodenoscopy (EGD) Family History Father No problems noted. Mother Breast cancer Sister Breast cancer, Onset Age: 47 Brother Cancer Maternal Uncle Cancer Social History (Updated 09/24/24 @ 10:23 by Sarah Zhu MD) Household Members: None Housing: House Do you presently have visiting nurse or other home services: No Alcohol intake: current Alcohol intake frequency: holidays/special occasions only Alcohol type: beer Patient Tobacco Use Status: Current everyday Tobacco user Tobacco use type: Cigarette Cigarettes Per Day: 8 Years Smoked: started at 14, 1ppd Packs per year/per ci.00 e-Cigarette/Vaping Use: Never Used Second Hand Smoke Exposure: No Substance Use Type: Marijuana service: No Current occupational status: unemployed Cognitive needs: No Hearing needs: No Vision needs: No Questionnaire PHQ-9 Over the last 2 weeks, how often have you been bothered by any of the following problems? 1. Little interest or pleasure in doing things: several days 2. Feeling down, depressed, or hopeless: nearly every day 3. Trouble falling or staying asleep, or sleeping too much: nearly every day 4. Feeling tired or having little energy: more than half the days 5. Poor appetite or overeating: nearly every day 6. Feeling bad about yourself - or that you are a failure or have let yourself or your family down: not at all 7. Trouble concentrating on things, such as reading the newspaper or watching television: not at all 8. Moving or speaking so slowly that other people could have noticed. Or the opposite - being so fidgety or restless that you have been moving around a lot more than usual: several days 9. Thoughts that you would be better off or of hurting yourself in some way: not at all Total score: 13 Depression Screening Interpretation: Positive Depression Screening Follow-up: Existing condition, In treatment and Follow-up Visit Requested Depression Screening Done: Yes 76567 - PHQ-9 Billing: Yes Source: Developed by Drs. Varun Peraza, Samantha Massey, Darius Rodriguez and colleagues, with an educational shamir from [employer]. Thrive Questionnaire Date Thrive assessed: 09/24/24 I am a: Patient What is your living situation today?: I have a steady place to live Within the past 12 months, did the food you bought not last and you didn't have the money to get more?: I choose not to answer this question Within the past 12 months, did you worry whether your food would run out before you got money to buy more?: I choose not to answer this question Do you have trouble paying for medicines?: No Do you have trouble getting transportation to medical appointments?: No Do you have trouble paying your heating and electricity bill?: No Do you have trouble taking care of your child, family member or friend?: I choose not to answer this question Do you have trouble with day-to-day activities such as bathing, preparing meals, shopping, managing finances, etc.?: Yes Are you currently unemployed and looking for a job?: Yes Are you interested in more education?: I choose not to answer this question Please select the resources that you would like help with: Utilities Currently or been in a relationship where the following occur: I choose not to answer THRIVE Score: 0 AUDIT C Alcohol Use Questionnaire (AUDIT-C) 1. How often do you have a drink containing alcohol?: Monthly or less 2. How many drinks containing alcohol do you have on a typical day when you are drinking?: 1 or 2 3. How often do you have six or more drinks on one occasion?: Never Total Score: 1 Score Reviewed/Action Taken: No DESMOND-7 AMB Questionnaire DESMOND-7 Date DESMOND - 7 assessed: 09/24/24 Feeling nervous, anxious, or on edge: 3 = Nearly every day Not being able to stop or control worryin = Several days Worrying too much about different things: 2 = More than half the days Trouble relaxin = Several days Being so restless that it is hard to sit still: 0 = Not at all Becoming easily annoyed or irritable: 1 = Several days Feeling afraid as if something awful might happen: 0 = Not at all Total DESMOND-7 score (0-4 normal; 5-9 mild; 10-14 moderate; 15-21 severe): 8 Source: Developed by Drs. Varun Peraza, Samantha Massey, Darius Rodriguez and colleagues, with an educational shamir from [employer]. DESMOND-7 Assessment Billing DESMOND-7 Assessment Tool: DESMOND-7 Assessment 61133 Review of Systems Const All systems reviewed & are unremarkable except as noted in HPI and below Card Denies chest pain at rest, Denies chest pain with activity, Denies edema, Denies irregular heart rhythm, Denies claudication, Denies dyspnea, Denies dyspnea on exertion, Denies orthopnea, Denies paroxysmal nocturnal dyspnea and Denies slow heart rate Resp Denies cough, Denies dyspnea and Denies dyspnea on exertion GI Denies abdominal pain, Denies change in bowel habits, Denies excessive flatus, Denies nausea and Denies vomiting Denies urinary incontinence, Denies urinary hesitancy and Denies urinary urgency Musc Denies abnormal gait, Denies atrophy, Denies deformity and Denies limited range of motion Skin/Breast Denies bleeding lesions, Denies changing lesions and Denies rash Neuro Denies abnormal gait, Denies behavioral changes and Denies lack of coordination Psych Denies behavioral changes Physical exam (Primary Care) Vital Signs: Last Vital Signs BP 122/80 09/24/24 10:10 BMI result Body Mass Index 26.0 Tobacco/Smoking Status: Tobacco use Status Tobacco use date assessed 09/24/24 09/24/24 10:17 Patient Tobacco Use Status Current everyday Tobacco 09/24/24 10:23 Tobacco use type Cigarette 09/24/24 10:23 e-Cigarette/Vaping Use Never Used 09/24/24 10:23 Are you ready to quit: No Tobacco cessation counseling provided: Yes Items discussed: Nicotine replacement and QuitWorks Relapse Prevention: discussed the importance of a supportive environment, discussed extending NRT, discussed negative mood or depression after quitting, weight gain after smoking is common and discussed dietary, exercise and/or lifestyle changes Number of minutes spent counselin CPT code: 82862 - 4-10 Minutes PHQ-9: PHQ-9 Score PHQ-9: Total score 13 09/24/24 10:21 Depression Screening Interpretation: Positive Depression Screening Follow-up: Existing condition, In treatment and Follow-up Visit Requested Thrive Assessment: Date of Thrive Assessment Date Thrive assessed 09/24/24 09/24/24 10:14 Currently or been in a relationship where the following occur: I choose not to answer Resp Effort & Inspection: normal respiratory effort Auscultation: clear to auscultation bilaterally Cardio Jugular venous distension: no JVD Rate: regular rate Rhythm: regular rhythm Heart sounds: S1 normal heart sound present and S2 normal heart sound present GI Inspection: Yes normal to inspection Palpation (GI): Soft to palpation and nontender Auscultation: normal bowel sounds Skin General skin exam: no rashes or lesions noted Neuro General: no focal motor deficits Extrem General: Yes full ROM Psych Appearance: grossly normal Coding Level of Care Code Est Pt Level 4 (91579) Complex EM visit Add On G2211 Diagnoses NSTEMI (non-ST elevated myocardial infarction) I21.4 Cardiomyopathy I42.9 Methadone use F11.20 COPD (chronic obstructive pulmonary disease) J44.9 Moderate major depression F32.1 Additional Codes DESMOND-7 Assessment Billing - DESMOND-7 Assessment Tool: DESMOND-7 Assessment 28630 ([id number]) PHQ-9 - 79617 - PHQ-9 Billing: Yes ([id number]) Vital Signs *Quality* - CPT code: 71626 - 4-10 Minutes ([id number]) Time Spent (min) 23 Assessment & Plan Assessment & Plan (1) NSTEMI (non-ST elevated myocardial infarction): Code(s): I21.4 - Non-ST elevation (NSTEMI) myocardial infarction Category: Medical (2) Cardiomyopathy: Code(s): I42.9 - Cardiomyopathy, unspecified Category: Medical (3) Methadone use: Code(s): F11.20 - Opioid dependence, uncomplicated Category: Medical (4) COPD (chronic obstructive pulmonary disease): Code(s): J44.9 - Chronic obstructive pulmonary disease, unspecified Category: Medical (5) Moderate major depression: Code(s): F32.1 - Major depressive disorder, single episode, moderate Category: Medical Plan The patient's management plan incorporates ongoing treatment for chronic conditions, including the continuation of medications such as sertraline for depression with anxiety, atorvastatin for hyperlipidemia, and carvedilol for hypertension. Emphasis is placed on reduced cigarette consumption and smoking cessation efforts. GERD is managed with Dexilant, and osteoporosis with calcium and Vitamin D supplements, alongside methadone maintenance for opioid dependency. The echocardiogram results support cardiac stability, requiring no alterations in management. Nutritional guidance focuses on protein-rich diets to address weight gain associated with reduced smoking. Scheduled laboratory check- ups and follow-up visits are prioritized. Patient was informed and verbally consented to the use of an ambient scribe for clinic note documentation during this visit. During the visit, I discussed the importance of continuing with current medications, particularly sertraline for depression with anxiety, and emphasized the significance of ongoing smoking cessation efforts. The reduction in cigarette consumption is commendable, and I highlighted the need for additional strategies to manage anxiety and weight. The normal echocardiogram results are reassuring, confirming stable cardiac function, which ties with the current management plan for hyperlipidemia and hypertension. We reviewed dietary interventions and laboratory monitoring. Future follow-ups were addressed, including a potential visit in March unless an acute issue arises. Specific instruction regarding laboratory tests timing was provided to ensure effective monitoring. Orders: Orders Vitamin D 25-OH Total 5 Months E55.9 - Vitamin D deficiency, unspecified NT-proBNP 5 Months I42.9 - Cardiomyopathy, unspecified Comprehensive [place]. Panel Fast 5 Months I42.9 - Cardiomyopathy, unspecified Lipid Panel 5 Months E78.5 - Hyperlipidemia, unspecified, I21.4 - Non-ST elevation (NSTEMI) myocardial infarction Complete Blood Count Auto Diff 5 Months J44.9 - Chronic obstructive pulmonary disease, unspecified Patient Instructions: - Continue taking prescribed medications: sertraline, atorvastatin, carvedilol, Dexilant, and methadone. - Maintain efforts for smoking cessation and reduce cigarette intake further. - Include protein-rich foods in your diet and manage caloric intake to address weight loss. - Perform lab tests when possible, ensuring an eight-hour fasting period. - Schedule follow-up appointment in March unless new health concerns develop. - Ensure awareness of penicillin allergy and avoid related medications.
[2024-09-24 10:10] VITALS: BP 122/80; BMI 26.0
== END 2024-09-24 10:26 | disposition home or self-care (01) ==
LOC: HO.HMCH 09:58
PROVIDERS: PCP Internal Medicine; Visit Provider Internal Medicine
DX: I42.9 Cardiomyopathy, unspecified (principal); F11.20 Opioid dependence, uncomplicated; J44.9 Chronic obstructive pulmonary disease, unspecified; F32.1 Major depressive disorder, single episode, moderate; I25.2 Old myocardial infarction

== ENCOUNTER → 2024-09-24 09:57 | Outpatient (BNVA) | payer OTHER, SELFPAY | PROVIDERS: PCP Internal Medicine; Visit Provider Internal Medicine | DX: I42.9 Cardiomyopathy, unspecified (principal); F11.20 Opioid dependence, uncomplicated; J44.9 Chronic obstructive pulmonary disease, unspecified; F32.1 Major depressive disorder, single episode, moderate; I25.2 Old myocardial infarction; I21.4 Non-ST elevation (NSTEMI) myocardial infarction | CPT/HCPCS: 96127; 99212 ==

== ENCOUNTER 2025-02-16 13:31 | Emergency (ER) | payer OTHER, SELFPAY ==
--- NOTE | ~2025-02-16 | XR_ITS ---
CLINICAL HISTORY: atraumatic pain, swelling over base 1st digit Three views of the right hand. COMPARISON: None provided. FINDINGS: Distal radius and ulna appear intact. Carpal bones appear intact. Advanced degenerative changes of the 1st CMC joint with prominent osteophytes, complete loss of joint space and lateral subluxation of the 1st metacarpal. Metacarpals appear intact. Phalanges appear intact. Interphalangeal degenerative changes most pronounced of the 1st IP and 2nd DIP joints. IMPRESSION: 1. No radiographic evidence of acute injury to the right hand. 2. 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 This document has been electronically signed by: Collin Meyers MD on 02/16/2025 15:28:28
--- NOTE | ~2025-02-16 | XR_ITS ---
CLINICAL HISTORY: atraumatic pain x 1 month Three views of the right foot. COMPARISON: None provided. FINDINGS: No ankle joint effusion. Small plantar calcaneal spur. Normal tarsometatarsal alignment. Tarsals, metatarsals and phalanges appear intact. Interphalangeal space narrowing. No radiopaque foreign body. IMPRESSION: 1. No radiographic evidence of acute injury to the right foot. 2. Mild degenerative changes of the right foot. This document has been electronically signed by: Collin Meyers MD on 02/16/2025 15:32:05
--- NOTE | ~2025-02-16 | XR_ITS ---
CLINICAL HISTORY: cough, subjective fever Two views of the chest. COMPARISON: XR chest dated 12/16/23 at 10:35 EDT FINDINGS: Normal heart size. Atherosclerotic thoracic aorta. No consolidation. No pleural effusion or pneumothorax. Mild rightward curvature of the lower thoracic spine. No acute fracture. IMPRESSION: 1. No consolidation. This document has been electronically signed by: Collin Meyers MD on 02/16/2025 15:34:16
[2025-02-16 13:50] VITALS: BP 155/91; PULSE 82; RESP 16; TEMP 36; O2SAT 93; BMI 23.9
--- NOTE | 2025-02-16 13:50 | ED_ITS ---
HPI - General Adult General Chief complaint: Extremity Problem Stated complaint: hand and foot pain Time Seen by Provider: 02/16/25 15:34 Source: patient, family, RN notes reviewed and foreign language interpreter Mode of arrival: ambulatory Limitations: language barrier History of Present Illness ED Provider: Radhika Alfonso PA-C HPI narrative: This is a 64-year-old female, with a past medical history of NSTEMI, COPD, anxiety, pneumonia, depression, IBS, HLD, asthma, on chronic methadone who presents emergency department with concerns of atraumatic right hand pain and atraumatic right foot pain. Patient states that the right foot pain started about 1 month ago. No trauma or injury. She also reports that she has had right hand pain for the last 2 weeks. 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 She also reports she has had a cough, no shortness of breath. States that the cough is chronic. Does report slight increase in sputum production, otherwise states that this is her typical cough. She denies any fevers, chills, chest pain, palpitations, abdominal pain, nausea, vomiting or diarrhea. Denies taking any medications prior to arrival. She does report that she was previously wearing sandals and has switch to sneakers, she has noticed decreased pain in her right foot. MD complaint: Right foot pain, right hand pain Onset (ago): day(s) Radiation: non-radiation Relieving factors: none Exacerbating factors: none Associated symptoms: denies other symptoms Treatments prior to arrival: none Related Data Home Medications ?Medication ?Instructions ?Recorded ?Confirmed methadone 10 mg/5 mL oral solution 65 mg PO DAILY 07/0409/24/24 ipratropium 0.5 mg-albuterol 3 mg 3 ml inhalation Q4H PRN Wheezing 06/22/23 09/24/24 (2.5 mg base)/3 mL nebulization soln Previous Rx's ?Medication ?Instructions ?Recorded nebulizers (AeroEclipse II #1 ea 03/08/23 Nebulizer) arformoterol 15 mcg/2 mL solution 2 ml inhalation MARILEE Y 30 days #60 11/03/23 for nebulization mL aspirin 81 mg tablet,delayed 81 mg PO DAILY 90 days #9 0 tabs 03/13/24 release atorvastatin 80 mg tablet 80 mg PO DAILY 90 days #90 t abs 03/13/24 carvedilol 3.125 mg tablet 3.125 mg PO BID 90 days #18 0 tabs 03/13/24 dexlansoprazole 60 mg 60 mg PO DAILY 30 days #30 c aps 03/13/24 capsule,biphase delayed release (Dexilant) hydroxyzine HCl 50 mg tablet 50 mg PO BID 30 days #60 tabs 03/13/24 multivitamin with folic acid 400 1 tab PO DAILY 90 day s #90 tabs 03/13/24 mcg tablet (Daily-Radha (with folic acid)) sertraline 50 mg tablet 50 mg PO DAILY 90 days #90 t abs 03/13/24 umeclidinium 62.5 mcg-vilanterol 1 inh inhalation MARILEE Y 30 days #1 03/13/24 25 mcg/actuation powdr for ea inhalation (Anoro Ellipta) albuterol sulfate 90 mcg/actuation 2 puff PO Q6H PRN b ronchospasm 30 04/05/24 aerosol inhaler days #18 grams calcium 500 mg (as 1 tab PO DAILY 90 days #90 t abs 04/29/24 carbonate)-vitamin D3 10 mcg (400 unit) tablet (Oyster Shell Calcium-Vitamin D3) doxycycline hyclate 100 mg capsule 100 mg PO BID 7 day s #14 caps 02/16/25 prednisone 20 mg tablet 40 mg (2 x 20 mg) PO DAILY 4 days 02/16/25 #8 tabs Allergies Allergy/AdvReac Type Severity Reaction Status Date / Time Penicillins Allergy Intermediate RASH Verified 02/16/25 13:52 Review of Systems Review of Systems: Yes all other systems are reviewed and are negative Constitutional: Constitutional: Reports as per HPI [facility] Past Medical History Medical History Methadone use History of heroin use History of ST elevation myocardial infarction (STEMI) (~03/2024) Mixed hyperlipidemia Moderate asthma COPD (chronic obstructive pulmonary disease) Nicotine dependence, cigarettes, uncomplicated Duodenal ulcer History of Helicobacter pylori infection (~05/2019) Dysphagia Mild major depression Memory loss Weight loss Surgical History History of colonoscopy History of tonsillectomy History of mammogram History of section History of esophagogastroduodenoscopy (EGD) Family History Family History Father No problems noted. Mother Breast cancer Sister Breast cancer, Onset Age: 47 Brother Cancer Maternal Uncle Cancer Social History Social History (Updated 09/24/24 @ 10:23 by Sarah Zhu MD) Household Members: None Housing: House Do you presently have visiting nurse or other home services: No Alcohol intake: current Alcohol intake frequency: holidays/special occasions only Alcohol type: beer Patient Tobacco Use Status: Current everyday Tobacco user Tobacco use type: Cigarette Cigarettes Per Day: 8 Years Smoked: started at 14, 1ppd e-Cigarette/Vaping Use: Never Used Second Hand Smoke Exposure: No Substance Use Type: Marijuana Advance Directives: No Advance Directives Information Provided: No service: No Current occupational status: unemployed Cognitive needs: No Hearing needs: No Vision needs: No Physical Exam ED Vital Signs: Vital Signs - 24 hr 02/16/25 13:50 02/16/25 16:48 02/16/25 18:17 Temperature 96.8 F 98.2 F Pulse Rate 82 69 78 Respiratory Rate 16 22 H 19 Blood Pressure 155/91 H 132/86 Pulse Oximetry 93 93 Oxygen Delivery Method Room Air Room Air BMI result Body Mass Index 23.9 Const General: cooperative, comfortable and no acute distress Orientation/consciousness: patient oriented x3 Limitations: no limitations HENMT Head: Yes normal to inspection, Yes normocephalic and Yes atraumatic Ears: hearing grossly normal bilaterally General nose exam: Normal external nose present Face and sinus: Yes normal facial exam Mouth: Normal oral and palatal mucosa present, oropharynx normal and moist mucous membranes Throat: Yes posterior oropharynx normal Eyes General: appearance normal, both eyes and all related structures Eyelids: Yes eyelids normal Conjunctivae: conjunctivae normal Sclerae: sclerae normal Pupils: Equal, round and reactive pupils present EOM: EOMs intact bilaterally Neck Neck: Yes normal visual inspection, Yes full ROM and Yes no lymphadenopathy Lymphatic: no lymphadenopathy noted Chest Chest palpation & inspection: normal inspection of the chest Resp Effort & Inspection: normal respiratory effort and able to speak in complete sentences Auscultation: clear to auscultation bilaterally, no crackles, no rales, no rhonchi and no wheezes Cardio Rate: regular rate Rhythm: regular rhythm Heart sounds: S1 normal heart sound present and S2 normal heart sound present GI Inspection: Yes normal to inspection Skin General skin exam: no rashes or lesions noted Trauma: no lacerations or abrasions Wounds: no wounds Neuro General: patient oriented x3 and moves all extremities Cranial nerves: Yes Equal, round and reactive pupils present Extrem Other: Right foot with tenderness palpation along the plantar aspect, no overlying skin changes or warmth. Strong DP pulse. Full ROM of the ankle without difficulty. Strong DP pulse. Right hand with tenderness palpation along the snuffbox, full ROM without difficulty. Strong radial pulse. No overlying skin changes or warmth. General: Yes normal to inspection Right upper extremity: normal to inspection Left upper extremity: normal to inspection Right lower extremity: normal to inspection Left lower extremity: normal to inspection Course Course Course Narrative: Nenita Ramesh [employer] 02/16 1991 This is a rapid medical exam. Deferred additional HPI, ROS, PE to primary provider. 63 yo female with PMH of COPD, anxiety, pneumonia, depression, IBS, HLD, asthma, on chronic methadone here with right foot pain x 1 month, right hand pain x 2 weeks and chronic cough worsening with subjective fevers. Patient reports she is a smoker. No known injuries to extremities. 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 VSS Medications Administered Discontinued Medications Generic Name Dose Route Start Last Admin Trade Name Freq PRN Reason Stop Dose Admin Albuterol Sulfate 2.5 mg/ 0 mg 02/16/25 16:42 02/16/25 16:47 Albuterol/Ipratropium 3 ml INHALE 02/16/25 16:43 Not Given ONCE ONE Albuterol Sulfate 5 mg/ 0 mg 02/16/25 16:46 02/16/25 16:48 Albuterol/Ipratropium 3 ml INHALE 02/16/25 16:47 1 each ONCE ONE Administration Doxycycline Monohydrate 100 mg 02/16/25 16:27 02/16/25 17:09 Doxycycline Monohydrate 100 Mg Capsule PO 02/16/25 16:28 100 mg ONCE ONE Administration Prednisone 50 mg 02/16/25 16:24 02/16/25 17:09 Prednisone 10 Mg Tablet PO 02/16/25 16:25 50 mg ONCE ONE Administration Medical Decision Making Medical Decision Making [facility] Narrative: This is a 64-year-old female who presents emergency department with complaints of right hand and right foot pain. On arrival, patient mildly hypertensive at 155/91, all other vital signs within normal limits. She is speaking full sentences under no acute distress. Friend at bedside reporting that she has had a worsened cough, patient does report that she coughs however states that this is her typical cough that she has. Lungs with inspiratory and expiratory wheezes noted throughout all lung yates. X-rays were obtained prior to my evaluation, right foot x-ray revealing heel spur, right hand x-ray revealing degenerative changes at the 1st CMC joint. Chest x-ray revealing no acute findings. Given lung sounds, patient treated with ED bronch protocol, as well as doxycycline and prednisone. Course: Patient re-evaluated, feeling much better after receiving updraft. Will continue on prednisone, this will help with COPD exacerbation as well plantar fasciitis in degenerative changes in right hand. Advised that this can increase sugar therefore monitor sugars closely. Starting doxy secondary to increased sputum production. She has no fevers or chills. She is not hypoxic. 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 She understands and agrees with plan. Also given orthopedic referral for degenerative changes in her right hand. Advised to take Tylenol as needed for pain. Patient stable for discharge. Differential Diagnosis Differential Diagnoses: The differential diagnosis associated with the presentation includes Plantar fasciitis, strain, sprain, arthritis, fracture Lab Data [facility] Lab Attestation statement: I reviewed the patient's lab results. Negative Labs: Lab Results 02/16/25 Range/Units 14:07 Influenza Type A (PCR) NEGATIVE (Negative) Influenza Type B (PCR) NEGATIVE (Negative) RSV RNA Qual (PCR) NEGATIVE (Negative) SARS-CoV-2 RNA (RT-PCR) NEGATIVE (Negative) Radiology Impression Discussion of test interpretation with radiology: I have reviewed the radiologist's reading. Radiologist Impression: FINDINGS: Distal radius and ulna appear intact. Carpal bones appear intact. Advanced degenerative changes of the 1st CMC joint with prominent osteophytes, complete loss of joint space and lateral subluxation of the 1st metacarpal. Metacarpals appear intact. Phalanges appear intact. Interphalangeal degenerative changes most pronounced of the 1st IP and 2nd DIP joints. IMPRESSION: 1. No radiographic evidence of acute injury to the right hand. 2. 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 This document has been electronically signed by: Collin Meyers MD on 02/16/2025 15:28:28 Dictated By: Collin Meyers MD FINDINGS: No ankle joint effusion. Small plantar calcaneal spur. Normal tarsometatarsal alignment. Tarsals, metatarsals and phalanges appear intact. Interphalangeal space narrowing. No radiopaque foreign body. IMPRESSION: 1. No radiographic evidence of acute injury to the right foot. 2. Mild degenerative changes of the right foot. This document has been electronically signed by: Collin Meyers MD on 02/16/2025 15:32:05 Dictated By: Collin Meyers MD CLINICAL HISTORY: cough, subjective fever Two views of the chest. COMPARISON: XR chest dated 12/16/23 at 10:35 EDT FINDINGS: Normal heart size. Atherosclerotic thoracic aorta. No consolidation. No pleural effusion or pneumothorax. Mild rightward curvature of the lower thoracic spine. No acute fracture. IMPRESSION: 1. No consolidation. This document has been electronically signed by: Collin Meyers MD on 02/16/2025 15:34:16 Dictated By: Collin Meyers MD Discharge Plan Discharge Clinical Impression: COPD exacerbation, Plantar fasciitis of right foot, Hand pain, right Patient Disposition: Home, Self-Care Instructions: Plantar Fasciitis (ED), COPD (Chronic Obstructive Pulmonary Disease) (ED), Arthralgia (ED), Plantar Fasciitis Exercises (ED) Additional Instructions: You were seen in the ER due to right hand pain and right foot pain. Your x-rays of your right hand shows advanced degenerative changes at the 1st CMC joint, which is at the base of your thumb. This is caused by wear and tear over time. Your lung sounds were also very wheezy, we are treating you with an antibiotic, as well as steroids. Steroids could increase your blood glucose level, therefore please monitor closely. Please continue taking prescribed prednisone as directed, finish the entire course even if your symptoms improve. Please continue taking doxycycline as prescribed. Please be advised that this can cause some sun sensitivity therefore wear adequate sun protection. Follow-up with your body shop floorperson. Follow-up with the printing specialist for your hand. Rest, ice, and gentle stretching to your foot can be helpful. If any new or worsening symptoms occur including but not limited to severe chest pain, shortness of breath, please seek emergent care. 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: New prednisone 20 mg tablet 40 mg PO DAILY 4 Days Qty: 8 0RF doxycycline hyclate 100 mg capsule 100 mg PO BID 7 Days Qty: 14 0RF No Action albuterol sulfate 90 mcg/actuation HFA aerosol inhaler 2 puff PO Q6H PRN (Reason: bronchospasm) 30 Days Qty: 18 6RF calcium carbonate-vitamin D3 [Oyster Shell Calcium-Vit D3] 500 mg-10 mcg (400 unit) tablet 1 tab PO DAILY 90 Days Qty: 90 3RF ipratropium-albuterol 0.5 mg-3 mg(2.5 mg base)/3 mL solution for nebulization 3 ml inhalation Q4H PRN (Reason: Wheezing) methadone 10 mg/5 mL solution 65 mg PO DAILY (DME) nebulizers [AeroEclipse II Nebulizer] Misc See Rx Instructions .Route Qty: 1 0RF Rx Instructions: As directed atorvastatin 80 mg tablet 80 mg PO DAILY 90 Days Qty: 90 1RF carvedilol 3.125 mg tablet 3.125 mg PO BID 90 Days Qty: 180 1RF aspirin 81 mg tablet,delayed release (DR/EC) 81 mg PO DAILY 90 Days Qty: 90 3RF dexlansoprazole [Dexilant] 60 mg capsule,biphase delayed releas 60 mg PO DAILY 30 Days Qty: 30 3RF hydroxyzine HCl 50 mg tablet 50 mg PO BID 30 Days Qty: 60 6RF multivitamin with folic acid [Daily-Radha (with folic acid)] 400 mcg tablet 1 tab PO DAILY 90 Days Qty: 90 3RF sertraline 50 mg tablet 50 mg PO DAILY 90 Days Qty: 90 1RF Anoro Ellipta 62.5-25 mcg/actuation blister with device 1 inh inhalation DAILY 30 Days Qty: 1 6RF arformoterol 15 mcg/2 mL solution for nebulization 2 ml inhalation DAILY 30 Days Qty: 60 3RF Referrals: [facility] [place] Orthopedic Surgeons [Provider Group] Interventions: ED Discharge Assessment Last Done: 02/16/25 18:17 Discharge Date/Time: 02/16/25 18:20 Print Language: Upper Sorbian
[2025-02-16 14:55] LABS: Resp Syncy Virus RNA Qual PCR NEGATIVE (Negative); SARS COV2 PCR INHOUSE NEGATIVE (Negative)
[2025-02-16 16:48] VITALS: PULSE 69; RESP 22; O2SAT 90
[2025-02-16] MEDS: Albuterol Sulfate 5 MG, Albuterol/Iprat 2.5/0.5MG 3 ML 3 ML INHALE (16:48)
[2025-02-16 18:17] VITALS: BP 132/86; PULSE 78; RESP 19; TEMP 36.8; O2SAT 93
== END 2025-02-16 18:20 | disposition home or self-care (01) ==
PROVIDERS: Nurse Practitioner Family; Emergency Provider Emergency Medicine; PCP Internal Medicine
DX: M79.641 Pain in right hand (principal); M79.671 Pain in right foot; J44.9 Chronic obstructive pulmonary disease, unspecified; I25.2 Old myocardial infarction; F41.9 Anxiety disorder, unspecified; K58.9 Irritable bowel syndrome, unspecified; F11.90 Opioid use, unspecified, uncomplicated; R05.3 Chronic cough; E78.2 Mixed hyperlipidemia; J45.40 Moderate persistent asthma, uncomplicated; F17.210 Nicotine dependence, cigarettes, uncomplicated; F32.9 Major depressive disorder, single episode, unspecified; R41.3 Other amnesia; F12.90 Cannabis use, unspecified, uncomplicated; Z79.82 Long term (current) use of aspirin
CPT/HCPCS: 71046; 73130; 73630; 87637; 94640; 99283

== ENCOUNTER → 2025-02-16 13:55 | Outpatient (BNV) | payer OTHER, SELFPAY | PROVIDERS: Emergency Provider Emergency Medicine; PCP Internal Medicine; Visit Provider Radiology Diagnostic Radiology | DX: R05.9 Cough, unspecified (principal); M79.641 Pain in right hand; M79.671 Pain in right foot | CPT/HCPCS: 71046; 73130; 73630 ==

== ENCOUNTER 2025-03-13 12:34 | Outpatient (AMB) | payer OTHER, SELFPAY ==
--- NOTE | 2025-03-13 12:36 | A.OFFVIS_ITS ---
Vital Signs 3 03/13/25 12:46 Height 5 ft Weight 120 lb BMI 23.4 Intake Visit Reasons: New Pt- Pain in right foot Intake Note: Susan is a 64 year old female who presents today as a new patient for an evaluation of her right foot pain. She mentions the pain is localized on the plantar aspect of the foot and the heel. Patient reports pain has been going on for 2 months. She has tried Motrin and tylenol and found little relief. [employer] Required: Yes [employer] Services: [employer] Present [employer] Name: [id number] Allergies Penicillins Allergy (Intermediate, Verified 03/13/25 12:47) RASH Medication List - Last Reconciled 03/13/25 by Sienna Ramirez DPM albuterol sulfate 90 mcg/actuation 2 puffs PO Q6H PRN 30 days arformoterol 2 mL inhalation DAILY 30 days aspirin 81 mg PO DAILY 90 days atorvastatin 80 mg PO DAILY 90 days calcium carbonate-vitamin D3 500 mg-10 mcg (400 unit) (Oyster Shell Calcium- Vitamin D3) 1 tab PO DAILY 90 days [cane As directed] carvedilol 3.125 mg PO BID 90 days dexlansoprazole (Dexilant) 60 mg PO DAILY 30 days doxycycline hyclate 100 mg PO BID 7 days hydroxyzine HCl 50 mg PO BID 30 days ipratropium-albuterol 0.5 mg-3 mg(2.5 mg base)/3 mL 3 mL inhalation Q4H PRN methadone 65 mg PO DAILY methylprednisolone (Medrol (Taiwo)) PO PER PKG DIR multivitamin with folic acid 400 mcg (Daily-Radha (with folic acid)) 1 tab PO DAILY 90 days nebulizers (AeroEclipse II Nebulizer) As directed sertraline 50 mg PO DAILY 90 days umeclidinium-vilanterol 62.5-25 mcg/actuation (Anoro Ellipta) 1 inh inhalation DAILY 30 days HPI Comments Details: Patient is a 64-year-old female with a past medical history as seen below who presents to the office for right foot pain. She states she has been experiencing pain to the plantar aspect of the foot localized to the area of the heel for approximately 2 months. She denies any inciting injuries. She states the pain ranges from moderate to severe and is worsened with ambulation and activity. She states the pain subsides partially when resting. She also used a portable massager to massage the affected area with some relief. She states she has tried taking Tylenol with no relief. She states she has changed her shoe gear and is currently wearing Skechers sneakers with built-in insoles. She denies any other pedal concerns. Denies any radiation of pain. Denies any nausea vomiting fever or chills. [facility] Medical History (Updated 03/13/25 @ 13:34 by Sienna Ramirez DPM) Pes cavus Calcaneal spur, right foot Methadone use History of heroin use History of ST elevation myocardial infarction (STEMI) (~03/2024) Mixed hyperlipidemia Moderate asthma COPD (chronic obstructive pulmonary disease) Nicotine dependence, cigarettes, uncomplicated Duodenal ulcer History of Helicobacter pylori infection (~05/2019) Dysphagia Mild major depression Memory loss Weight loss Surgical History History of colonoscopy History of tonsillectomy History of mammogram History of section History of esophagogastroduodenoscopy (EGD) Family History Father No problems noted. Mother Breast cancer Sister Breast cancer, Onset Age: 47 Brother Cancer Maternal Uncle Cancer Social History (Updated 09/24/24 @ 10:23 by Sarah Zhu MD) Household Members: None Housing: House Do you presently have visiting nurse or other home services: No Alcohol intake: current Alcohol intake frequency: holidays/special occasions only Alcohol type: beer Patient Tobacco Use Status: Current everyday Tobacco user Tobacco use type: Cigarette Cigarettes Per Day: 8 Years Smoked: started at 14, 1ppd e-Cigarette/Vaping Use: Never Used Second Hand Smoke Exposure: No Substance Use Type: Marijuana service: No Current occupational status: unemployed Cognitive needs: No Hearing needs: No Vision needs: No Review of Systems Const Details: Musculoskeletal: Reports severe pain in the right foot, particularly at the heel and sole, for two months. Denies pain in other areas of the foot. All systems reviewed & are unremarkable except as noted in HPI and below Physical Exam Vital Signs: BMI result Body Mass Index 23.4 Extrem Other: Right lower extremity focused physical exam: Derm: No open lesions abrasions or wounds noted. No edema or erythema noted. No clinical signs of infection. Vascular: DP/PT pulses palpable. Cap refill time less than 3 seconds. Pedal hair absent. No varicosities noted. Neuro: Protective sensation is grossly intact. Musculoskeletal: Pain on palpation to the plantar aspect of the calcaneus, worse to the medial tubercle. Range of motion of the forefoot and ankle within normal limits. Mild antalgic gait noted unassisted. Minimal hammertoes noted. Negative windlass mechanism. Pes cavus foot type. Ankle/foot/toe images: 2 1. Results Reviewed Results Reviewed: Podiatry read of right foot 3 views xrays (02/16/2025): Mild joint space narrowing noted to the 1st MPJ and IPJ consistent with early degenerative arthritic changes. Minimal spurring noted to the plantar aspect of the calcaneus. Pes cavus foot type. Right foot xrays (02/16/2025):FINDINGS: No ankle joint effusion. Small plantar calcaneal spur. Normal tarsometatarsal alignment. Tarsals, metatarsals and phalanges appear intact. Interphalangeal space narrowing. No radiopaque foreign body. IMPRESSION: 1. No radiographic evidence of acute injury to the right foot. 2. Mild degenerative changes of the right foot. Assessment & Plan Assessment & Plan (1) Plantar fasciitis of right foot: Code(s): M72.2 - Plantar fascial fibromatosis Category: Medical (2) Right foot pain: Code(s): M79.671 - Pain in right foot Category: Medical (3) Calcaneal spur, right foot: Code(s): M77.31 - Calcaneal spur, right foot Category: Medical (4) Pes cavus: Code(s): Q66.70 - Congenital pes cavus, unspecified foot Category: Medical Plan Patient was informed and verbally consented to the use of an ambient scribe for clinic note documentation during this visit. Discussed both conservative and surgical treatments, recommend conservative treatment at this time. Prescribed a Medrol Dosepak to manage inflammation and pain associated with plantar fasciitis. She is advised to avoid walking barefoot and to wear supportive sneakers and shoe gear. Educated patient on plantar fascial exercises to be done for stretching purposes (provided patient with instruction on form). Recommended patient obtain [id number] orthotics, Super feet - blue color. I discussed with the patient the diagnosis of plantar fasciitis and the associated pain management strategies, including the use of a Medrol Dosepak and supportive footwear. We also talked about the potential need for a night splint, physical therapy, and/or injection if symptoms persist and the importance of follow-up in two weeks. For the arthritis in the right hallux and pes cavus foot type, I recommended orthotics to provide additional support and alleviate discomfort. Patient is to return to the office in 2 weeks for further evaluation. Medications: New 2 methylprednisolone (Medrol (Taiwo)) PO PER PKG DIR 21 ea 0RF Plantar Fasciitis M72.2 - Plantar fascial fibromatosis, M77.31 - Calcaneal spur, right foot, M79.671 - Pain in right foot Discontinued 2 prednisone Discontinued Reason: Patient Completed Course 40 mg (2 x 20 mg) PO DAILY 4 days 8 tabs 0RF Coding Level of Care Code New Pt Level 4 (02681) Diagnoses Plantar fasciitis of right foot M72.2 Right foot pain M79.671 Calcaneal spur, right foot M77.31 Pes cavus Q66.70 Time Spent (min) 45
[2025-03-13 12:46] VITALS: BMI 23.4
== END 2025-03-13 13:09 | disposition home or self-care (01) ==
LOC: HO.HPODS 12:35
PROVIDERS: PCP Internal Medicine; Visit Provider Student in an Organized Health Care Education/Training Program
DX: M72.2 Plantar fascial fibromatosis (principal); M79.671 Pain in right foot; M77.31 Calcaneal spur, right foot; Q66.70 Congenital pes cavus, unspecified foot
CPT/HCPCS: 99204

== ENCOUNTER → 2025-03-13 12:34 | Outpatient (BNVA) | payer OTHER, SELFPAY | PROVIDERS: PCP Internal Medicine; Visit Provider Student in an Organized Health Care Education/Training Program | DX: M72.2 Plantar fascial fibromatosis (principal); M79.671 Pain in right foot; M77.31 Calcaneal spur, right foot; Q66.71 Congenital pes cavus, right foot | CPT/HCPCS: 99202 ==

== ENCOUNTER 2025-03-14 06:32 | Outpatient (REF) | payer OTHER, SELFPAY ==
[2025-03-14 06:46] LABS: MANUAL DIFF FLAG NO
[2025-03-14 07:28] LABS: Hematocrit 45.3 % (37.0-47.0); Hemoglobin 15.6 g/dl (12.0-16.0); Imm Gran Abs Auto 0.01 X10*3/uL (0.00-0.03); Imm Gran Pct Auto 0.1 % (0.0-0.4); Lymphocytes Absolute Auto 3.1 X10*3/uL (1.2-4.9); Mean Corpuscular HGB Conc 34.4 g/dl (31.0-35.0); Mean Corpuscular Hemoglobin 32.6 pg (27.0-33.0); Mean Corpuscular Volume 94.8 fL (80.0-98.0); NRBC Abs Auto 0.000 X10*3/uL (0.0-0.012); NRBC Pct Auto 0.0 /100WBC (0.0-0.2); Platelet Count 301 X10*3/uL (160-400); Red Blood Count 4.78 X10*6/uL (4.20-5.50); White Blood Count 8.3 X10*3/uL (4.8-10.8)
[2025-03-14 08:08] LABS: Alanine Aminotransferase 17 U/L (0-31); Albumin Level 4.1 g/dL (3.5-5.0); Alkaline Phosphatase 87 U/L (39-117); Anion Gap 14 (12-20); Aspartate Amino Transferase 22 U/L (5-31); Blood Urea Nitrogen 13 mg/dL (9-16); Calcium 9.1 mg/dL (8.4-10.2); Carbon Dioxide 30 mmol/L (22-29); Chloride 102 mmol/L (96-108); Cholesterol 258 mg/dL (<200); Estimated Glomerular Filt Rate > 60; HDL Cholesterol 40 mg/dL (>40); Potassium 3.9 mmol/L (3.3-5.1); Sodium 142 mmol/L (135-145); Total Protein 6.8 g/dL (6.5-8.0); Triglycerides 184 mg/dL (<150)
== END 2025-03-14 06:33 | disposition home or self-care (01) ==
LOC: HO.LAB 06:32
PROVIDERS: PCP Internal Medicine; Visit Provider Internal Medicine
DX: I21.4 Non-ST elevation (NSTEMI) myocardial infarction (principal); I42.9 Cardiomyopathy, unspecified; E78.5 Hyperlipidemia, unspecified; J44.9 Chronic obstructive pulmonary disease, unspecified; E55.9 Vitamin D deficiency, unspecified
CPT/HCPCS: 36415; 80053; 80061; 82306; 83880; 85025

== ENCOUNTER 2025-03-25 08:23 | Outpatient (AMB) | payer OTHER, SELFPAY ==
--- NOTE | 2025-03-25 08:26 | MHC.PC.OV ---
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 Accompanied by: Self / Same As Patient Allergies Penicillins Allergy (Intermediate, Verified 03/25/25 08:41) RASH Medication List - Last Reconciled 03/25/25 by Sarah Zhu MD albuterol sulfate 90 mcg/actuation 2 puffs PO Q6H PRN 30 days arformoterol 2 mL inhalation DAILY 30 days aspirin 81 mg PO DAILY 90 days atorvastatin 80 mg PO DAILY 90 days calcium carbonate-vitamin D3 500 mg-10 mcg (400 unit) (Oyster Shell Calcium-Vitamin D3) 1 tab PO DAILY 90 days [cane As directed] carvedilol 3.125 mg PO BID 90 days dexlansoprazole (Dexilant) 60 mg PO DAILY 30 days doxycycline hyclate 100 mg PO BID 7 days hydroxyzine HCl 50 mg PO BID 30 days ipratropium-albuterol 0.5 mg-3 mg(2.5 mg base)/3 mL 3 mL inhalation Q4H PRN methadone 65 mg PO DAILY methylprednisolone (Medrol (Taiwo)) PO PER PKG DIR multivitamin with folic acid 400 mcg (Daily-Radha (with folic acid)) 1 tab PO DAILY 90 days nebulizers (AeroEclipse II Nebulizer) As directed sertraline 50 mg PO DAILY 90 days umeclidinium-vilanterol 62.5-25 mcg/actuation (Anoro Ellipta) 1 inh inhalation DAILY 30 days Tobacco use date assessed: 03/25/25 Dental Screening Dental Screen Date: 03/25/25 Did you have a dental visit in the last 12 months?: Yes Did you have a dental problem in the last 6 months where you did not have access to dental care?: No Was dental information given to patient?: Patient has dentist HPI HPI Comments History of Present Illness Details The patient is a 64-year-old female presenting with a physical examination and management of chronic conditions. She has a history of Chronic Obstructive Pulmonary Disease (COPD) and is followed by pulmonology. She reports shortness of breath and productive cough, likely due to a COPD exacerbation. The patient also has cardiomyopathy, followed by cardiology, with a history of significant left ventricular dysfunction thought to be stress-induced. Her last echocardiogram in June 2024 showed an ejection fraction of 60 to 65%. She has a history of polysubstance and tobacco abuse. She underwent a cardiac catheterization last year. The patient has osteopenia with a T-score of -1.5 in the femoral neck, identified during a bone density screening last year. She has intermittent glucose intolerance and depression, for which SSRIs will be restarted. Preventative care measures include a Tdap vaccination in 2017, a normal mammogram last year, and a colonoscopy showing fragments of tubular adenoma and hyperplastic polyp. [facility] Medical History (Updated 03/25/25 @ 09:01 by Sarah Zhu MD) STEMI (ST elevation myocardial infarction) Pes cavus Calcaneal spur, right foot Methadone use History of heroin use History of ST elevation myocardial infarction (STEMI) (~03/2024) Mixed hyperlipidemia Moderate asthma COPD (chronic obstructive pulmonary disease) Nicotine dependence, cigarettes, uncomplicated Duodenal ulcer History of Helicobacter pylori infection (~05/2019) Dysphagia Mild major depression Memory loss Weight loss Surgical History History of colonoscopy History of tonsillectomy History of mammogram History of section History of esophagogastroduodenoscopy (EGD) Family History Father No problems noted. Mother Breast cancer Sister Breast cancer, Onset Age: 47 Brother Cancer Maternal Uncle Cancer Social History Household Members: None Housing: House Do you presently have visiting nurse or other home services: No Alcohol intake: current Alcohol intake frequency: holidays/special occasions only Alcohol type: beer Patient Tobacco Use Status: Current everyday Tobacco user Tobacco use type: Cigarette Cigarettes Per Day: 8 Years Smoked: started at 14, 1ppd e-Cigarette/Vaping Use: Never Used Second Hand Smoke Exposure: No Substance Use Type: Marijuana service: No Current occupational status: unemployed Cognitive needs: No Hearing needs: No Vision needs: No Questionnaire PHQ-9 Over the last 2 weeks, how often have you been bothered by any of the following problems? 1. Little interest or pleasure in doing things: several days 2. Feeling down, depressed, or hopeless: nearly every day 3. Trouble falling or staying asleep, or sleeping too much: nearly every day 4. Feeling tired or having little energy: more than half the days 5. Poor appetite or overeating: nearly every day 6. Feeling bad about yourself - or that you are a failure or have let yourself or your family down: not at all 7. Trouble concentrating on things, such as reading the newspaper or watching television: not at all 8. Moving or speaking so slowly that other people could have noticed. Or the opposite - being so fidgety or restless that you have been moving around a lot more than usual: several days 9. Thoughts that you would be better off or of hurting yourself in some way: not at all Total score: 13 Depression Screening Interpretation: Positive Depression Screening Follow-up: Existing condition, In treatment and Follow-up Visit Requested Depression Screening Done: Yes 47675 - PHQ-9 Billing: Yes Source: Developed by Drs. Varun Peraza, Samantha Massey, Darius Rodriguez and colleagues, with an educational shamir from [employer]. Thrive Questionnaire Date Thrive assessed: 09/24/24 I am a: Patient What is your living situation today?: I have a steady place to live Within the past 12 months, did the food you bought not last and you didn't have the money to get more?: I choose not to answer this question Within the past 12 months, did you worry whether your food would run out before you got money to buy more?: I choose not to answer this question Do you have trouble paying for medicines?: No Do you have trouble getting transportation to medical appointments?: No Do you have trouble paying your heating and electricity bill?: No Do you have trouble taking care of your child, family member or friend?: I choose not to answer this question Do you have trouble with day-to-day activities such as bathing, preparing meals, shopping, managing finances, etc.?: Yes Are you currently unemployed and looking for a job?: Yes Are you interested in more education?: I choose not to answer this question Please select the resources that you would like help with: Utilities Currently or been in a relationship where the following occur: I choose not to answer THRIVE Score: 0 AUDIT C Alcohol Use Questionnaire (AUDIT-C) 1. How often do you have a drink containing alcohol?: Monthly or less 2. How many drinks containing alcohol do you have on a typical day when you are drinking?: 1 or 2 3. How often do you have six or more drinks on one occasion?: Never Total Score: 1 Score Reviewed/Action Taken: No DESMOND-7 AMB Questionnaire DESOMND-7 Date DESMOND - 7 assessed: 09/24/24 Feeling nervous, anxious, or on edge: 3 = Nearly every day Not being able to stop or control worryin = Several days Worrying too much about different things: 2 = More than half the days Trouble relaxin = Several days Being so restless that it is hard to sit still: 0 = Not at all Becoming easily annoyed or irritable: 1 = Several days Feeling afraid as if something awful might happen: 0 = Not at all Total DESMOND-7 score (0-4 normal; 5-9 mild; 10-14 moderate; 15-21 severe): 8 Source: Developed by Drs. Varun Peraza, Samantha Massey, Darius Rodriguez and colleagues, with an educational shamir from [employer]. DESMOND-7 Assessment Billing DESMOND-7 Assessment Tool: DESMOND-7 Assessment 83603 Review of Systems Const All systems reviewed & are unremarkable except as noted in HPI and below Card Denies chest pain at rest, Denies chest pain with activity, Denies edema, Denies irregular heart rhythm, Denies claudication, Reports dyspnea, Reports dyspnea on exertion, Denies orthopnea, Denies paroxysmal nocturnal dyspnea and Denies slow heart rate Resp Denies cough, Reports pain with cough, Reports dyspnea and Reports dyspnea on exertion Neuro Denies lack of coordination Physical exam (Primary Care) Vital Signs: Last Vital Signs Temp 96.9 F 03/25/25 08:27 Pulse 84 03/25/25 08:27 Resp 18 03/25/25 08:27 BP 142/80 H 03/25/25 08:27 Pulse Ox 97 03/25/25 08:27 Oxygen Delivery Method Room Air 03/25/25 08:27 BMI result Body Mass Index 24.5 Tobacco/Smoking Status: Tobacco use Status Tobacco use date assessed 03/25/25 03/25/25 08:37 Patient Tobacco Use Status Current everyday Tobacco 03/25/25 08:37 Tobacco use type Cigarette 03/25/25 08:37 e-Cigarette/Vaping Use Never Used 03/25/25 08:37 Are you ready to quit: No Tobacco cessation counseling provided: Yes Items discussed: Nicotine replacement and QuitWorks Relapse Prevention: discussed the importance of a supportive environment, discussed negative mood or depression after quitting and weight gain after smoking is common Number of minutes spent counselin CPT code: Less than 3 minutes PHQ-9: PHQ-9 Score PHQ-9: Total score 13 03/25/25 08:37 Depression Screening Interpretation: Positive Depression Screening Follow-up: Existing condition, In treatment and Follow-up Visit Requested Thrive Assessment: Date of Thrive Assessment Date Thrive assessed 09/24/24 03/25/25 08:37 Currently or been in a relationship where the following occur: I choose not to answer Const Orientation/consciousness: patient oriented x3 HENMT Head: Yes normal to inspection, Yes normocephalic and Yes atraumatic Ears: external ears normal Eyes General: appearance normal, both eyes and all related structures Eyelids: Yes eyelids normal Conjunctivae: conjunctivae normal Neck Neck: Yes normal visual inspection and Yes supple Resp Auscultation: rhonchi and wheezes Cardio Jugular venous distension: no JVD Rate: regular rate Rhythm: regular rhythm Heart sounds: S1 normal heart sound present and S2 normal heart sound present GI Inspection: Yes normal to inspection Palpation (GI): Soft to palpation and nontender Auscultation: normal bowel sounds Skin General skin exam: no rashes or lesions noted Neuro General: patient oriented x3 and no focal motor deficits Extrem General: Yes full ROM Psych Appearance: grossly normal Coding Level of Care Code Est Pt Level 3 (43703) Est Pt Prev Care 40-64y(33188) Diagnoses Physical exam Z00.00 Moderate major depression F32.1 Methadone use F11.20 Cardiomyopathy I42.9 NSTEMI (non-ST elevated myocardial infarction) I21.4 Impaired glucose tolerance R73.02 COPD with exacerbation J44.1 Additional Codes DESMOND-7 Assessment Billing - DESMOND-7 Assessment Tool: DESMOND-7 Assessment 39974 ([id number]) PHQ-9 - 67116 - PHQ-9 Billing: Yes ([id number]) Time Spent (min) 35 Assessment & Plan Assessment & Plan (1) Physical exam: Code(s): Z00.00 - Encounter for general adult medical examination without abnormal findings Category: Medical (2) Moderate major depression: Code(s): F32.1 - Major depressive disorder, single episode, moderate Category: Medical (3) Methadone use: Code(s): F11.20 - Opioid dependence, uncomplicated Category: Medical (4) Cardiomyopathy: Code(s): I42.9 - Cardiomyopathy, unspecified Category: Medical (5) NSTEMI (non-ST elevated myocardial infarction): Code(s): I21.4 - Non-ST elevation (NSTEMI) myocardial infarction Category: Medical (6) Impaired glucose tolerance: Code(s): R73.02 - Impaired glucose tolerance (oral) Category: Medical (7) COPD with exacerbation: Code(s): J44.1 - Chronic obstructive pulmonary disease with (acute) exacerbation Category: Medical Plan Plan Patient was informed and verbally consented to the use of an ambient scribe for clinic note documentation during this visit. 1. Encounter for general adult medical examination without abnormal findings Z00.00 Repeat DEXA 2025. Tdap vaccine 2026. Mammogram this year. 2. Chronic obstructive pulmonary disease, unspecified J44.9 HCC 111 The patient reports shortness of breath and productive cough, likely due to a COPD exacerbation. Management includes adding an antibiotic and prednisone to address the exacerbation. 3. Cardiomyopathy, unspecified I42.9 HCC 85 The patient is followed by cardiology for cardiomyopathy with a history of significant left ventricular dysfunction. The last echocardiogram showed an ejection fraction of 60 to 65%, indicating stable cardiac function. 4. Depression, unspecified F32.A The patient has depression, and SSRIs will be restarted to manage her symptoms. Medications: New prednisone Take 4 tabs for 2 days, then 3 tabs for 2 days, then 2 tabs for 2 days, then 1 tab for 2 days 10 mg PO DIRECTED 20 tabs 0RF 8 days Refilled dexlansoprazole (Dexilant) 60 mg PO DAILY 30 caps 3RF 30 days K21.9 - Gastro-esophageal reflux disease without esophagitis doxycycline hyclate 100 mg PO BID 14 caps 0RF 7 days multivitamin with folic acid 400 mcg (Daily-Radha (with folic acid)) 1 tab PO DAILY 90 tabs 3RF 90 days sertraline 50 mg PO DAILY 90 tabs 1RF 90 days atorvastatin 80 mg PO DAILY 90 tabs 1RF 90 days aspirin 81 mg PO DAILY 90 tabs 3RF 90 days calcium carbonate-vitamin D3 500 mg-10 mcg (400 unit) (Oyster Shell Calcium-Vitamin D3) 1 tab PO DAILY 90 tabs 3RF 90 days carvedilol 3.125 mg PO BID 180 tabs 1RF 90 days
[2025-03-25 08:27] VITALS: BP 142/80; PULSE 84; RESP 18; TEMP 36.1; O2SAT 97; BMI 24.5
== END 2025-03-25 08:58 | disposition home or self-care (01) ==
PROVIDERS: PCP Internal Medicine; Visit Provider Internal Medicine
DX: Z00.00 Encounter for general adult medical examination without abnormal findings (principal); F32.1 Major depressive disorder, single episode, moderate; F11.20 Opioid dependence, uncomplicated; I42.9 Cardiomyopathy, unspecified; J44.1 Chronic obstructive pulmonary disease with (acute) exacerbation; I25.2 Old myocardial infarction; R73.02 Impaired glucose tolerance (oral)

== ENCOUNTER → 2025-03-25 08:23 | Outpatient (BNVA) | payer OTHER, SELFPAY | PROVIDERS: PCP Internal Medicine; Visit Provider Internal Medicine | DX: Z00.00 Encounter for general adult medical examination without abnormal findings (principal); F32.A Depression, unspecified; I42.9 Cardiomyopathy, unspecified; M85.80 Other specified disorders of bone density and structure, unspecified site; F32.1 Major depressive disorder, single episode, moderate; F11.20 Opioid dependence, uncomplicated; I21.4 Non-ST elevation (NSTEMI) myocardial infarction; R73.02 Impaired glucose tolerance (oral); J44.1 Chronic obstructive pulmonary disease with (acute) exacerbation; K21.9 Gastro-esophageal reflux disease without esophagitis | CPT/HCPCS: 96127; 99212; 99396 ==

== ENCOUNTER 2025-03-27 12:48 | Outpatient (AMB) | payer OTHER, SELFPAY ==
--- NOTE | 2025-03-27 12:58 | MHC.OFFVIS ---
Intake Visit Reasons: Follow Up Pain in right foot Intake Note: Susan is a 64 year old female who presents today for a follow up on her calcaneal spur of her right foot. Patient was prescribed medrol dose ata and was advise to continue exercises. She states she is currently still in pain on the plantar aspect of the right heel however the medication did assist her. Patient has not been doing her exercises regularly and she mentions she has purchased supportive shoe wear also. She has been massaging her foot daily Armed Security Officer Required: Yes Armed Security Officer Services: Armed Security Officer Present Armed Security Officer Name: [id number] Allergies Penicillins Allergy (Intermediate, Verified 03/27/25 12:58) RASH HPI Comments Details: The patient is a 64-year-old female presenting for follow-up of right foot plantar fasciitis. The patient states her symptoms have slightly improved since the last visit. Patient states she felt the most release while taking the Medrol Dosepak. She states she has been inconsistent with at-home stretching exercises. Patient states she experiences intermittent pain to the plantar medial aspect of the heel, worsened when driving. She denies any new pedal injuries. Patient states she takes Tylenol as needed for pain since finishing the Medrol Dosepak. She denies obtaining the [id number] Super feet inserts. She denies any other pedal concerns. She denies any current nausea, vomiting, fever, or chills. [facility] Medical History (Updated 03/25/25 @ 09:01 by Sarah Zhu MD) STEMI (ST elevation myocardial infarction) Pes cavus Calcaneal spur, right foot Methadone use History of heroin use History of ST elevation myocardial infarction (STEMI) (~03/2024) Mixed hyperlipidemia Moderate asthma COPD (chronic obstructive pulmonary disease) Nicotine dependence, cigarettes, uncomplicated Duodenal ulcer History of Helicobacter pylori infection (~05/2019) Dysphagia Mild major depression Memory loss Weight loss Surgical History History of colonoscopy History of tonsillectomy History of mammogram History of section History of esophagogastroduodenoscopy (EGD) Family History Father No problems noted. Mother Breast cancer Sister Breast cancer, Onset Age: 47 Brother Cancer Maternal Uncle Cancer Social History Household Members: None Housing: House Do you presently have visiting nurse or other home services: No Alcohol intake: current Alcohol intake frequency: holidays/special occasions only Alcohol type: beer Patient Tobacco Use Status: Current everyday Tobacco user Tobacco use type: Cigarette Cigarettes Per Day: 8 Years Smoked: started at 14, 1ppd e-Cigarette/Vaping Use: Never Used Second Hand Smoke Exposure: No Substance Use Type: Marijuana service: No Current occupational status: unemployed Cognitive needs: No Hearing needs: No Vision needs: No Review of Systems Const Details: Musculoskeletal: Reports reduced pain in the right foot, particularly at the medial aspect of the heel. All systems reviewed & are unremarkable except as noted in HPI and below Physical Exam Extrem Other: Right lower extremity focused physical exam: Derm: No open lesions, abrasions, or wounds noted. No edema or erythema noted. No ecchymosis or erythema noted. No clinical signs of infection. Vascular: DP/PT pulses palpable. Cap refill time less than 3 seconds. Pedal hair absent. No varicosities noted. No edema noted. Neuro: Protective sensation is grossly intact. Musculoskeletal: Pain on palpation to the plantar medial aspect of the calcaneus, in the area of the medial tubercle (improved from last visit). Range of motion of the forefoot and ankle within normal limits. Mild antalgic gait noted unassisted. Minimal hammertoes noted. Negative windlass mechanism. Pes cavus foot type. Results Reviewed Results Reviewed: Podiatry read of right foot 3 views xrays (02/16/2025): Mild joint space narrowing noted to the 1st MPJ and IPJ consistent with early degenerative arthritic changes. Minimal spurring noted to the plantar aspect of the calcaneus. Pes cavus foot type. Right foot xrays (02/16/2025): FINDINGS: No ankle joint effusion. Small plantar calcaneal spur. Normal tarsometatarsal alignment. Tarsals, metatarsals and phalanges appear intact. Interphalangeal space narrowing. No radiopaque foreign body. IMPRESSION: 1. No radiographic evidence of acute injury to the right foot. 2. Mild degenerative changes of the right foot. Assessment & Plan Assessment & Plan (1) Plantar fasciitis of right foot: Code(s): M72.2 - Plantar fascial fibromatosis Category: Medical (2) Right foot pain: Code(s): M79.671 - Pain in right foot Category: Medical (3) Calcaneal spur, right foot: Code(s): M77.31 - Calcaneal spur, right foot Category: Medical (4) Pes cavus: Code(s): Q66.70 - Congenital pes cavus, unspecified foot Category: Medical Plan Patient was informed and verbally consented to the use of an ambient scribe for clinic note documentation during this visit. I discussed with the patient the importance of daily plantar fascial exercises and massages to manage right foot and heel pain. I recommended the use of a night splint to aid in stretching the right foot during sleep and advised on the continued use of Tylenol or ibuprofen for pain relief. 1. Right Plantar Fasciitis - Recommended continuation of daily exercises and massages to alleviate right foot and heel pain. - Provided patient with a night splint and advised patient to wear the night splint to maintain foot positioning and facilitate stretching during sleep. - Continue use of [id number]-viq-pmvpiwv analgesics such as Tylenol or Ibuprofen for pain management. - Will consider injection therapy and/or physical therapy if symptoms persist. Patient is to return to the office in 3 weeks for further re-evaluation of symptoms. Coding Level of Care Code Est Pt Level 4 (54484) Diagnoses Plantar fasciitis of right foot M72.2 Right foot pain M79.671 Calcaneal spur, right foot M77.31 Pes cavus Q66.70 Time Spent (min) 30
== END 2025-03-27 13:17 | disposition home or self-care (01) ==
LOC: HO.HPODS 12:49
PROVIDERS: PCP Internal Medicine; Visit Provider Student in an Organized Health Care Education/Training Program
DX: M72.2 Plantar fascial fibromatosis (principal); M79.671 Pain in right foot; M77.31 Calcaneal spur, right foot; Q66.70 Congenital pes cavus, unspecified foot
CPT/HCPCS: 99214

== ENCOUNTER → 2025-03-27 12:48 | Outpatient (BNVA) | payer OTHER, SELFPAY | PROVIDERS: PCP Internal Medicine; Visit Provider Student in an Organized Health Care Education/Training Program | DX: M72.2 Plantar fascial fibromatosis (principal); M79.671 Pain in right foot; M77.31 Calcaneal spur, right foot; Q66.70 Congenital pes cavus, unspecified foot | CPT/HCPCS: 99212 ==

== ENCOUNTER 2025-04-02 09:51 | Outpatient (AMB) | payer OTHER, SELFPAY ==
--- NOTE | 2025-04-02 09:55 | A.OFFVIS_ITS ---
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 Patient was seen in ED on 02/16/25 for right thumb pain. 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 Patient states pain is better with rest and worsens with chopping and grabbing motions of hand. She is only having numbness in her thumb and states at times she feels like her thumb wants to lock. x-rays IMPRESSION: 1. No radiographic evidence of acute injury to the right hand. 2. 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 She complains of pain at the base of her right thumb, worse with pinching, gripping, and overuse. 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 She says this pain has been present for ~2 months now. She also complains of painful locking of her right thumb. After discussion, she says this is her primary complaint of pain today. She has a Hx of Heroin use and is currently in remission on Methadone. She is a smoker. [facility] Medical History (Updated 04/02/25 @ 10:08 by Craig Curtis) STEMI (ST elevation myocardial infarction) Pes cavus Calcaneal spur, right foot Methadone use History of heroin use History of ST elevation myocardial infarction (STEMI) (~03/2024) Mixed hyperlipidemia Moderate asthma COPD (chronic obstructive pulmonary disease) Nicotine dependence, cigarettes, uncomplicated Duodenal ulcer History of Helicobacter pylori infection (~05/2019) Dysphagia Mild major depression Memory loss Weight loss Surgical History History of colonoscopy History of tonsillectomy History of mammogram History of section History of esophagogastroduodenoscopy (EGD) Family History Father No problems noted. Mother Breast cancer Sister Breast cancer, Onset Age: 47 Brother Cancer Maternal Uncle Cancer Social History (Updated 04/02/25 @ 10:02 by Dionne Denson [facility]) Household Members: None Housing: House Do you presently have visiting nurse or other home services: No Alcohol intake: current Alcohol intake frequency: holidays/special occasions only Alcohol type: beer Patient Tobacco Use Status: Current everyday Tobacco user Tobacco use type: Cigarette Cigarettes Per Day: 8 Years Smoked: started at 14, 1ppd e-Cigarette/Vaping Use: Never Used Second Hand Smoke Exposure: No Substance Use Type: Marijuana service: No Current occupational status: unemployed Current occupation: right hand Cognitive needs: No Hearing needs: No Vision needs: No Review of Systems Const All systems reviewed & are unremarkable except as noted in HPI and below Physical Exam Vital Signs: BMI result Body Mass Index 23.4 Const General: cooperative, healthy appearing and no acute distress Orientation/consciousness: patient oriented x3 HEENT Head: Yes normocephalic and Yes atraumatic Eyes EOM: EOMs intact bilaterally Resp Effort & Inspection: normal respiratory effort and able to speak in complete sentences Cardio Jugular venous distension: no JVD Skin General skin exam: turgor normal Rashes: no rashes Neuro General: patient oriented x3 Extrem Other: Evaluation of Right Upper Extremity: The patient is alert, oriented, and in no acute distress Neuro: Median, Ulnar, Radial nerves motor and sensory intact and sensation is normal to the tips of all digits Vascular: Cap refill brisk ROM: She can make a fist and extend all her digits Visible & palpable locking & catching of the thumb Tender over the thumb a1 joel Skin: No lacerations or abrasions. General: No Ecchymosis. No Erythema or evidence of infection. Mild tenderness over the basal joint Pos shoulder sign No tenderness over the 1st dorsal compartment No MCP joint tenderness Radiographs: 3 views of the right hand were taken and viewed by me today in clinic. They show severe basal joint arthritis with near complete loss of joint space, subluxation, and osteophyte formation. Psych Appearance: grossly normal Affect: normal affect Attitude: cooperative Assessment & Plan Assessment & Plan (1) Trigger thumb of right hand: Code(s): M65.311 - Trigger thumb, right thumb Category: Medical (2) Arthritis of carpometacarpal (CMC) joint of right thumb: Code(s): M18.11 - Unilateral primary osteoarthritis of first carpometacarpal joint, right hand Category: Medical (3) Methadone use: Code(s): F11.20 - Opioid dependence, uncomplicated Category: Medical (4) Nicotine dependence, cigarettes, uncomplicated: Code(s): F17.210 - Nicotine dependence, cigarettes, uncomplicated Category: Medical (5) COPD (chronic obstructive pulmonary disease): Code(s): J44.9 - Chronic obstructive pulmonary disease, unspecified Category: Medical (6) Cardiomyopathy: Code(s): I42.9 - Cardiomyopathy, unspecified Category: Medical Plan Assessment & Plan: 1. Right trigger thumb This is her chief complaint today 2. Right basal joint arthritis Not particularly bothersome today I educated her about these conditions I discussed operative and non-operative treatment options The patient is rather nervous about receiving an injection which may not fully resolve her issue, and would like to proceed with surgery I discussed activity modification, they should limit or avoid any heavy or repetitive pinching or gripping activities She was fitted for a comfort cool brace to wear with daily activity She should work on ROM exercises, and avoid any gripping or strengthening activities I discussed the use of assistive devices for daily activity The risks and benefits of operative treatment were discussed with the patient and the patient wishes to proceed with surgery. These risks include, but are not limited to risk of damage to blood vessels, nerves, tendons, infection, recurrence, incomplete relief of preoperative symptoms, persistent pain, possible need for further surgery and the risks associated with regional blocks and anesthesia. The plan is to take the patient to the operating room sometime in the next few weeks for the following procedures: 1. Right trigger thumb release, under local All of the preoperative paperwork including the consent was reviewed today. All the patient's questions were answered. The patient understands that they will be contacted by our logistics team leader soon to schedule this procedure She denies Diabetes, blood thinners, asthma, kidney issues She has a Hx of IVDU and is on Methadone. She is a smoker and has COPD & Cardiomyopathy. Scribed for Adelaide Rodrigez MD by Craig Lubanszky, medical i d sales, on 04/02/25 at 10:05 AM, EST. Coding Level of Care Code New Pt Level 4 (29809) Diagnoses Trigger thumb of right hand M65.311 Arthritis of carpometacarpal (CMC) joint of right thumb M18.11 Methadone use F11.20 Nicotine dependence, cigarettes, uncomplicated F17.210 COPD (chronic obstructive pulmonary disease) J44.9 Cardiomyopathy I42.9
[2025-04-02 09:56] VITALS: BMI 23.4
== END 2025-04-02 10:29 | disposition home or self-care (01) ==
LOC: HO.HOS 09:52
PROVIDERS: PCP Internal Medicine; Visit Provider Orthopaedic Surgery
DX: M65.311 Trigger thumb, right thumb (principal); M18.11 Unilateral primary osteoarthritis of first carpometacarpal joint, right hand; F11.20 Opioid dependence, uncomplicated; F17.210 Nicotine dependence, cigarettes, uncomplicated; J44.9 Chronic obstructive pulmonary disease, unspecified; I42.9 Cardiomyopathy, unspecified
CPT/HCPCS: 99204

== ENCOUNTER → 2025-04-02 09:51 | Outpatient (BNVA) | payer OTHER, SELFPAY | PROVIDERS: PCP Internal Medicine; Visit Provider Orthopaedic Surgery | DX: Z09 Encounter for follow-up examination after completed treatment for conditions other than malignant neoplasm (principal); M65.311 Trigger thumb, right thumb; R20.0 Anesthesia of skin; M18.11 Unilateral primary osteoarthritis of first carpometacarpal joint, right hand; F11.20 Opioid dependence, uncomplicated; F17.210 Nicotine dependence, cigarettes, uncomplicated; J44.9 Chronic obstructive pulmonary disease, unspecified; I42.9 Cardiomyopathy, unspecified | CPT/HCPCS: 99202 ==

== ENCOUNTER 2025-04-16 12:26 | Outpatient (AMB) | payer OTHER, SELFPAY ==
[2025-04-16 12:41] VITALS: BMI 23.4
--- NOTE | 2025-04-16 12:41 | A.OFFVIS_ITS ---
Vital Signs 04/16/25 12:41 Height 5 ft Weight 120 lb BMI 23.4 Intake Visit Reasons: OV - Right Plantar Fasciitis & Calcaneal Spur Intake Note: Susan is a 64 year old female who presents today for a follow up of her Right Plantar Fasciitis & Calcaneal Spur. At her last visit she was fit for a Night Splint and given a Home Exercise Program. If her symptoms do not improve we will consider possible injections and/or referral to Formal PT. She reports since her last visit she has not seen any improvement. Fence Installer Required: Yes Fence Installer Services: Fence Installer Present Fence Installer Name: [id number] Allergies Penicillins Allergy (Intermediate, Verified 04/16/25 12:44) RASH Medication List - Last Reconciled 04/16/25 by Sienna Ramirez DPM albuterol sulfate 90 mcg/actuation 2 puffs PO Q6H PRN 30 days arformoterol 2 mL inhalation DAILY 30 days aspirin 81 mg PO DAILY 90 days atorvastatin 80 mg PO DAILY 90 days calcium carbonate-vitamin D3 500 mg-10 mcg (400 unit) (Oyster Shell Calcium- Vitamin D3) 1 tab PO DAILY 90 days [cane As directed] carvedilol 3.125 mg PO BID 90 days dexlansoprazole (Dexilant) 60 mg PO DAILY 30 days hydroxyzine HCl 50 mg PO BID 30 days ipratropium-albuterol 0.5 mg-3 mg(2.5 mg base)/3 mL 3 mL inhalation Q4H PRN methadone 65 mg PO DAILY multivitamin with folic acid 400 mcg (Daily-Radha (with folic acid)) 1 tab PO DAILY 90 days nebulizers (AeroEclipse II Nebulizer) As directed prednisone 10 mg PO DIRECTED 8 days sertraline 50 mg PO DAILY 90 days umeclidinium-vilanterol 62.5-25 mcg/actuation (Anoro Ellipta) 1 inh inhalation DAILY 30 days HPI Comments Details: The patient is a 64-year-old female presenting for follow-up of right foot plantar fasciitis. The patient states her symptoms are the same since the last visit. The pain has been significant enough to warrant consideration of an injection for relief. The patient has been using insoles, which have provided minimal relief. She states she has tried doing the at-home stretching exercises. She denies any other pedal concerns. She denies any current nausea, vomiting, fever, or chills. Patient was accompanied by her niece. [facility] Medical History (Updated 04/02/25 @ 10:08 by Craig Curtis) STEMI (ST elevation myocardial infarction) Pes cavus Calcaneal spur, right foot Methadone use History of heroin use History of ST elevation myocardial infarction (STEMI) (~03/2024) Mixed hyperlipidemia Moderate asthma COPD (chronic obstructive pulmonary disease) Nicotine dependence, cigarettes, uncomplicated Duodenal ulcer History of Helicobacter pylori infection (~05/2019) Dysphagia Mild major depression Memory loss Weight loss Surgical History History of colonoscopy History of tonsillectomy History of mammogram History of section History of esophagogastroduodenoscopy (EGD) Family History Father No problems noted. Mother Breast cancer Sister Breast cancer, Onset Age: 47 Brother Cancer Maternal Uncle Cancer Social History (Updated 04/02/25 @ 10:02 by IVORY Roth) Household Members: None Housing: House Do you presently have visiting nurse or other home services: No Alcohol intake: current Alcohol intake frequency: holidays/special occasions only Alcohol type: beer Patient Tobacco Use Status: Current everyday Tobacco user Tobacco use type: Cigarette Cigarettes Per Day: 8 Years Smoked: started at 14, 1ppd e-Cigarette/Vaping Use: Never Used Second Hand Smoke Exposure: No Substance Use Type: Marijuana service: No Current occupational status: unemployed 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 All systems reviewed & are unremarkable except as noted in HPI and below Physical Exam Vital Signs: BMI result Body Mass Index 23.4 Extrem Other: Right lower extremity focused physical exam: Derm: No open lesions, abrasions, or wounds noted. No edema or erythema noted. No ecchymosis or erythema noted. No clinical signs of infection. Vascular: DP/PT pulses palpable. Cap refill time less than 3 seconds. Pedal hair absent. No varicosities noted. No edema noted. Neuro: Protective sensation is grossly intact. Musculoskeletal: Significant pain on palpation to the plantar medial aspect of the calcaneus, in the area of the medial tubercle. Mild pain on palpation to the lateral calcaneal tubercle. Pain on palpation to the medial arch. Range of motion of the forefoot and ankle within normal limits. Mild antalgic gait noted unassisted. Minimal hammertoes noted. Negative windlass mechanism. Pes cavus foot type. Office Procedures AMB Flexor Tendon/Plantar POD Tendon Injection Details of AMB Procedure: Patient identified the most painful aspect of the right heel which was marked prior to injection. Next, cleansed the affected area with an alcohol. Next injected 1.5 cc of lidocaine plain, 1 cc of dexamethasone, and 0.5 cc of triamcinolone to the affected area with no incidents. A band-aid was applied to the area. Provided patient with after care instructions. Tendon Injection POD1: - Plantar Fascia Injection All charges added?: Procedure code (CPT) selection complete Office Meds triamcinolone acetonide 40 mg/mL suspension for injection Performing Provider: Sienna Ramirez DPM Performing Location: [facility] Administered by: Sienna Ramirez DPM on 04/16/25 13:04 Dose Route Admin Location Dispensed Lot Number Expiration Date [facility] Physical Fitness Trainer 20 mg Tendon Sheath Inj. 1 mL [id number] [employer] Total Dispensed Waste 1 mL 50 % dexamethasone sodium phosphate 4 mg/mL injection solution Performing Provider: Sienna Ramirez DPM Performing Location: [facility] [facility] Administered by: Sienna Ramirez DPM on 04/16/25 13:04 Dose Route Admin Location Dispensed Lot Number Expiration Date [facility] Physical Fitness Trainer 4 mg Tendon Sheath Inj. 1 mL [id number] [employer] Total Dispensed Waste 1 mL 0 % lidocaine HCl 10 mg/mL (1 %) injection solution Performing Provider: Sienna Ramirez DPM Performing Location: [facility] [place] [facility] Administered by: Sienna Ramirez DPM on 04/16/25 13:04 Dose Route Admin Location Dispensed Lot Number Expiration Date [facility] Physical Fitness Trainer 1.5 mL subcut 1.5 mL [id number] [employer] Total Dispensed Waste 1.5 mL 0 % Results Reviewed Results Reviewed: Podiatry read of right foot 3 views xrays (02/16/2025): Mild joint space narrowing noted to the 1st MPJ and IPJ consistent with early degenerative arthritic changes. Minimal spurring noted to the plantar aspect of the calcaneus. Pes cavus foot type. Right foot xrays (02/16/2025): FINDINGS: No ankle joint effusion. Small plantar calcaneal spur. Normal tarsometatarsal alignment. Tarsals, metatarsals and phalanges appear intact. Interphalangeal space narrowing. No radiopaque foreign body. IMPRESSION: 1. No radiographic evidence of acute injury to the right foot. 2. Mild degenerative changes of the right foot. Assessment & Plan Assessment & Plan (1) Calcaneal spur, right foot: Code(s): M77.31 - Calcaneal spur, right foot Category: Medical (2) Right foot pain: Code(s): M79.671 - Pain in right foot Category: Medical (3) Plantar fasciitis of right foot: Code(s): M72.2 - Plantar fascial fibromatosis Category: Medical (4) Pes cavus: Code(s): Q66.70 - Congenital pes cavus, unspecified foot Category: Medical Plan Patient was informed and verbally consented to the use of an ambient scribe for clinic note documentation during this visit. I discussed with the patient the plan to administer a cortisone injection to alleviate her foot pain associated with plantar fasciitis. We talked about the importance of starting physical therapy. I reassured her that some soreness might persist for a few days post-injection, but improvement should follow. - Administered a cortisone injection to the right heel at the site of maximal tenderness to provide pain relief. Provided patient with after care instructions. - Referred the patient to physical therapy to assist with ROM, gait training, massaging, and stretching exercises. - Recommended continuation of daily exercises and massages to alleviate right foot and heel pain. - Recommended continuation of the night splint and advised patient to wear the night splint to maintain foot positioning and facilitate stretching during sleep. - Continue use of ohby-fso-ieorfxt analgesics such as Tylenol or Ibuprofen for pain management. RTC in 1 month for re-evaluation. Orders: Orders AMB Flexor Tendon / Plantar Fascia Injection Today M72.2 - Plantar fascial fibromatosis, M77.31 - Calcaneal spur, right foot, M79.671 - Pain in right foot PT Evaluation and Treatment Today M72.2 - Plantar fascial fibromatosis, M77.31 - Calcaneal spur, right foot, M79.671 - Pain in right foot, Q66.70 - Congenital pes cavus, unspecified foot Coding Level of Care Code Est Pt Level 4 (15450) Diagnoses Calcaneal spur, right foot M77.31 Right foot pain M79.671 Plantar fasciitis of right foot M72.2 Pes cavus Q66.70 CPT Codes Tendon Injection - Tendon Injection POD1: - Plantar Fascia Injection ([id number]) Time Spent (min) 55
== END 2025-04-16 13:01 | disposition home or self-care (01) ==
LOC: HO.HPODS 12:27
PROVIDERS: PCP Internal Medicine; Visit Provider Student in an Organized Health Care Education/Training Program
DX: M77.31 Calcaneal spur, right foot (principal); M79.671 Pain in right foot; M72.2 Plantar fascial fibromatosis; Q66.70 Congenital pes cavus, unspecified foot
CPT/HCPCS: 20550; 99214

== ENCOUNTER → 2025-04-16 12:26 | Outpatient (BNVA) | payer OTHER, SELFPAY | PROVIDERS: PCP Internal Medicine; Visit Provider Student in an Organized Health Care Education/Training Program | DX: M72.2 Plantar fascial fibromatosis (principal); M77.31 Calcaneal spur, right foot; M79.671 Pain in right foot; Q66.70 Congenital pes cavus, unspecified foot | CPT/HCPCS: 20550; 99212; J1100; J2003; J3301 ==

== ENCOUNTER 2025-05-23 14:02 | Outpatient (AMB) | payer OTHER, SELFPAY ==
--- NOTE | 2025-05-23 14:18 | MHC.OFFVIS ---
Vital Signs 05/23/25 14:19 Height 5 ft Weight 120 lb BMI 23.4 Intake Visit Reasons: right plantar fasciitis - after PT and inj Intake Note: Susan is a 65 year old female who presents today for a follow up on her calcaneal spur of her right foot. At her last visit a cortisone injection was administered to her right heel and she was provided with aftercare instructions. She was referred to PT and advised to continue performing range of motion exercises and utilizing the night splints. She states she has been doing her stretching exercises and utilizing the night splint and has found slight relief after the injection however she would not want any future injections. Mechanical Test Engineer Required: Yes Mechanical Test Engineer Services: Mechanical Test Engineer Present Mechanical Test Engineer Name: [id number] Allergies Penicillins Allergy (Intermediate, Verified 05/23/25 14:22) RASH HPI Comments Details: The patient is a 64-year-old female presenting for a follow-up of right foot plantar fasciitis. The pain has been described as intermittent and sometimes strong, with episodes that come and go. The patient has been using the night splint more often and performing stretching exercises at home, which have provided some relief. The patient received a cortisone injection at the last visit, which has helped alleviate the pain to some extent, but she states the injection itself was painful. Patient has not started PT yet. She denies any other pedal concerns. [facility] Medical History (Updated 05/23/25 @ 14:19 by Sienna Ramirez DPM) Plantar fasciitis STEMI (ST elevation myocardial infarction) Pes cavus Calcaneal spur, right foot Methadone use History of heroin use History of ST elevation myocardial infarction (STEMI) (~03/2024) Mixed hyperlipidemia Moderate asthma COPD (chronic obstructive pulmonary disease) Nicotine dependence, cigarettes, uncomplicated Duodenal ulcer History of Helicobacter pylori infection (~05/2019) Dysphagia Mild major depression Memory loss Weight loss Surgical History History of colonoscopy History of tonsillectomy History of mammogram History of section History of esophagogastroduodenoscopy (EGD) Family History Father No problems noted. Mother Breast cancer Sister Breast cancer, Onset Age: 47 Brother Cancer Maternal Uncle Cancer Social History (Updated 04/02/25 @ 10:02 by IOVRY Roth) Household Members: None Housing: House Do you presently have visiting nurse or other home services: No Alcohol intake: current Alcohol intake frequency: holidays/special occasions only Alcohol type: beer Patient Tobacco Use Status: Current everyday Tobacco user Tobacco use type: Cigarette Cigarettes Per Day: 8 Years Smoked: started at 14, 1ppd e-Cigarette/Vaping Use: Never Used Second Hand Smoke Exposure: No Substance Use Type: Marijuana service: No Current occupational status: unemployed Current occupation: right hand Cognitive needs: No Hearing needs: No Vision needs: No Review of Systems Const Details: - Musculoskeletal: Reports intermittent right foot pain, worse to the heel and arch. All systems reviewed & are unremarkable except as noted in HPI and below Physical Exam Vital Signs: BMI result Body Mass Index 23.4 Extrem Other: Right lower extremity focused physical exam: Derm: No open lesions, abrasions, or wounds noted. No edema or erythema noted. No ecchymosis or erythema noted. No clinical signs of infection. Vascular: DP/PT pulses palpable. Cap refill time less than 3 seconds. Pedal hair absent. No varicosities noted. No edema noted. Neuro: Protective sensation is grossly intact. Musculoskeletal: Moderate pain on palpation to the plantar medial aspect of the calcaneus, in the area of the medial tubercle. Mild pain on palpation to the lateral calcaneal tubercle. Pain on palpation to the medial arch. Range of motion of the forefoot and ankle within normal limits. Mild antalgic gait noted unassisted. Minimal hammertoes noted. Negative windlass mechanism. Pes cavus foot type. Results Reviewed Results Reviewed: Podiatry read of right foot 3 views xrays (02/16/2025): Mild joint space narrowing noted to the 1st MPJ and IPJ consistent with early degenerative arthritic changes. Minimal spurring noted to the plantar aspect of the calcaneus. Pes cavus foot type. Right foot xrays (02/16/2025): FINDINGS: No ankle joint effusion. Small plantar calcaneal spur. Normal tarsometatarsal alignment. Tarsals, metatarsals and phalanges appear intact. Interphalangeal space narrowing. No radiopaque foreign body. IMPRESSION: 1. No radiographic evidence of acute injury to the right foot. 2. Mild degenerative changes of the right foot. Assessment & Plan Assessment & Plan (1) Pes cavus: Code(s): Q66.70 - Congenital pes cavus, unspecified foot Category: Medical (2) Right foot pain: Code(s): M79.671 - Pain in right foot Category: Medical (3) Calcaneal spur, right foot: Code(s): M77.31 - Calcaneal spur, right foot Category: Medical (4) Plantar fasciitis: Code(s): M72.2 - Plantar fascial fibromatosis Category: Medical (5) Plantar fasciitis of right foot: Code(s): M72.2 - Plantar fascial fibromatosis Category: Medical Plan Patient was informed and verbally consented to the use of an ambient scribe for clinic note documentation during this visit. I discussed with the patient the importance of continuing at home stretching exercises and using the night splint to manage right foot pain. We talked about starting physical therapy and the benefits of using shoes and inserts for arch support. I advised the patient to follow up in two months to evaluate the effectiveness of the current management plan and consider surgical options if necessary. - Continue at home stretching exercises and use of night splint to manage right plantar fasciitis. - Start physical therapy sessions. - Prescribed orthopedic shoes and inserts for arch support to alleviate pain. - Continue taking Ibuprofen or Tylenol prn for pain. - Avoid barefoot walking and wear supportive shoe gear. RTC in 2 months. Medications: New [orthopedic shoes and inserts] As directed 1 ea 0RF M72.2 - Plantar fascial fibromatosis, M77.31 - Calcaneal spur, right foot, M79.671 - Pain in right foot, Q66.70 - Congenital pes cavus, unspecified foot Coding Level of Care Code Est Pt Level 4 (32996) Diagnoses Pes cavus Q66.70 Right foot pain M79.671 Calcaneal spur, right foot M77.31 Plantar fasciitis M72.2 Plantar fasciitis of right foot M72.2 Time Spent (min) 33
[2025-05-23 14:19] VITALS: BMI 23.4
== END 2025-05-23 14:31 | disposition home or self-care (01) ==
LOC: HO.HPODS 14:03
PROVIDERS: PCP Internal Medicine; Visit Provider Student in an Organized Health Care Education/Training Program
DX: Q66.70 Congenital pes cavus, unspecified foot (principal); M79.671 Pain in right foot; M77.31 Calcaneal spur, right foot; M72.2 Plantar fascial fibromatosis
CPT/HCPCS: 99214

== ENCOUNTER → 2025-05-23 14:02 | Outpatient (BNVA) | payer OTHER, SELFPAY | PROVIDERS: PCP Internal Medicine; Visit Provider Student in an Organized Health Care Education/Training Program | DX: Q66.71 Congenital pes cavus, right foot (principal); M79.671 Pain in right foot; M77.31 Calcaneal spur, right foot; M72.2 Plantar fascial fibromatosis | CPT/HCPCS: 99212 ==